=== PATIENT | female | born 1960 | race Caucasian/White ===

== ENCOUNTER → 2023-01-16 11:27 | Outpatient (BNVA) | payer OTHER, SELFPAY | PROVIDERS: PCP Internal Medicine; Visit Provider Physician Assistant Surgical ==

== ENCOUNTER 2023-01-22 08:20 | Outpatient (AMB) | payer OTHER, SELFPAY ==
--- OUTSIDE RECORDS SUMMARY | 2023-01-22 08:22 | XMS_ITS | Continuity of Care Document ---
Author Name Unknown Organization [facility] Address [address] [place] [address]- Care Team Providers Care Fur Plucker Name Role Phone Agnieszka CNC LASER OPERATOR, Marily Meadows Primary Care Physician Encounter [facility] Date(s): 01/29/21 - 02/28/21 [facility] [address], [place] [address] Allergies, Adverse Reactions, Alerts Substance Reaction Severity Status sulfa drugs Nausea Active Caffeine Nervousness Tachycardia Active Sulfite Allergy Nausea Active Immunizations Given and Recorded Vaccine Date Status Refusal Reason SARS-CoV-2 (COVID-19) mRNA BNT-162b2 vac 06/05/20 Recorded SARS-CoV-2 (COVID-19) mRNA BNT-162b2 vac 05/15/20 Recorded zoster vaccine, inactivated 11/20/19 Recorded zoster vaccine, inactivated 05/09/19 Recorded tetanus-diphtheria toxoids (Td) 03/02/18 Recorded tetanus-diphtheria toxoids (Td) 02/09/99 Recorded influenza virus vaccine, inactivated 02/18/17 [facility] influenza virus vaccine, inactivated 02/23/14 Mayo rded influenza virus vaccine, inactivated 02/23/13 [facility] rded influenza virus vaccine, inactivated 02/24/12 [facility] rded influenza virus vaccine, inactivated 01/28/11 [facility] rded influenza virus vaccine, inactivated 03/20/10 [facility] rded influenza virus vaccine, inactivated 03/02/08 [facility] rded influenza virus vaccine, inactivated 03/16/07 [facility] r[facility] tetanus/diphtheria/pertussis, acel(Tdap) 03/02/08 Recorded Medications acetaminophen 325 mg oral tablet 975 mg, By Mouth, Every 6 hours, PRN, # 30 tablet, Refills 0, Tot. Refills 0, Acute 03/01/21 12:48:00 EDT, Pain , Moderate, 02/28/21 12:48:00 EDT, Route to Pharmacy Electronically, [id number], Partial fill upon patient request if the... Start Date: 02/28/21 Stop Date: 03/01/21 Status: Ordered acetaminophen 325 mg oral tablet 650 mg, By Mouth, Every 6 hours, PRN, Refills 0, Maintenance, Pain , Moderate, 06/22/19 12:27:00 EST Start Date: 06/22/19 Status: Ordered Biotin 2 gummies, By Mouth, Daily, 0 Refills, Maintenance, 02/23/21 9:09:00 EDT, Partial fill upon patientrequest if the prescription is for a schedule II opioid drug. Start Date: 02/23/21 Status: Ordered calcium and vitamin D combination 500 mg-200 iu oral tablet 1 tablet, By Mouth, Daily, # 120 tablet, 0 Refills, Maintenance, 02/23/21 9:11:00 EDT, Tablet, Partial fill upon patient request if the prescription is for a schedule II opioid drug. Start Date: 02/23/21 Status: Ordered Claritin 10 mg oral tablet 10 mg, 1, tablet, By Mouth, Daily at bedtime, # 30 tablet, Refills 0, Maintenance, 06/21/19 6:00:00EST Start Date: 06/21/19 Status: Ordered Colace sodium 100 mg oral capsule 100 mg, 1, capsule, By Mouth, 2 times a day, PRN, # 60 capsule, Refills 0, Tot. Refills 0, Maintenance, for constipation, 08/29/20 9:36:00 EDT, Route to Pharmacy Electronically, [id number], Partial fill upon patient request if the pre... Start Date: 08/29/20 Status: Ordered Cranial Prosthesis See Instructions, # 1 each, Maintenance, please supply one cranial prosthesis, 09/12/20 12:05:00 EDT, Compound Start Date: 09/12/20 Status: Ordered Fish Oil oral capsule 1 tab, By Mouth, Daily, 0 Refills, Maintenance, 07/19/20 16:14:00 EST, Partial fill upon patient request if the prescription is for a schedule II opioid drug. Start Date: 07/19/20 Status: Ordered Flonase 50 mcg/inh nasal spray 2 sprays, Nares, Both, Daily in AM, 0 Refills, Maintenance, 07/19/20 16:13:00 EST, [place], Partial fill upon patient request if the prescription is for a schedule II opioid drug. Start Date: 07/19/20 Status: Ordered gabapentin 100 mg oral capsule See Instructions, TAKE 1 CAPSULE BY MOUTH DAILY AT BEDTIME CAN INCREASE TO 2 CAPSULES BY MOUTH DAILY IF TOLERATED, # 60 capsule, Refills 0, Instructions Replace Required Details, Route to Pharmacy Electronically, [facility] #[id number], 164.7, cm... Start Date: 02/05/21 Status: Ordered Glucosamine Chondroitin 1 tab, By Mouth, Daily, 0 Refills, Maintenance, 07/19/20 16:14:00 EST, Partial fill upon patient request if the prescription is for a schedule II opioid drug. Start Date: 07/19/20 Status: Ordered lidocaine-prilocaine 2.5%-2.5% topical cream See Instructions, apply to [facility] 30-60min prior to each chemotherapy session, # 30 Gm, 2 Refills, Maintenance, 09/26/20 8:09:00 EDT, [facility], Partial fill upon patient request if the prescription is for a schedule II opioi... Start Date: 09/26/20 Status: Ordered magnesium glycinate 1 tab, By Mouth, Daily at bedtime, 0 Refills, Maintenance, 02/23/21 9:12:00 EDT, Partial fill upon patient request if the prescription is for a schedule II opioid drug. Start Date: 02/23/21 Status: Ordered MiraLax oral powder for reconstitution = 17 Gm, By Mouth, Daily, dissolve in water before taking, # 527 Gm, 2 Refills, Maintenance, 11/06/20 9:20:00 EDT, REC Powder, [facility], Partial fill upon patient request if the prescription is for a schedule II opioid drug., 17 Gm... Start Date: 11/06/20 Status: Ordered Miscellaneous Rx 0 Refills, Maintenance, womens multivitamin 2 tabs daily, 02/23/21 9:13:00 EDT Start Date: 02/23/21 Status: Ordered Multivitamin Daily, 0 Refills, Maintenance, 07/19/20 16:14:00 EST, Partial fill upon patient request if the prescription is for a schedule II opioid drug. Start Date: 07/19/20 Status: Ordered prochlorperazine 10 mg oral tablet 1 tablet = 10 mg, By Mouth, Every 6 hours, PRN Nausea, # 30 tablet, 2 Refills, Maintenance, 09/26/20 8:09:00 EDT, Tablet, [facility], Partial fill upon patient request if the prescription is for a schedule II opioid drug., 163.9, cm,... Start Date: 09/26/20 Status: Ordered psyllium - oral capsule 1 cap, By Mouth, 2 times a day, 0 Refills, Maintenance, 01/17/21 15:49:00 EDT, Partial fill upon patient request if the prescription is for a schedule II opioid drug. Start Date: 01/17/21 Status: Ordered Senna 8.6 mg oral tablet 8.6 mg, 1, tablet, By Mouth, 2 times a day, PRN, # 100 tablet, Refills 2, Tot. Refills 2, Maintenance, for constipation, 11/27/20 13:41:00 EDT, Route to Pharmacy Electronically, [facility] Tablet, Partial fill upon patient request if... Start Date: 11/27/20 Status: Ordered Vitamin B Complex oral tablet, extended release 1 tab, By Mouth, Daily, 0 Refills, Maintenance, 02/23/21 9:10:00 EDT, Partial fill upon patient request if the prescription is for a schedule II opioid drug. Start Date: 02/23/21 Status: Ordered Vitamin C 500 mg oral tablet 1 tablet = 500 mg, By Mouth, Daily, 0 Refills, Maintenance, 02/23/21 9:13:00 EDT, Partial fill uponpatient request if the prescription is for a schedule II opioid drug. Start Date: 02/23/21 Status: Ordered Vitamin D3 oral tablet 1 tablet = 400 International_Units, By Mouth, Daily, # 30 tablet, 0 Refills, Maintenance, 08/23/20 8:05:00 EDT, Tablet, Partial fill upon patient request if the prescription is for a schedule II opioid drug. 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
--- OUTSIDE RECORDS SUMMARY | 2023-01-22 08:22 | XMS_ITS | Continuity of Care Document ---
Author Name Unknown Organization [facility] Address [address] [place] [address]- Care Team Providers Care Paving Inspector Name Role Phone Marily Aaron NP Primary Care Physician Encounter [facility] Date(s): 04/16/21 - 05/16/21 [facility] [address] [place] [address]- Attending Physician: Admtr, Fran8 Admitting Physician: Admtr, Ar8 Referring Physician: Admtr, Ar8 Allergies, Adverse Reactions, Alerts Substance Reaction Severity Status sulfa drugs Nausea Active Sulfite Allergy Nausea Active Caffeine Nervousness Tachycardia Active Immunizations Given and Recorded Vaccine Date Status Refusal Reason SARS-CoV-2 (COVID-19) mRNA BNT-162b2 vac 03/23/21 Recorded SARS-CoV-2 (COVID-19) mRNA BNT-162b2 vac 06/05/20 Recorded SARS-CoV-2 (COVID-19) mRNA BNT-162b2 vac 05/15/20 Recorded influenza virus vaccine, inactivated 03/08/21 [facility] r[facility] influenza virus vaccine, inactivated 02/21/20 [facility] r[facility] influenza virus vaccine, inactivated 02/18/17 [facility] r[facility] influenza virus vaccine, inactivated 02/23/14 [facility] rded influenza virus vaccine, inactivated 02/23/13 [facility] r[facility] influenza virus vaccine, inactivated 02/24/12 [facility] rded influenza virus vaccine, inactivated 01/28/11 [facility] influenza virus vaccine, inactivated 03/20/10 [facility] rded influenza virus vaccine, inactivated 03/02/08 [facility] rded influenza virus vaccine, inactivated 03/16/07 [facility] zoster vaccine, inactivated 11/20/19 Recorded zoster vaccine, inactivated 05/09/19 Recorded tetanus-diphtheria toxoids (Td) 03/02/18 Recorded tetanus-diphtheria toxoids (Td) 02/09/99 Recorded tetanus/diphtheria/pertussis, acel(Tdap) 03/02/08 Recorded Medications acetaminophen 325 mg oral tablet 650 mg, [...] 08/29/20 9:36:00 EDT, [id number], Partial fill upon patient request if the [...] AM, 0 Refills, Maintenance, 07/19/20 16:13:00 EST, [place], Partial fill upon patient request if the prescription is for a schedule II opioid drug. Start Date: 07/19/20 Status: Ordered Glucosamine Chondroitin 1 tab, By Mouth, Daily, 0 Refills, Maintenance, 07/19/20 16:14:00 EST, Partial fill upon patient request if the prescription is for a schedule II opioid drug. Start Date: 07/19/20 Status: Ordered magnesium glycinate 1 tab, By [...] Refills, Maintenance, 11/06/20 9:20:00 EDT, REC Powder, [facility], Partial fill upon patient request [...] opioid drug. 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
--- OUTSIDE RECORDS SUMMARY | 2023-01-22 08:22 | XMS_ITS | Continuity of Care Document ---
Author Name Unknown Organization [facility] Address [address] [place] [address]- Care Team Providers Care Web Marketing Intern Name Role Phone Mora Zimmer MD Primary Care Physician [place] [facility] [place](s): 04/24/22 - 05/24/22 [facility] [address] [place] [address]- Attending Physician: Admdenys, Cosmo Admitting Physician: Admtr, Cosmo Referring Physician: Admtr, Ar8 Allergies, Adverse Reactions, Alerts Substance Reaction Severity Status sulfa drugs Nausea Active Caffeine Nervousness Tachycardia Active Sulfite Allergy Nausea Active Immunizations Given and Recorded Vaccine Date Status Refusal Reason SARS-CoV-2 mRNA ([id number]) vax 08/20/21 Recorded SARS-CoV-2 (COVID-19) mRNA BNT-162b2 vac 03/23/21 Recorded [...] inactivated 03/16/07 [facility] r[facility] zoster vaccine, inactivated 7/11/20 Recorded zoster vaccine, inactivated 05/09/19 Recorded tetanus-diphtheria toxoids (Td) 03/02/18 Recorded tetanus-diphtheria toxoids (Td) 02/09/99 Recorded tetanus/diphtheria/pertussis, acel(Tdap) 03/02/08 Recorded Medications Biotin 2 gummies, By Mouth, Daily, 0 [...] 06/21/19 6:00:00EST Start Date: 06/21/19 Status: Ordered Fish Oil oral capsule 1 [...] opioid drug. Start Date: 07/19/20 Status: Ordered Vitamin B Complex oral tablet, [...] Date: 08/23/20 Status: Ordered Problem List Condition Confirmation Course Effective Dates Status H ealth Status Informant Anemia Confirmed Active Binge eating disorder, mild, in partial remission Confirmed Active Uterine carcinosarcoma Confirmed Active Constipation Confirmed Active Hemorrhoids Confirmed Active Herpes genitalis in women Confirmed Active HLD (hyperlipidemia) Confirmed Active IBS (irritable bowel syndrome) Confirmed Active Obese class II Confirmed Active OA (osteoarthritis) Confirmed Active Restless legs Confirmed Active 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 Active Social History Social History Type Response Smoking Status Former smoker, quit more than 30 days ago;Never entered on: 10/19/21 Sex Patient Care team information Care Team Personnel Name: Tatiana Leal RN Position: [facility] RN Member Role: Primary Care Nurse Name: Mora Zimmer MD Position: [facility] Primary Care Physician Member Role: PCP Address: Address: [address] [place] [address] [place] [address]- Name: Razia Gibbs RN Position: S RN Member Role: Primary Care Nurse Name: Mauricio Pineda RN Position: S RN Member Role: Primary Care Nurse Care Team Related Persons Name: KAYLA MANJARREZ Name: KAYCE LACEY Address: [address] [address]
--- OUTSIDE RECORDS SUMMARY | 2023-01-22 08:22 | XMS_ITS | Continuity of Care Document ---
Author Name Unknown Organization [facility] Address [address] [place] [address]- Care Team Providers Care Paramedic Instructor Name Role Phone Lenora Courtney Primary Care Physician [place] [facility] [place] - 04/03/[address] [address]- Discharge Disposition: A-D/C Home Attending Physician: Aguilar Short MD Admitting Physician: Aguilar Short MD Referring Physician: Aguilar Short MD Allergies, Adverse Reactions, Alerts Substance Reaction Severity Status sulfa drugs Nausea Active Caffeine Nervousness Tachycardia Active Sulfite Allergy Nausea Active Immunizations Given and Recorded Vaccine Date Status Refusal Reason SARS-CoV-2 mRNA ([id number]) vax 08/20/21 Recorded SARS-CoV-2 (COVID-19) mRNA BNT-162b2 [...] intraepithelial neoplasia (NELSON) grade 1 Confirmed Active Vital Signs Most recent to oldest [Reference Range]: 1 Height 163.5 cm (04/03/22 7:09 AM) Weight 105 kg (04/03/22 7:09 AM) Oxygen Saturation [94-100 %] 99 % (04/03/22 7:05 AM) Pulse Rate [55-90 bpm] 69 bpm (04/03/22 7:05 AM) Blood Pressure [90-138/55-84 mm Hg] 139/ 48mm Hg *H* (04/03/22 7:05 AM) Respiratory Rate [16-30 br/min] 20 br/mi n (04/03/22 7:05 AM) Temperature [96.8-100.4 DegF] 97.2 DegF (04/03/22 7:05 AM) Mode of Delivery (Oxygen) Room air (04/03/22 7:05 AM) Blood pressure sites Arm, right (04/03/22 7:05 AM) Temperature Route Oral (04/03/22 7:05 AM) Dry Weight 105 kg (04/03/22 7:09 AM) Social History Social History Type Response Smoking Status Former smoker, quit more than 30 days ago;Never entered on: 10/19/21 Sex Hospital Progress note * Giselle Pablo RN: SIGN, MODIFY, PERFORM, SIGN, VERIFY Event Display: Progress Note Hospital Authored Date: [id number] Patient: ELIDA PADILLA Age: 61 years Sex: Female : 1960 Associated Diagnoses: None Author: Giselle Pablo RN Findings Narrative/Incidental pt here for port removal, ambulatory, alert and oriented, denied pain at admission time. VSS, Iv placed to Rt hand, labs drawn, sent, IVF as ordered. Call baxter within reach. Pt already out to procedure.. * Giselle Pablo RN: PERFORM Event Display: Progress Note Hospital Authored Date: pt returned from procedure at 0905, awake, alert and oriented, denies pain, VSS. No Meds given for procedure, pt will be d/c home. D/c instructions reviewed, understanding verbalize, Note * Event Display: HV IR Venous Access Device Removal Authored Date: Interventional Radiology Demographics Patient Name ELIDA PADILLA Gender Female [employer] Room Number [id number] Height 64.37 inches Date of 1960 Weight 231.49 pounds Age 61 year(s) BSA 2.09 m2 Accession Number [id number] BMI 39.28 kg/m2 Referring Physician Han Romo Date of Study 04/03/2022 Performing Provider Dao JO Supervising Physician Efe Mosqueda MD Procedure Procedure Type Venous Access Device Removal, Port, Interventional Radiology Indications Additional Indications uterine cancer Procedure Narrative The risks, benefits, and alternatives of the procedure were explained and informed consent was obtained. EMLA cream had been placed over the Port area prior to arrival to IR. The patient was brought to the angiosuite and placed supine on the angiography table. The skin over the Port reservoir was draped and prepped using sterile technique. Pre-procedure time-out was performed and verified appropriate patient identity, site, side, procedure, and availability of necessary materials. Local anesthesia was given subcutaneously with lidocaine 1% over and around the reservoir. The prior incision was opened with a scalpel and blunt dissection was done around the Port until the fibrotic sac around the port could be incised. The single lumen Port was easily removed with its entire catheter by using gentle traction. Upon removal, the catheter was examined and appeared intact and completely removed. The incision was closed with absorbable sutures (separate 2-0 deep vycril and 4-0 monocryl) and the skin was covered with topical adhesive and a sterile occlusive dressing. The patient tolerated the procedure very well without immediate complication. IR Summary Impression Successful removal of right-sided chest venous access Port. Recommendations Follow up with referring team. Clinical History Clinical History 61 year old female presents for port removal following completion of treatment. Procedure Data Procedure Date Date: 04/03/2022tart: 08:01End: 08:58 The procedure was explained in detail to the patient. Risks, complications and alternative treatments were reviewed. Written consent was obtained. Procedure Medications - Lidocaine 1% w/ Sodium Bicarb S.C. 8 ml. - Marcaine w Epinephrine [id number] S.C. 10 ml. Sedation:No intra-service moderate sedation was used for this case. Contrast Material - No Contrast Used0 ml Fluoroscopy Time: PCI: 0:00 minutes. Total: 0:00 minutes. Fluoroscopy Dose: PCI: 0 mGy. Total: 0 mGy. Dose Area Product:PCI: 0 mGy/cm2. Total: 0 mGy/cm2. Dose Area Product:PCI: 0 ??Gy/m2. Total: 0 ??Gy/m2. Hemodynamics Signatures * Event Display: HV IR Venous Access Device Removal Authored Date: * Giselle Pablo RN: PERFORM Event Display: Discharge/Transfer Note Hospital Authored Date: Nursing Discharge Note Entered On: 04/03/2022 9:29 EST Performed On: 04/03/2022 9:29 EST by Giselle Pablo RN Nursing Discharge Note 2 Discharge Time : 04/03/2022 9:29 EST Discharge Level of Care at Discharge : Home/Residential/Foster Care Patient Left Unit Via : Ambulatory Patient Accompanied Off Unit with : Other: self DC Instructions Provided & Signed by Pt : Yes Patient Understands D/C Instructions : Yes Patient Instructions Discharge Signed : Yes Did Pt have Specialty Bed or Wound Vac : No Bystrzynski RN, Giselle - 04/03/2022 9:29 EST Patient Care team information Care Team Personnel Name: Tatiana Leal RN Position: [facility] SN RN Member Role: Primary Care Nurse Name: Razia Gibbs RN Position: S RN Member Role: Primary Care Nurse Name: Lenora Courtney Position: [facility] PCO Associate Professional Member Role: PCP Address: Address: [address] [place] [address] [place] [address]- Name: Mauricio Pineda RN Position: S RN Member Role: Primary Care Nurse Care Team Related Persons Name: KAYLA MANJARREZ Name: KAYCE LACEY Address: [address] [address]
--- OUTSIDE RECORDS SUMMARY | 2023-01-22 08:22 | XMS_ITS | Continuity of Care Document ---
Author Name Unknown Organization [facility] Address [address] [place] [address]- Care Team Providers Care Straightening Press Operator Name Role Phone Mora Zimmer MD Primary Care Physician [place] [facility] [place](s[place] 10/29/22 - 11/27/[address] [address]- Encounter Diagnosis Other abnormalities of gait and mobility(Final) - Discharge Disposition: A-D/C Home Attending Physician: Mora Zimmer MD Admitting Physician: Mora Zimmer MD Referring Physician: Mora Zimmer MD Allergies, Adverse Reactions, Alerts Substance Reaction Severity Status sulfa drugs Nausea Active Caffeine Nervousness Tachycardia Active Sulfite Allergy Nausea Active Immunizations Given and Recorded Vaccine Date Status Refusal Reason SARS-CoV-2 mRNA ([id number]) vax 08/20/21 Recorded SARS-CoV-2 (COVID-19) mRNA BNT-162b2 [...] opioid drug. Start Date: 07/19/20 Status: Ordered Smoothie Readi-Cat 2 oral suspension See Instructions, If scan in the am, drink 1st bottle night before & 2nd bottle 90 min before scan. If scan after 12p, drink 1st bottle by 8a & 2nd bottle 90 min before. If scan after 4p, drink 1st bottle 6hrs before & 90 minutes before scan, # 2 each... Start Date: 11/25/22 Status: Ordered Vitamin B Complex oral tablet, [...] Effective Dates Status H ealth Status Informant Binge eating disorder, mild, in partial remission Confirmed Active Uterine carcinosarcoma Confirmed Active Constipation Confirmed Active Chronic fatigue Confirmed Active S/P knee replacement Confirmed Active Hemorrhoids Confirmed Active Herpes genitalis in women Confirmed Active HLD (hyperlipidemia) Confirmed Active Balance disorder Confirmed Active IBS (irritable bowel syndrome) Confirmed Active Chemotherapy-induced neuropathy Confirmed Active OA (osteoarthritis) Confirmed Active Osteoarthritis of both hands Confirmed Active Restless legs Confirmed Active Venous insufficiency Confirmed Active 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 Active Social History Social History Type Response Smoking Status Former smoker, quit more than 30 days ago;Never entered on: 10/19/21 Sex Patient Care team information Care Team Personnel Name: Tatiana Leal RN Position: [facility] SN RN Member Role: Primary Care Nurse Name: Mora Zimmer MD Position: S Physician - Primary Care Member Role: PCP Address: Address: [address] [place] [address] [place] [address]- Name: Razia Gibbs RN Position: S RN Member Role: Primary Care Nurse Name: Mauricio Pineda RN Position: S RN Member Role: Primary Care Nurse Care Team Related Persons Name: KAYLA MANJARREZ Name: KAYCE LACEY Address: [address] [address]
--- OUTSIDE RECORDS SUMMARY | 2023-01-22 08:22 | XMS_ITS | Continuity of Care Document ---
Author Name Unknown Organization [facility] BUSINESS RISK CONSULTANT Oncolog y Address [address] [place] [address]- Care Team Providers Care Materials Buyer Name Role Phone Marily Aaron NP Primary Care Physician [place] [facility] [place] 02[place]10/21 [facility] RISK CONSULTANT Oncology [address] [place] [address]- Allergies, Adverse Reactions, Alerts Substance Reaction Severity [...] 650 mg, By Mouth, Every 6 hours, Refills 0, Maintenance, 06/22/19 12:27:00 EST Start Date: 06/22/19 Status: Ordered Advil By Mouth, Every 6 hours, Refills 0, Maintenance, 07/19/20 16:13:00 EST, Partial fill upon patient request if the prescription is for a schedule II opioid drug. Start Date: 07/19/20 Status: Ordered Claritin 10 mg oral tablet [...] 08/29/20 9:36:00 EDT, Route to Pharmacy Electronically, [facility] #[id number], Partial fill upon patient request if the pre... Start Date: 08/29/20 Status: Ordered Cranial Prosthesis See Instructions, # 1 each, Maintenance, please supply one cranial prosthesis, 09/12/20 12:05:00 EDT, Compound Start Date: 09/12/20 Status: Ordered Cyanocobalamin 0 Refills, Maintenance, 09/22/20 10:36:00 EDT, Partial fill upon patient request if the prescription is for a schedule II opioid drug. Start Date: 09/22/20 Status: Ordered Fish Oil oral capsule 0 Refills, Maintenance, 07/19/20 16:14:00 EST, Partial fill upon patient request if the prescription is for a schedule II opioid drug. Start Date: 07/19/20 Status: Ordered Flonase 50 mcg/inh nasal spray 2 sprays, Nares, Both, Daily in AM, 0 Refills, Maintenance, 07/19/20 16:13:00 EST, [place], Partial fill upon patient request if the prescription is for a schedule II opioid drug. Start Date: 07/19/20 Status: Ordered gabapentin 100 mg oral capsule See Instructions, TAKE 1 CAPSULE BY MOUTH DAILY AT BEDTIME CAN INCREASE TO 2 CAPSULES BY MOUTH DAILY IF TOLERATED, # 60 capsule, Refills 0, Instructions Replace Required Details, Route to Pharmacy Electronically, [facility] #[id number], 164.7, cm... Start Date: 02/05/21 Status: Ordered Glucosamine Chondroitin By Mouth, Daily, 0 Refills, Maintenance, 07/19/20 16:14:00 EST, Partial fill upon patient request if the prescription is for a schedule II opioid drug. Start Date: 07/19/20 Status: Ordered ibuprofen 600 mg oral tablet 600 mg, 1, tablet, By Mouth, Every 6 hours, PRN, # 40 tablet, Refills 0, Tot. Refills 0, Maintenance, for pain, 08/29/20 9:35:00 EDT, Route to Pharmacy Electronically, [facility] #[id number], Partial fill upon patient request if the prescription... Start Date: 08/29/20 Status: Ordered lidocaine-prilocaine 2.5%-2.5% topical cream See Instructions, apply to [facility] site 30-60min prior to each chemotherapy session, # 30 Gm, 2 Refills, Maintenance, 09/26/20 8:09:00 EDT, [facility], Partial fill upon patient request if the prescription is for a schedule II opioi... Start Date: 09/26/20 Status: Ordered Miracle Mouth wash: Mix Benadryl elixir 4oz, Nystatin susp 4oz, Lidocaine viscous 2% 100ml, Maalox Miracle Mouth wash: Mix Benadryl elixir 4oz, Nystatin susp 4oz, Lidocaine viscous 2% 100ml, Maalox 8oz, See Instructions, # 1 each, Refills 0, Tot. Refills 0, Maintenance, 1-2tsp every 2-4 hrs as needed for pain. Swish and swallow. Shake well before u... Start Date: 12/11/20 Status: Ordered MiraLax oral powder for reconstitution = 17 Gm, By Mouth, Daily, dissolve in water before taking, # 527 Gm, 2 Refills, Maintenance, 11/06/20 9:20:00 EDT, REC Powder, [facility], Partial fill upon patient request if the prescription is for a schedule II opioid drug., 17 Gm... Start Date: 11/06/20 Status: Ordered Multivitamin Daily, 0 Refills, Maintenance, 07/19/20 16:14:00 EST, Partial fill upon patient request if the prescription is for a schedule II opioid drug. Start Date: 07/19/20 Status: Ordered oxyCODONE 5 mg oral tablet 5 mg, 1, tablet, By Mouth, Every 6 hours, PRN, # 18 tablet, Refills 0, Tot. Refills 0, Maintenance,for pain, 08/29/20 9:36:00 EDT, [id number], Partial fill upon patient request if the prescription is... Start Date: 08/29/20 Status: Ordered prochlorperazine 10 mg oral tablet 1 tablet = 10 mg, By Mouth, Every 6 hours, PRN Nausea, # 30 tablet, 2 Refills, Maintenance, 09/26/20 8:09:00 EDT, Tablet, [facility], Partial fill upon patient request if the prescription is for a schedule II opioid drug., 163.9, cm,... Start Date: 09/26/20 Status: Ordered psyllium - oral capsule 0 Refills, Maintenance, 01/17/21 15:49:00 EDT, Partial fill upon patient request if the prescription is for a schedule II opioid drug. Start Date: 01/17/21 Status: Ordered Senna 8.6 mg oral tablet 8.6 mg, 1, tablet, By Mouth, 2 times a day, PRN, # 100 tablet, Refills 2, Tot. Refills 2, Maintenance, for constipation, 11/27/20 13:41:00 EDT, Route to Pharmacy Electronically, [facility], Partial fill upon patient request if... Start Date: 11/27/20 Status: Ordered Smoothie Readi-Cat 2 oral suspension See Instructions, If scan is in the morning, drink 1st bottle before bedtime the night before &2nd bottle 90 min before.if scan is after 12p, drink 1st bottle before 8a in the morning & 2nd bottle 90 min before.if scan after 4p,drink 1st bottle 6hrs... Start Date: 02/08/21 Status: Ordered Vitamin D3 oral tablet 1 [...]
--- OUTSIDE RECORDS SUMMARY | 2023-01-22 08:22 | XMS_ITS | Continuity of Care Document ---
Author Name Unknown Organization [facility] Address [address] [place] [address]- Care Team Providers Care Nurse Prn Name Role Phone Levon VIDAL, Latrice Paige Primary Care Physician [place] [facility] [place] 10/06/19 - 11/05/[address] [address]- [facility] Attending Physician: Cosmo Johnson Admitting Physician: Cosmo Johnson Referring Physician: AdmtrCosmo Allergies, Adverse Reactions, Alerts Substance Reaction Severity Status sulfa drugs Active Caffeine Active Sulfite Allergy Active Medications acetaminophen 325 mg oral tablet 650 mg, By Mouth, Every 6 hours, Refills 0, Maintenance, 06/22/19 12:27:00 EST Start Date: 06/22/19 Status: Ordered aspirin 162.5 mg oral capsule, extended release = 325 mg, By Mouth, 2 times a day, 0 Refills, Maintenance, 09/03/19 7:19:00 EDT, ER Capsule Start Date: 09/03/19 Status: Ordered celecoxib 200 mg oral capsule 1 capsule = 200 mg, By Mouth, Daily, 0 Refills, Maintenance, 09/03/19 7:20:00 EDT, Capsule Start Date: 09/03/19 Status: Ordered Claritin 10 mg oral tablet 10 mg, 1, tablet, By Mouth, Daily, # 30 tablet, Refills 0, Maintenance, 06/21/19 6:00:00 EST Start Date: 06/21/19 Status: Ordered Colace Capsule 100 mg, 1, capsule, By Mouth, 2 times a day, Refills 0, Maintenance, 09/03/19 7:20:00 EDT Start Date: 09/03/19 Status: Ordered Maalox Plus Liquid 30 mL, By Mouth, Every 4 hours, PRN Other, Heartburn, 0 Refills, Maintenance, 09/03/19 7:19:00 EDT,Suspension Start Date: 09/03/19 Status: Ordered Milk of Magnesia Liquid 30 mL, By Mouth, Daily, PRN Constipation, 0 Refills, Maintenance, 09/03/19 7:20:00 EDT, Suspension Start Date: 09/03/19 Status: Ordered MiraLax Powder 1 pack/packet = 17 Gm, By Mouth, Daily, 0 Refills, Maintenance, 09/03/19 7:20:00 EDT, Powder Start Date: 09/03/19 Status: Ordered pantoprazole 40 mg oral delayed release tablet = 40 mg, By Mouth, Daily in AM, 0 Refills, Maintenance, 09/03/19 7:20:00 EDT, EC Tablet Start Date: 09/03/19 Status: Ordered senna 187 mg oral tablet 1 tablet = 8.6 mg, By Mouth, Daily at bedtime, 0 Refills, Maintenance, 09/03/19 7:20:00 EDT, Tablet Start Date: 09/03/19 Status: Ordered Soma 350 mg oral tablet 350 mg, 1, tablet, By Mouth, 3 times a day, PRN, Refills 0, Maintenance, Spasm, 09/03/19 7:20:00 EDT Start Date: 09/03/19 Status: Ordered
--- OUTSIDE RECORDS SUMMARY | 2023-01-22 08:22 | XMS_ITS | Continuity of Care Document ---
Author Name Unknown Organization [facility] BLUING OVEN TENDER Oncolog y Address [address] [place] [address]- Care Team Providers Care Bindery Machine Setter Name Role Phone Agnieszka LAW ENFORCEMENT DIRECTOR, Marily Meadows Primary Care Physician Encounter [facility] Date(s): 07/04/21 - 08/03/21 [facility] OV[facility] TEND[facility] Oncology [address] [place] [address]- Allergies, Adverse Reactions, Alerts Substance Reaction Severity [...] 08/29/20 9:36:00 EDT, Route to Pharmacy Electronically, [facility] #[id number], Partial fill upon patient request if the [...] AM, 0 Refills, Maintenance, 07/19/20 16:13:00 EST, [place], Partial fill upon patient request if the [...] Refills, Maintenance, 11/06/20 9:20:00 EDT, REC Powder, [facility], Partial fill upon patient request [...] 11/27/20 13:41:00 EDT, Route to Pharmacy Electronically, [facility] Tablet, Partial fill upon patient [...] Hemorrhoids(Confirmed) Active Herpes genitalis in women(Confirmed) Active History of uterine cancer(Confirmed) Active HLD (hyperlipidemia)(Confirmed) Active IBS (irritable bowel syndrome)(Confirmed) Active Obese class II(Confirmed) Active OA (osteoarthritis)(Confirmed) Active Restless legs(Confirmed) Active 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
--- OUTSIDE RECORDS SUMMARY | 2023-01-22 08:22 | XMS_ITS | Continuity of Care Document ---
Author Name Unknown Organization [facility] METEOROLOGICAL OBSERVER Oncolog y Address [address] [place] [address]- Care Team Providers Care General Practitioner Name Role Phone Marily Aaron NP Primary Care Physician [place] [facility] [place] 01/02[place]21 - 02/01/21 [facility] METEOROLOGICAL OBSERVER Oncology [address] [place] [address]- Allergies, Adverse Reactions, Alerts Substance Reaction Severity [...] 08/29/20 9:36:00 EDT, Route to Pharmacy Electronically, [facility] #[id number], Partial fill upon patient request if the [...] AM, 0 Refills, Maintenance, 07/19/20 16:13:00 EST, [place], Partial fill upon patient request if the prescription is for a schedule II opioid drug. Start Date: 07/19/20 Status: Ordered gabapentin 100 mg oral capsule See Instructions, start with 1 capsule daily at bedtime, can increase to 2 capsules if tolerated, #60 capsule, Refills 0, Tot. Refills 0, Maintenance, 01/11/21 16:10:00 EDT, Instructions Replace Required Details, [facility] to [facility] Electron[facility], [facility] Start Date: 01/11/21 Status: Ordered Glucosamine Chondroitin By Mouth, Daily, [...] 08/29/20 9:35:00 EDT, Route to Pharmacy Electronically, [facility] #[id number], Partial fill upon patient request if the prescription... Start Date: 08/29/20 Status: Ordered lidocaine-prilocaine 2.5%-2.5% topical cream See Instructions, apply to [facility] 30-60min prior to each chemotherapy session, # 30 Gm, 2 Refills, Maintenance, 09/26/20 8:09:00 EDT, [facility], Partial fill upon patient request [...] Refills, Maintenance, 11/06/20 9:20:00 EDT, REC Powder, [facility], Partial fill upon patient request [...] 08/29/20 9:36:00 EDT, Route to Pharmacy Electronically, [facility] #[id number], Partial fill upon patient request if the prescription is... Start Date: 08/29/20 Status: Ordered prochlorperazine 10 mg oral tablet 1 tablet = 10 mg, By Mouth, Every 6 hours, PRN Nausea, # 30 tablet, 2 Refills, Maintenance, 09/26/20 8:09:00 EDT, Tablet, [facility], Partial fill upon patient request [...] 11/27/20 13:41:00 EDT, Route to Pharmacy Electronically, [facility] Tablet, Partial fill upon patient [...] after 4p,drink 1st bottle 6hrs... Start Date: 01/23/21 Status: Ordered Vitamin D3 oral tablet 1 [...]
--- OUTSIDE RECORDS SUMMARY | 2023-01-22 08:22 | XMS_ITS | Continuity of Care Document ---
Author Name Unknown Organization [facility] COMMERCIAL DEVELOPMENT MANAGER Oncolog y Address [address] [place] [address]- Care Team Providers Care Hims Clerk Name Role Phone Agnieszka RÍOS, Marily Meadows Primary Care Physician [place] [facility] [place] 02/20/21 - 04/12/21 [facility] COMMERCIAL DEVELOPMENT MANAGER Oncology [address] [place] [address]- Attending Physician: Aguilar Short MD Admitting Physician: Aguilar Short MD Referring Physician: Marily Aaron NP Allergies, Adverse Reactions, Alerts Substance Reaction Severity [...] 08/29/20 9:36:00 EDT, Route to Pharmacy Electronically, [facility] #[id number], Partial fill upon patient request if the [...] AM, 0 Refills, Maintenance, 07/19/20 16:13:00 EST, [place], Partial fill upon patient request if the [...] Refills, Maintenance, 11/06/20 9:20:00 EDT, REC Powder, [facility], Partial fill upon patient [...] 11/27/20 13:41:00 EDT, Route to Pharmacy Electronically, [facility] Tablet, Partial fill upon patient [...]
--- OUTSIDE RECORDS SUMMARY | 2023-01-22 08:23 | XMS_ITS | Continuity of Care Document ---
Author Name Unknown Organization [facility] Address [address] [place] [address]- Care Team Providers Care Tractor Operator Helper Name Role Phone Marily Aaron NP Primary Care Physician Encounter [facility] Date(s): 04/09/21 - 05/09/[address] [address]- Attending Physician: Admtr, Ar8 Admitting Physician: Admtr, Ar8 Referring Physician: Admtr, [...] 08/29/20 9:36:00 EDT, [id number], Partial fill upon patient request if the [...] AM, 0 Refills, Maintenance, 07/19/20 16:13:00 EST, [place], Partial fill upon patient request if [...] Refills, Maintenance, 11/06/20 9:20:00 EDT, REC Powder, [facility], Partial fill upon patient [...] 11/27/20 13:41:00 EDT, Route to Pharmacy Electronically, [facility] Tablet, Partial fill upon [...]
--- OUTSIDE RECORDS SUMMARY | 2023-01-22 08:23 | XMS_ITS | Continuity of Care Document ---
Author Name Unknown Organization [facility] FOOD CRITIC Oncolog y Address [address] [place] [address]- Care Team Providers Care Pharmacist Critical Care Name Role Phone Lenora Courtney Primary Care Physician [place] [facility] [place]s): 03/14/22 - 04/13/22 [facility] FOOD CRITIC Oncology [address] [place] [address]- Allergies, Adverse Reactions, Alerts Substance Reaction Severity Status sulfa drugs Nausea Active Caffeine Nervousness Tachycardia Active Sulfite Allergy Nausea Active Immunizations Given and Recorded Vaccine Date Status Refusal Reason SARS-CoV-2 mRNA ([id number]) vax 08/20/21 Recorded SARS-CoV-2 (COVID-19) mRNA BNT-162b2 [...] Team Personnel Name: Tatiana Leal RN Position: [facility] SN RN Member Role: Primary Care Nurse Name: Razia Gibbs RN Position: [facility] RN Member Role: Primary Care Nurse Name: Lenora Courtney Position: [facility] PCO Associate Professional Member Role: PCP Address: Address: [address] [place] [address] [place] [address]- Name: Mauricio Pineda RN Position: [facility] RN Member Role: Primary Care Nurse Care Team Related Persons Name: KAYLA MANJARREZ Name: KAYCE LACEY Address: [address] [address]
--- OUTSIDE RECORDS SUMMARY | 2023-01-22 08:23 | XMS_ITS | Continuity of Care Document ---
Author Name Unknown Organization [facility] Address [address] [place] [address]- Care Team Providers Care Machine Repair Person Name Role Phone Marily Aaron NP Primary Care Physician [place] [facility] [place] 02[place]10[place]21 [facility] [address] [place] [address]- Allergies, Adverse Reactions, Alerts Substance Reaction Severity [...] 08/29/20 9:36:00 EDT, Route to Pharmacy Electronically, [facility] #[id number], Partial fill upon patient request if the [...] AM, 0 Refills, Maintenance, 07/19/20 16:13:00 EST, [place], Partial fill upon patient request if the prescription is for a schedule II opioid drug. Start Date: 07/19/20 Status: Ordered gabapentin 100 mg oral capsule See Instructions, TAKE 1 CAPSULE BY MOUTH DAILY AT BEDTIME CAN INCREASE TO 2 CAPSULES BY MOUTH DAILY IF TOLERATED, # 60 capsule, Refills 0, Instructions Replace Required Details, Route to Pharmacy Electronically, [facility] #[id number], 164.7, cm... Start Date: 02/05/21 Status: Ordered [...] 08/29/20 9:35:00 EDT, Route to Pharmacy Electronically, [facility] #[id number], Partial fill upon patient request if the prescription... Start Date: 08/29/20 Status: Ordered lidocaine-prilocaine 2.5%-2.5% topical cream See Instructions, apply to [facility] site 30-60min prior to each chemotherapy session, # 30 Gm, 2 Refills, Maintenance, 09/26/20 8:09:00 EDT, [facility], Partial fill upon patient request [...] Refills, Maintenance, 11/06/20 9:20:00 EDT, REC Powder, [facility], Partial fill upon patient request [...] 08/29/20 9:36:00 EDT, [id number], Partial fill upon patient request if the prescription is... Start Date: 08/29/20 Status: Ordered prochlorperazine 10 mg oral tablet 1 tablet = 10 mg, By Mouth, Every 6 hours, PRN Nausea, # 30 tablet, 2 Refills, Maintenance, 09/26/20 8:09:00 EDT, Tablet, [facility], Partial fill upon patient request [...] 11/27/20 13:41:00 EDT, Route to Pharmacy Electronically, [facility] Tablet, Partial fill upon patient [...]
--- OUTSIDE RECORDS SUMMARY | 2023-01-22 08:23 | XMS_ITS | Continuity of Care Document ---
Author Name Unknown Organization [facility] NEUROPATHOLOGIST Oncolog y Address [address] [place] [address]- Care Team Providers Care Blood Bank Credit Clerk Name Role Phone Darion Bazan MD Primary Care Physician [place] [facility] [place] 01/11/21 [facility] NEUROPATHOLOGIST Oncology [address] [place] [address]- Allergies, Adverse Reactions, Alerts Substance Reaction Severity Status sulfa drugs Nausea Active Caffeine Nervousness Tachycardia Active Sulfite Allergy Nausea Active Immunizations Given and Recorded Vaccine Date Status Refusal Reason SARS-CoV-2 (COVID-19) mRNA BNT-162b2 vac 06/05/20 Recorded SARS-CoV-2 (COVID-19) mRNA BNT-162b2 vac 05/15/20 Recorded Medications acetaminophen 325 mg oral tablet [...] 2 times a day, PRN, # 100 capsule, Refills 2, Tot. Refills 2, Maintenance, for constipation, 11/27/20 13:40:00 EDT, Route to Pharmacy Electronically, [facility], Partial fill upon patient request if the p... Start Date: 11/27/20 Status: Ordered Colace sodium 100 mg oral capsule 100 mg, 1, capsule, By Mouth, 2 times a day, PRN, # 60 capsule, Refills 0, Tot. Refills 0, Maintenance, for constipation, 08/29/20 9:36:00 EDT, Route to Pharmacy Electronically, [facility] #[id number], Partial fill upon patient request if the [...] AM, 0 Refills, Maintenance, 07/19/20 16:13:00 EST, [place], Partial fill upon patient request if the [...] Electronically, [facility] Start Date: 01/11/21 Status: Ordered gabapentin 300 mg oral capsule 300 mg, 1, capsule, By Mouth, Daily at bedtime, # 30 capsule, Refills 2, Tot. Refills 2, Maintenance, 10/12/20 9:56:00 EDT, Route to Pharmacy Electronically, [facility], Partial fillupon patient request if the prescription is for a s... Start Date: 10/12/20 Status: Ordered Glucosamine Chondroitin By Mouth, Daily, [...] 08/29/20 9:35:00 EDT, Route to Pharmacy Electronically, [facility] #[id number], Partial fill upon patient request if the prescription... Start Date: 08/29/20 Status: Ordered lidocaine-prilocaine 2.5%-2.5% topical cream See Instructions, apply to [facility] site 30-60min prior to each chemotherapy session, # 30 Gm, 2 Refills, Maintenance, 09/26/20 8:09:00 EDT, [facility], Partial fill upon patient request [...] Refills, Maintenance, 11/06/20 9:20:00 EDT, REC Powder, [facility], Partial fill upon patient request [...] 08/29/20 9:36:00 EDT, Route to [facility]ically[id number], Partial fill upon patient request if the prescription is... Start Date: 08/29/20 Status: Ordered prochlorperazine 10 mg oral tablet 1 tablet = 10 mg, By Mouth, Every 6 hours, PRN Nausea, # 30 tablet, 2 Refills, Maintenance, 09/26/20 8:09:00 EDT, Tablet, [facility], Partial fill upon patient request if the prescription is for a schedule II opioid drug., 163.9, cm,... Start Date: 09/26/20 Status: Ordered Senna 8.6 mg oral tablet 8.6 mg, 1, tablet, By Mouth, 2 times a day, PRN, # 100 tablet, Refills 2, Tot. Refills 2, Maintenance, for constipation, 11/27/20 13:41:00 EDT, Route to Pharmacy Electronically, [facility] Tablet, Partial fill upon patient request if... Start Date: 11/27/20 Status: Ordered Tylenol 325 mg oral capsule 2 capsule = 650 mg, By Mouth, Every 4 hours, PRN as needed for pain, # 90 capsule, 1 Refills, Maintenance, 08/29/20 9:36:00 EDT, Capsule, [id number], Partial fill upon patient request if the prescription is for a schedule II opioid dr... Start Date: 08/29/20 Status: Ordered Vitamin D3 oral tablet 1 [...]
--- OUTSIDE RECORDS SUMMARY | 2023-01-22 08:23 | XMS_ITS | Continuity of Care Document ---
Author Name Unknown Organization [facility] Address [address] [facility] [place] [address]- Care Team Providers Care Signs And Displays Sales Representative Name Role Phone Agnieszka RÍOS, Marily Meadows Primary Care Physician Encounter 06/20/21 - 06/27/21 [facility] [address], [facility] [address] [place] [address]- Attending Physician: Marily Aaron NP Admitting Physician: Marily Aaron NP Referring Physician: Marily Aaron NP Allergies, Adverse [...] 08/29/20 9:36:00 EDT, Route to Pharmacy Electronically, [facility] #[id number], Partial fill upon patient request if the [...] AM, 0 Refills, Maintenance, 07/19/20 16:13:00 EST, [place], Partial fill upon patient request if the [...] Refills, Maintenance, 11/06/20 9:20:00 EDT, REC Powder, [facility], Partial fill upon patient [...] 11/27/20 13:41:00 EDT, Route to Pharmacy Electronically, [facility] Tablet, Partial fill upon [...]
--- OUTSIDE RECORDS SUMMARY | 2023-01-22 08:23 | XMS_ITS | Continuity of Care Document ---
Author Name Unknown Organization [facility] CRM MANAGER Oncolog y Address [address] [place] [phone]- Care Team Providers Care Word Processing Machine Operator Name Role Phone Darion Bazan MD Primary Care Physician En[place] [facility] [place](s): 08/11/20 - 09/10/20 [facility] CRM MANAGER Oncology [address] [place] [phone]- Allergies, Adverse Reactions, Alerts Substance Reaction Severity [...] opioid drug. Start Date: 07/19/20 Status: Ordered Aleve = 220 mg, By Mouth, Every 12 hours, 0 Refills, Maintenance, 07/19/20 16:13:00 EST, Partial fill upon [...] 08/29/20 9:36:00 EDT, Route to Pharmacy Electronically, [facility][id number], Partial fill upon patient request if the pre... Start Date: 08/29/20 Status: Ordered Fish Oil oral capsule 0 Refills, Maintenance, 07/19/20 16:14:00 EST, Partial fill upon patient request if the prescription is for a schedule II opioid drug. Start Date: 07/19/20 Status: Ordered Flonase 50 mcg/inh nasal spray 2 sprays, Nares, Both, Daily in AM, 0 Refills, Maintenance, 07/19/20 16:13:00 EST, [place], Partial fill upon patient request if the prescription is for a schedule II opioid drug. Start Date: 07/19/20 Status: Ordered Glucosamine Chondroitin By Mouth, Daily, [...] 08/29/20 9:35:00 EDT, Route to Pharmacy Electronically, [facility] #[id number], Partial fill upon patient request if the prescription... Start Date: 08/29/20 Status: Ordered MiraLax oral powder for reconstitution = 17 Gm, By Mouth, Daily, dissolve in water before taking, # 255 Gm, 0 Refills, Maintenance, 08/29/20 9:37:00 EDT, REC Powder, [facility] #[id number], Partial fill upon patient request if the prescription is for a schedule II opioid drug., 17 Gm... Start Date: 08/29/20 Status: Ordered Multivitamin Daily, 0 Refills, Maintenance, 07/19/20 16:14:00 EST, Partial fill upon patient request if the prescription is for a schedule II opioid drug. Start Date: 07/19/20 Status: Ordered oxyCODONE 5 mg oral tablet 5 mg, 1, tablet, By Mouth, Every 6 hours, PRN, # 18 tablet, Refills 0, Tot. Refills 0, Maintenance,for pain, 08/29/20 9:36:00 EDT, Route to Pharmacy Electronically, [facility] #[id number], Partial fill upon patient request if the prescription is... Start Date: 08/29/20 Status: Ordered Senna 8.6 mg oral tablet 8.6 mg, 1, tablet, By Mouth, 2 times a day, PRN, # 20 tablet, Refills 0, Tot. Refills 0, Maintenance, for constipation, 08/29/20 9:36:00 EDT, Route to Pharmacy Electronically, [facility] #[id number] Tablet, Partial fill upon patient request if th... Start Date: 08/29/20 Status: Ordered simethicone 80 mg oral tablet, chewable 80 mg, 1, tablet, Chew, 4 times a day, # 48 tablet, Refills 0, Tot. Refills 0, Maintenance, 08/29/20 9:36:00 EDT, Route to Pharmacy Electronically, [facility] #[id number], Partial fill upon patient request if the prescription is for a schedule II... Start Date: 08/29/20 Status: Ordered Tylenol 325 mg oral capsule 2 capsule = 650 mg, By Mouth, Every 4 hours, PRN as needed for pain, # 90 capsule, 1 Refills, Maintenance, 08/29/20 9:36:00 EDT, Capsule, [facility] #[id number], Partial fill upon patient request if the [...] Effective Dates Status Health Status Inform ant Anemia(Confirmed) Active Binge eating disorder, mild, in partial remission(Confirmed) Active Hemorrhoids(Confirmed) Active HLD (hyperlipidemia)(Confirmed) Active IBS (irritable bowel syndrome)(Confirmed) Active OA (osteoarthritis)(Confirmed) Active Social History Social History Type Response Smoking Status Former smoker, quit more than 30 days ago entered on: 08/16/20 Sex
--- OUTSIDE RECORDS SUMMARY | 2023-01-22 08:23 | XMS_ITS | Continuity of Care Document ---
Author Name Unknown Organization [facility] RUBBER GOODS ASSEMBLER Oncolog y Address [address] [place] [address]- Care Team Providers Care Telesales Advisor Name Role Phone Hortensia VIDAL, Darion Primary Care Physician Encounter [facility] [place] Date(s): 09/08/20 - 10/08/20 [facility] RUBBER GOODS ASSEMBLER Oncology [address] [place], [place] [address] Allergies, Adverse Reactions, Alerts Substance Reaction Severity [...] 08/29/20 9:36:00 EDT, Route to Pharmacy Electronically, [facility] #[id number], Partial fill upon patient request if the [...] AM, 0 Refills, Maintenance, 07/19/20 16:13:00 EST, [place], Partial fill upon patient request if the [...] 08/29/20 9:35:00 EDT, Route to Pharmacy Electronically, [facility] #[id number], Partial fill upon patient request if the prescription... Start Date: 08/29/20 Status: Ordered lidocaine-prilocaine 2.5%-2.5% topical cream See Instructions, apply to [facility] site 30-60min prior to each chemotherapy session, # 30 Gm, 2 Refills, Maintenance, 09/26/20 8:09:00 EDT, [facility], Partial fill upon patient request if the prescription is for a schedule II opioi... Start Date: 09/26/20 Status: Ordered Multivitamin Daily, 0 Refills, Maintenance, 07/19/20 16:14:00 EST, Partial fill upon patient request if the prescription is for a schedule II opioid drug. Start Date: 07/19/20 Status: Ordered oxyCODONE 5 mg oral tablet 5 mg, 1, tablet, By Mouth, Every 6 hours, PRN, # 18 tablet, Refills 0, Tot. Refills 0, Maintenance,for pain, 08/29/20 9:36:00 EDT, Route to Pharmacy Electronically, [facility] #[id number], Partial fill upon patient request if the prescription is... Start Date: 08/29/20 Status: Ordered prochlorperazine 10 mg oral tablet 1 tablet = 10 mg, By Mouth, Every 6 hours, PRN Nausea, # 30 tablet, 2 Refills, Maintenance, 09/26/20 8:09:00 EDT, Tablet, [facility], Partial fill upon patient request if the prescription is for a schedule II opioid drug., 163.9, cm,... Start Date: 09/26/20 Status: Ordered Senna 8.6 mg oral tablet 8.6 mg, 1, tablet, By Mouth, 2 times a day, PRN, # 100 tablet, Refills 2, Tot. Refills 2, Maintenance, for constipation, 09/26/20 8:08:00 EDT, Route to Pharmacy Electronically, [facility] Tablet, Partial fill upon patient request if t... Start Date: 09/26/20 Status: Ordered Tylenol 325 mg oral capsule 2 capsule = 650 mg, By Mouth, Every 4 hours, PRN as needed for pain, # 90 capsule, 1 Refills, Maintenance, 08/29/20 9:36:00 EDT, Capsule, [facility] #[id number], Partial fill upon patient request if the [...]
--- OUTSIDE RECORDS SUMMARY | 2023-01-22 08:23 | XMS_ITS | Continuity of Care Document ---
Author Name Unknown Organization [facility] RADIATION CONTROL SPECIALIST Oncolog y Address [address] [place] [address]- Care Team Providers Care Fast Food Worker Name Role Phone Hortensia VIDAL, Darion Primary Care Physician En[place] [facility] [place](s): 09/04/20 - 10/04/20 [facility] RADIATION CONTROL SPECIALIST Oncology [address] [place] [address]- Allergies, Adverse Reactions, Alerts Substance Reaction Severity [...] 08/29/20 9:36:00 EDT, Route to Pharmacy Electronically, [facility] #[id number], Partial fill upon patient request if the [...] AM, 0 Refills, Maintenance, 07/19/20 16:13:00 EST, [place], Partial fill upon patient request if the [...] 08/29/20 9:35:00 EDT, Route to Pharmacy Electronically, [facility] #[id number], Partial fill upon patient request if the prescription... Start Date: 08/29/20 Status: Ordered lidocaine-prilocaine 2.5%-2.5% topical cream See Instructions, apply to [facility] site 30-60min prior to each chemotherapy session, # 30 Gm, 2 Refills, Maintenance, 09/26/20 8:09:00 EDT, [facility], Partial fill upon patient [...] 08/29/20 9:36:00 EDT, Route to Pharmacy Electronically, [facility] #[id number], Partial fill upon patient request if the prescription is... Start Date: 08/29/20 Status: Ordered prochlorperazine 10 mg oral tablet 1 tablet = 10 mg, By Mouth, Every 6 hours, PRN Nausea, # 30 tablet, 2 Refills, Maintenance, 09/26/20 8:09:00 EDT, Tablet, [facility], Partial fill upon patient request if the prescription is for a schedule II opioid drug., 163.9, cm,... Start Date: 09/26/20 Status: Ordered Senna 8.6 mg oral tablet 8.6 mg, 1, tablet, By Mouth, 2 times a day, PRN, # 100 tablet, Refills 2, Tot. Refills 2, Maintenance, for constipation, 09/26/20 8:08:00 EDT, Route to Pharmacy Electronically, [facility] Tablet, Partial fill upon patient request if t... Start Date: 09/26/20 Status: Ordered Tylenol 325 mg oral capsule 2 capsule = 650 mg, By Mouth, Every 4 hours, PRN as needed for pain, # 90 capsule, 1 Refills, Maintenance, 08/29/20 9:36:00 EDT, Capsule, [facility] #[id number], Partial fill upon patient request if the [...]
--- OUTSIDE RECORDS SUMMARY | 2023-01-22 08:23 | XMS_ITS | Continuity of Care Document ---
Author Name Unknown Organization [facility] SCIENTIFIC AIDE Oncolog y Address [address] [place] [address]- Care Team Providers Care Belt Buckle Maker Name Role Phone Agnieszka RÍOS, Marily Meadows Primary Care Physician [place] [facility] [place]): 03/02/21 - 04/01/21 [facility] SCIENTIFIC AIDE Oncology [address] [place] [address]- Allergies, Adverse Reactions, Alerts Substance Reaction Severity [...] 08/29/20 9:36:00 EDT, Route to Pharmacy Electronically, [facility] #[id number], Partial fill upon patient request if the [...] AM, 0 Refills, Maintenance, 07/19/20 16:13:00 EST, [place], Partial fill upon patient request if the [...] Refills, Maintenance, 11/06/20 9:20:00 EDT, REC Powder, [facility], Partial fill upon patient [...] 11/27/20 13:41:00 EDT, Route to Pharmacy Electronically, [facility] Tablet, Partial fill upon [...]
--- OUTSIDE RECORDS SUMMARY | 2023-01-22 08:23 | XMS_ITS | Continuity of Care Document ---
Author Name Unknown Organization [facility] PRESSROOM WORKER Oncolog y Address [address] [place] [address]- Care Team Providers Care Firefighter Name Role Phone Marily Aaron NP Primary Care Physician [place] [facility] [place] 08/30[place]21 - 09/29/21 [facility] PRESSROOM WORKER Oncology [address] [place] [address]- Allergies, Adverse Reactions, Alerts Substance Reaction Severity [...] tetanus-diphtheria toxoids (Td) 02/09/99 Recorded tetanus/diphtheria/pertussis, acel(Tdap) 10/22/08 Recorded Medications acetaminophen 325 mg oral tablet [...] AM, 0 Refills, Maintenance, 07/19/20 16:13:00 EST, [place], Partial fill upon patient request if the [...] opioid drug. Start Date: 02/23/21 Status: Ordered Miscellaneous Rx 0 Refills, Maintenance, [...]
--- OUTSIDE RECORDS SUMMARY | 2023-01-22 08:23 | XMS_ITS | Continuity of Care Document ---
Author Name Unknown Organization [facility] JUICE MIXER Oncolog y Address [address] [place] [address]- Care Team Providers Care Nuclear Equipment Operator Name Role Phone Marily Aaron NP Primary Care Physician Encounter [facility] [place] Date(s): 06/29/21 - 07/29/21 [facility] JUICE MIXER Oncology [address] [place] [phone]- Allergies, Adverse Reactions, Alerts Substance Reaction Severity Status sulfa drugs Nausea Active Caffeine Nervousness Tachycardia Active Sulfite Allergy Nausea Active Immunizations Given and Recorded Vaccine Date Status Refusal Reason SARS-CoV-2 (COVID-19) mRNA BNT-162b2 vac 03/23/21 Recorded SARS-CoV-2 (COVID-19) mRNA BNT-162b2 vac 06/05/20 Recorded SARS-CoV-2 (COVID-19) mRNA BNT-162b2 vac 05/15/20 Recorded influenza virus vaccine, inactivated 03/08/21 [facility] r[facility] influenza virus vaccine, inactivated 02/21/20 [facility] rded influenza virus vaccine, inactivated 02/18/17 [facility] [...] 08/29/20 9:36:00 EDT, Route to Pharmacy Electronically, [facility] #[id number], Partial fill upon patient request if the [...] AM, 0 Refills, Maintenance, 07/19/20 16:13:00 EST, [place], Partial fill upon patient request if the [...] Refills, Maintenance, 11/06/20 9:20:00 EDT, REC Powder, [facility], Partial fill upon patient [...] 13:41:00 EDT, Route to Pharmacy Electronically, [facility] Tablet, Partial fill upon patient [...]
--- OUTSIDE RECORDS SUMMARY | 2023-01-22 08:23 | XMS_ITS | Continuity of Care Document ---
Author Name Unknown Organization [facility] Address [address] [place] [address]- Care Team Providers Care Brine Room Laborer Name Role Phone Hortensia VIDAL, Darion Primary Care Physician [place] [facility] [place] Date(s): 08/11/20 - 09/10/[address] [address]- Attending Physician: Cosmo Johnson Admitting Physician: Cosmo [...] 08/29/20 9:36:00 EDT, Route to Pharmacy Electronically, [facility] #[id number], Partial fill upon patient request if the pre... Start Date: 08/29/20 Status: Ordered Fish Oil oral capsule 0 Refills, Maintenance, 07/19/20 16:14:00 EST, Partial fill upon patient request if the prescription is for a schedule II opioid drug. Start Date: 07/19/20 Status: Ordered Flonase 50 mcg/inh nasal spray 2 sprays, Nares, Both, Daily in AM, 0 Refills, Maintenance, 07/19/20 16:13:00 EST, [place], Partial fill upon patient request if the [...] 08/29/20 9:35:00 EDT, Route to Pharmacy Electronically, [facility] #[id number], Partial fill upon patient request if the prescription... Start Date: 08/29/20 Status: Ordered MiraLax oral powder for reconstitution = 17 Gm, By Mouth, Daily, dissolve in water before taking, # 255 Gm, 0 Refills, Maintenance, 08/29/20 9:37:00 EDT, REC Powder, [facility] #[id number], Partial fill upon patient request if the [...] 08/29/20 9:36:00 EDT, Route to Pharmacy Electronically, [facility] #[id number], Partial fill upon patient request if the prescription is... Start Date: 08/29/20 Status: Ordered Senna 8.6 mg oral tablet 8.6 mg, 1, tablet, By Mouth, 2 times a day, PRN, # 20 tablet, Refills 0, Tot. Refills 0, Maintenance, for constipation, 08/29/20 9:36:00 EDT, Route to Pharmacy Electronically, [facility] #[id number] Tablet, Partial fill upon patient request if th... Start Date: 08/29/20 Status: Ordered simethicone 80 mg oral tablet, chewable 80 mg, 1, tablet, Chew, 4 times a day, # 48 tablet, Refills 0, Tot. Refills 0, Maintenance, 08/29/20 9:36:00 EDT, Route to Pharmacy Electronically, [facility] #[id number], Partial fill upon patient request if the prescription is for a schedule II... Start Date: 08/29/20 Status: Ordered Tylenol 325 mg oral capsule 2 capsule = 650 mg, By Mouth, Every 4 hours, PRN as needed for pain, # 90 capsule, 1 Refills, Maintenance, 08/29/20 9:36:00 EDT, Capsule, [facility] #[id number], Partial fill upon patient request if the [...]
--- OUTSIDE RECORDS SUMMARY | 2023-01-22 08:23 | XMS_ITS | Continuity of Care Document ---
Author Name Unknown Organization [facility] LEAD JAVASCRIPT ENGINEER Oncolog y Address [address] [place] [id number]- Care Team Providers Care Oil Field Pipeline Supervisor Name Role Phone Darion Bazan MD Primary Care Physician [place] [facility] [place] 08/11/20 - 09/30/20 [facility] LEAD JAVASCRIPT ENGINEER Oncology [address] [place] [address] Attending Physician: Aguilar Short MD Admitting Physician: Aguilar Short MD Referring Physician: Ramandeep Jha DO Allergies, Adverse Reactions, Alerts Substance Reaction Severity [...] 08/29/20 9:36:00 EDT, Route to Pharmacy Electronically, [facility] #[id number], Partial fill upon patient request if the [...] AM, 0 Refills, Maintenance, 07/19/20 16:13:00 EST, [place], Partial fill upon patient request if the [...] 08/29/20 9:35:00 EDT, Route to Pharmacy Electronically, [facility] #[id number], Partial fill upon patient request if the prescription... Start Date: 08/29/20 Status: Ordered lidocaine-prilocaine 2.5%-2.5% topical cream See Instructions, apply to [facility] site 30-60min prior to each chemotherapy session, # 30 Gm, 2 Refills, Maintenance, 09/26/20 8:09:00 EDT, [facility], Partial fill upon patient [...] 08/29/20 9:36:00 EDT, Route to Pharmacy Electronically, [facility] #[id number], Partial fill upon patient request if the prescription is... Start Date: 08/29/20 Status: Ordered prochlorperazine 10 mg oral tablet 1 tablet = 10 mg, By Mouth, Every 6 hours, PRN Nausea, # 30 tablet, 2 Refills, Maintenance, 09/26/20 8:09:00 EDT, Tablet, [facility], Partial fill upon patient request if the prescription is for a schedule II opioid drug., 163.9, cm,... Start Date: 09/26/20 Status: Ordered Senna 8.6 mg oral tablet 8.6 mg, 1, tablet, By Mouth, 2 times a day, PRN, # 100 tablet, Refills 2, Tot. Refills 2, Maintenance, for constipation, 09/26/20 8:08:00 EDT, Route to Pharmacy Electronically, [facility] Tablet, Partial fill upon patient request if t... Start Date: 09/26/20 Status: Ordered Tylenol 325 mg oral capsule 2 capsule = 650 mg, By Mouth, Every 4 hours, PRN as needed for pain, # 90 capsule, 1 Refills, Maintenance, 08/29/20 9:36:00 EDT, Capsule, [facility] #[id number], Partial fill upon patient request if the prescription is for a schedule II opioid drOdell Start Date: 08/29/20 Status: Ordered Vitamin D3 [...]
--- OUTSIDE RECORDS SUMMARY | 2023-01-22 08:23 | XMS_ITS | Continuity of Care Document ---
Author Name Unknown Organization [facility] MARKER SHIPMENTS Oncolog y Address [address] [place] [address]- Care Team Providers Care Silverlight Developer Name Role Phone Marily Aaron NP Primary Care Physician En[facility] [place] Date(s): 09/14/21 - 10/14/21 [facility] MARKER SHIPMENTS Oncology [address] [place] [address]- Allergies, Adverse Reactions, Alerts Substance Reaction Severity [...] AM, 0 Refills, Maintenance, 07/19/20 16:13:00 EST, [place], Partial fill upon patient request if the [...]
--- OUTSIDE RECORDS SUMMARY | 2023-01-22 08:23 | XMS_ITS | Continuity of Care Document ---
Author Name Unknown Organization [facility] INSTRUMENT REPAIR TECHNICIAN Oncolog y Address [address] [place] [address]- Care Team Providers Care Sheltered Workshop Worker Name Role Phone Agnieszka TOSSER, Marily Meadows Primary Care Physician En[place] [facility] [place] Date(s): 02/05/21 - 03/07/21 [facility] INSTRUMENT REPAIR TECHNICIAN Oncology [address] [place] [address]- Allergies, Adverse Reactions, Alerts Substance Reaction Severity [...] 08/29/20 9:36:00 EDT, Route to Pharmacy Electronically, [facility] #[id number], Partial fill upon patient request if the [...] AM, 0 Refills, Maintenance, 07/19/20 16:13:00 EST, [place], Partial fill upon patient request if the prescription is for a schedule II opioid drug. Start Date: 07/19/20 Status: Ordered gabapentin 100 mg oral capsule See Instructions, TAKE 1 CAPSULE BY MOUTH DAILY AT BEDTIME CAN INCREASE TO 2 CAPSULES BY MOUTH DAILY IF TOLERATED, # 60 capsule, Refills 0, Instructions Replace Required Details, Route to Pharmacy Electronically, [facility] #[id number], 164.7, cm... Start Date: 02/05/21 Status: Ordered Glucosamine Chondroitin 1 tab, By Mouth, Daily, 0 Refills, Maintenance, 07/19/20 16:14:00 EST, Partial fill upon patient request if the prescription is for a schedule II opioid drug. Start Date: 07/19/20 Status: Ordered lidocaine-prilocaine 2.5%-2.5% topical cream See Instructions, apply to [facility] site 30-60min prior to each chemotherapy session, # 30 Gm, 2 Refills, Maintenance, 09/26/20 8:09:00 EDT, [facility], Partial fill upon patient [...] Refills, Maintenance, 11/06/20 9:20:00 EDT, REC Powder, [facility], Partial fill upon patient [...] 2 Refills, Maintenance, 09/26/20 8:09:00 EDT, Tablet, [facility], Partial fill upon patient [...] 11/27/20 13:41:00 EDT, Route to Pharmacy Electronically, [facility] Tablet, Partial fill upon [...]
--- OUTSIDE RECORDS SUMMARY | 2023-01-22 08:23 | XMS_ITS | Continuity of Care Document ---
Author Name Unknown Organization [facility] RESTAURANT LEAD Oncolog y Address [address] [place] [address]- Care Team Providers Care Fiscal Specialist Name Role Phone Darion Bazan MD Primary Care Physician [place] [facility] [place] - 10/15/20 [facility] RESTAURANT LEAD Oncology [address] [place] [phone]- Allergies, Adverse Reactions, Alerts Substance Reaction Severity [...] 2, Tot. Refills 2, Maintenance, for constipation, 10/12/20 9:58:00 EDT, Route to Pharmacy Electronically, [facility], Partial fill upon patient request if the pr... Start Date: 10/12/20 Status: Ordered Colace sodium 100 mg oral capsule 100 mg, 1, capsule, By Mouth, 2 times a day, PRN, # 60 capsule, Refills 0, Tot. Refills 0, Maintenance, for constipation, 08/29/20 9:36:00 EDT, Route to Pharmacy Electronically, [facility] #[id number], Partial fill upon patient request if the [...] AM, 0 Refills, Maintenance, 07/19/20 16:13:00 EST, [place], Partial fill upon patient request if the prescription is for a schedule II opioid drug. Start Date: 07/19/20 Status: Ordered gabapentin 300 mg oral capsule 300 mg, 1, capsule, By Mouth, Daily at bedtime, # 30 capsule, Refills 2, Tot. Refills 2, Maintenance, 10/12/20 9:56:00 EDT, Route to Pharmacy Electronically, [facility], Partial fillupon patient request if [...] 08/29/20 9:35:00 EDT, Route to Pharmacy Electronically, [facility] #[id number], Partial fill upon patient request if the prescription... Start Date: 08/29/20 Status: Ordered lidocaine-prilocaine 2.5%-2.5% topical cream See Instructions, apply to [facility] site 30-60min prior to each chemotherapy session, # 30 Gm, 2 Refills, Maintenance, 09/26/20 8:09:00 EDT, [facility], Partial fill upon patient request if [...] 08/29/20 9:36:00 EDT, Route to Pharmacy Electronically, [facility] #[id number], Partial fill upon patient request if the prescription is... Start Date: 08/29/20 Status: Ordered prochlorperazine 10 mg oral tablet 1 tablet = 10 mg, By Mouth, Every 6 hours, PRN Nausea, # 30 tablet, 2 Refills, Maintenance, 09/26/20 8:09:00 EDT, Tablet, [facility], Partial fill upon patient request if the prescription is for a schedule II opioid drug., 163.9, cm,... Start Date: 09/26/20 Status: Ordered Senna 8.6 mg oral tablet 8.6 mg, 1, tablet, By Mouth, 2 times a day, PRN, # 100 tablet, Refills 2, Tot. Refills 2, Maintenance, for constipation, 09/26/20 8:08:00 EDT, Route to Pharmacy Electronically, [facility] Tablet, Partial fill upon patient request if t... Start Date: 09/26/20 Status: Ordered Tylenol 325 mg oral capsule 2 capsule = 650 mg, By Mouth, Every 4 hours, PRN as needed for pain, # 90 capsule, 1 Refills, Maintenance, 08/29/20 9:36:00 EDT, Capsule, [facility] #[id number], Partial fill upon patient request if the prescription is for a schedule II opioid . Start Date: 08/29/20 Status: Ordered Vitamin D3 [...]
--- OUTSIDE RECORDS SUMMARY | 2023-01-22 08:23 | XMS_ITS | Continuity of Care Document ---
Author Name Unknown Organization [facility] RAIL CAR OPERATOR Oncolog y Address [address] [place] [address]- Care Team Providers Care Sewing Machine Operator Zipper Name Role Phone Agnieszka BOILER OPERATOR HELPER, Marily Meadows Primary Care Physician Encounter [facility] Date(s): 01/30/21 - 03/01/21 [facility] RAIL CAR OPERATOR Oncology [address] [place] [address]- Allergies, Adverse Reactions, Alerts Substance Reaction Severity [...] 08/29/20 9:36:00 EDT, Route to Pharmacy Electronically, [facility] #[id number], Partial fill upon patient request if the [...] AM, 0 Refills, Maintenance, 07/19/20 16:13:00 EST, [place], Partial fill upon patient request if the prescription is for a schedule II opioid drug. Start Date: 07/19/20 Status: Ordered gabapentin 100 mg oral capsule See Instructions, TAKE 1 CAPSULE BY MOUTH DAILY AT BEDTIME CAN INCREASE TO 2 CAPSULES BY MOUTH DAILY IF TOLERATED, # 60 capsule, Refills 0, Instructions Replace Required Details, Route to Pharmacy Electronically, [facility] #[id number], 164.7, cm... Start Date: 02/05/21 Status: Ordered Glucosamine Chondroitin 1 tab, By Mouth, Daily, 0 Refills, Maintenance, 07/19/20 16:14:00 EST, Partial fill upon patient request if the prescription is for a schedule II opioid drug. Start Date: 07/19/20 Status: Ordered lidocaine-prilocaine 2.5%-2.5% topical cream See Instructions, apply to [facility] 30-60min prior to each chemotherapy session, # 30 Gm, 2 Refills, Maintenance, 09/26/20 8:09:00 EDT, [facility], Partial fill upon [...] Refills, Maintenance, 11/06/20 9:20:00 EDT, REC Powder, [facility], Partial fill upon [...] 2 Refills, Maintenance, 09/26/20 8:09:00 EDT, Tablet, [facility], Partial fill upon [...] 11/27/20 13:41:00 EDT, Route to Pharmacy Electronically, [facility] Tablet, Partial fill [...]
--- OUTSIDE RECORDS SUMMARY | 2023-01-22 08:23 | XMS_ITS | Continuity of Care Document ---
Author Name Unknown Organization [facility] FAST FOOD CREW LEAD Oncolog y Address [address] [place] [address]- Care Team Providers Care Cashier Clerk Name Role Phone Agnieszka RÍOS, Marily Meadows Primary Care Physician Encounter [facility] [place] Date(s): 02/14/21 - 03/16/21 [facility] FAST FOOD CREW LEAD Oncology [address] [place] [phone]- Allergies, Adverse Reactions, Alerts Substance Reaction Severity [...] 08/29/20 9:36:00 EDT, Route to Pharmacy Electronically, [facility] #[id number], Partial fill upon patient request if the [...] AM, 0 Refills, Maintenance, 07/19/20 16:13:00 EST, [place], Partial fill upon patient request if the prescription is for a schedule II opioid drug. Start Date: 07/19/20 Status: Ordered gabapentin 100 mg oral capsule See Instructions, TAKE 1 CAPSULE BY MOUTH DAILY AT BEDTIME CAN INCREASE TO 2 CAPSULES BY MOUTH DAILY IF TOLERATED, # 60 capsule, Refills 2, Instructions Replace Required Details, Route to Pharmacy Electronically, [facility] #[id number], 163, cm,... Start Date: 03/16/21 Status: Ordered Glucosamine Chondroitin 1 tab, By Mouth, Daily, 0 Refills, Maintenance, 07/19/20 16:14:00 EST, Partial fill upon patient request if the prescription is for a schedule II opioid drug. Start Date: 07/19/20 Status: Ordered lidocaine-prilocaine 2.5%-2.5% topical cream See Instructions, apply to [facility] site 30-60min prior to each chemotherapy session, # 30 Gm, 2 Refills, Maintenance, 09/26/20 8:09:00 EDT, [facility], Partial fill upon patient request [...] Maintenance, 11/06/20 9:20:00 EDT, REC Powder, [facility], Partial fill upon patient request [...] 2 Refills, Maintenance, 09/26/20 8:09:00 EDT, Tablet, [facility], Partial fill upon patient request [...] 13:41:00 EDT, Route to Pharmacy Electronically, [facility] Tablet, Partial fill upon patient request if... Start Date: 11/27/20 Status: Ordered valACYclovir 500 mg oral tablet 500 mg, 1, tablet, By Mouth, 2 times a day, for 3 days, # 6 tablet, Refills 1, Tot. Refills 1, Acute 03/17/21 11:29:00 EDT, 03/11/21 11:29:00 EDT, Route to Pharmacy Electronically, [facility] #[id number], Partial fill upon patient request if the... 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
--- OUTSIDE RECORDS SUMMARY | 2023-01-22 08:23 | XMS_ITS | Continuity of Care Document ---
Author Name Unknown Organization [facility] MEDICAL DOCTOR Oncolog y Address [address] [place] [address]- Care Team Providers Care Kettle Operator Head Name Role Phone Marily Aaron NP Primary Care Physician Encounter [facility] [place] Date(s): 12/25/20 - 01/24/21 [facility] MEDICAL DOCTOR Oncology [address] [place] [phone]- Allergies, Adverse Reactions, Alerts Substance Reaction Severity [...] 08/29/20 9:36:00 EDT, Route to Pharmacy Electronically, [facility] #[id number], Partial fill upon patient request if the [...] AM, 0 Refills, Maintenance, 07/19/20 16:13:00 EST, [place], Partial fill upon patient request if the [...] 08/29/20 9:35:00 EDT, Route to Pharmacy Electronically, [facility] #[id number], Partial fill upon patient request if the prescription... Start Date: 08/29/20 Status: Ordered lidocaine-prilocaine 2.5%-2.5% topical cream See Instructions, apply to [facility] site 30-60min prior to each chemotherapy session, # 30 Gm, 2 Refills, Maintenance, 09/26/20 8:09:00 EDT, [facility], Partial fill upon patient [...] Refills, Maintenance, 11/06/20 9:20:00 EDT, REC Powder, [facility], Partial fill upon patient [...] 08/29/20 9:36:00 EDT, Route to Pharmacy Electronically, [facility] #[id number], Partial fill upon patient request if the prescription is... Start Date: 08/29/20 Status: Ordered prochlorperazine 10 mg oral tablet 1 tablet = 10 mg, By Mouth, Every 6 hours, PRN Nausea, # 30 tablet, 2 Refills, Maintenance, 09/26/20 8:09:00 EDT, Tablet, [facility], Partial fill upon patient [...] 13:41:00 EDT, Route to Pharmacy Electronically, [facility]t, Partial fill upon patient request [...]
--- OUTSIDE RECORDS SUMMARY | 2023-01-22 08:23 | XMS_ITS | Continuity of Care Document ---
Author Name Unknown Organization [facility] Address [address] [place] [address] [address] [place] [address]- Care Team Providers Care Rotary Operator Name Role Phone Darion Bazan MD Primary Care Physician Encounter [facility] [place] Date(s): 09/07/20 - 10/07/[address] [place] [address]- Attending Physician: Cosmo Johnson Admitting Physician: Cosmo [...] 08/29/20 9:36:00 EDT, Route to Pharmacy Electronically, [facility] #[id number], Partial fill upon patient request if the [...] AM, 0 Refills, Maintenance, 07/19/20 16:13:00 EST, [place], Partial fill upon patient request if the [...] 08/29/20 9:35:00 EDT, Route to Pharmacy Electronically, [facility] #[id number], Partial fill upon patient request if the prescription... Start Date: 08/29/20 Status: Ordered lidocaine-prilocaine 2.5%-2.5% topical cream See Instructions, apply to [facility] site 30-60min prior to each chemotherapy session, # 30 Gm, 2 Refills, Maintenance, 09/26/20 8:09:00 EDT, [facility], Partial fill upon patient [...] 08/29/20 9:36:00 EDT, Route to Pharmacy Electronically, [facility] #[id number], Partial fill upon patient request if the prescription is... Start Date: 08/29/20 Status: Ordered prochlorperazine 10 mg oral tablet 1 tablet = 10 mg, By Mouth, Every 6 hours, PRN Nausea, # 30 tablet, 2 Refills, Maintenance, 09/26/20 8:09:00 EDT, Tablet, [facility], Partial fill upon patient request if the prescription is for a schedule II opioid drug., 163.9, cm,... Start Date: 09/26/20 Status: Ordered Senna 8.6 mg oral tablet 8.6 mg, 1, tablet, By Mouth, 2 times a day, PRN, # 100 tablet, Refills 2, Tot. Refills 2, Maintenance, for constipation, 09/26/20 8:08:00 EDT, Route to Pharmacy Electronically, [facility] Tablet, Partial fill upon patient request if t... Start Date: 09/26/20 Status: Ordered Tylenol 325 mg oral capsule 2 capsule = 650 mg, By Mouth, Every 4 hours, PRN as needed for pain, # 90 capsule, 1 Refills, Maintenance, 08/29/20 9:36:00 EDT, Capsule, [facility] #[id number], Partial fill upon patient request if the [...]
--- OUTSIDE RECORDS SUMMARY | 2023-01-22 08:23 | XMS_ITS | Continuity of Care Document ---
Author Name Unknown Organization [facility] QUALITY PROCESS ENGINEER Oncolog y Address [address] [place] [address]- Care Team Providers Care Highwall Drill Operator Name Role Phone Agnieszka SPICE FUMIGATOR, Marily Meadows Primary Care Physician Encounter [facility] Date(s): 12/30/20 - 01/29/21 [facility] QUALITY PROCESS ENGINEER Oncology [address] [place] [address]- Allergies, Adverse Reactions, Alerts Substance Reaction Severity [...] 08/29/20 9:36:00 EDT, Route to Pharmacy Electronically, [facility] #[id number], Partial fill upon patient request if the [...] AM, 0 Refills, Maintenance, 07/19/20 16:13:00 EST, [place], Partial fill upon patient request if the [...] 08/29/20 9:35:00 EDT, Route to Pharmacy Electronically, [facility] #[id number], Partial fill upon patient request if the prescription... Start Date: 08/29/20 Status: Ordered lidocaine-prilocaine 2.5%-2.5% topical cream See Instructions, apply to [facility] site 30-60min prior to each chemotherapy session, # 30 Gm, 2 Refills, Maintenance, 09/26/20 8:09:00 EDT, [facility], Partial fill upon [...] Refills, Maintenance, 11/06/20 9:20:00 EDT, REC Powder, [facility], Partial fill upon [...] 08/29/20 9:36:00 EDT, Route to Pharmacy Electronically, [facility] #[id number], Partial fill upon patient request if the prescription is... Start Date: 08/29/20 Status: Ordered prochlorperazine 10 mg oral tablet 1 tablet = 10 mg, By Mouth, Every 6 hours, PRN Nausea, # 30 tablet, 2 Refills, Maintenance, 09/26/20 8:09:00 EDT, Tablet, [facility], Partial fill upon [...] 11/27/20 13:41:00 EDT, Route to Pharmacy Electronically, [facility] Tablet, Partial fill [...]
--- OUTSIDE RECORDS SUMMARY | 2023-01-22 08:24 | XMS_ITS | Continuity of Care Document ---
Author Name Unknown Organization [facility] MAGICIAN/ILLUSIONIST Oncolog y Address [address] [place] [address]- Care Team Providers Care Auto Body Technician Name Role Phone Marily Aaron NP Primary Care Physician [place] [facility] [place] - 02/07/21 [facility] MAGICIAN/ILLUSIONIST Oncology [address] [place] [phone]- Allergies, Adverse Reactions, Alerts Substance Reaction Severity [...] 08/29/20 9:36:00 EDT, Route to Pharmacy Electronically, [facility] #[id number], Partial fill upon patient request if the [...] AM, 0 Refills, Maintenance, 07/19/20 16:13:00 EST, [place], Partial fill upon patient request if the prescription is for a schedule II opioid drug. Start Date: 07/19/20 Status: Ordered gabapentin 100 mg oral capsule See Instructions, TAKE 1 CAPSULE BY MOUTH DAILY AT BEDTIME CAN INCREASE TO 2 CAPSULES BY MOUTH DAILY IF TOLERATED, # 60 capsule, Refills 0, Instructions Replace Required Details, Route to Pharmacy Electronically, [facility] #[id number], 164.7, cm... Start Date: 02/05/21 Status: Ordered [...] 08/29/20 9:35:00 EDT, Route to Pharmacy Electronically, [facility] #[id number], Partial fill upon patient request if the prescription... Start Date: 08/29/20 Status: Ordered lidocaine-prilocaine 2.5%-2.5% topical cream See Instructions, apply to [facility] 30-60min prior to each chemotherapy [...] 08/29/20 9:36:00 EDT, [id number], Partial fill upon patient request if the [...] 11/27/20 13:41:00 EDT, Route to Pharmacy Electronically, [facility]t, Partial fill upon patient request [...]
--- OUTSIDE RECORDS SUMMARY | 2023-01-22 08:24 | XMS_ITS | Continuity of Care Document ---
Author Name Unknown Organization [facility] ASSISTANT CONSTRUCTION SUPERINTENDENT Oncolog y Address [address] [place] [address]- Care Team Providers Care Crew Dispatcher Name Role Phone Darion Bazan MD Primary Care Physician [place] [facility] [place] - 10/29/20 [facility] ASSISTANT CONSTRUCTION SUPERINTENDENT Oncology [address] [place] [phone]- Allergies, Adverse Reactions, Alerts Substance Reaction Severity [...] 10/12/20 9:58:00 EDT, Route to Pharmacy Electronically, [facility], Partial fill upon patient request if the pr... Start Date: 10/12/20 Status: Ordered Colace sodium 100 mg oral capsule 100 mg, 1, capsule, By Mouth, 2 times a day, PRN, # 60 capsule, Refills 0, Tot. Refills 0, Maintenance, for constipation, 08/29/20 9:36:00 EDT, Route to Pharmacy Electronically, [facility] #[id number], Partial fill upon patient request if the [...] AM, 0 Refills, Maintenance, 07/19/20 16:13:00 EST, [place], Partial fill upon patient request if the prescription is for a schedule II opioid drug. Start Date: 07/19/20 Status: Ordered gabapentin 300 mg oral capsule 300 mg, 1, capsule, By Mouth, Daily at bedtime, # 30 capsule, Refills 2, Tot. Refills 2, Maintenance, 10/12/20 9:56:00 EDT, Route to Pharmacy Electronically, [facility], Partial fillupon patient request [...] 08/29/20 9:35:00 EDT, Route to Pharmacy Electronically, [facility] #[id number], Partial fill upon patient request if the prescription... Start Date: 08/29/20 Status: Ordered lidocaine-prilocaine 2.5%-2.5% topical cream See Instructions, apply to [facility] site 30-60min prior to each chemotherapy session, # 30 Gm, 2 Refills, Maintenance, 09/26/20 8:09:00 EDT, [facility], Partial fill upon patient [...] 08/29/20 9:36:00 EDT, Route to Pharmacy Electronically, [facility] #[id number], Partial fill upon patient request if the prescription is... Start Date: 08/29/20 Status: Ordered prochlorperazine 10 mg oral tablet 1 tablet = 10 mg, By Mouth, Every 6 hours, PRN Nausea, # 30 tablet, 2 Refills, Maintenance, 09/26/20 8:09:00 EDT, Tablet, [facility], Partial fill upon patient request if the prescription is for a schedule II opioid drug., 163.9, cm,... Start Date: 09/26/20 Status: Ordered Senna 8.6 mg oral tablet 8.6 mg, 1, tablet, By Mouth, 2 times a day, PRN, # 100 tablet, Refills 2, Tot. Refills 2, Maintenance, for constipation, 09/26/20 8:08:00 EDT, Route to Pharmacy Electronically, [facility]t, Partial fill upon patient request if t... 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
--- OUTSIDE RECORDS SUMMARY | 2023-01-22 08:24 | XMS_ITS | Continuity of Care Document ---
Author Name Unknown Organization [facility] ELECTRONIC GLUING MACHINE OPERATOR Oncolog y Address [address] [place] [address]- Care Team Providers Care Carding Utility Tender Name Role Phone Marily Aaron NP Primary Care Physician Encounter [place] Date(s): 09/04/21 - 10/04/21 [facility] ELECTRONIC GLUING MACHINE OPERATOR Oncology [address] [place] [phone]- Allergies, Adverse Reactions, Alerts Substance Reaction Severity [...] AM, 0 Refills, Maintenance, 07/19/20 16:13:00 EST, [place], Partial fill upon patient request if the [...]
--- OUTSIDE RECORDS SUMMARY | 2023-01-22 08:24 | XMS_ITS | Continuity of Care Document ---
Author Name Unknown Organization [facility] CONCRETE FORM SETTER Oncolog y Address [address] [place] [address]- Care Team Providers Care Zipper Setter Lockstitch Name Role Phone Marily Aaron NP Primary Care Physician Encounter [facility] Date(s): 08/30/21 - 09/29/21 [facility] CONCRETE FORM SETTER Oncology [address] [place] [phone]- Allergies, Adverse Reactions, Alerts Substance Reaction Severity [...] AM, 0 Refills, Maintenance, 07/19/20 16:13:00 EST, [place], Partial fill upon patient request if the [...]
--- OUTSIDE RECORDS SUMMARY | 2023-01-22 08:24 | XMS_ITS | Continuity of Care Document ---
Author Name Unknown Organization [facility] Address [address] [place] [address]- Care Team Providers Care Supervisor Securities Vault Name Role Phone Marily Aaron NP Primary Care Physician Encounter [facility] Date(s): 08/14/21 - 09/13/21 [facility] [address] [place] [address]- Allergies, Adverse Reactions, Alerts Substance Reaction Severity [...] AM, 0 Refills, Maintenance, 07/19/20 16:13:00 EST, [place], Partial fill upon patient request if the [...]
--- OUTSIDE RECORDS SUMMARY | 2023-01-22 08:24 | XMS_ITS | Continuity of Care Document ---
Author Name Unknown Organization [facility] SLASHER TENDER Oncolog y Address [address] [place] [address]- Care Team Providers Care General Manager Road Production Name Role Phone Agnieszka RÍOS, Marily Meadows Primary Care Physician En[place] [facility] [place] Date(s): 02/16/21 - 03/18/21 [facility] SLASHER TENDER Oncology [address] [place] [phone]- Allergies, Adverse Reactions, Alerts Substance Reaction Severity [...] 08/29/20 9:36:00 EDT, Route to Pharmacy Electronically, [facility] #[id number], Partial fill upon patient request if the [...] AM, 0 Refills, Maintenance, 07/19/20 16:13:00 EST, [place], Partial fill upon patient request if the prescription is for a schedule II opioid drug. Start Date: 07/19/20 Status: Ordered gabapentin 100 mg oral capsule See Instructions, TAKE 1 CAPSULE BY MOUTH DAILY AT BEDTIME CAN INCREASE TO 2 CAPSULES BY MOUTH DAILY IF TOLERATED, # 60 capsule, Refills 2, Instructions Replace Required Details, Route to Pharmacy Electronically, [facility] #[id number], 163, cm,... Start Date: 03/16/21 Status: Ordered Glucosamine Chondroitin 1 tab, By Mouth, Daily, 0 Refills, Maintenance, 07/19/20 16:14:00 EST, Partial fill upon patient request if the prescription is for a schedule II opioid drug. Start Date: 07/19/20 Status: Ordered lidocaine-prilocaine 2.5%-2.5% topical cream See Instructions, apply to [facility] site 30-60min prior to each chemotherapy session, # 30 Gm, 2 Refills, Maintenance, 09/26/20 8:09:00 EDT, [facility], Partial fill upon [...] Refills, Maintenance, 11/06/20 9:20:00 EDT, REC Powder, [facility], Partial fill upon [...] 2 Refills, Maintenance, 09/26/20 8:09:00 EDT, Tablet, [facility], Partial fill upon [...] 11/27/20 13:41:00 EDT, Route to Pharmacy Electronically, [facility] Tablet, Partial fill [...]
--- OUTSIDE RECORDS SUMMARY | 2023-01-22 08:24 | XMS_ITS | Continuity of Care Document ---
Author Name Unknown Organization [facility] ROLL TABLE OPERATOR Oncolog y Address [address] [place] [address]- Care Team Providers Care Printed Circuit Photographer Name Role Phone Agnieszka RÍOS, Marily Meadows Primary Care Physician Encounter [facility] [place] Date(s): 02/14/21 - 03/16/21 [facility] ROLL TABLE OPERATOR Oncology [address] [place] [phone]- Allergies, Adverse Reactions, Alerts Substance Reaction Severity [...] 08/29/20 9:36:00 EDT, Route to Pharmacy Electronically, [facility] #[id number], Partial fill upon patient request if the [...] AM, 0 Refills, Maintenance, 07/19/20 16:13:00 EST, [place], Partial fill upon patient request if the prescription is for a schedule II opioid drug. Start Date: 07/19/20 Status: Ordered gabapentin 100 mg oral capsule See Instructions, TAKE 1 CAPSULE BY MOUTH DAILY AT BEDTIME CAN INCREASE TO 2 CAPSULES BY MOUTH DAILY IF TOLERATED, # 60 capsule, Refills 2, Instructions Replace Required Details, Route to Pharmacy Electronically, [facility] #[id number], 163, cm,... Start Date: 03/16/21 Status: Ordered [...] Gm, 2 Refills, Maintenance, 09/26/20 8:09:00 EDT, [facility], Partial fill upon [...] Refills, Maintenance, 11/06/20 9:20:00 EDT, REC Powder, [facility], Partial fill upon [...] 2 Refills, Maintenance, 09/26/20 8:09:00 EDT, Tablet, [facility], Partial fill upon [...] 11/27/20 13:41:00 EDT, Route to Pharmacy Electronically, [facility] Tablet, Partial fill upon patient request if... Start Date: 11/27/20 Status: Ordered valACYclovir 500 mg oral tablet 500 mg, 1, tablet, By Mouth, 2 times a day, for 3 days, # 6 tablet, Refills 1, Tot. Refills 1, Acute 03/17/21 11:29:00 EDT, 03/11/21 11:29:00 EDT, Route to Pharmacy Electronically, [facility] #[id number], Partial fill upon patient request if the... [...]
--- OUTSIDE RECORDS SUMMARY | 2023-01-22 08:24 | XMS_ITS | Continuity of Care Document ---
Author Name Unknown Organization [facility] GLOBAL MANAGER Oncolog y Address [address] [place] [address]- Care Team Providers Care Cancer Genetics Assistant Name Role Phone Darion Bazan MD Primary Care Physician [place] [facility] [place] 12/11/20 - 01/10/21 [facility] GLOBAL MANAGER Oncology [address] [place] [phone]- Allergies, Adverse Reactions, Alerts Substance Reaction Severity [...] 11/27/20 13:40:00 EDT, Route to Pharmacy Electronically, [facility], Partial fill upon patient request if the p... Start Date: 11/27/20 Status: Ordered Colace sodium 100 mg oral capsule 100 mg, 1, capsule, By Mouth, 2 times a day, PRN, # 60 capsule, Refills 0, Tot. Refills 0, Maintenance, for constipation, 08/29/20 9:36:00 EDT, Route to Pharmacy Electronically, [id number], Partial fill upon patient request if the [...] AM, 0 Refills, Maintenance, 07/19/20 16:13:00 EST, [place], Partial fill upon patient request if the prescription is for a schedule II opioid drug. Start Date: 07/19/20 Status: Ordered gabapentin 300 mg oral capsule 300 mg, 1, capsule, By Mouth, Daily at bedtime, # 30 capsule, Refills 2, Tot. Refills 2, Maintenance, 10/12/20 9:56:00 EDT, Route to Pharmacy Electronically, [facility], Partial fillupon patient request [...] 08/29/20 9:35:00 EDT, Route to Pharmacy Electronically, [id number], Partial fill upon patient request if the prescription... Start Date: 08/29/20 Status: Ordered lidocaine-prilocaine 2.5%-2.5% topical cream See Instructions, apply to [facility] 30-60min prior to each chemotherapy session, # 30 Gm, 2 Refills, Maintenance, 09/26/20 8:09:00 EDT, [facility], Partial fill upon [...] Refills, Maintenance, 11/06/20 9:20:00 EDT, REC Powder, [facility], Partial fill upon [...] 08/29/20 9:36:00 EDT, Route to Pharmacy Electronically, [id number], Partial fill upon patient request if the prescription is... Start Date: 08/29/20 Status: Ordered prochlorperazine 10 mg oral tablet 1 tablet = 10 mg, By Mouth, Every 6 hours, PRN Nausea, # 30 tablet, 2 Refills, Maintenance, 09/26/20 8:09:00 EDT, Tablet, [facility], Partial fill upon patient request if the prescription is for a schedule II opioid drug., 163.9, cm,... Start Date: 09/26/20 Status: Ordered Senna 8.6 mg oral tablet 8.6 mg, 1, tablet, By Mouth, 2 times a day, PRN, # 100 tablet, Refills 2, Tot. Refills 2, Maintenance, for constipation, 11/27/20 13:41:00 EDT, Route to Pharmacy Electronically, [facility] Tablet, Partial fill upon patient request if... Start Date: 11/27/20 Status: Ordered Tylenol 325 mg oral capsule 2 capsule = 650 mg, By Mouth, Every 4 hours, PRN as needed for pain, # 90 capsule, 1 Refills, Maintenance, 08/29/20 9:36:00 EDT, Capsule, [facility] #[id number], Partial fill upon patient request if the prescription is for a schedule II opioid drRadhames. Start Date: 08/29/20 Status: Ordered Vitamin D3 [...]
--- OUTSIDE RECORDS SUMMARY | 2023-01-22 08:24 | XMS_ITS | Continuity of Care Document ---
Author Name Unknown Organization [facility] GERIATRIC SOCIAL WORKER Oncolog y Address [address] [place] [address]- Care Team Providers Care Engineering Group Leader Name Role Phone Hortensia VIDAL, Darion Primary Care Physician Encounter [facility] [place] Date(s): 10/24/20 - 11/23/20 [facility] GERIATRIC SOCIAL WORKER Oncology [address] [place] [address]- Allergies, Adverse Reactions, Alerts Substance Reaction Severity [...] 10/12/20 9:58:00 EDT, Route to Pharmacy Electronically, [facility], Partial fill upon patient request if the pr... Start Date: 10/12/20 Status: Ordered Colace sodium 100 mg oral capsule 100 mg, 1, capsule, By Mouth, 2 times a day, PRN, # 60 capsule, Refills 0, Tot. Refills 0, Maintenance, for constipation, 08/29/20 9:36:00 EDT, Route to Pharmacy Electronically, [facility][id number], Partial fill upon patient request if the [...] AM, 0 Refills, Maintenance, 07/19/20 16:13:00 EST, [place], Partial fill upon patient request if the prescription is for a schedule II opioid drug. Start Date: 07/19/20 Status: Ordered gabapentin 300 mg oral capsule 300 mg, 1, capsule, By Mouth, Daily at bedtime, # 30 capsule, Refills 2, Tot. Refills 2, Maintenance, 10/12/20 9:56:00 EDT, Route to Pharmacy Electronically, [facility], Partial fillupon patient request [...] 08/29/20 9:35:00 EDT, Route to Pharmacy Electronically, [facility][id number], Partial fill upon patient request if the prescription... Start Date: 08/29/20 Status: Ordered lidocaine-prilocaine 2.5%-2.5% topical cream See Instructions, apply to [facility] 30-60min prior to each chemotherapy session, # 30 Gm, 2 Refills, Maintenance, 09/26/20 8:09:00 EDT, [facility], Partial fill upon patient request if the prescription is for a schedule II opioi... Start Date: 09/26/20 Status: Ordered MiraLax oral powder for reconstitution = 17 Gm, By Mouth, Daily, dissolve in water before taking, # 527 Gm, 2 Refills, Maintenance, 11/06/20 9:20:00 EDT, REC Powder, [facility], Partial fill upon patient [...] 08/29/20 9:36:00 EDT, Route to Pharmacy Electronically, [facility] #[id number], Partial fill upon patient request if the prescription is... Start Date: 08/29/20 Status: Ordered prochlorperazine 10 mg oral tablet 1 tablet = 10 mg, By Mouth, Every 6 hours, PRN Nausea, # 30 tablet, 2 Refills, Maintenance, 09/26/20 8:09:00 EDT, Tablet, [facility], Partial fill upon patient request if the prescription is for a schedule II opioid drug., 163.9, cm,... Start Date: 09/26/20 Status: Ordered Senna 8.6 mg oral tablet 8.6 mg, 1, tablet, By Mouth, 2 times a day, PRN, # 100 tablet, Refills 2, Tot. Refills 2, Maintenance, for constipation, 11/06/20 9:10:00 EDT, Route to Pharmacy Electronically, [facility] Tablet, Partial fill upon patient request if t... Start Date: 11/06/20 Status: Ordered Tylenol 325 mg oral capsule 2 capsule = 650 mg, By Mouth, Every 4 hours, PRN as needed for pain, # 90 capsule, 1 Refills, Maintenance, 08/29/20 9:36:00 EDT, Capsule, [facility] #[id number], Partial fill upon patient request if the prescription is for a schedule II opioid Start Date: 08/29/20 Status: Ordered Vitamin D3 [...] Active OA (osteoarthritis)(Confirmed) Active Restless legs(Confirmed) Active Social History Social History Type Response Smoking Status Former smoker, quit more than 30 days ago entered on: 08/16/20 Sex
--- OUTSIDE RECORDS SUMMARY | 2023-01-22 08:24 | XMS_ITS | Continuity of Care Document ---
Author Name Unknown Organization [facility] SERVER DEVELOPER Oncolog y Address [address] [place] [address]- Care Team Providers Care Product Development Engineer Name Role Phone Marily Aaron NP Primary Care Physician Encounter [facility] [place] Date(s): 08/29/21 - 09/28/21 [facility] SERVER DEVELOPER Oncology [address] [place] [address]- Allergies, Adverse Reactions, Alerts Substance Reaction Severity [...] Mayo rded influenza virus vaccine, inactivated 03/16/07 Amy[facility] rded zoster vaccine, inactivated 11/20/19 Recorded zoster [...] AM, 0 Refills, Maintenance, 07/19/20 16:13:00 EST, [place], Partial fill upon patient request if the [...]
--- OUTSIDE RECORDS SUMMARY | 2023-01-22 08:25 | XMS_ITS | Continuity of Care Document ---
Author Name Unknown Organization [facility] BEAD WORKER SEWING Oncolog y Address [address] [place] [address]- Care Team Providers Care Building Architect Name Role Phone Marily Aaron NP Primary Care Physician [place] [facility] [place] 08[place]21 - 09/28/21 [facility] BEAD WORKER SEWING Oncology [address] [place] [address]- Allergies, Adverse Reactions, Alerts Substance Reaction Severity [...] AM, 0 Refills, Maintenance, 07/19/20 16:13:00 EST, [place], Partial fill upon patient request if the [...]
--- OUTSIDE RECORDS SUMMARY | 2023-01-22 08:25 | XMS_ITS | Continuity of Care Document ---
Author Name Unknown Organization [facility] BROKERAGE BRANCH MANAGER Oncolog y Address [address] [place] [address]- Care Team Providers Care Primer Expeditor And Drier Name Role Phone Marily Aaron NP Primary Care Physician Encounter [facility] [place] Date(s): 09/03/21 - 10/03/21 [facility] BROKERAGE BRANCH MANAGER Oncology [address] [place] [address]- Allergies, Adverse Reactions, Alerts Substance Reaction Severity [...] AM, 0 Refills, Maintenance, 07/19/20 16:13:00 EST, [place], Partial fill upon patient request if the [...]
--- OUTSIDE RECORDS SUMMARY | 2023-01-22 08:25 | XMS_ITS | Continuity of Care Document ---
Author Name Unknown Organization [facility] ter Address [address] [place] [address]- Care Team Providers Care Director Process Improvement Name Role Phone Levon VIDAL, Latrice Paige Primary Care Physician En[place] [facility] [place] Date(s): 07/11/19 - 09/26/[address] [address]- [facility] Attending Physician: Aiden Pollard MD Admitting Physician: Aiden Pollard MD Referring Physician: Aiden Pollard MD Allergies, Adverse Reactions, Alerts Substance Reaction [...]
--- OUTSIDE RECORDS SUMMARY | 2023-01-22 08:25 | XMS_ITS | Continuity of Care Document ---
Author Name Unknown Organization [facility] Oncolog y Address [address] [place] [address]- Care Team Providers Care Plastic Card Grader Cardroom Name Role Phone Agnieszka RÍOS, Marily Meadows Primary Care Physician Encounter [facility] [place] Date(s): 04/10/21 - 05/10/21 [facility] Oncology [address] [place] [address]- Attending Physician: Cosmo Johnson Admitting Physician: AdmtrCosmo Referring Physician: Admtr, Ar8 Allergies, Adverse Reactions, [...] 08/29/20 9:36:00 EDT, Route to Pharmacy Electronically, [facility] #[id number], Partial fill upon patient request if the [...] AM, 0 Refills, Maintenance, 07/19/20 16:13:00 EST, [place], Partial fill upon patient request if the [...] Refills, Maintenance, 11/06/20 9:20:00 EDT, REC Powder, [facility], Partial fill upon patient request [...] 11/27/20 13:41:00 EDT, Route to Pharmacy Electronically, [facility] Tablet, Partial fill upon patient [...]
--- OUTSIDE RECORDS SUMMARY | 2023-01-22 08:25 | XMS_ITS | Continuity of Care Document ---
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 OA (osteoarthritis)(Discharge Diagnosis) - 04/09/21 Herpes genitalis in women(Discharge Diagnosis) - 04/09/21 Constipation(Discharge Diagnosis) - 04/09/21 Anemia(Discharge Diagnosis) - 04/09/21 IBS (irritable bowel syndrome)(Discharge Diagnosis) - 04/09/21 Attending Physician: Marily Aaron NP Allergies, Adverse Reactions, [...] 08/29/20 9:36:00 EDT, Route to Pharmacy Electronically, [facility] #[id number], Partial fill upon patient request if the [...] AM, 0 Refills, Maintenance, 07/19/20 16:13:00 EST, [place], Partial fill upon patient request if the [...] Refills, Maintenance, 11/06/20 9:20:00 EDT, REC Powder, [facility], Partial fill upon patient [...] 11/27/20 13:41:00 EDT, Route to Pharmacy Electronically, [facility] Tablet, Partial fill upon [...] intraepithelial neopl minna (NELSON) grade 1(Confirmed) Active Diagnosis Diagnosis Type Effective Dates Health Status Clinical Service Informant Physical exam Discharge Diagnosis 04/09/21 Uterine carcinosarcoma Discharge Diagnosis 04/09/21 Vulvar intraepithelial neoplasia (NELSON) grade 1 Discharge Diagnosis 04/09/21 OA (osteoarthritis) Discharge Diagnosis 04/09/21 Herpes genitalis in women Discharge Diagnosis 04/09/21 Constipation Discharge Diagnosis 04/09/21 Anemia Discharge Diagnosis 04/09/21 IBS (irritable bowel syndrome) Discharge Diagnosis 04/09/21 Vital Signs Most recent to oldest [Reference Range]: 1 2 Height 163 cm (04/09/21 8:44 AM) 163 cm (04/09/21 8:04 AM) Weight 103.3 kg (04/09/21 8:04 AM) Oxygen Saturation [94-100 %] 100 % (04/09/21 8:04 AM) Pulse Rate [55-90 bpm] 64 bpm (04/09/21 8:04 AM) Body Mass Index [18.5-24.99] 38.88 *>HHI* (04/09/21 8:04 AM) Blood Pressure [90-138/55-84 mm Hg] 120/ 76mm Hg (04/09/21 8:44 AM) 115/67mm Hg (04/09/21 8:04 AM) Mode of Delivery (Oxygen) Room air (04/09/21 8:04 AM) Blood pressure sites Arm, left (04/09/21 8:44 AM) Arm, left (04/09/21 8:04 AM) Weight Obtained Via Standing scale (04/09/21 8:04 AM) Social History Social History Type Response Smoking Status Former smoker, quit more than 30 days ago entered on: 08/16/20 Sex
--- OUTSIDE RECORDS SUMMARY | 2023-01-22 08:25 | XMS_ITS | Continuity of Care Document ---
Author Name Unknown Organization [facility] HAIRSPRING I INSPECTOR Oncolog y Address [address] [place] [address]- Care Team Providers Care Rcp Name Role Phone Lenora Courtney Primary Care Physician [place] [facility] [place] 11/26/21 - 12/26/21 [facility] HAIRSPRING I INSPECTOR Oncology [address] [place] [phone]- Allergies, Adverse Reactions, Alerts Substance Reaction Severity Status sulfa drugs Nausea Active Caffeine Nervousness Tachycardia Active Sulfite Allergy Nausea Active Immunizations Given and Recorded Vaccine Date Status Refusal Reason SARS-CoV-2 mRNA (kwajijf-lszz-urcza) vax 08/20/21 Recorded SARS-CoV-2 (COVID-19) mRNA BNT-162b2 vac 03/23/21 Recorded SARS-CoV-2 (COVID-19) mRNA BNT-162b2 vac 06/05/20 Recorded SARS-CoV-2 (COVID-19) mRNA BNT-162b2 vac 05/15/20 Recorded influenza virus vaccine, inactivated 03/08/21 Mayo rded influenza virus vaccine, inactivated 02/21/20 [place] rded influenza virus vaccine, inactivated 02/18/17 Mayo [...] AM, 0 Refills, Maintenance, 07/19/20 16:13:00 EST, [place], Partial fill upon patient request if the [...] Active OA (osteoarthritis)(Confirmed) Active Restless legs(Confirmed) Active Severe obesity(Confirmed) Active Vulvar intraepithelial neopl minna (NELSON) grade 1(Confirmed) Active Social History Social History Type Response Smoking Status Former smoker, quit more than 30 days ago;Never entered on: 10/19/21 Sex
--- OUTSIDE RECORDS SUMMARY | 2023-01-22 08:25 | XMS_ITS | Continuity of Care Document ---
Author Name Unknown Organization [facility] WIRE PREPARATION WORKER Oncolog y Address [address] [place] [address]- Care Team Providers Care Casino Floor Supervisor Name Role Phone Lenora Courtney Primary Care Physician [place] [facility] [place] 12/26/21 [facility] WIRE PREPARATION WORKER Oncology [address] [place] [address]- Allergies, Adverse Reactions, Alerts Substance Reaction Severity Status sulfa drugs Nausea Active Caffeine Nervousness Tachycardia Active Sulfite Allergy Nausea Active Immunizations Given and Recorded Vaccine Date Status Refusal Reason SARS-CoV-2 mRNA (ebpuszw-weng-mnlwn) vax 08/20/21 Recorded SARS-CoV-2 (COVID-19) mRNA BNT-162b2 [...] AM, 0 Refills, Maintenance, 07/19/20 16:13:00 EST, [place], Partial fill upon patient request if the [...]
--- OUTSIDE RECORDS SUMMARY | 2023-01-22 08:25 | XMS_ITS | Continuity of Care Document ---
Author Name Unknown Organization [facility] Address [address] [place] [address]- Care Team Providers Care Mortgage Processing Manager Name Role Phone Agnieszka RÍOS, Marily Meadows Primary Care Physician Encounter [facility] Date(s): 04/06/21 - 05/09/[address] [address]- Attending Physician: Jose Hamlin MD Admitting Physician: Boubacar VIDAL, Jose Cortez Referring Physician: Jose Hamlin MD Allergies, Adverse Reactions, Alerts Substance Reaction [...] vaccine, inactivated 05/09/19 Recorded tetanus-diphtheria toxoids (Td) 10/22/18 Recorded tetanus-diphtheria toxoids (Td) 02/09/99 Recorded tetanus/diphtheria/pertussis, [...] Electronically, [facility] #[id number], Partial fill upon patient request if the [...] AM, 0 Refills, Maintenance, 07/19/20 16:13:00 EST, [place], Partial fill upon patient request if the [...] Refills, Maintenance, 11/06/20 9:20:00 EDT, REC Powder, [facility], Partial fill upon patient [...] 13:41:00 EDT, Route to Pharmacy Electronically, [facility] Tablet, Partial fill upon [...]
--- OUTSIDE RECORDS SUMMARY | 2023-01-22 08:25 | XMS_ITS | Continuity of Care Document ---
Author Name Unknown Organization [facility] Address [address] [place] [address]- Care Team Providers Care Spotlight Operator Name Role Phone Lenora Courtney Primary Care Physician Encounter [facility] Date(s): 11/02/21 - 12/02/21 [facility] [address] [place] [phone]- Allergies, Adverse Reactions, Alerts Substance Reaction Severity Status sulfa drugs Nausea Active Caffeine Nervousness Tachycardia Active Sulfite Allergy Nausea Active Immunizations Given and Recorded Vaccine Date Status Refusal Reason SARS-CoV-2 mRNA (plqabsi-vooq-qxwqi) vax 08/20/21 Recorded SARS-CoV-2 (COVID-19) mRNA BNT-162b2 [...] AM, 0 Refills, Maintenance, 07/19/20 16:13:00 EST, [place], Partial fill upon patient request if the [...]
--- OUTSIDE RECORDS SUMMARY | 2023-01-22 08:25 | XMS_ITS | Continuity of Care Document ---
Author Name Unknown Organization [facility] DENTAL DIRECTOR Oncolog y Address [address] [place] [address]- Care Team Providers Care Prescription Benefit Specialist Name Role Phone Goran VIDAL, Mora Mcclendon Primary Care Physician [place] [facility] [place] 09/02/22 - 10/02/22 [facility] DENTAL DIRECTOR Oncology [address] [place] [address]- Attending Physician: Admdenys, Cosmo Admitting Physician: AdmtrCosmo Referring Physician: Admtr, Ar8 Allergies, Adverse Reactions, Alerts Substance Reaction Severity Status sulfa drugs Nausea Active Caffeine Nervousness Tachycardia Active Sulfite Allergy Nausea Active Immunizations Given and Recorded Vaccine Date Status Refusal Reason SARS-CoV-2 mRNA (lpzxocx-kduq-qigte) vax 08/20/21 Recorded SARS-CoV-2 (COVID-19) mRNA BNT-162b2 [...] Team Personnel Name: Tatiana Leal RN Position: [facility] RN Member Role: Primary Care Nurse Name: Mora Zimmer MD Position: [facility] Physician - Primary Care Member Role: PCP Address: Address: [facility] [place] [address]- Name: Razia Gibbs RN Position: [facility] RN Member Role: Primary Care Nurse Name: Mauricio Pineda RN Position: S RN Member Role: Primary Care Nurse Care Team Related Persons Name: KAYLA MANJARREZ Name: KAYCE LACEY Address: [address] [address]
--- OUTSIDE RECORDS SUMMARY | 2023-01-22 08:25 | XMS_ITS | Continuity of Care Document ---
Author Name Unknown Organization [facility] SWAGE TENDER Oncolog y Address [address] [place] [address]- Care Team Providers Care Baling Machine Operator Name Role Phone Marily Aaron NP Primary Care Physician Encounter [facility] [place] Date(s): 06/29/21 - 07/29/21 [facility] SWAGE TENDER Oncology [address] [place] [phone]- Allergies, Adverse Reactions, Alerts Substance Reaction Severity [...] 08/29/20 9:36:00 EDT, Route to Pharmacy Electronically, [facility] #[id number], Partial fill upon patient request if the [...] AM, 0 Refills, Maintenance, 07/19/20 16:13:00 EST, [place], Partial fill upon patient request if the [...] Refills, Maintenance, 11/06/20 9:20:00 EDT, REC Powder, [facility], Partial fill upon patient [...] 11/27/20 13:41:00 EDT, Route to Pharmacy Electronically, [facility] Tablet, Partial fill upon [...]
--- OUTSIDE RECORDS SUMMARY | 2023-01-22 08:25 | XMS_ITS | Continuity of Care Document ---
Author Name Unknown Organization [facility] Address [address] [place] [address]- Care Team Providers Care Production Administrative Assistant Name Role Phone Agnieszka RÍOS, Marily Meadows Primary Care Physician Encounter [facility] [place] Date(s): 08/15/21 - 08/22/21 [facility] [address] [place] [address]- Encounter Diagnosis Dizziness(Discharge Diagnosis) - 08/15/21 Attending Physician: Marily Aaron NP Allergies, Adverse [...] 06/21/19 6:00:00EST Start Date: 06/21/19 Status: Ordered Cranial Prosthesis See Instructions, # [...] AM, 0 Refills, Maintenance, 07/19/20 16:13:00 EST, [place], Partial fill upon patient request if the [...] Diagnosis Diagnosis Type Effective Dates Health Status Clini leander Service Informant Dizziness Discharge Diagnosis 08/15/21 Vital Signs Most recent to oldest [Reference Range]: 1 Height 164.3 cm (08/15/21 12:47 PM) Social History Social History Type Response Smoking Status Former smoker, quit more than 30 days ago entered on: 08/16/20 Sex
--- OUTSIDE RECORDS SUMMARY | 2023-01-22 08:25 | XMS_ITS | Continuity of Care Document ---
Author Name Unknown Organization [facility] Adult Address [address] [place] [address]- Care Team Providers Care Billet Shearer Name Role Phone Mora Zimmer MD Primary Care Physician [place] [facility] [place](s): 01/24/22 - 05/24/22 [facility] Adult [address] [place] [address]- Attending Physician: Agnieszka RÍOS, Marily Meadows Allergies, Adverse Reactions, Alerts Substance Reaction Severity Status sulfa drugs Nausea Active Caffeine Nervousness Tachycardia Active Sulfite Allergy Nausea Active Immunizations Given and Recorded Vaccine Date Status Refusal Reason SARS-CoV-2 mRNA ([id number]-rusk-mvmmy) vax 08/20/21 Recorded SARS-CoV-2 (COVID-19) mRNA BNT-162b2 [...] Team Personnel Name: Tatiana Leal RN Position: [facility] RN Member Role: Primary Care Nurse Name: Mora Zimmer MD Position: [facility] Primary Care Physician Member Role: PCP Address: Address: [address] [place] [address] [place] [address]- Name: Razia Gibbs RN Position: [facility] RN Member Role: Primary Care Nurse Name: Mauricio Pineda RN Position: [facility] RN Member Role: Primary Care Nurse Care Team Related Persons Name: KAYLA MANJARREZ Name: KAYCE LACEY Address: [address] [address]
--- OUTSIDE RECORDS SUMMARY | 2023-01-22 08:25 | XMS_ITS | Continuity of Care Document ---
Author Name Unknown Organization [facility] MALT HOUSE LOADER Oncolog y Address [address] [place] [address]- Care Team Providers Care Lead Burner Helper Name Role Phone Darion Bazan MD Primary Care Physician Encounter [facility] Date(s): 09/21/20 - 10/21/20 [facility] MALT HOUSE LOADER Oncology [address] [place] [phone]- Allergies, Adverse Reactions, Alerts Substance Reaction Severity [...] 10/12/20 9:58:00 EDT, Route to Pharmacy Electronically, [facility], Partial fill upon patient request if the pr... Start Date: 10/12/20 Status: Ordered Colace sodium 100 mg oral capsule 100 mg, 1, capsule, By Mouth, 2 times a day, PRN, # 60 capsule, Refills 0, Tot. Refills 0, Maintenance, for constipation, 08/29/20 9:36:00 EDT, Route to Pharmacy Electronically, [facility] #[id number], Partial fill upon patient request if the [...] AM, 0 Refills, Maintenance, 07/19/20 16:13:00 EST, [place], Partial fill upon patient request if the prescription is for a schedule II opioid drug. Start Date: 07/19/20 Status: Ordered gabapentin 300 mg oral capsule 300 mg, 1, capsule, By Mouth, Daily at bedtime, # 30 capsule, Refills 2, Tot. Refills 2, Maintenance, 10/12/20 9:56:00 EDT, Route to Pharmacy Electronically, [facility], Partial fillupon patient request [...] 08/29/20 9:35:00 EDT, Route to Pharmacy Electronically, [facility] #[id number], Partial fill upon patient request if the prescription... Start Date: 08/29/20 Status: Ordered lidocaine-prilocaine 2.5%-2.5% topical cream See Instructions, apply to [facility] site 30-60min prior to each chemotherapy session, # 30 Gm, 2 Refills, Maintenance, 09/26/20 8:09:00 EDT, [facility], Partial fill upon patient [...] 08/29/20 9:36:00 EDT, Route to Pharmacy Electronically, [facility] #[id number], Partial fill upon patient request if the prescription is... Start Date: 08/29/20 Status: Ordered prochlorperazine 10 mg oral tablet 1 tablet = 10 mg, By Mouth, Every 6 hours, PRN Nausea, # 30 tablet, 2 Refills, Maintenance, 09/26/20 8:09:00 EDT, Tablet, [facility], Partial fill upon patient request if the prescription is for a schedule II opioid drug., 163.9, cm,... Start Date: 09/26/20 Status: Ordered Senna 8.6 mg oral tablet 8.6 mg, 1, tablet, By Mouth, 2 times a day, PRN, # 100 tablet, Refills 2, Tot. Refills 2, Maintenance, for constipation, 09/26/20 8:08:00 EDT, Route to Pharmacy Electronically, [facility] Tablet, Partial fill upon patient request if t... Start Date: 09/26/20 Status: Ordered Tylenol 325 mg oral capsule 2 capsule = 650 mg, By Mouth, Every 4 hours, PRN as needed for pain, # 90 capsule, 1 Refills, Maintenance, 08/29/20 9:36:00 EDT, Capsule, [facility] #[id number], Partial fill upon patient request if the [...]
--- OUTSIDE RECORDS SUMMARY | 2023-01-22 08:25 | XMS_ITS | Continuity of Care Document ---
Author Name Unknown Organization [facility] CODING CLERK Oncolog y Address [address] [place] [address]- Care Team Providers Care Veneer Sample Maker Name Role Phone Marily Aaron NP Primary Care Physician Encounter [facility] [place] Date(s): 06/27/21 - 07/27/21 [facility] CODING CLERK Oncology [address] [place] [address]- Allergies, Adverse Reactions, Alerts Substance Reaction Severity [...] 08/29/20 9:36:00 EDT, Route to Pharmacy Electronically, [facility] #[id number], Partial fill upon patient request if the [...] AM, 0 Refills, Maintenance, 07/19/20 16:13:00 EST, [place], Partial fill upon patient request if the [...] Refills, Maintenance, 11/06/20 9:20:00 EDT, REC Powder, [facility], Partial fill upon patient [...] 11/27/20 13:41:00 EDT, Route to Pharmacy Electronically, [facility] Tablet, Partial fill upon [...]
--- OUTSIDE RECORDS SUMMARY | 2023-01-22 08:25 | XMS_ITS | Continuity of Care Document ---
Author Name Unknown Organization [facility] ter Address [address] [place] [address]- Care Team Providers Care Industrial Aerial Installer Name Role Phone Darion Bazan MD Primary Care Physician [place] [facility] [place] - 09/25/[address] [address]- Discharge Disposition: A-D/C Home Attending Physician: Aguilar [...] 08/29/20 9:36:00 EDT, Route to Pharmacy Electronically, [facility] #[id number], Partial fill upon patient request if the [...] AM, 0 Refills, Maintenance, 07/19/20 16:13:00 EST, [place], Partial fill upon patient request if the [...] 08/29/20 9:35:00 EDT, Route to Pharmacy Electronically, [facility] #[id number], Partial fill upon patient request if the prescription... Start Date: 08/29/20 Status: Ordered Multivitamin Daily, [...] 08/29/20 9:36:00 EDT, Route to Pharmacy Electronically, [facility] #[id number], Partial fill upon patient request if the prescription is... Start Date: 08/29/20 Status: Ordered Senna 8.6 mg oral tablet 8.6 mg, 1, tablet, By Mouth, 2 times a day, PRN, # 100 tablet, Refills 2, Tot. Refills 2, Maintenance, for constipation, 09/22/20 10:04:00 EDT, Route to Pharmacy Electronically, [facility] #[id number] Tablet, Partial fill upon patient request if... Start Date: 09/22/20 Status: Ordered Tylenol 325 mg oral capsule 2 capsule = 650 mg, By Mouth, Every 4 hours, PRN as needed for pain, # 90 capsule, 1 Refills, Maintenance, 08/29/20 9:36:00 EDT, Capsule, [facility] #[id number], Partial fill upon patient request if the [...] (irritable bowel syndrome)(Confirmed) Active OA (osteoarthritis)(Confirmed) Active Vital Signs Most recent to oldest [Reference Range]: 1 2 Height 163.9 cm (09/25/20 7:33 AM) 163.9 cm (09/25/20 7:26 AM) Weight 100 kg (09/25/20 7:26 AM) Oxygen Saturation [94-100 %] 99 % (09/25/20 7:33 AM) Pulse Rate [55-90 bpm] 64 bpm (09/25/20 7:33 AM) Blood Pressure [90-138/55-84 mm Hg] 126/ 65mm Hg (09/25/20 7:33 AM) Respiratory Rate [16-30 br/min] 18 br/mi n (09/25/20 7:33 AM) Temperature [96.8-100.4 DegF] 97.7 DegF (09/25/20 7:33 AM) Temperature Route Oral (09/25/20 7:33 AM) Dry Weight 100 kg (09/25/20 7:26 AM) Social History Social History Type Response Smoking Status Former smoker, quit more than 30 days ago entered on: 08/16/20 Sex
--- OUTSIDE RECORDS SUMMARY | 2023-01-22 08:25 | XMS_ITS | Continuity of Care Document ---
Author Name Unknown Organization [facility] ter Address [address] [place] [address]- Care Team Providers Care Utilization Manager Name Role Phone Darion Bazan MD Primary Care Physician [place] [facility] [place] 08/29/20 - 08/29/[address] [address]- Discharge Disposition: A-D/C Home Attending Physician: Aguilar Short MD Admitting Physician: Aguilar Short MD Referring Physician: Aguilar Short MD Allergies, Adverse Reactions, Alerts Substance Reaction Severity Status sulfa drugs Nausea Active Caffeine Nervousness Tachycardia Active Sulfite Allergy Nausea Active Medications acetaminophen 325 mg oral tablet [...] 08/29/20 9:36:00 EDT, Route to Pharmacy Electronically, [facility] #[id number], Partial fill upon patient request if the pre... Start Date: 08/29/20 Status: Ordered Fish Oil oral capsule 0 Refills, Maintenance, 07/19/20 16:14:00 EST, Partial fill upon patient request if the prescription is for a schedule II opioid drug. Start Date: 07/19/20 Status: Ordered Flonase 50 mcg/inh nasal spray 2 sprays, Nares, Both, Daily in AM, 0 Refills, Maintenance, 07/19/20 16:13:00 EST, [place], Partial fill upon patient request if the [...] 08/29/20 9:35:00 EDT, Route to Pharmacy Electronically, [facility] #[id number], Partial fill upon patient request if the prescription... Start Date: 08/29/20 Status: Ordered MiraLax oral powder for reconstitution = 17 Gm, By Mouth, Daily, dissolve in water before taking, # 255 Gm, 0 Refills, Maintenance, 08/29/20 9:37:00 EDT, REC Powder, [facility] #[id number], Partial fill upon patient request if the [...] 08/29/20 9:36:00 EDT, Route to Pharmacy Electronically, [facility] #[id number], Partial fill upon patient request if the prescription is... Start Date: 08/29/20 Status: Ordered Senna 8.6 mg oral tablet 8.6 mg, 1, tablet, By Mouth, 2 times a day, PRN, # 20 tablet, Refills 0, Tot. Refills 0, Maintenance, for constipation, 08/29/20 9:36:00 EDT, Route to Pharmacy Electronically, [facility] #[id number] Tablet, Partial fill upon patient request if th... Start Date: 08/29/20 Status: Ordered simethicone 80 mg oral tablet, chewable 80 mg, 1, tablet, Chew, 4 times a day, # 48 tablet, Refills 0, Tot. Refills 0, Maintenance, 08/29/20 9:36:00 EDT, Route to Pharmacy Electronically, [facility] #[id number], Partial fill upon patient request if the prescription is for a schedule II... Start Date: 08/29/20 Status: Ordered Tylenol 325 mg oral capsule 2 capsule = 650 mg, By Mouth, Every 4 hours, PRN as needed for pain, # 90 capsule, 1 Refills, Maintenance, 08/29/20 9:36:00 EDT, Capsule, [facility] #[id number], Partial fill upon patient request if the [...] recent to oldest [Reference Range]: 1 2 3 Height 162.56 cm (08/29/20 7:03 PM) 162.56 cm (08/29/20 3:00 PM) 162.56 cm (08/29/20 6:41 AM) Weight 101.9 kg (08/29/20 6:41 AM) 105 kg (08/23/20 8:42 AM) Oxygen Saturation [94-100 %] 98 % (08/29/20 7:03 PM) 94 % (08/29/20 3:00 PM) 94 % (08/29/20 2:15 PM) Pulse Rate [55-90 bpm] 64 bpm (08/29/20 7:03 PM) 65 bpm (08/29/20 3:00 PM) 63 bpm (08/29/20 6:41 AM) Body Mass Index [18.5-24.99] 38.56 *>HHI* (08/29/20 6:41 AM) 39.73 *>HHI* (08/23/20 8:42 AM) Blood Pressure [90-138/55-84 mm Hg] 109/55mm Hg (08/29/20 7:03 PM) 115/57mm Hg (08/29/20 3:00 PM) 105/54mm Hg (08/29/20 12:15 PM) Respiratory Rate [16-30 br/min] 22 br/min (08/29/20 7:03 PM) 18 br/min (08/29/20 3:00 PM) 12 br/min *L* (08/29/20 12:15 PM) Temperature [96.8-100.4 DegF] 98.4 DegF (08/29/20 7:03 PM) 97.4 DegF (08/29/20 3:00 PM) 97.3 DegF (08/29/20 12:15 PM) Liters per Minute 2 L/min (08/29/20 1:00 PM) 2 L/min (08/29/20 12:45 PM) 2 L/min (08/29/20 12:30 PM) Mode of Delivery (Oxygen) Room air (08/29/20 7:03 PM) Room air (08/29/20 3:00 PM) Room air (08/29/20 2:15 PM) Blood pressure sites Arm, right (08/29/20 7:03 PM) Arm, right (08/29/20 3:00 PM) Arm, left (08/29/20 10:00 AM) Temperature Route Oral (08/29/20 7:03 PM) Oral (08/29/20 3:00 PM) Temporal (08/29/20 12:15 PM) Dry Weight 101.9 kg (08/29/20 6:41 AM) 105 kg (08/23/20 8:42 AM) Weight Obtained Via Standing scale (08/29/20 6:41 AM) Patient/family stated (08/23/20 8:42 AM) Dry Weight Obtained Via Patient/family s tated (08/23/20 8:42 AM) Social History Social History Type Response Smoking Status Former smoker, quit more than 30 days ago entered on: 08/16/20 Sex
--- OUTSIDE RECORDS SUMMARY | 2023-01-22 08:25 | XMS_ITS | Continuity of Care Document ---
Author Name Unknown Organization [facility] HEARING AID DISPENSER Oncolog y Address [address] [place] [address]- Care Team Providers Care Is/It Project Manager Name Role Phone Agnieszka FIRE AND SAFETY HELPER, Marily Meadows Primary Care Physician [place] [facility] [place]s): 01/29/21 - 02/28/21 [facility] HEARING AID DISPENSER Oncology [address] [place], [place] [address] Allergies, Adverse Reactions, Alerts Substance Reaction Severity [...] 02/28/21 12:48:00 EDT, Route to Pharmacy Electronically, [email or web address] #[id number], Partial fill upon patient request if the... [...] 08/29/20 9:36:00 EDT, Route to Pharmacy Electronically, [email or web address] #[id number], Partial fill upon patient request if the [...] AM, 0 Refills, Maintenance, 07/19/20 16:13:00 EST, [place], Partial fill upon patient request if the prescription is for a schedule II opioid drug. Start Date: 07/19/20 Status: Ordered gabapentin 100 mg oral capsule See Instructions, TAKE 1 CAPSULE BY MOUTH DAILY AT BEDTIME CAN INCREASE TO 2 CAPSULES BY MOUTH DAILY IF TOLERATED, # 60 capsule, Refills 0, Instructions Replace Required Details, Route to Pharmacy Electronically, [email or web address] #[id number], 164.7, cm... Start Date: 02/05/21 Status: Ordered Glucosamine Chondroitin 1 tab, By Mouth, Daily, 0 Refills, Maintenance, 07/19/20 16:14:00 EST, Partial fill upon patient request if the prescription is for a schedule II opioid drug. Start Date: 07/19/20 Status: Ordered lidocaine-prilocaine 2.5%-2.5% topical cream See Instructions, apply to [facility] site 30-60min prior to each chemotherapy session, # 30 Gm, 2 Refills, Maintenance, 09/26/20 8:09:00 EDT, [facility], Partial fill upon patient [...] Refills, Maintenance, 11/06/20 9:20:00 EDT, REC Powder, [facility], Partial fill upon patient [...] 2 Refills, Maintenance, 09/26/20 8:09:00 EDT, Tablet, [facility], Partial fill upon patient [...] 13:41:00 EDT, Route to Pharmacy Electronically, [facility] Tablet, Partial fill upon patient [...]
--- OUTSIDE RECORDS SUMMARY | 2023-01-22 08:25 | XMS_ITS | Continuity of Care Document ---
Author Name Unknown Organization [facility] VICE PRESIDENT UNDERWRITING Oncolog y Address [address] [place] [address]- Care Team Providers Care Rubber Mill Operator Name Role Phone Marily Aaron NP Primary Care Physician En[place] [facility] [place] Date(s): 08/29/21 - 09/28/21 [facility] VICE PRESIDENT UNDERWRITING Oncology [address] [place] [address]- Allergies, Adverse Reactions, Alerts Substance Reaction Severity [...] AM, 0 Refills, Maintenance, 07/19/20 16:13:00 EST, [place], Partial fill upon patient request if the [...]
--- OUTSIDE RECORDS SUMMARY | 2023-01-22 08:25 | XMS_ITS | Continuity of Care Document ---
Author Name Unknown Organization [facility] COLLAR FUSER Oncolog y Address [address] [place] [address]- Care Team Providers Care Laundry Housekeeping Aide Name Role Phone Marily Aaron NP Primary Care Physician [place] [facility] [place] Date(s): 05/07/21 - 06/06/21 [facility] COLLAR FUSER Oncology [address] [place] [address]- Allergies, Adverse Reactions, Alerts Substance Reaction Severity [...] 08/29/20 9:36:00 EDT, Route to Pharmacy Electronically, [facility] #[id number], Partial fill upon patient request if the [...] AM, 0 Refills, Maintenance, 07/19/20 16:13:00 EST, [place], Partial fill upon patient request if the [...] Refills, Maintenance, 11/06/20 9:20:00 EDT, REC Powder, [facility], Partial fill upon [...] 11/27/20 13:41:00 EDT, Route to Pharmacy Electronically, [facility] Tablet, Partial fill [...]
--- OUTSIDE RECORDS SUMMARY | 2023-01-22 08:26 | XMS_ITS | Continuity of Care Document ---
Author Name Unknown Organization [facility] DIRECTOR INFORMATICS Oncolog y Address [address] [place] [address]- Care Team Providers Care Motor Grader Operator Name Role Phone Mora Zimmer MD Primary Care Physician [place] [facility] [place] 12/22/22 [facility] DIRECTOR INFORMATICS Oncology [address] [place] [address]- Attending Physician: Aguilar Short MD Admitting Physician: Aguilar Short MD Referring Physician: Mora Zimmer MD Allergies, Adverse Reactions, Alerts Substance Reaction Severity Status sulfa drugs Nausea Active Sulfite Allergy Nausea Active Caffeine Nervousness Tachycardia Active Immunizations Given and Recorded Vaccine Date Status Refusal Reason SARS-CoV-2 mRNA ([id number]) vax 08/20/21 Recorded SARS-CoV-2 (COVID-19) mRNA BNT-162b2 [...] Team Personnel Name: Tatiana Leal RN Position: [facility] RN Member Role: Primary Care Nurse Name: Mora Zimmer MD Position: [facility] Physician - Primary Care Member Role: PCP Address: Address: [address] [place] [address] [place] [address]- Name: Razia Gibbs RN Position: [facility] RN Member Role: Primary Care Nurse Name: Mauricio Pineda RN Position: [facility] RN Member Role: Primary Care Nurse Care Team Related Persons Name: KAYLA MANJARREZ Name: KAYCE LACEY Address: [address] [address]
--- OUTSIDE RECORDS SUMMARY | 2023-01-22 08:26 | XMS_ITS | Continuity of Care Document ---
Author Name Unknown Organization [facility] C ancer Care Address [address] [place] [address]- Care Team Providers Care Overlock Waistline Joiner Name Role Phone Agnieszka RÍOS, Marily Meadows Primary Care Physician En[place] [facility] [place](s): 08/13/21 - 09/12/21 [facility] Care [address] [place] [address]- Attending Physician: Admtr, Fran8 Admitting Physician: Admtr, [...] AM, 0 Refills, Maintenance, 07/19/20 16:13:00 EST, [place], Partial fill upon patient request if the [...]
--- OUTSIDE RECORDS SUMMARY | 2023-01-22 08:26 | XMS_ITS | Continuity of Care Document ---
Author Name Unknown Organization [facility] FIELD CANE SCALE CLERK Oncolog y Address [address] [place] [address]- Care Team Providers Care Remote Coders Name Role Phone Darion Bazan MD Primary Care Physician En[place] [facility] [place](s): 11/21/20 - 12/24/20 [facility] FIELD CANE SCALE CLERK Oncology [address] [place] [address]- Attending Physician: Aguilar Short MD Admitting Physician: Aguilar Short MD Allergies, Adverse Reactions, [...] 11/27/20 13:40:00 EDT, Route to Pharmacy Electronically, [facility], Partial fill upon patient request if the p... Start Date: 11/27/20 Status: Ordered Colace sodium 100 mg oral capsule 100 mg, 1, capsule, By Mouth, 2 times a day, PRN, # 60 capsule, Refills 0, Tot. Refills 0, Maintenance, for constipation, 08/29/20 9:36:00 EDT, Route to Pharmacy Electronically, [facility] #[id number], Partial fill upon patient request if the [...] AM, 0 Refills, Maintenance, 07/19/20 16:13:00 EST, [place], Partial fill upon patient request if the prescription is for a schedule II opioid drug. Start Date: 07/19/20 Status: Ordered gabapentin 300 mg oral capsule 300 mg, 1, capsule, By Mouth, Daily at bedtime, # 30 capsule, Refills 2, Tot. Refills 2, Maintenance, 10/12/20 9:56:00 EDT, Route to Pharmacy Electronically, [facility], Partial fillupon patient [...] 08/29/20 9:35:00 EDT, Route to Pharmacy Electronically, [facility] #[id number], Partial fill upon patient request if the prescription... Start Date: 08/29/20 Status: Ordered lidocaine-prilocaine 2.5%-2.5% topical cream See Instructions, apply to [facility] site 30-60min prior to each chemotherapy session, # 30 Gm, 2 Refills, Maintenance, 09/26/20 8:09:00 EDT, [facility], Partial fill upon [...] Refills, Maintenance, 11/06/20 9:20:00 EDT, REC Powder, [facility], Partial fill upon [...] 08/29/20 9:36:00 EDT, Route to Pharmacy Electronically, [id number], Partial fill upon patient request if the prescription is... Start Date: 08/29/20 Status: Ordered prochlorperazine 10 mg oral tablet 1 tablet = 10 mg, By Mouth, Every 6 hours, PRN Nausea, # 30 tablet, 2 Refills, Maintenance, 09/26/20 8:09:00 EDT, Tablet, [facility], Partial fill upon patient request if the prescription is for a schedule II opioid drug., 163.9, cm,... Start Date: 09/26/20 Status: Ordered Senna 8.6 mg oral tablet 8.6 mg, 1, tablet, By Mouth, 2 times a day, PRN, # 100 tablet, Refills 2, Tot. Refills 2, Maintenance, for constipation, 11/27/20 13:41:00 EDT, Route to Pharmacy Electronically, [facility] Tablet, Partial fill upon patient request if... Start Date: 11/27/20 Status: Ordered Tylenol 325 mg oral capsule 2 capsule = 650 mg, By Mouth, Every 4 hours, PRN as needed for pain, # 90 capsule, 1 Refills, Maintenance, 08/29/20 9:36:00 EDT, Capsule, [facility] #[id number], Partial fill upon patient request if the [...]
--- OUTSIDE RECORDS SUMMARY | 2023-01-22 08:26 | XMS_ITS | Continuity of Care Document ---
Author Name Unknown Organization [facility]BG[facility] Address [address] [place] [address]- Care Team Providers Care Community Center Coordinator Name Role Phone Marily Aaron NP Primary Care Physician Encounter [facility] Date(s): 08/14/21 - 09/13/21 [facility] [address] [place] [address]- Allergies, Adverse Reactions, Alerts Substance Reaction Severity [...] AM, 0 Refills, Maintenance, 07/19/20 16:13:00 EST, [place], Partial fill upon patient request if the [...]
--- OUTSIDE RECORDS SUMMARY | 2023-01-22 08:26 | XMS_ITS | Continuity of Care Document ---
Author Name Unknown Organization [facility] HISTORIOGRAPHY TEACHER Oncolog y Address [address] [place] [address]- Care Team Providers Care Yard Associate Name Role Phone Darion Bazan MD Primary Care Physician ( [phone] [facility] [place] Date(s): 09/22/20 - 10/22/20 [facility] HISTORIOGRAPHY TEACHER Oncology [address] [place] [address]- Allergies, Adverse Reactions, Alerts Substance Reaction Severity [...] 10/12/20 9:58:00 EDT, Route to Pharmacy Electronically, [facility], Partial fill upon patient request if the pr... Start Date: 10/12/20 Status: Ordered Colace sodium 100 mg oral capsule 100 mg, 1, capsule, By Mouth, 2 times a day, PRN, # 60 capsule, Refills 0, Tot. Refills 0, Maintenance, for constipation, 08/29/20 9:36:00 EDT, Route to Pharmacy Electronically, [facility] #[id number], Partial fill upon patient request if the [...] AM, 0 Refills, Maintenance, 07/19/20 16:13:00 EST, [place], Partial fill upon patient request if the prescription is for a schedule II opioid drug. Start Date: 07/19/20 Status: Ordered gabapentin 300 mg oral capsule 300 mg, 1, capsule, By Mouth, Daily at bedtime, # 30 capsule, Refills 2, Tot. Refills 2, Maintenance, 10/12/20 9:56:00 EDT, Route to Pharmacy Electronically, [facility], Partial fillupon patient request [...] 08/29/20 9:35:00 EDT, Route to Pharmacy Electronically, [facility] #[id number], Partial fill upon patient request if the prescription... Start Date: 08/29/20 Status: Ordered lidocaine-prilocaine 2.5%-2.5% topical cream See Instructions, apply to [facility] site 30-60min prior to each chemotherapy session, # 30 Gm, 2 Refills, Maintenance, 09/26/20 8:09:00 EDT, [facility], Partial fill upon patient [...] 08/29/20 9:36:00 EDT, Route to Pharmacy Electronically, [facility] #[id number], Partial fill upon patient request if the prescription is... Start Date: 08/29/20 Status: Ordered prochlorperazine 10 mg oral tablet 1 tablet = 10 mg, By Mouth, Every 6 hours, PRN Nausea, # 30 tablet, 2 Refills, Maintenance, 09/26/20 8:09:00 EDT, Tablet, [facility], Partial fill upon patient request if the prescription is for a schedule II opioid drug., 163.9, cm,... Start Date: 09/26/20 Status: Ordered Senna 8.6 mg oral tablet 8.6 mg, 1, tablet, By Mouth, 2 times a day, PRN, # 100 tablet, Refills 2, Tot. Refills 2, Maintenance, for constipation, 09/26/20 8:08:00 EDT, Route to Pharmacy Electronically, [facility] Tablet, Partial fill upon patient request if t... Start Date: 09/26/20 Status: Ordered Tylenol 325 mg oral capsule 2 capsule = 650 mg, By Mouth, Every 4 hours, PRN as needed for pain, # 90 capsule, 1 Refills, Maintenance, 08/29/20 9:36:00 EDT, Capsule, [facility] #[id number], Partial fill upon patient request if the [...]
--- OUTSIDE RECORDS SUMMARY | 2023-01-22 08:26 | XMS_ITS | Continuity of Care Document ---
Author Name Unknown Organization [facility] Address Unknown Care Team Providers Care Sap Crm Developer Name Role Phone Lenora Courtney Primary Care Physician Encounter [facility] Date(s): 11/07/21 - 12/07/21 [facility] Attending Physician: Cosmo Johnson Admitting Physician: Cosmo Johnson Referring Physician: Cosmo Johnson Allergies, Adverse Reactions, Alerts Substance Reaction Severity Status sulfa drugs Nausea Active Caffeine Nervousness Tachycardia Active Sulfite Allergy Nausea Active Immunizations Given and Recorded Vaccine Date Status Refusal Reason SARS-CoV-2 mRNA ([id number]) vax 08/20/21 Recorded SARS-CoV-2 (COVID-19) mRNA BNT-162b2 [...] AM, 0 Refills, Maintenance, 07/19/20 16:13:00 EST, [place], Partial fill upon patient request if the [...]
--- OUTSIDE RECORDS SUMMARY | 2023-01-22 08:26 | XMS_ITS | Continuity of Care Document ---
Author Name Unknown Organization [facility] Address [address] [place] [address]- Care Team Providers Care Web Services Professional Name Role Phone Darion Bazan MD Primary Care Physician Encounter [facility] [place] Date(s): 12/12/20 - 01/11/21 [facility] [address] [place] [phone]- Allergies, Adverse Reactions, Alerts Substance Reaction Severity [...] 11/27/20 13:40:00 EDT, Route to Pharmacy Electronically, [facility], Partial fill upon patient request if the p... Start Date: 11/27/20 Status: Ordered Colace sodium 100 mg oral capsule 100 mg, 1, capsule, By Mouth, 2 times a day, PRN, # 60 capsule, Refills 0, Tot. Refills 0, Maintenance, for constipation, 08/29/20 9:36:00 EDT, Route to Pharmacy Electronically, [facility] #[id number], Partial fill upon patient request if the [...] AM, 0 Refills, Maintenance, 07/19/20 16:13:00 EST, [place], Partial fill upon patient request if [...] 10/12/20 9:56:00 EDT, Route to Pharmacy Electronically, [facility], Partial fillupon patient request [...] 08/29/20 9:35:00 EDT, Route to Pharmacy Electronically, [facility] #[id number], Partial fill upon patient request if the prescription... Start Date: 08/29/20 Status: Ordered lidocaine-prilocaine 2.5%-2.5% topical cream See Instructions, apply to [facility] site 30-60min prior to each chemotherapy session, # 30 Gm, 2 Refills, Maintenance, 09/26/20 8:09:00 EDT, [facility], Partial fill upon patient [...] Refills, Maintenance, 11/06/20 9:20:00 EDT, REC Powder, [facility], Partial fill upon patient [...] 08/29/20 9:36:00 EDT, [facility] to [facility], [id number], Partial fill upon patient request if the prescription is... Start Date: 08/29/20 Status: Ordered prochlorperazine 10 mg oral tablet 1 tablet = 10 mg, By Mouth, Every 6 hours, PRN Nausea, # 30 tablet, 2 Refills, Maintenance, 09/26/20 8:09:00 EDT, Tablet, [facility], Partial fill upon patient request if the prescription is for a schedule II opioid drug., 163.9, cm,... Start Date: 09/26/20 Status: Ordered Senna 8.6 mg oral tablet 8.6 mg, 1, tablet, By Mouth, 2 times a day, PRN, # 100 tablet, Refills 2, Tot. Refills 2, Maintenance, for constipation, 11/27/20 13:41:00 EDT, Route to Pharmacy Electronically, [facility] Tablet, Partial fill upon patient request if... Start Date: 11/27/20 Status: Ordered Tylenol 325 mg oral capsule 2 capsule = 650 mg, By Mouth, Every 4 hours, PRN as needed for pain, # 90 capsule, 1 Refills, Maintenance, 08/29/20 9:36:00 EDT, Capsule, [id number], Partial fill upon patient request if the [...]
--- OUTSIDE RECORDS SUMMARY | 2023-01-22 08:26 | XMS_ITS | Continuity of Care Document ---
Author Name Unknown Organization [facility] Address [address] [place] [address]- Care Team Providers Care Lead Cashier Name Role Phone Agnieszka FLIGHT TEST SHOP MECHANIC, Marily Meadows Primary Care Physician En[place] [facility] [place] Date(s): 02/02/21 - 03/04/21 [facility] [address] [place], [place] [address] Allergies, Adverse Reactions, Alerts Substance [...] 08/29/20 9:36:00 EDT, Route to Pharmacy Electronically, [facility] #[id number], Partial fill upon patient request if the [...] AM, 0 Refills, Maintenance, 07/19/20 16:13:00 EST, [place], Partial fill upon patient request if the prescription is for a schedule II opioid drug. Start Date: 07/19/20 Status: Ordered gabapentin 100 mg oral capsule See Instructions, TAKE 1 CAPSULE BY MOUTH DAILY AT BEDTIME CAN INCREASE TO 2 CAPSULES BY MOUTH DAILY IF TOLERATED, # 60 capsule, Refills 0, Instructions Replace Required Details, Route to Pharmacy Electronically, [facility] #[id number], 164.7, cm... Start Date: 02/05/21 Status: Ordered Glucosamine Chondroitin 1 tab, By Mouth, Daily, 0 Refills, Maintenance, 07/19/20 16:14:00 EST, Partial fill upon patient request if the prescription is for a schedule II opioid drug. Start Date: 07/19/20 Status: Ordered lidocaine-prilocaine 2.5%-2.5% topical cream See Instructions, apply to [facility] site 30-60min prior to each chemotherapy session, # 30 Gm, 2 Refills, Maintenance, 09/26/20 8:09:00 EDT, [facility], Partial fill upon patient request [...] Refills, Maintenance, 11/06/20 9:20:00 EDT, REC Powder, [facility], Partial fill upon patient request [...] 2 Refills, Maintenance, 09/26/20 8:09:00 EDT, Tablet, [facility], Partial fill upon patient request [...] 11/27/20 13:41:00 EDT, Route to Pharmacy Electronically, [facility] Tablet, Partial fill upon patient [...]
--- OUTSIDE RECORDS SUMMARY | 2023-01-22 08:26 | XMS_ITS | Continuity of Care Document ---
Author Name Unknown Organization [facility] Address [address] [place] [address]- Care Team Providers Care Senior Chemical Engineer Name Role Phone Agnieszka RV TECHNICIAN, Marily Meadows Primary Care Physician [place] [facility] [place] 08/02/21 [facility] [address] [place] [address]- Allergies, Adverse Reactions, Alerts Substance Reaction Severity [...] 08/29/20 9:36:00 EDT, Route to Pharmacy Electronically, [facility] #[id number], Partial fill upon patient request if the [...] AM, 0 Refills, Maintenance, 07/19/20 16:13:00 EST, [place], Partial fill upon patient request if the [...] Maintenance, 11/06/20 9:20:00 EDT, REC Powder, [facility], Partial fill upon patient [...] 13:41:00 EDT, Route to Pharmacy Electronically, [facility] Tablet, Partial fill upon [...]
--- OUTSIDE RECORDS SUMMARY | 2023-01-22 08:26 | XMS_ITS | Continuity of Care Document ---
Author Name Unknown Organization [facility] Address [address] [place] [address]- Care Team Providers Care Vehicle Safety Inspector Name Role Phone Darion Bazan MD Primary Care Physician Encounter [facility] [place] Date(s): 09/15/20 - 10/15/20 [facility] [address] [place] [address]- Allergies, Adverse Reactions, Alerts Substance Reaction Severity [...] 10/12/20 9:58:00 EDT, Route to Pharmacy Electronically, [facility], Partial fill upon patient request if the pr... Start Date: 10/12/20 Status: Ordered Colace sodium 100 mg oral capsule 100 mg, 1, capsule, By Mouth, 2 times a day, PRN, # 60 capsule, Refills 0, Tot. Refills 0, Maintenance, for constipation, 08/29/20 9:36:00 EDT, Route to Pharmacy Electronically, [facility] #[id number], Partial fill upon patient request if the [...] AM, 0 Refills, Maintenance, 07/19/20 16:13:00 EST, [place], Partial fill upon patient request if the prescription is for a schedule II opioid drug. Start Date: 07/19/20 Status: Ordered gabapentin 300 mg oral capsule 300 mg, 1, capsule, By Mouth, Daily at bedtime, # 30 capsule, Refills 2, Tot. Refills 2, Maintenance, 10/12/20 9:56:00 EDT, Route to Pharmacy Electronically, [facility], Partial fillupon patient request [...] 08/29/20 9:35:00 EDT, Route to Pharmacy Electronically, [facility] #[id number], Partial fill upon patient request if the prescription... Start Date: 08/29/20 Status: Ordered lidocaine-prilocaine 2.5%-2.5% topical cream See Instructions, apply to [facility] site 30-60min prior to each chemotherapy session, # 30 Gm, 2 Refills, Maintenance, 09/26/20 8:09:00 EDT, [facility], Partial fill upon patient request if [...] 08/29/20 9:36:00 EDT, Route to Pharmacy Electronically, [facility] #[id number], Partial fill upon patient request if the prescription is... Start Date: 08/29/20 Status: Ordered prochlorperazine 10 mg oral tablet 1 tablet = 10 mg, By Mouth, Every 6 hours, PRN Nausea, # 30 tablet, 2 Refills, Maintenance, 09/26/20 8:09:00 EDT, Tablet, [facility], Partial fill upon patient request if the prescription is for a schedule II opioid drug., 163.9, cm,... Start Date: 09/26/20 Status: Ordered Senna 8.6 mg oral tablet 8.6 mg, 1, tablet, By Mouth, 2 times a day, PRN, # 100 tablet, Refills 2, Tot. Refills 2, Maintenance, for constipation, 09/26/20 8:08:00 EDT, Route to Pharmacy Electronically, [facility] Tablet, Partial fill upon patient request if t... Start Date: 09/26/20 Status: Ordered Tylenol 325 mg oral capsule 2 capsule = 650 mg, By Mouth, Every 4 hours, PRN as needed for pain, # 90 capsule, 1 Refills, Maintenance, 08/29/20 9:36:00 EDT, Capsule, [facility] #[id number], Partial fill upon patient request if the [...]
--- OUTSIDE RECORDS SUMMARY | 2023-01-22 08:26 | XMS_ITS | Continuity of Care Document ---
Author Name Unknown Organization [facility] Address [address] [place] [address]- Care Team Providers Care Color Maker Dyer Name Role Phone Hortensia VIDAL, Darion Primary Care Physician Encounter [facility] [place] Date(s): 09/07/20 - 10/07/20 [facility] [address] [place], [place] [address] [place] Allergies, Adverse Reactions, Alerts Substance Reaction Severity [...] 08/29/20 9:36:00 EDT, Route to Pharmacy Electronically, [facility] #[id number], Partial fill upon patient request if the [...] AM, 0 Refills, Maintenance, 07/19/20 16:13:00 EST, [place], Partial fill upon patient request if the [...] 08/29/20 9:35:00 EDT, Route to Pharmacy Electronically, [facility] #[id number], Partial fill upon patient request if the prescription... Start Date: 08/29/20 Status: Ordered lidocaine-prilocaine 2.5%-2.5% topical cream See Instructions, apply to [facility] site 30-60min prior to each chemotherapy session, # 30 Gm, 2 Refills, Maintenance, 09/26/20 8:09:00 EDT, [facility], Partial fill upon patient [...] 08/29/20 9:36:00 EDT, Route to Pharmacy Electronically, [facility] #[id number], Partial fill upon patient request if the prescription is... Start Date: 08/29/20 Status: Ordered prochlorperazine 10 mg oral tablet 1 tablet = 10 mg, By Mouth, Every 6 hours, PRN Nausea, # 30 tablet, 2 Refills, Maintenance, 09/26/20 8:09:00 EDT, Tablet, [facility], Partial fill upon patient request if the prescription is for a schedule II opioid drug., 163.9, cm,... Start Date: 09/26/20 Status: Ordered Senna 8.6 mg oral tablet 8.6 mg, 1, tablet, By Mouth, 2 times a day, PRN, # 100 tablet, Refills 2, Tot. Refills 2, Maintenance, for constipation, 09/26/20 8:08:00 EDT, Route to Pharmacy Electronically, [facility] Tablet, Partial fill upon patient request if t... Start Date: 09/26/20 Status: Ordered Tylenol 325 mg oral capsule 2 capsule = 650 mg, By Mouth, Every 4 hours, PRN as needed for pain, # 90 capsule, 1 Refills, Maintenance, 08/29/20 9:36:00 EDT, Capsule, [facility] #[id number], Partial fill upon patient request if the [...]
--- OUTSIDE RECORDS SUMMARY | 2023-01-22 08:26 | XMS_ITS | Continuity of Care Document ---
Author Name Unknown Organization [facility]ATINGS ANALYST Oncolog y Address [address] [place] [address]- Care Team Providers Care Lawyers Name Role Phone Darion Bazan MD Primary Care Physician [place] [facility] [place] 10[place]21/20 [facility] Oncology [address] [place] [address]- Allergies, Adverse Reactions, Alerts Substance Reaction Severity [...] 10/12/20 9:58:00 EDT, Route to Pharmacy Electronically, [facility], Partial fill upon patient request if the pr... Start Date: 10/12/20 Status: Ordered Colace sodium 100 mg oral capsule 100 mg, 1, capsule, By Mouth, 2 times a day, PRN, # 60 capsule, Refills 0, Tot. Refills 0, Maintenance, for constipation, 08/29/20 9:36:00 EDT, Route to Pharmacy Electronically, [facility] #[id number], Partial fill upon patient request if the [...] AM, 0 Refills, Maintenance, 07/19/20 16:13:00 EST, [place], Partial fill upon patient request if the prescription is for a schedule II opioid drug. Start Date: 07/19/20 Status: Ordered gabapentin 300 mg oral capsule 300 mg, 1, capsule, By Mouth, Daily at bedtime, # 30 capsule, Refills 2, Tot. Refills 2, Maintenance, 10/12/20 9:56:00 EDT, Route to Pharmacy Electronically, [facility], Partial fillupon patient [...] 08/29/20 9:35:00 EDT, Route to Pharmacy Electronically, [facility] #[id number], Partial fill upon patient request if the [...] 08/29/20 9:36:00 EDT, Route to Pharmacy Electronically, [facility] #[id number], Partial fill upon patient request if the prescription is... Start Date: 08/29/20 Status: Ordered prochlorperazine 10 mg oral tablet 1 tablet = 10 mg, By Mouth, Every 6 hours, PRN Nausea, # 30 tablet, 2 Refills, Maintenance, 09/26/20 8:09:00 EDT, Tablet, [facility], Partial fill upon patient request if the prescription is for a schedule II opioid drug., 163.9, cm,... Start Date: 09/26/20 Status: Ordered Senna 8.6 mg oral tablet 8.6 mg, 1, tablet, By Mouth, 2 times a day, PRN, # 100 tablet, Refills 2, Tot. Refills 2, Maintenance, for constipation, 09/26/20 8:08:00 EDT, Route to Pharmacy Electronically, [facility] Tablet, Partial fill upon patient request if t... Start Date: 09/26/20 Status: Ordered Tylenol 325 mg oral capsule 2 capsule = 650 mg, By Mouth, Every 4 hours, PRN as needed for pain, # 90 capsule, 1 Refills, Maintenance, 08/29/20 9:36:00 EDT, Capsule, [facility] #[id number], Partial fill upon patient request if the [...]
--- OUTSIDE RECORDS SUMMARY | 2023-01-22 08:26 | XMS_ITS | Continuity of Care Document ---
Author Name Unknown Organization [facility] ter Address [address] [place] [address]- Care Team Providers Care Thread Weaver Name Role Phone Levon VIDAL, Latrice Paige Primary Care Physician Encounter [facility] [place] Date(s): 06/21/19 - 06/23/[address] [address]- [facility] Discharge Disposition: A-Transfer VNA/Home Health Attending Physician: Aiden Pollard MD Admitting Physician: [...] 2 times a day, 0 Refills, Maintenance, 06/22/19 12:27:00 EST, ER Capsule Start Date: 06/22/19 Status: Ordered celecoxib 200 mg oral capsule 1 capsule = 200 mg, By Mouth, Daily, 0 Refills, Maintenance, 06/22/19 12:27:00 EST, Capsule Start Date: 06/22/19 Status: Ordered Claritin 10 mg oral tablet 10 mg, 1, tablet, By Mouth, Daily, # 30 tablet, Refills 0, Maintenance, 06/21/19 6:00:00 EST Start Date: 06/21/19 Status: Ordered Colace Capsule 100 mg, 1, capsule, By Mouth, 2 times a day, Refills 0, Maintenance, 06/22/19 12:28:00 EST Start Date: 06/22/19 Status: Ordered Maalox Plus Liquid 30 mL, By Mouth, Every 4 hours, PRN Other, Heartburn, 0 Refills, Maintenance, 06/22/19 12:27:00 EST, Suspension Start Date: 06/22/19 Status: Ordered Milk of Magnesia Liquid 30 mL, By Mouth, Daily, PRN Constipation, 0 Refills, Maintenance, 06/22/19 12:28:00 EST, Suspension Start Date: 06/22/19 Status: Ordered MiraLax Powder 1 pack/packet = 17 Gm, By Mouth, Daily, 0 Refills, Maintenance, 06/22/19 12:28:00 EST, Powder Start Date: 06/22/19 Status: Ordered oxyCODONE 5 mg oral tablet 5 mg, 1, tablet, By Mouth, Every 4 hours, PRN, Refills 0, Tot. Refills 0, Maintenance, Pain , Mild,06/22/19 12:28:00 EST, Partial fill upon patient request Start Date: 06/22/19 Status: Ordered oxyCODONE 5 mg oral tablet 10 mg, 2, tablet, By Mouth, Every 4 hours, PRN, Refills 0, Tot. Refills 0, Maintenance, Pain , Moderate, 06/22/19 12:28:00 EST, Partial fill upon patient request Start Date: 06/22/19 Status: Ordered oxyCODONE 5 mg oral tablet See Instructions, PRN, Take 1-2 tablets By Mouth Every 4 hours as needed, # 84 tablet, Refills 0, Tot. Refills 0, Acute 06/29/19 12:33:00 EST, Pain , Mild, 06/22/19 12:32:00 EST, Instructions ReplaceRequired Details, Route to Pharmacy Electronically,... Start Date: 06/22/19 Stop Date: 06/29/19 Status: Ordered pantoprazole 40 mg oral delayed release tablet = 40 mg, By Mouth, Daily, 0 Refills, Maintenance, 06/22/19 12:28:00 EST, [facility] Tablet Start Date: 06/22/19 Status: Ordered senna 187 mg oral tablet 1 tablet = 8.6 mg, By Mouth, Daily at bedtime, 0 Refills, Maintenance, 06/22/19 12:28:00 EST, Tablet Start Date: 06/22/19 Status: Ordered traMADol 50 mg oral tablet 1 tablet = 50 mg, By Mouth, Every 4 hours, PRN Pain , Moderate, for 7 days, # 42 tablet, 0 Refills,Acute 06/30/19 11:32:00 EST, 06/23/19 11:32:00 EST, Tablet, [facility], 167, cm, 06/23/19 7:16:00 EST, Height, 92, kg, 06/21/19 7:14:00 E... Start Date: 06/23/19 Stop Date: 06/30/19 Status: Ordered Vitamin D3 = 1,000 International_Units, By Mouth, Daily, 0 Refills, Maintenance, 06/21/19 6:00:00 EST Start Date: 06/21/19 Status: Ordered Zofran ODT 4 mg oral tablet, disintegrating = 4 mg, By Mouth, Every 6 hours, PRN Nausea & Vomiting, # 28 tablet, 0 Refills, Maintenance, 06/22/19 12:34:00 EST, Tablet, [facility], 167, cm, 06/22/19 11:21:00 EST, Height, 92, kg, 06/21/19 7:14:00 EST, Dry Weight Start Date: 06/22/19 Stop Date: 06/29/19 Status: Ordered Results Radiology Reports * Exam Date Time Procedure Performing Provider Status 06/21/19 11:05 PM Knee 1 or 2 Views Right Maame Mary Carmen ; Auth (Verified) Notes: (Knee 1 or 2 Views Right) Reason For Exam: Postop RESULT: Knee 1 or 2 Views Right Right knee single view dated June 21, 2019. No prior studies are available. HISTORY: Knee replacement. FINDINGS: This single view shows a total knee arthroplasty in anatomic alignment. IMPRESSION: Total knee arthroplasty in anatomic alignment. Examination 07498. Thank you for allowing me to participate in the care of this patient. WSN: [id number] Dictated By: Santosh Olvera MD Dictated Date/Time: 06/22/19 9:11 am Reviewed By: Santosh Olvera MD Signed By: Santosh Olvera MD Signed Date/Time: 06/22/19 9:11 am Transcribed By: SHAQUILLE Transcribed Date/Time: 06/22/19 9:11 am Vital Signs Most recent to oldest [Reference Range]: 1 2 3 Height 167 cm (06/23/19 7:16 AM) 167 cm (06/23/19 4:32 AM) 167 cm (06/22/19 11:52 PM) Weight 92.0 kg (06/21/19 7:55 AM) 92.0 kg (06/21/19 6:36 AM) Oxygen Saturation [94-100 %] 100 % (06/23/19 7:16 AM) 99 % (06/23/19 4:32 AM) 95 % (06/22/19 11:52 PM) Pulse Rate [55-90 bpm] 62 bpm (06/23/19 7:16 AM) 65 bpm (06/23/19 4:32 AM) 70 bpm (06/22/19 11:52 PM) Body Mass Index [18.5-24.99] 32.99 *>HHI* (06/21/19 7:55 AM) 32.99 *>HHI* (06/21/19 6:36 AM) Blood Pressure [90-138/55-84 mm Hg] 107/54mm Hg (06/23/19 7:16 AM) 94/48mm Hg (06/23/19 4:32 AM) 115/46mm Hg (06/22/19 11:52 PM) Respiratory Rate [16-30 br/min] 18 br/min (06/23/19 1:52 PM) 18 br/min (06/23/19 1:52 PM) 18 br/min (06/23/19 1:52 PM) Temperature [96.8-100.4 DegF] 97.7 DegF (06/23/19 7:16 AM) 98 DegF (06/23/19 4:32 AM) 98.1 DegF (06/22/19 11:52 PM) Mode of Delivery (Oxygen) Room air (06/23/19 7:16 AM) Room air (06/23/19 4:32 AM) Room air (06/22/19 11:52 PM) Blood pressure sites Arm, left (06/23/19 7:16 AM) Arm, right (06/23/19 4:32 AM) Arm, right (06/22/19 11:52 PM) Temperature Route Oral (06/23/19 7:16 AM) Oral (06/23/19 4:32 AM) Oral (06/22/19 11:52 PM) Dry Weight 92.0 kg (06/21/19 6:36 AM) Weight Obtained Via Standing scale (06/21/19 6:36 AM) Sensory deficits None (06/21/19 6:36 AM) Mobility assistance Independent (06/21/19 6:36 AM)
--- OUTSIDE RECORDS SUMMARY | 2023-01-22 08:26 | XMS_ITS | Continuity of Care Document ---
Author Name Unknown Organization [facility] Address [address] [place] [address]- Care Team Providers Care Furniture Finisher Helper Name Role Phone Mora Zimmer MD Primary Care Physician [place] [facility] [place] 11/28/22 - 12/28/[address] [id number] Attending Physician: AdmCosmo mcfarlane Admitting Physician: Admtr, Ar8 Referring Physician: Admtr, Ar8 Allergies, Adverse Reactions, Alerts Substance Reaction Severity Status sulfa drugs Nausea Active Caffeine Nervousness Tachycardia Active Sulfite Allergy Nausea Active Immunizations Given and Recorded Vaccine Date Status Refusal Reason SARS-CoV-2 mRNA (awjszth-bozt-nbuvt) vax 08/20/21 Recorded SARS-CoV-2 (COVID-19) mRNA BNT-162b2 [...] Team Personnel Name: Tatiana Leal RN Position: [facility] RN Member Role: Primary Care Nurse Name: Mora Zimmer MD Position: [facility] Physician - Primary Care Member Role: PCP Address: Address: [address] [place] [address] [place] [address]- Name: Razia Gibbs RN Position: [facility] RN Member Role: Primary Care Nurse Name: Mauricio Pineda RN Position: [facility] RN Member Role: Primary Care Nurse Care Team Related Persons Name: KAYLA MANJARREZ Name: KAYCE LACEY Address: home [address] [place] [id number]
--- OUTSIDE RECORDS SUMMARY | 2023-01-22 08:26 | XMS_ITS | Continuity of Care Document ---
Author Name Unknown Organization [facility] LIVESTOCK DEALER Oncolog y Address [address] [place] [address]- Care Team Providers Care Level Vial Marker Name Role Phone Marily Aaron NP Primary Care Physician [place] [facility] [place] 03[place]/21 [facility] LIVESTOCK DEALER Oncology [address] [place] [address]- Allergies, Adverse Reactions, Alerts Substance Reaction Severity [...] 08/29/20 9:36:00 EDT, Route to Pharmacy Electronically, [facility] #[id number], Partial fill upon patient request if the [...] AM, 0 Refills, Maintenance, 07/19/20 16:13:00 EST, [place], Partial fill upon patient request if the prescription is for a schedule II opioid drug. Start Date: 07/19/20 Status: Ordered gabapentin 100 mg oral capsule See Instructions, TAKE 1 CAPSULE BY MOUTH DAILY AT BEDTIME CAN INCREASE TO 2 CAPSULES BY MOUTH DAILY IF TOLERATED, # 60 capsule, Refills 2, Instructions Replace Required Details, Route to Pharmacy Electronically, [facility] #[id number], 163, cm,... Start Date: 03/16/21 Status: Ordered Glucosamine Chondroitin 1 tab, By Mouth, Daily, 0 Refills, Maintenance, 07/19/20 16:14:00 EST, Partial fill upon patient request if the prescription is for a schedule II opioid drug. Start Date: 07/19/20 Status: Ordered lidocaine-prilocaine 2.5%-2.5% topical cream See Instructions, apply to [facility] 30-60min prior to each chemotherapy session, # 30 Gm, 2 Refills, Maintenance, 09/26/20 8:09:00 EDT, [facility], Partial fill upon patient [...] Refills, Maintenance, 11/06/20 9:20:00 EDT, REC Powder, [facility], Partial fill upon patient [...] 2 Refills, Maintenance, 09/26/20 8:09:00 EDT, Tablet, [facility], Partial fill upon patient [...] 11/27/20 13:41:00 EDT, Route to Pharmacy Electronically, [facility] Tablet, Partial fill upon [...]
--- OUTSIDE RECORDS SUMMARY | 2023-01-22 08:26 | XMS_ITS | Continuity of Care Document ---
Author Name Unknown Organization [facility] C ancer Care Address [address] [place] [address]- Care Team Providers Care Reinforcing Steel Worker Wire Mesh Name Role Phone Lenora Courtney Primary Care Physician [place] [facility] [place] 01/27/22 [facility] [address] [place] [address] Discharge Disposition: A-D/C Home Attending Physician: Anish Hamlin MD Admitting Physician: Anish Hamlin MD Referring Physician: Darion Bazan MD Allergies, Adverse Reactions, Alerts Substance Reaction Severity Status sulfa drugs Nausea Active Sulfite Allergy Nausea Active Caffeine Nervousness Tachycardia Active Immunizations Given and Recorded Vaccine Date Status Refusal Reason SARS-CoV-2 mRNA ([id number]) vax 08/20/21 Recorded SARS-CoV-2 (COVID-19) mRNA BNT-162b2 [...] 06/21/19 6:00:00EST Start Date: 06/21/19 Status: Ordered Compression Stockings See Instructions, # 1 each, Maintenance, surgical, thigh high length 20-30 mm Hg, 11/23/21 11:07:00EDT, Supply Start Date: 11/23/21 Status: Ordered Fish Oil oral capsule 1 tab, By Mouth, Daily, 0 Refills, Maintenance, 07/19/20 16:14:00 EST, Partial fill upon patient request if the prescription is for a schedule II opioid drug. 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 Vital Signs Most recent to oldest [Reference Range]: 1 Height 164.3 cm (09/13/21 2:27 PM) Weight 107.1 kg (09/13/21 2:27 PM) Pulse Rate [55-90 bpm] 72 bpm (09/13/21 2:27 PM) Body Mass Index [18.5-24.99] 39.67 *>HHI* (09/13/21 2:27 PM) Blood Pressure [90-138/55-84 mm Hg] 126/ 55mm Hg (09/13/21 2:27 PM) Temperature [96.8-100.4 DegF] 97.4 DegF (09/13/21 2:27 PM) Blood pressure sites Arm, left (09/13/21 2:27 PM) Temperature Route Temporal (09/13/21 2:27 PM) Dry Weight 107.1 kg (09/13/21 2:27 PM) Weight Obtained Via Standing scale (09/13/21 2:27 PM) Dry Weight Obtained Via Standing scale (09/13/21 2:27 PM) Social History Social History Type Response Smoking Status Former smoker, quit more than 30 days ago;Never entered on: 10/19/21 Sex Care Team Personnel Name: Lenora Courtney Address: [address] [place] [address] [place] [address]-
--- OUTSIDE RECORDS SUMMARY | 2023-01-22 08:26 | XMS_ITS | Continuity of Care Document ---
Author Name Unknown Organization [facility] REQUIREMENTS ANALYST Oncolog y Address [address] [place] [address]- Care Team Providers Care Management Analyst Name Role Phone Marily Aaron NP Primary Care Physician En[place] [facility] [place]s): 06/28/21 - 07/28/21 [facility] REQUIREMENTS ANALYST Oncology [address] [place] [address]- Allergies, Adverse Reactions, Alerts Substance Reaction Severity [...] 9:36:00 EDT, Route to Pharmacy Electronically, [facility] #[id number], Partial fill upon patient request if the [...] AM, 0 Refills, Maintenance, 07/19/20 16:13:00 EST, [place], Partial fill upon patient request if the [...] Refills, Maintenance, 11/06/20 9:20:00 EDT, REC Powder, [facility], Partial fill upon patient [...] EDT, Route to Pharmacy Electronically, [facility] Tablet, Partial fill upon [...]
--- OUTSIDE RECORDS SUMMARY | 2023-01-22 08:26 | XMS_ITS | Continuity of Care Document ---
Author Name Unknown Organization [facility] Address [address] [place] [address]- Care Team Providers Care Oil Burner Name Role Phone Agnieszka RÍOS, Marily Meadows Primary Care Physician [facility] [facility] [place] Date(s): 08/15/21 - 09/14/21 [facility] [address] [place] [address]- Attending Physician: Admdenys, Fran8 Admitting Physician: Admtr, Ar8 Referring Physician: [...] AM, 0 Refills, Maintenance, 07/19/20 16:13:00 EST, [place], Partial fill upon patient request if the [...]
--- OUTSIDE RECORDS SUMMARY | 2023-01-22 08:26 | XMS_ITS | Continuity of Care Document ---
Author Name Unknown Organization [facility] RANGE MANAGER Oncolog y Address [address] [place] [address]- Care Team Providers Care Jewelry Repairer Name Role Phone Darion Bazan MD Primary Care Physician ( [phone] Encounter [facility] [place] Date(s): 08/30/20 - 09/29/20 [facility] RANGE MANAGER Oncology [address] [place] [address]- Allergies, Adverse Reactions, Alerts Substance Reaction Severity [...] 08/29/20 9:36:00 EDT, Route to Pharmacy Electronically, [facility] #[id number], Partial fill upon patient request if the [...] AM, 0 Refills, Maintenance, 07/19/20 16:13:00 EST, [place], Partial fill upon patient request if the [...] 08/29/20 9:35:00 EDT, Route to Pharmacy Electronically, [facility] #[id number], Partial fill upon patient request if the prescription... Start Date: 08/29/20 Status: Ordered lidocaine-prilocaine 2.5%-2.5% topical cream See Instructions, apply to [facility] site 30-60min prior to each chemotherapy session, [...] 08/29/20 9:36:00 EDT, Route to Pharmacy Electronically, [facility] #[id number], Partial fill upon patient request if the prescription is... Start Date: 08/29/20 Status: Ordered prochlorperazine 10 mg oral tablet 1 tablet = 10 mg, By Mouth, Every 6 hours, PRN Nausea, # 30 tablet, 2 Refills, Maintenance, 09/26/20 8:09:00 EDT, Tablet, [facility], Partial fill upon patient request if the prescription is for a schedule II opioid drug., 163.9, cm,... Start Date: 09/26/20 Status: Ordered Senna 8.6 mg oral tablet 8.6 mg, 1, tablet, By Mouth, 2 times a day, PRN, # 100 tablet, Refills 2, Tot. Refills 2, Maintenance, for constipation, 09/26/20 8:08:00 EDT, Route to Pharmacy Electronically, [facility] Tablet, Partial fill upon patient request if t... Start Date: 09/26/20 Status: Ordered Tylenol 325 mg oral capsule 2 capsule = 650 mg, By Mouth, Every 4 hours, PRN as needed for pain, # 90 capsule, 1 Refills, Maintenance, 08/29/20 9:36:00 EDT, Capsule, [facility] #[id number], Partial fill upon patient request if the [...]
--- OUTSIDE RECORDS SUMMARY | 2023-01-22 08:26 | XMS_ITS | Continuity of Care Document ---
Author Name Unknown Organization [facility] POULTRY FARMWORKER Oncolog y Address [address] [place] [address]- Care Team Providers Care Hematology Nurse Educator Name Role Phone Agnieszka RÍOS, Marily Meadows Primary Care Physician Encounter [facility] [place] Date(s): 02/14/21 - 03/16/21 [facility] POULTRY FARMWORKER Oncology [address] [place] [address]- Allergies, Adverse Reactions, Alerts Substance Reaction Severity [...] 08/29/20 9:36:00 EDT, Route to Pharmacy Electronically, [email or web address] #[id number], Partial fill upon patient request if the [...] AM, 0 Refills, Maintenance, 07/19/20 16:13:00 EST, [place], Partial fill upon patient request if the prescription is for a schedule II opioid drug. Start Date: 07/19/20 Status: Ordered gabapentin 100 mg oral capsule See Instructions, TAKE 1 CAPSULE BY MOUTH DAILY AT BEDTIME CAN INCREASE TO 2 CAPSULES BY MOUTH DAILY IF TOLERATED, # 60 capsule, Refills 2, Instructions Replace Required Details, Route to Pharmacy Electronically, [facility] #[id number], 163, cm,... Start Date: 03/16/21 Status: Ordered Glucosamine Chondroitin 1 tab, By Mouth, Daily, 0 Refills, Maintenance, 07/19/20 16:14:00 EST, Partial fill upon patient request if the prescription is for a schedule II opioid drug. Start Date: 07/19/20 Status: Ordered lidocaine-prilocaine 2.5%-2.5% topical cream See Instructions, apply to [facility] site 30-60min prior to each chemotherapy session, # 30 Gm, 2 Refills, Maintenance, 09/26/20 8:09:00 EDT, [facility], Partial fill upon [...] Refills, Maintenance, 11/06/20 9:20:00 EDT, REC Powder, [facility], Partial fill upon [...] 2 Refills, Maintenance, 09/26/20 8:09:00 EDT, Tablet, [facility], Partial fill upon [...] 11/27/20 13:41:00 EDT, Route to Pharmacy Electronically, [facility] Tablet, Partial fill upon patient request if... Start Date: 11/27/20 Status: Ordered valACYclovir 500 mg oral tablet 500 mg, 1, tablet, By Mouth, 2 times a day, for 3 days, # 6 tablet, Refills 1, Tot. Refills 1, Acute 03/17/21 11:29:00 EDT, 03/11/21 11:29:00 EDT, Route to Pharmacy Electronically, [facility] #[id number], Partial fill upon patient request if the... [...]
--- OUTSIDE RECORDS SUMMARY | 2023-01-22 08:26 | XMS_ITS | Continuity of Care Document ---
Author Name Unknown Organization [facility] Address [address] [place] [address] [address] [place] [address]- Care Team Providers Care Transportation Engineer Name Role Phone Hortensia VIDAL, Darion Primary Care Physician En[place] [facility] [place] Date(s): 07/18/20 - 07/25/20 [facility] [address] [place] [address]- Attending Physician: Not on Staff, Attending MD Allergies, Adverse Reactions, Alerts Substance Reaction [...] opioid drug. Start Date: 07/19/20 Status: Ordered Citracal 250 mg + D By Mouth, 2 times a day, 0 Refills, Maintenance, 07/19/20 16:15:00 EST, Partial fill upon patient request if the prescription is for a schedule II opioid drug. Start Date: 07/19/20 Status: Ordered Claritin 10 mg oral tablet 10 mg, 1, tablet, By Mouth, Daily, # 30 tablet, Refills 0, Maintenance, 06/21/19 6:00:00 EST Start Date: 06/21/19 Status: Ordered Fish Oil oral capsule 0 Refills, Maintenance, 07/19/20 16:14:00 EST, Partial fill upon patient request if the prescription is for a schedule II opioid drug. Start Date: 07/19/20 Status: Ordered Flonase 50 mcg/inh nasal spray 2 sprays, Nares, Both, Daily in AM, 0 Refills, Maintenance, 07/19/20 16:13:00 EST, [place], Partial fill upon patient request if the prescription is for a schedule II opioid drug. Start Date: 07/19/20 Status: Ordered Glucosamine Chondroitin By Mouth, Daily, 0 Refills, Maintenance, 07/19/20 16:14:00 EST, Partial fill upon patient request if the prescription is for a schedule II opioid drug. Start Date: 07/19/20 Status: Ordered Multivitamin Daily, 0 Refills, Maintenance, 07/19/20 16:14:00 EST, Partial fill upon patient request if the prescription is for a schedule II opioid drug. Start Date: 07/19/20 Status: Ordered
--- OUTSIDE RECORDS SUMMARY | 2023-01-22 08:27 | XMS_ITS | Continuity of Care Document ---
Author Name Unknown Organization [facility] REHABILITATION DIRECTOR Oncolog y Address [address] [place] [address]- Care Team Providers Care Requisition Approver Name Role Phone Marily Aaron NP Primary Care Physician [place] [facility] [place] 07[place]/21 [facility] REHABILITATION DIRECTOR Oncology [address] [place] [address]- Allergies, Adverse Reactions, Alerts Substance Reaction Severity [...] 08/29/20 9:36:00 EDT, Route to Pharmacy Electronically, [facility] #[id number], Partial fill upon patient request if the [...] AM, 0 Refills, Maintenance, 07/19/20 16:13:00 EST, [place], Partial fill upon patient request if the [...] Refills, Maintenance, 11/06/20 9:20:00 EDT, REC Powder, [facility], Partial fill upon patient [...] 11/27/20 13:41:00 EDT, Route to Pharmacy Electronically, [facility] Tablet, Partial fill upon [...]
--- OUTSIDE RECORDS SUMMARY | 2023-01-22 08:27 | XMS_ITS | Continuity of Care Document ---
Author Name Unknown Organization [facility] DIRECTOR OF MATERNITY SERVICES Oncolog y Address [address] [place] [address]- Care Team Providers Care Tow Picker Name Role Phone Marily Aaron NP Primary Care Physician [place] [facility] [place] Date(s): 04/04/21 - 05/04/21 [facility] DIRECTOR OF MATERNITY SERVICES Oncology [address] [place] [address]- Allergies, Adverse Reactions, Alerts Substance Reaction Severity [...] 08/29/20 9:36:00 EDT, [facility]ically[id number], Partial fill upon patient request if the [...] AM, 0 Refills, Maintenance, 07/19/20 16:13:00 EST, [place], Partial fill upon patient request if the [...] Refills, Maintenance, 11/06/20 9:20:00 EDT, REC Powder, [facility], Partial fill upon patient [...] 11/27/20 13:41:00 EDT, Route to Pharmacy Electronically, [facility] Tablet, Partial fill upon [...]
--- OUTSIDE RECORDS SUMMARY | 2023-01-22 08:27 | XMS_ITS | Continuity of Care Document ---
Author Name Unknown Organization [facility] Address [address] [place] [address] [address] [place] [address]- Care Team Providers Care Process Coach Name Role Phone Darion Bazan MD Primary Care Physician [place] [facility] [place] 07/28/20 - 08/04/20 [facility] [address] [place] [address]- Attending Physician: Dot Quigley RD Referring Physician: Darion Bazan MD Allergies, Adverse [...] AM, 0 Refills, Maintenance, 07/19/20 16:13:00 EST, [place], Partial fill upon patient request if the [...] opioid drug. Start Date: 07/19/20 Status: Ordered Problem List Condition Effective Dates Status Health Status Inform ant HLD (hyperlipidemia)(Confirmed) Active IBS (irritable bowel syndrome)(Confirmed) Active OA (osteoarthritis)(Confirmed) Active Social History Social History Type Response Smoking Status Never (less than 100 in lifetime) entered on: 07/27/20 Sex
--- OUTSIDE RECORDS SUMMARY | 2023-01-22 08:27 | XMS_ITS | Continuity of Care Document ---
Author Name Unknown Organization [facility] PRIMARY OPERATOR Oncolog y Address [address] [place] [address]- Care Team Providers Care Life Educator Name Role Phone Marily Aaron NP Primary Care Physician [place] [facility] [place] Date(s): 03/20/21 - 04/19/21 [facility] PRIMARY OPERATOR Oncology [address] [place] [address]- Allergies, Adverse Reactions, Alerts Substance Reaction Severity [...] EDT, [id number], Partial fill upon patient request if the [...] AM, 0 Refills, Maintenance, 07/19/20 16:13:00 EST, [place], Partial fill upon patient request if the [...] Refills, Maintenance, 11/06/20 9:20:00 EDT, REC Powder, [facility], Partial fill upon [...] 11/27/20 13:41:00 EDT, Route to Pharmacy Electronically, [facility] Tablet, Partial fill [...]
--- OUTSIDE RECORDS SUMMARY | 2023-01-22 08:27 | XMS_ITS | Continuity of Care Document ---
Author Name Unknown Organization [facility] RESEARCH ADMINISTRATOR Oncolog y Address [address] [place] [address]- Care Team Providers Care Production Helper Name Role Phone Darion Bazan MD Primary Care Physician Encounter [facility] [place] Date(s): 12/07/20 - 01/06/21 [facility] RESEARCH ADMINISTRATOR Oncology [address] [place] [address]- Allergies, Adverse Reactions, Alerts Substance Reaction Severity [...] 11/27/20 13:40:00 EDT, Route to Pharmacy Electronically, [facility], Partial fill upon patient request if the p... Start Date: 11/27/20 Status: Ordered Colace sodium 100 mg oral capsule 100 mg, 1, capsule, By Mouth, 2 times a day, PRN, # 60 capsule, Refills 0, Tot. Refills 0, Maintenance, for constipation, 08/29/20 9:36:00 EDT, Route to Pharmacy Electronically, [facility] #[id number], Partial fill upon patient request if the [...] AM, 0 Refills, Maintenance, 07/19/20 16:13:00 EST, [place], Partial fill upon patient request if the prescription is for a schedule II opioid drug. Start Date: 07/19/20 Status: Ordered gabapentin 300 mg oral capsule 300 mg, 1, capsule, By Mouth, Daily at bedtime, # 30 capsule, Refills 2, Tot. Refills 2, Maintenance, 10/12/20 9:56:00 EDT, Route to Pharmacy Electronically, [facility], Partial fillupon patient request [...] 08/29/20 9:35:00 EDT, Route to Pharmacy Electronically, [facility] #[id number], Partial fill upon patient request if the prescription... Start Date: 08/29/20 Status: Ordered lidocaine-prilocaine 2.5%-2.5% topical cream See Instructions, apply to [facility] 30-60min prior to each chemotherapy session, # 30 Gm, 2 Refills, Maintenance, 09/26/20 8:09:00 EDT, [facility], Partial fill upon patient [...] Refills, Maintenance, 11/06/20 9:20:00 EDT, REC Powder, [facility], Partial fill upon patient [...] 08/29/20 9:36:00 EDT, Route to Pharmacy Electronically, [facility] #[id number], Partial fill upon patient request if the prescription is... Start Date: 08/29/20 Status: Ordered prochlorperazine 10 mg oral tablet 1 tablet = 10 mg, By Mouth, Every 6 hours, PRN Nausea, # 30 tablet, 2 Refills, Maintenance, 09/26/20 8:09:00 EDT, Tablet, [facility], Partial fill upon patient request if the prescription is for a schedule II opioid drug., 163.9, cm,... Start Date: 09/26/20 Status: Ordered Senna 8.6 mg oral tablet 8.6 mg, 1, tablet, By Mouth, 2 times a day, PRN, # 100 tablet, Refills 2, Tot. Refills 2, Maintenance, for constipation, 11/27/20 13:41:00 EDT, Route to Pharmacy Electronically, [facility] Tablet, Partial fill upon patient request if... Start Date: 11/27/20 Status: Ordered Tylenol 325 mg oral capsule 2 capsule = 650 mg, By Mouth, Every 4 hours, PRN as needed for pain, # 90 capsule, 1 Refills, Maintenance, 08/29/20 9:36:00 EDT, Capsule, [facility] #[id number], Partial fill upon patient request if the [...]
--- OUTSIDE RECORDS SUMMARY | 2023-01-22 08:27 | XMS_ITS | Continuity of Care Document ---
Author Name Unknown Organization [facility] VENEER GRADER Oncolog y Address [address] [place] [address]- Care Team Providers Care Loom Operator Apprentice Name Role Phone Agnieszka INFORMATION SCIENTIST, Marily Meadows Primary Care Physician Encounter [facility] Date(s): 01/29/21 - 02/28/21 [facility] VENEER GRADER Oncology [address] [place], [place] [address] Allergies, Adverse Reactions, Alerts Substance Reaction [...] 02/28/21 12:48:00 EDT, Route to Pharmacy Electronically, [facility] #[id number], Partial fill upon patient request if the... [...] 08/29/20 9:36:00 EDT, Route to Pharmacy Electronically, [facility] #[id number], Partial fill upon patient request if the [...] AM, 0 Refills, Maintenance, 07/19/20 16:13:00 EST, [place], Partial fill upon patient request if the prescription is for a schedule II opioid drug. Start Date: 07/19/20 Status: Ordered gabapentin 100 mg oral capsule See Instructions, TAKE 1 CAPSULE BY MOUTH DAILY AT BEDTIME CAN INCREASE TO 2 CAPSULES BY MOUTH DAILY IF TOLERATED, # 60 capsule, Refills 0, Instructions Replace Required Details, Route to Pharmacy Electronically, [facility] #[id number], 164.7, cm... Start Date: 02/05/21 Status: Ordered Glucosamine Chondroitin 1 tab, By Mouth, Daily, 0 Refills, Maintenance, 07/19/20 16:14:00 EST, Partial fill upon patient request if the prescription is for a schedule II opioid drug. Start Date: 07/19/20 Status: Ordered lidocaine-prilocaine 2.5%-2.5% topical cream See Instructions, apply to [facility] site 30-60min prior to each chemotherapy session, # 30 Gm, 2 Refills, Maintenance, 09/26/20 8:09:00 EDT, [facility], Partial fill upon [...] Refills, Maintenance, 11/06/20 9:20:00 EDT, REC Powder, [facility], Partial fill upon [...] 2 Refills, Maintenance, 09/26/20 8:09:00 EDT, Tablet, [facility], Partial fill upon [...] 11/27/20 13:41:00 EDT, Route to Pharmacy Electronically, [facility] Tablet, Partial fill upon [...]
--- OUTSIDE RECORDS SUMMARY | 2023-01-22 08:27 | XMS_ITS | Continuity of Care Document ---
Author Name Unknown Organization [facility] C ancer Care Address [address] [place] [address]- Care Team Providers Care Cooperative Extension Agent Name Role Phone Lenora Courtney Primary Care Physician Encounter [facility] [place] Date(s): 02/06/22 - 03/08/22 [facility] [address] [place], [place] [address] Attending Physician: Admdenys, Cosmo Admitting Physician: Admtr, Cosmo Referring Physician: Admtr, Ar8 Allergies, Adverse Reactions, Alerts Substance Reaction Severity Status sulfa drugs Nausea Active Sulfite Allergy Nausea Active Caffeine Nervousness Tachycardia Active Immunizations Given and Recorded Vaccine Date Status Refusal Reason SARS-CoV-2 mRNA ([id number]) vax 08/20/21 Recorded SARS-CoV-2 (COVID-19) mRNA BNT-162b2 [...] [facility] rded influenza virus vaccine, inactivated 03/20/10 [facility] rded influenza virus vaccine, inactivated 03/02/08 [facility] [...] on: 10/19/21 Sex Patient Care team information Personnel Name: Lenora Courtney Address: Address: [facility] [address]
--- OUTSIDE RECORDS SUMMARY | 2023-01-22 08:27 | XMS_ITS | Continuity of Care Document ---
Author Name Unknown Organization [facility] Address [address] [place] [address]- Care Team Providers Care Manual Training Teacher Name Role Phone Levon VIDAL, Latrice Paige Primary Care Physician Encounter [facility] [place] ACCT R [id number] Date(s): 09/20/19 - 10/19/[address] [address]- [facility] Discharge Disposition: A-D/C Home Attending Physician: Latrice Dos Santos MD Admitting Physician: Latrice Dos Santos MD Referring Physician: Aiden Pollard MD Allergies, [...]
--- OUTSIDE RECORDS SUMMARY | 2023-01-22 08:27 | XMS_ITS | Continuity of Care Document ---
Author Name Unknown Organization [facility] Address [address] [place] [address]- Care Team Providers Care Cold Roller Name Role Phone Hortensia VIDAL, Darion Primary Care Physician ( [phone] [place] [facility] [place] Date(s): 09/28/20 - 10/28/20 [facility] Care [address] [place] [id number] Allergies, Adverse Reactions, Alerts Substance [...] 10/12/20 9:58:00 EDT, Route to Pharmacy Electronically, [facility], Partial fill upon patient request if the pr... Start Date: 10/12/20 Status: Ordered Colace sodium 100 mg oral capsule 100 mg, 1, capsule, By Mouth, 2 times a day, PRN, # 60 capsule, Refills 0, Tot. Refills 0, Maintenance, for constipation, 08/29/20 9:36:00 EDT, Route to Pharmacy Electronically, [facility] #[id number], Partial fill upon patient request if the [...] AM, 0 Refills, Maintenance, 07/19/20 16:13:00 EST, [place], Partial fill upon patient request if the prescription is for a schedule II opioid drug. Start Date: 07/19/20 Status: Ordered gabapentin 300 mg oral capsule 300 mg, 1, capsule, By Mouth, Daily at bedtime, # 30 capsule, Refills 2, Tot. Refills 2, Maintenance, 10/12/20 9:56:00 EDT, Route to Pharmacy Electronically, [facility], Partial fillupon patient [...] 08/29/20 9:35:00 EDT, Route to Pharmacy Electronically, [facility] #[id number], Partial fill upon patient request if the prescription... Start Date: 08/29/20 Status: Ordered lidocaine-prilocaine 2.5%-2.5% topical cream See Instructions, apply to [facility] 30-60min prior to each chemotherapy session, # 30 Gm, 2 Refills, Maintenance, 09/26/20 8:09:00 EDT, [facility], Partial fill upon patient [...] 08/29/20 9:36:00 EDT, Route to Pharmacy Electronically, [facility] #[id number], Partial fill upon patient request if the prescription is... Start Date: 08/29/20 Status: Ordered prochlorperazine 10 mg oral tablet 1 tablet = 10 mg, By Mouth, Every 6 hours, PRN Nausea, # 30 tablet, 2 Refills, Maintenance, 09/26/20 8:09:00 EDT, Tablet, [facility], Partial fill upon patient request if the prescription is for a schedule II opioid drug., 163.9, cm,... Start Date: 09/26/20 Status: Ordered Senna 8.6 mg oral tablet 8.6 mg, 1, tablet, By Mouth, 2 times a day, PRN, # 100 tablet, Refills 2, Tot. Refills 2, Maintenance, for constipation, 09/26/20 8:08:00 EDT, Route to Pharmacy Electronically, [facility] Tablet, Partial fill upon patient request if t... Start Date: 09/26/20 Status: Ordered Tylenol 325 mg oral capsule 2 capsule = 650 mg, By Mouth, Every 4 hours, PRN as needed for pain, # 90 capsule, 1 Refills, Maintenance, 08/29/20 9:36:00 EDT, Capsule, [facility] #[id number], Partial fill upon patient request if the [...]
--- OUTSIDE RECORDS SUMMARY | 2023-01-22 08:27 | XMS_ITS | Continuity of Care Document ---
Author Name Unknown Organization [facility] Address [address] [place] [address]- Care Team Providers Care Heat Pump Installer Name Role Phone Levon VIDAL, Latrice Paige Primary Care Physician [phone] Encounter [facility] [place] ACCT R [id number] Date(s): 06/30/19 - 08/05/[address] [address]- [facility] Discharge Disposition: A-D/C Home Attending Physician: Latrice [...] patient request Start Date: 06/22/19 Status: Ordered pantoprazole 40 mg oral delayed release tablet = 40 mg, By Mouth, Daily, 0 Refills, Maintenance, 06/22/19 12:28:00 EST, [facility] Tablet Start Date: 06/22/19 Status: Ordered senna 187 mg oral tablet 1 tablet = 8.6 mg, By Mouth, Daily at bedtime, 0 Refills, Maintenance, 06/22/19 12:28:00 EST, Tablet Start Date: 06/22/19 Status: Ordered Vitamin D3 = 1,000 International_Units, By Mouth, Daily, 0 Refills, Maintenance, 06/21/19 6:00:00 EST Start Date: 06/21/19 Status: Ordered Zofran ODT 4 mg oral tablet, disintegrating = 4 mg, By Mouth, Every 6 hours, PRN Nausea & Vomiting, # 28 tablet, 0 Refills, Maintenance, 06/22/19 12:34:00 EST, Tablet, [facility], 167, cm, 06/22/19 11:21:00 EST, Height, 92, kg, 06/21/19 7:14:00 EST, Dry Weight Start Date: 06/22/19 Stop Date: 06/29/19 Status: Ordered
--- OUTSIDE RECORDS SUMMARY | 2023-01-22 08:27 | XMS_ITS | Continuity of Care Document ---
Author Name Unknown Organization [facility] ter Address [address] [place] [address]- Care Team Providers Care Hardness Tester Name Role Phone Levon VIDAL, Latrice Paige Primary Care Physician [place] [facility] [place] Date(s[place] 09/02/19 - 10/02/[address] [address]- [facility] Attending Physician: Cosmo Johnson [...]
--- OUTSIDE RECORDS SUMMARY | 2023-01-22 08:27 | XMS_ITS | Continuity of Care Document ---
Author Name Unknown Organization [facility] Address [address] [facility] [address] [place] [address]- Care Team Providers Care Mine Engineering Manager Name Role Phone Darion Bazan MD Primary Care Physician Encounter 08/15/20 - 08/22/20 [facility] [address], [address] [place] [address]- Attending Physician: Aguilar Short MD Admitting Physician: [...] AM, 0 Refills, Maintenance, 07/19/20 16:13:00 EST, [place], Partial fill upon patient request if the [...]
--- OUTSIDE RECORDS SUMMARY | 2023-01-22 08:27 | XMS_ITS | Continuity of Care Document ---
Author Name Unknown Organization [facility] ACCOUNTS RECEIVABLE PROCESSOR Oncolog y Address [address] [place] [address]- Care Team Providers Care Earth Science Teacher Name Role Phone Marily Aaron NP Primary Care Physician Encounter [facility] [place] Date(s): 08/29/21 - 09/28/21 [facility] ACCOUNTS RECEIVABLE PROCESSOR Oncology [address] [place] [address]- Allergies, Adverse Reactions, Alerts Substance Reaction Severity [...] AM, 0 Refills, Maintenance, 07/19/20 16:13:00 EST, [place], Partial fill upon patient request if the [...]
--- OUTSIDE RECORDS SUMMARY | 2023-01-22 08:28 | XMS_ITS | Continuity of Care Document ---
Author Name Unknown Organization [facility] ter Address [address] [place] [address]- Care Team Providers Care Managing Manager Name Role Phone Levon VIDAL, Latrice Paige Primary Care Physician [place] [facility] [place] Date(s): 06/14/19 - 06/24/[address] [address]- [facility] Attending Physician: AdmCosmo mcfarlane Admitting Physician: AdmtrCosmo Referring Physician: Admtr, Ar8 [...] 06/30/19 11:32:00 EST, 06/23/19 11:32:00 EST, Tablet, [facility], 167, cm, 06/23/19 7:16:00 EST, [...] 0 Refills, Maintenance, 06/22/19 12:34:00 EST, Tablet, [facility], 167, cm, 06/22/19 11:21:00 EST, Height, 92, kg, 06/21/19 7:14:00 EST, Dry Weight Start Date: 06/22/19 Stop Date: 06/29/19 Status: Ordered
--- OUTSIDE RECORDS SUMMARY | 2023-01-22 08:28 | XMS_ITS | Continuity of Care Document ---
Author Name Unknown Organization [facility] ter Address [address] [place] [address]- Care Team Providers Care Asbestos Brake Lining Finisher Helper Name Role Phone Levon VIDAL, Latrice Paige Primary Care Physician [phone] Encounter [facility] [place] Date(s): 09/02/19 - 09/04/[address] [address]- [facility] Discharge Disposition: A-Transfer VNA/Home Health Attending Physician: [...] 7:20:00 EDT Start Date: 09/03/19 Status: Ordered Soma 350 mg oral tablet 350 mg, 1, tablet, By Mouth, 3 times a day, PRN, for 7 days, # 21 tablet, Refills 0, Tot. Refills 0, Acute 09/10/19 7:43:00 EDT, Spasm, 09/03/19 7:43:00 EDT, Route to Pharmacy Electronically, [facility], 165, cm, 09/03/19 4:12:00 EDT, He... Start Date: 09/03/19 Stop Date: 09/10/19 Status: Ordered traMADol 50 mg oral tablet 1 tablet = 50 mg, By Mouth, Every 6 hours, PRN Pain , Mild, for 7 days, # 28 tablet, 0 Refills, Acute 09/11/19 10:36:00 EDT, 09/04/19 10:36:00 EDT, Tablet, [facility], 165, cm, :32:00 EDT, Height, 94.7, kg, 09/02/19 5:44:00 EDT... Start Date: 09/04/19 Stop Date: 09/11/19 Status: Ordered Results Radiology Reports * Exam Date Time Procedure Performing Provider Status 09/02/19 8:25 PM Knee 1 or 2 Views Left Dalia Abbasi y; Auth (Verified) Notes: (Knee 1 or 2 Views Left) Reason For Exam: Postop RESULT: Knee 1 or 2 Views Left AP view of the left knee dated September 02, 2019 at 2015 hours. No prior studies are available. HISTORY: Knee replacement. FINDINGS: This examination shows a total knee arthroplasty in place. Alignment is anatomic. IMPRESSION: Total knee arthroplasty in anatomic alignment. Examination [address]. Thank you for allowing me to participate in the care of this patient. WSN: [id number] Ordering Physician: Eliecer Goff Dictated By: Santosh Olvera MD Dictated Date/Time: 09/02/19 8:31 pm Reviewed By: Santosh Olvera MD Signed By: Santosh Olvera MD Signed Date/Time: 09/02/19 8:31 pm Transcribed By: SHAQUILLE Transcribed Date/Time: 09/02/19 8:31 pm Vital Signs Most recent to oldest [Reference Range]: 1 2 3 Height 165 cm (09/04/19 7:32 AM) 165 cm (09/04/19 4:07 AM) 165 cm (09/03/19 8:06 PM) Weight 94.7 kg (09/02/19 6:30 AM) 94.7 kg (09/02/19 5:36 AM) Oxygen Saturation [94-100 %] 100 % (09/04/19 7:32 AM) 94 % (09/04/19 4:07 AM) 94 % (09/03/19 8:06 PM) Pulse Rate [55-90 bpm] 71 bpm (09/04/19 7:32 AM) 67 bpm (09/04/19 4:07 AM) 71 bpm (09/03/19 8:06 PM) Body Mass Index [18.5-24.99] 34.78 *>HHI* (09/02/19 6:30 AM) 34.78 *>HHI* (09/02/19 5:36 AM) Blood Pressure [90-138/55-84 mm Hg] 110/55mm Hg (09/04/19 7:32 AM) 116/50mm Hg (09/04/19 4:07 AM) 119/48mm Hg (09/03/19 8:00 PM) Respiratory Rate [16-30 br/min] 18 br/min (09/04/19 7:40 AM) 18 br/min (09/04/19 7:40 AM) 18 br/min (09/04/19 7:32 AM) Temperature [96.8-100.4 DegF] 98.5 DegF (09/04/19 7:32 AM) 98.1 DegF (09/04/19 4:07 AM) 98.2 DegF (09/03/19 8:06 PM) Mode of Delivery (Oxygen) Room air (09/04/19 7:32 AM) Room air (09/04/19 4:07 AM) Room air (09/03/19 8:06 PM) Blood pressure sites Arm, left (09/04/19 4:07 AM) Arm, right (09/03/19 3:36 PM) Arm, right (09/03/19 10:34 AM) Temperature Route Oral (09/04/19 7:32 AM) Oral (09/04/19 4:07 AM) Oral (09/03/19 8:06 PM) Dry Weight 94.7 kg (09/02/19 5:36 AM)
--- OUTSIDE RECORDS SUMMARY | 2023-01-22 08:28 | XMS_ITS | Continuity of Care Document ---
Author Name Unknown Organization [facility] ter Address [address] [place] [address]- Care Team Providers Care Supermarket Manager Name Role Phone Mora Zimmer MD Primary Care Physician [phone] [place] [facility] [place] 11/26/22 - 12/29/[address] [address]- Attending Physician: Liz Garcia Admitting Physician: Liz Garcia Referring Physician: Liz Garcia Allergies, Adverse Reactions, Alerts Substance Reaction Severity Status sulfa drugs Nausea Active Sulfite Allergy Nausea Active Caffeine Nervousness Tachycardia Active Immunizations Given and Recorded Vaccine Date Status Refusal Reason SARS-CoV-2 mRNA ([id number]) vax 08/20/21 Recorded SARS-CoV-2 (COVID-19) mRNA BNT-162b2 [...] Team Personnel Name: Tatiana Leal RN Position: [facility] SN RN Member Role: Primary Care Nurse Name: Mora Zimmer MD Position: [facility] Physician - Primary Care Member Role: PCP Address: Address: [address] [place] [address] [place] [address]- Name: Razia Gibbs RN Position: S RN Member Role: Primary Care Nurse Name: Mauricio Pineda RN Position: [facility] RN Member Role: Primary Care Nurse Care Team Related Persons Name: KAYLA MANJARREZ Name: KAYCE LACEY Address: home [address] [place] [address]
--- OUTSIDE RECORDS SUMMARY | 2023-01-22 08:28 | XMS_ITS | Continuity of Care Document ---
Author Name Unknown Organization [facility] ter Address [address] [place] [address]- Care Team Providers Care Brick Washer Name Role Phone Agnieszka TUB TENDER, Marily Meadows Primary Care Physician [place] [facility] [place] Date(s): 02/28/21 - 02/28/[address] [address] Discharge Disposition: A-D/C Home Attending Physician: Aguilar [...] 02/28/21 12:48:00 EDT, Route to Pharmacy Electronically, [facility][id number], Partial fill upon patient request if the... [...] 08/29/20 9:36:00 EDT, Route to Pharmacy Electronically, [facility][id number], Partial fill upon patient request if the [...] AM, 0 Refills, Maintenance, 07/19/20 16:13:00 EST, [place], Partial fill upon patient request if the prescription is for a schedule II opioid drug. Start Date: 07/19/20 Status: Ordered gabapentin 100 mg oral capsule See Instructions, TAKE 1 CAPSULE BY MOUTH DAILY AT BEDTIME CAN INCREASE TO 2 CAPSULES BY MOUTH DAILY IF TOLERATED, # 60 capsule, Refills 0, Instructions Replace Required Details, Route to Pharmacy Electronically, [facility] #[id number], 164.7, cm... Start Date: 02/05/21 Status: Ordered [...] Gm, 2 Refills, Maintenance, 09/26/20 8:09:00 EDT, [facility], Partial fill upon patient [...] Refills, Maintenance, 11/06/20 9:20:00 EDT, REC Powder, [facility], Partial fill upon patient [...] 2 Refills, Maintenance, 09/26/20 8:09:00 EDT, Tablet, [facility], Partial fill upon patient [...] 11/27/20 13:41:00 EDT, Route to Pharmacy Electronically, [facility] Tablet, Partial fill upon [...] (osteoarthritis)(Confirmed) Active Thrombocytopenia(Confirmed) Active Restless legs(Confirmed) Active Vital Signs Most recent to oldest [Reference Range]: 1 2 3 Height 163 cm (02/28/21 10:50 AM) 163 cm (02/23/21 9:55 AM) Weight 101.1 kg (02/28/21 10:50 AM) 99.5 kg (02/23/21 9:55 AM) Oxygen Saturation [94-100 %] 100 % (02/28/21 1:15 PM) 100 % (02/28/21 1:00 PM) 100 % (02/28/21 12:45 PM) Pulse Rate [55-90 bpm] 68 bpm (02/28/21 10:50 AM) Body Mass Index [18.5-24.99] 38.05 *>HHI* (02/28/21 10:50 AM) 37.45 *>HHI* (02/23/21 9:55 AM) Blood Pressure [90-138/55-84 mm Hg] 120/60mm Hg (02/28/21 1:15 PM) 128/60mm Hg (02/28/21 1:00 PM) 128/53mm Hg (02/28/21 12:45 PM) Respiratory Rate [16-30 br/min] 21 br/min (02/28/21 1:15 PM) 22 br/min (02/28/21 1:00 PM) 13 br/min *L* (02/28/21 12:45 PM) Temperature [96.8-100.4 DegF] 98.4 DegF (02/28/21 12:45 PM) 98.9 DegF (02/28/21 10:50 AM) Mode of Delivery (Oxygen) Room air (02/28/21 1:15 PM) Room air (02/28/21 12:45 PM) Room air (02/28/21 10:50 AM) Blood pressure sites Arm, left (02/28/21 12:45 PM) Arm, right (02/28/21 10:50 AM) Temperature Route Temporal (02/28/21 12:45 PM) Temporal (02/28/21 10:50 AM) Dry Weight 101.1 kg (02/28/21 10:50 AM) 99.5 kg (02/23/21 9:55 AM) Weight Obtained Via Standing scale (02/28/21 10:50 AM) Patient/family stated (02/23/21 9:55 AM) Dry Weight Obtained Via Standing scale (02/28/21 10:50 AM) Patient/family stated (02/23/21 9:55 AM) Social History Social History Type Response Smoking Status Former smoker, quit more than 30 days ago entered on: 08/16/20 Sex
--- OUTSIDE RECORDS SUMMARY | 2023-01-22 08:28 | XMS_ITS | Continuity of Care Document ---
Author Name Unknown Organization [facility] ACCOUNT MANAGER SALES REPRESENTATIVE Oncolog y Address [address] [place] [address]- Care Team Providers Care Hot Plate Plywood Press Offbearer Name Role Phone Dairon Bazan MD Primary Care Physician [place] [facility] [place] 09/14/20 - 10/14/20 [facility] ACCOUNT MANAGER SALES REPRESENTATIVE Oncology [address] [place] [address]- Allergies, Adverse Reactions, Alerts Substance Reaction Severity [...] 10/12/20 9:58:00 EDT, Route to Pharmacy Electronically, [facility], Partial fill upon patient request if the pr... Start Date: 10/12/20 Status: Ordered Colace sodium 100 mg oral capsule 100 mg, 1, capsule, By Mouth, 2 times a day, PRN, # 60 capsule, Refills 0, Tot. Refills 0, Maintenance, for constipation, 08/29/20 9:36:00 EDT, Route to Pharmacy Electronically, [facility] #[id number], Partial fill upon patient request if the [...] AM, 0 Refills, Maintenance, 07/19/20 16:13:00 EST, [place], Partial fill upon patient request if the prescription is for a schedule II opioid drug. Start Date: 07/19/20 Status: Ordered gabapentin 300 mg oral capsule 300 mg, 1, capsule, By Mouth, Daily at bedtime, # 30 capsule, Refills 2, Tot. Refills 2, Maintenance, 10/12/20 9:56:00 EDT, Route to Pharmacy Electronically, [facility], Partial fillupon patient request if [...] 08/29/20 9:35:00 EDT, Route to Pharmacy Electronically, [facility] #[id number], Partial fill upon patient request if the prescription... Start Date: 08/29/20 Status: Ordered lidocaine-prilocaine 2.5%-2.5% topical cream See Instructions, apply to [facility] 30-60min prior to each chemotherapy session, # 30 Gm, 2 Refills, Maintenance, 09/26/20 8:09:00 EDT, [facility], Partial fill upon patient request [...] 08/29/20 9:36:00 EDT, Route to Pharmacy Electronically, [facility][id number], Partial fill upon patient request if the prescription is... Start Date: 08/29/20 Status: Ordered prochlorperazine 10 mg oral tablet 1 tablet = 10 mg, By Mouth, Every 6 hours, PRN Nausea, # 30 tablet, 2 Refills, Maintenance, 09/26/20 8:09:00 EDT, Tablet, [facility], Partial fill upon patient request if the prescription is for a schedule II opioid drug., 163.9, cm,... Start Date: 09/26/20 Status: Ordered Senna 8.6 mg oral tablet 8.6 mg, 1, tablet, By Mouth, 2 times a day, PRN, # 100 tablet, Refills 2, Tot. Refills 2, Maintenance, for constipation, 09/26/20 8:08:00 EDT, Route to Pharmacy Electronically, [facility], Partial fill upon patient request if t... Start Date: 09/26/20 Status: Ordered Tylenol 325 mg oral capsule 2 capsule = 650 mg, By Mouth, Every 4 hours, PRN as needed for pain, # 90 capsule, 1 Refills, Maintenance, 08/29/20 9:36:00 EDT, Capsule, [facility][id number], Partial fill upon patient request if the [...]
--- OUTSIDE RECORDS SUMMARY | 2023-01-22 08:28 | XMS_ITS | Continuity of Care Document ---
Author Name Unknown Organization [facility] SIZING SPRAYER Oncolog y Address [address] [place] [address]- Care Team Providers Care Standards Engineer Name Role Phone Hortensia VIDAL, Darion Primary Care Physician ( [phone] [place] [facility] [place] 10[place]19[place] - 11/18/20 [facility]ZING SPRAYER Oncology [address] [place] [address]- Allergies, Adverse Reactions, Alerts Substance Reaction Severity [...] 10/12/20 9:58:00 EDT, Route to Pharmacy Electronically, [facility], Partial fill upon patient request if the pr... Start Date: 10/12/20 Status: Ordered Colace sodium 100 mg oral capsule 100 mg, 1, capsule, By Mouth, 2 times a day, PRN, # 60 capsule, Refills 0, Tot. Refills 0, Maintenance, for constipation, 08/29/20 9:36:00 EDT, Route to Pharmacy Electronically, [facility][id number], Partial fill upon patient request if the [...] AM, 0 Refills, Maintenance, 07/19/20 16:13:00 EST, [place], Partial fill upon patient request if the prescription is for a schedule II opioid drug. Start Date: 07/19/20 Status: Ordered gabapentin 300 mg oral capsule 300 mg, 1, capsule, By Mouth, Daily at bedtime, # 30 capsule, Refills 2, Tot. Refills 2, Maintenance, 10/12/20 9:56:00 EDT, Route to Pharmacy Electronically, [facility], Partial fillupon patient request [...] 08/29/20 9:35:00 EDT, Route to Pharmacy Electronically, [facility] #[id number], Partial fill upon patient request if the prescription... Start Date: 08/29/20 Status: Ordered lidocaine-prilocaine 2.5%-2.5% topical cream See Instructions, apply to [facility] 30-60min prior to each chemotherapy [...] 08/29/20 9:36:00 EDT, Route to Pharmacy Electronically, [facility][id number], Partial fill upon patient request if the prescription is... Start Date: 08/29/20 Status: Ordered prochlorperazine 10 mg oral tablet 1 tablet = 10 mg, By Mouth, Every 6 hours, PRN Nausea, # 30 tablet, 2 Refills, Maintenance, 09/26/20 8:09:00 EDT, Tablet, [facility], Partial fill upon patient request if the prescription is for a schedule II opioid drug., 163.9, cm,... Start Date: 09/26/20 Status: Ordered Senna 8.6 mg oral tablet 8.6 mg, 1, tablet, By Mouth, 2 times a day, PRN, # 100 tablet, Refills 2, Tot. Refills 2, Maintenance, for constipation, 11/06/20 9:10:00 EDT, Route to Pharmacy Electronically, [facility] Tablet, Partial fill upon patient request if t... Start Date: 11/06/20 Status: Ordered Tylenol 325 mg oral capsule 2 capsule = 650 mg, By Mouth, Every 4 hours, PRN as needed for pain, # 90 capsule, 1 Refills, Maintenance, 08/29/20 9:36:00 EDT, Capsule, [facility] #[id number], Partial fill upon patient request if the [...]
--- OUTSIDE RECORDS SUMMARY | 2023-01-22 08:28 | XMS_ITS | Continuity of Care Document ---
Author Name Unknown Organization [facility] Address [address] [place] [address]- Care Team Providers Care Proof Machine Operator Supervisor Name Role Phone Agnieszka RÍOS, Marily Meadows Primary Care Physician [place] [facility] [place]21 [facility] [address] [place] [address]- Allergies, Adverse Reactions, Alerts Substance Reaction Severity [...] AM, 0 Refills, Maintenance, 07/19/20 16:13:00 EST, [place], Partial fill upon patient request if the [...]
--- OUTSIDE RECORDS SUMMARY | 2023-01-22 08:28 | XMS_ITS | Continuity of Care Document ---
Author Name Unknown Organization [facility] ter Address [address] [place] [address]- Care Team Providers Care Administrative Office Manager Name Role Phone Levon VIDAL, Latrice Paige Primary Care Physician [place] [facility] [place] Date(s): 08/27/19 - 10/02/[address] [address]- [facility] Attending Physician: Aiden Pollard MD Admitting Physician: [...]
--- OUTSIDE RECORDS SUMMARY | 2023-01-22 08:28 | XMS_ITS | Continuity of Care Document ---
Author Name Unknown Organization [facility] BRAZING MACHINE OPERATOR Oncolog y Address [address] [place] [address]- Care Team Providers Care Multiplex Operator Name Role Phone Marily Aaron NP Primary Care Physician Encounter [facility] [place] Date(s): 01/17/21 - 02/16/21 [facility] BRAZING MACHINE OPERATOR Oncology [address] [place] [address]- Allergies, Adverse Reactions, Alerts Substance Reaction Severity [...] 08/29/20 9:36:00 EDT, Route to Pharmacy Electronically, [facility][id number], Partial fill upon patient request if the [...] AM, 0 Refills, Maintenance, 07/19/20 16:13:00 EST, [place], Partial fill upon patient request if the prescription is for a schedule II opioid drug. Start Date: 07/19/20 Status: Ordered gabapentin 100 mg oral capsule See Instructions, TAKE 1 CAPSULE BY MOUTH DAILY AT BEDTIME CAN INCREASE TO 2 CAPSULES BY MOUTH DAILY IF TOLERATED, # 60 capsule, Refills 0, Instructions Replace Required Details, Route to Pharmacy Electronically, [facility] #[id number], 164.7, cm... Start Date: 02/05/21 Status: Ordered [...] 08/29/20 9:35:00 EDT, Route to Pharmacy Electronically, [facility] #[id number], Partial fill upon patient request if the prescription... Start Date: 08/29/20 Status: Ordered lidocaine-prilocaine 2.5%-2.5% topical cream See Instructions, apply to [facility] site 30-60min prior to each chemotherapy session, # 30 Gm, 2 Refills, Maintenance, 09/26/20 8:09:00 EDT, [facility], Partial fill upon patient [...] Refills, Maintenance, 11/06/20 9:20:00 EDT, REC Powder, [facility], Partial fill upon patient [...] 08/29/20 9:36:00 EDT, Route to Pharmacy Electronically, [facility][id number], Partial fill upon patient request if the prescription is... Start Date: 08/29/20 Status: Ordered prochlorperazine 10 mg oral tablet 1 tablet = 10 mg, By Mouth, Every 6 hours, PRN Nausea, # 30 tablet, 2 Refills, Maintenance, 09/26/20 8:09:00 EDT, Tablet, [facility], Partial fill upon patient [...] 11/27/20 13:41:00 EDT, Route to Pharmacy Electronically, [facility] Tablet, Partial fill upon patient [...] bottle 6hrs... Start Date: 02/08/21 Status: Ordered valACYclovir 500 mg oral tablet 500 mg, 1, tablet, By Mouth, 2 times a day, for 3 days, # 6 tablet, Refills 0, Tot. Refills 0, Acute 02/18/21 9:19:00 EDT, 02/15/21 9:19:00 EDT, Route to Pharmacy Electronically, [facility][id number], Partial fill upon patient request if the pr... Start Date: 02/15/21 Stop Date: 02/18/21 Status: Ordered Vitamin D3 oral tablet 1 [...]
--- OUTSIDE RECORDS SUMMARY | 2023-01-22 08:28 | XMS_ITS | Continuity of Care Document ---
Author Name Unknown Organization [facility] ELECTRICAL ACCESSORIES II ASSEMBLER Oncolog y Address [address] [place] [address]- Care Team Providers Care Rn Hemodialysis Name Role Phone Lenora Courtney Primary Care Physician [place] [facility] [place] - 05/01/22 [facility] ELECTRICAL ACCESSORIES II ASSEMBLER Oncology [address] [place] [address]- Allergies, Adverse Reactions, Alerts Substance Reaction Severity Status sulfa drugs Nausea Active Sulfite Allergy Nausea Active Caffeine Nervousness Tachycardia Active Immunizations Given and Recorded Vaccine Date Status Refusal Reason SARS-CoV-2 mRNA (mfdupaj-pjkr-ozhow) vax 08/20/21 Recorded SARS-CoV-2 (COVID-19) mRNA BNT-162b2 [...] Team Personnel Name: Tatiana Leal RN Position: S RN Member Role: Primary Care Nurse Name: Razia Gibbs RN Position: S RN Member Role: Primary Care Nurse Name: Lenora Courtney Position: [facility] PCO Associate Professional Member Role: PCP Address: Address: [address] [place] [address] [place] [address]- Name: Mauricio Pineda RN Position: [facility] RN Member Role: Primary Care Nurse Care Team Related Persons Name: KAYLA MANJARREZ Name: KAYCE LACEY Address: [address] [address]
--- OUTSIDE RECORDS SUMMARY | 2023-01-22 08:28 | XMS_ITS | Continuity of Care Document ---
Author Name Unknown Organization [facility] Address [address] [place] [address]- Care Team Providers Care Databases Computer Consultant Name Role Phone Agnieszka RÍOS, Marily Meadows Primary Care Physician [place] [facility] [facility] [place] 08/29/[place] - 09/28/[address] [facility] [address] [place] [address]- Allergies, Adverse Reactions, Alerts Substance Reaction Severity [...] AM, 0 Refills, Maintenance, 07/19/20 16:13:00 EST, [place], Partial fill upon patient request if the [...]
--- OUTSIDE RECORDS SUMMARY | 2023-01-22 08:28 | XMS_ITS | Continuity of Care Document ---
Author Name Unknown Organization [facility] HAT CHECKER Oncolog y Address [address] [place] [address]- Care Team Providers Care Wood Drilling Machine Operator Name Role Phone Darion Bazan MD Primary Care Physician [place] [facility] [place] - 10/14/20 [facility] HAT CHECKER Oncology [address] [place] [address]- Allergies, Adverse Reactions, Alerts Substance Reaction Severity [...] 10/12/20 9:58:00 EDT, Route to Pharmacy Electronically, [facility], Partial fill upon patient request if the pr... Start Date: 10/12/20 Status: Ordered Colace sodium 100 mg oral capsule 100 mg, 1, capsule, By Mouth, 2 times a day, PRN, # 60 capsule, Refills 0, Tot. Refills 0, Maintenance, for constipation, 08/29/20 9:36:00 EDT, Route to Pharmacy Electronically, [facility] #[id number], Partial fill upon patient request if the [...] AM, 0 Refills, Maintenance, 07/19/20 16:13:00 EST, [place], Partial fill upon patient request if the prescription is for a schedule II opioid drug. Start Date: 07/19/20 Status: Ordered gabapentin 300 mg oral capsule 300 mg, 1, capsule, By Mouth, Daily at bedtime, # 30 capsule, Refills 2, Tot. Refills 2, Maintenance, 10/12/20 9:56:00 EDT, Route to Pharmacy Electronically, [facility], Partial fillupon patient request [...] 08/29/20 9:35:00 EDT, Route to Pharmacy Electronically, [facility] #[id number], Partial fill upon patient request if the prescription... Start Date: 08/29/20 Status: Ordered lidocaine-prilocaine 2.5%-2.5% topical cream See Instructions, apply to [facility] site 30-60min prior to each chemotherapy session, # 30 Gm, 2 Refills, Maintenance, 09/26/20 8:09:00 EDT, [facility], Partial fill upon patient [...] 08/29/20 9:36:00 EDT, Route to Pharmacy Electronically, [facility] #[id number], Partial fill upon patient request if the prescription is... Start Date: 08/29/20 Status: Ordered prochlorperazine 10 mg oral tablet 1 tablet = 10 mg, By Mouth, Every 6 hours, PRN Nausea, # 30 tablet, 2 Refills, Maintenance, 09/26/20 8:09:00 EDT, Tablet, [facility], Partial fill upon patient request if the prescription is for a schedule II opioid drug., 163.9, cm,... Start Date: 09/26/20 Status: Ordered Senna 8.6 mg oral tablet 8.6 mg, 1, tablet, By Mouth, 2 times a day, PRN, # 100 tablet, Refills 2, Tot. Refills 2, Maintenance, for constipation, 09/26/20 8:08:00 EDT, Route to Pharmacy Electronically, [facility] Tablet, Partial fill upon patient request if t... Start Date: 09/26/20 Status: Ordered Tylenol 325 mg oral capsule 2 capsule = 650 mg, By Mouth, Every 4 hours, PRN as needed for pain, # 90 capsule, 1 Refills, Maintenance, 08/29/20 9:36:00 EDT, Capsule, [facility] #[id number], Partial fill upon patient request if the [...]
--- OUTSIDE RECORDS SUMMARY | 2023-01-22 08:28 | XMS_ITS | Continuity of Care Document ---
Author Name Unknown Organization [facility] Address [address] [place] [address]- Care Team Providers Care Warehouse Driver Name Role Phone Agnieszka RÍOS, Marily Meadows Primary Care Physician Encounter [facility] Date(s): 04/10/21 - 05/16/21 [facility] [address] [place] [address]- Attending Physician: Boubacar VIDAL, Jose Cortez Referring Physician: Marily Aaron NP Allergies, Adverse [...] to Pharmacy Electronically, [facility] #[id number], Partial fill upon patient request if the [...] AM, 0 Refills, Maintenance, 07/19/20 16:13:00 EST, [place], Partial fill upon patient request if the [...] Refills, Maintenance, 11/06/20 9:20:00 EDT, REC Powder, [facility], Partial fill upon patient [...] 11/27/20 13:41:00 EDT, Route to Pharmacy Electronically, [facility] Tablet, Partial fill upon [...]
--- OUTSIDE RECORDS SUMMARY | 2023-01-22 08:28 | XMS_ITS | Continuity of Care Document ---
Author Name Unknown Organization [facility] Address [address] [place] [address]- Care Team Providers Care Part Maker Name Role Phone Levon VIDAL, Latrice Paige Primary Care Physician [phone] Encounter [facility] [place] Date(s): 07/14/19 - 07/24/[address] [address]- [facility] Attending Physician: Cosmo Johnson Admitting Physician: [...] 0 Refills, Maintenance, 06/22/19 12:34:00 EST, Tablet, [facility], 167, cm, 06/22/19 11:21:00 EST, Height, 92, kg, 06/21/19 7:14:00 EST, Dry Weight Start Date: 06/22/19 Stop Date: 06/29/19 Status: Ordered
--- OUTSIDE RECORDS SUMMARY | 2023-01-22 08:28 | XMS_ITS | Continuity of Care Document ---
Author Name Unknown Organization [facility] Address [address] [place] [address]- Care Team Providers Care Metal Trim Erector Name Role Phone Agnieszka RÍOS, Marily Meadows Primary Care Physician [place] [facility] [place](s): 01/17/21 - 01/24/21 [facility] [address] [place] [address]- Attending Physician: Marily Aaron NP Allergies, Adverse [...] Mayo rded influenza virus vaccine, inactivated 02/24/12 [place] rded influenza virus vaccine, inactivated 01/28/11 [facility] [...] 08/29/20 9:36:00 EDT, Route to Pharmacy Electronically, [facility] #[id number], Partial fill upon patient request if the [...] AM, 0 Refills, Maintenance, 07/19/20 16:13:00 EST, [place], Partial fill upon patient request if the [...] 08/29/20 9:35:00 EDT, Route to Pharmacy Electronically, [facility] #[id number], Partial fill upon patient request if the prescription... Start Date: 08/29/20 Status: Ordered lidocaine-prilocaine 2.5%-2.5% topical cream See Instructions, apply to [facility] site 30-60min prior to each chemotherapy session, # 30 Gm, 2 Refills, Maintenance, 09/26/20 8:09:00 EDT, [facility], Partial fill upon patient [...] 11/06/20 9:20:00 EDT, REC Powder, [facility], Partial fill upon patient [...] [facility][id number], Partial fill upon patient request if the prescription is... Start Date: 08/29/20 Status: Ordered prochlorperazine 10 mg oral tablet 1 tablet = 10 mg, By Mouth, Every 6 hours, PRN Nausea, # 30 tablet, 2 Refills, Maintenance, 09/26/20 8:09:00 EDT, Tablet, [facility], Partial fill upon patient [...] EDT, Route to Pharmacy Electronically, [facility] Tablet, Partial fill upon [...] (osteoarthritis)(Confirmed) Active Thrombocytopenia(Confirmed) Active Restless legs(Confirmed) Active Procedures Procedure Date Related Diagnosis Body Site Status Hysterectomy Completed Meniscus Completed Vital Signs Most recent to oldest [Reference Range]: 1 Height 164.7 cm (01/17/21 1:51 PM) Weight 98.88 kg (01/17/21 1:51 PM) Body Mass Index [18.5-24.99] 36.45 *>HHI* (01/17/21 1:51 PM) Weight Obtained Via Patient/family state d (01/17/21 1:51 PM) Social History Social History Type Response Smoking Status Former smoker, quit more than 30 days ago entered on: 08/16/20 Sex
--- OUTSIDE RECORDS SUMMARY | 2023-01-22 08:28 | XMS_ITS | Continuity of Care Document ---
Author Name Unknown Organization [facility] CLAIM REP Oncolog y Address [address] [place] [address]- Care Team Providers Care Manufacturing Design Engineer Name Role Phone Darion Bazan MD Primary Care Physician En[place] [facility] [place] Date(s): 08/23/20 - 09/22/20 [facility] CLAIM REP Oncology [address] [place] [address]- Allergies, Adverse Reactions, Alerts Substance Reaction Severity [...] 08/29/20 9:36:00 EDT, Route to Pharmacy Electronically, [facility] #[id number], Partial fill upon patient request if the [...] AM, 0 Refills, Maintenance, 07/19/20 16:13:00 EST, [place], Partial fill upon patient request if the [...] 08/29/20 9:35:00 EDT, Route to Pharmacy Electronically, [facility] #[id number], Partial fill upon patient request if the prescription... Start Date: 08/29/20 Status: Ordered MiraLax oral powder for reconstitution = 17 Gm, By Mouth, Daily, dissolve in water before taking, # 255 Gm, 0 Refills, Maintenance, 08/29/20 9:37:00 EDT, REC Powder, [facility] #[id number], Partial fill upon patient request if the [...] 08/29/20 9:36:00 EDT, Route to Pharmacy Electronically, [facility] #[id number], Partial fill upon patient request if the prescription is... Start Date: 08/29/20 Status: Ordered Senna 8.6 mg oral tablet 8.6 mg, 1, tablet, By Mouth, 2 times a day, PRN, # 100 tablet, Refills 2, Tot. Refills 2, Maintenance, for constipation, 09/22/20 10:04:00 EDT, Route to Pharmacy Electronically, [facility] #[id number] Tablet, Partial fill upon patient request if... Start Date: 09/22/20 Status: Ordered simethicone 80 mg oral tablet, chewable 80 mg, 1, tablet, Chew, 4 times a day, # 48 tablet, Refills 0, Tot. Refills 0, Maintenance, 08/29/20 9:36:00 EDT, Route to Pharmacy Electronically, [facility] #[id number], Partial fill upon patient request if the prescription is for a schedule II... Start Date: 08/29/20 Status: Ordered Tylenol 325 mg oral capsule 2 capsule = 650 mg, By Mouth, Every 4 hours, PRN as needed for pain, # 90 capsule, 1 Refills, Maintenance, 08/29/20 9:36:00 EDT, Capsule, [facility] #[id number], Partial fill upon patient request if the [...]
--- OUTSIDE RECORDS SUMMARY | 2023-01-22 08:28 | XMS_ITS | Continuity of Care Document ---
Author Name Unknown Organization [facility] BOOKKEEPING MANAGER Oncolog y Address [address] [place] [address]- Care Team Providers Care Other Sales Support Worker Name Role Phone Agnieszka RÍOS, Marily Meadows Primary Care Physician [place] [facility] [place] 03/10/21 [facility] BOOKKEEPING MANAGER Oncology [address] [place] [address]- Allergies, Adverse Reactions, Alerts Substance Reaction Severity [...] 08/29/20 9:36:00 EDT, Route to Pharmacy Electronically, [facility] #[id number], Partial fill upon patient request if the [...] AM, 0 Refills, Maintenance, 07/19/20 16:13:00 EST, [place], Partial fill upon patient request if the prescription is for a schedule II opioid drug. Start Date: 07/19/20 Status: Ordered gabapentin 100 mg oral capsule See Instructions, TAKE 1 CAPSULE BY MOUTH DAILY AT BEDTIME CAN INCREASE TO 2 CAPSULES BY MOUTH DAILY IF TOLERATED, # 60 capsule, Refills 0, Instructions Replace Required Details, Route to Pharmacy Electronically, [facility] #[id number], 164.7, cm... Start Date: 02/05/21 Status: Ordered Glucosamine Chondroitin 1 tab, By Mouth, Daily, 0 Refills, Maintenance, 07/19/20 16:14:00 EST, Partial fill upon patient request if the prescription is for a schedule II opioid drug. Start Date: 07/19/20 Status: Ordered lidocaine-prilocaine 2.5%-2.5% topical cream See Instructions, apply to [facility] site 30-60min prior to each chemotherapy session, # 30 Gm, 2 Refills, Maintenance, 09/26/20 8:09:00 EDT, [facility], Partial fill upon patient [...] Maintenance, 11/06/20 9:20:00 EDT, REC Powder, [facility], Partial fill upon patient [...] Refills, Maintenance, 09/26/20 8:09:00 EDT, Tablet, [facility], Partial fill upon patient [...] 13:41:00 EDT, Route to Pharmacy Electronically, [facility] Tablet, Partial fill upon [...]
--- OUTSIDE RECORDS SUMMARY | 2023-01-22 08:28 | XMS_ITS | Continuity of Care Document ---
Author Name Unknown Organization [facility] MUSEUM PREPARATOR Oncolog y Address [address] [place] [address]- Care Team Providers Care Buyer Tobacco Head Name Role Phone Agnieszka RÍOS, Marily Meadows Primary Care Physician [place] [facility] [place] 03/10/21 [facility] MUSEUM PREPARATOR Oncology [address] [place] [address]- Allergies, Adverse Reactions, Alerts Substance Reaction Severity [...] 08/29/20 9:36:00 EDT, Route to Pharmacy Electronically, [facility] #[id number], Partial fill upon patient request if the [...] AM, 0 Refills, Maintenance, 07/19/20 16:13:00 EST, [place], Partial fill upon patient request if the prescription is for a schedule II opioid drug. Start Date: 07/19/20 Status: Ordered gabapentin 100 mg oral capsule See Instructions, TAKE 1 CAPSULE BY MOUTH DAILY AT BEDTIME CAN INCREASE TO 2 CAPSULES BY MOUTH DAILY IF TOLERATED, # 60 capsule, Refills 0, Instructions Replace Required Details, Route to Pharmacy Electronically, [facility] #[id number], 164.7, cm... Start Date: 02/05/21 Status: Ordered Glucosamine Chondroitin 1 tab, By Mouth, Daily, 0 Refills, Maintenance, 07/19/20 16:14:00 EST, Partial fill upon patient request if the prescription is for a schedule II opioid drug. Start Date: 07/19/20 Status: Ordered lidocaine-prilocaine 2.5%-2.5% topical cream See Instructions, apply to [facility] site 30-60min prior to each chemotherapy session, # 30 Gm, 2 Refills, Maintenance, 09/26/20 8:09:00 EDT, [facility], Partial fill upon patient [...] Maintenance, 11/06/20 9:20:00 EDT, REC Powder, [facility], Partial fill upon patient [...] 2 Refills, Maintenance, 09/26/20 8:09:00 EDT, Tablet, [facility], Partial fill upon patient [...] 11/27/20 13:41:00 EDT, Route to Pharmacy Electronically, [facility] Tablet, Partial fill upon [...]
--- OUTSIDE RECORDS SUMMARY | 2023-01-22 08:28 | XMS_ITS | Continuity of Care Document ---
Author Name Unknown Organization [facility] Address [address] [place] [address]- Care Team Providers Care Almond Grinder Name Role Phone Lenora Courtney Primary Care Physician Encounter [facility] [place] Date(s): 02/06/22 - 05/07/22 [facility] [address] [place] [address] [address] Discharge Disposition: A-D/C Home Attending Physician: Anish Hamlin MD Admitting Physician: Anish Hamlin MD Referring Physician: Darion Bazan MD Allergies, Adverse Reactions, Alerts Substance Reaction Severity Status sulfa drugs Nausea Active Caffeine Nervousness Tachycardia Active Sulfite Allergy Nausea Active Immunizations Given and Recorded Vaccine Date Status Refusal Reason SARS-CoV-2 mRNA ([id number]) vax 08/20/21 Recorded SARS-CoV-2 (COVID-19) mRNA BNT-162b2 [...] oldest [Reference Range]: 1 Height 163.5 cm (03/07/22 2:57 PM) Weight 106.4 kg (03/07/22 2:57 PM) Oxygen Saturation [94-100 %] 100 % (03/07/22 2:57 PM) Pulse Rate [55-90 bpm] 69 bpm (03/07/22 2:57 PM) Body Mass Index [18.5-24.99 kg/m2] 39.8 kg/m2 *>HHI* (03/07/22 2:57 PM) Blood Pressure [90-138/55-84 mm Hg] 127/ 53mm Hg (03/07/22 2:57 PM) Temperature [96.8-100.4 DegF] 98.1 DegF (03/07/22 2:57 PM) Blood pressure sites Arm, left (03/07/22 2:57 PM) Temperature Route Oral (03/07/22 2:57 PM) Dry Weight 106.4 kg (03/07/22 2:57 PM) Weight Obtained Via Standing scale (03/07/22 2:57 PM) Dry Weight Obtained Via Standing scale (03/07/22 2:57 PM) Social History Social History Type Response Smoking Status Former smoker, quit more than 30 days ago;Never entered on: 10/19/21 Sex Patient Care team information Care Team Personnel Name: Tatiana Leal RN Position: [facility] RN Member Role: Primary Care Nurse Name: Razia Gibbs RN Position: S RN Member Role: Primary Care Nurse Name: Lenora Courtney Position: [facility] PCO Associate Professional Member Role: PCP Address: Address: [place], [place] [address] Name: Mauricio Pineda RN Position: S RN Member Role: Primary Care Nurse Care Team Related Persons Name: KAYLA MANJARREZ Name: KAYCE LACEY Address: home [address] [place] [address]
--- OUTSIDE RECORDS SUMMARY | 2023-01-22 08:28 | XMS_ITS | Continuity of Care Document ---
Author Name Unknown Organization [facility] Address [address] [place] [address]- Care Team Providers Care Business Solution Analyst Name Role Phone Levon VIDAL, Latrice Paige Primary Care Physician Encounter [facility] [place] [facility] [place] [id number] Date(s): 07/10/19 - 09/10/[address] [address]- [facility] Attending Physician: Aiden Pollard MD Referring Physician: Aiden [...] 7:20:00 EDT Start Date: 09/03/19 Status: Ordered traMADol 50 mg oral tablet 1 tablet = 50 mg, By Mouth, Every 6 hours, PRN Pain , Mild, for 7 days, # 28 tablet, 0 Refills, Acute 09/11/19 10:36:00 EDT, 09/04/19 10:36:00 EDT, Tablet, [facility], 165, cm, :32:00 EDT, Height, 94.7, kg, 09/02/19 5:44:00 EDT... Start Date: 09/04/19 Stop Date: 09/11/19 Status: Ordered
--- OUTSIDE RECORDS SUMMARY | 2023-01-22 08:28 | XMS_ITS | Continuity of Care Document ---
Author Name Unknown Organization [facility] LOGISTIC MANAGER Oncolog y Address [address] [place] [address]- Care Team Providers Care Rivet Machine Operator Name Role Phone Lenora Courtney Primary Care Physician Encounter [facility] [place] Date(s): 03/14/22 - 04/13/22 [facility] LOGISTIC MANAGER Oncology [address] [place] [address]- Allergies, Adverse Reactions, Alerts Substance Reaction Severity Status sulfa drugs Nausea Active Caffeine Nervousness Tachycardia Active Sulfite Allergy Nausea Active Immunizations Given and Recorded Vaccine Date Status Refusal Reason SARS-CoV-2 mRNA ([id number]-zybmo) vax 08/20/21 Recorded SARS-CoV-2 (COVID-19) mRNA BNT-162b2 [...] Team Personnel Name: Tatiana Leal RN Position: [facility] SN RN Member Role: Primary Care Nurse Name: Razia Gibbs RN Position: [facility] RN Member Role: Primary Care Nurse Name: Lenora Courtney Position: [facility] PCO Associate Professional Member Role: PCP Address: Address: [address] [place] [address] [place] [address]- Name: Mauricio Pineda RN Position: [facility] RN Member Role: Primary Care Nurse Care Team Related Persons Name: KAYLA MANJARREZ Name: KAYCE LACEY Address: [address] [address]
--- OUTSIDE RECORDS SUMMARY | 2023-01-22 08:28 | XMS_ITS | Continuity of Care Document ---
Author Name Unknown Organization [facility] Address [address] [place] [address]- Care Team Providers Care Microfiche Camera Operator Name Role Phone Lenora Courtney Primary Care Physician Encounter [facility] Date(s): 11/16/21 - 03/16/22 [facility] [address] [place] [address]- Attending Physician: Daya Pierer MD Admitting Physician: Daya Pierre MD Referring Physician: Lenora Courtney Allergies, Adverse Reactions, Alerts Substance Reaction Severity Status sulfa drugs Nausea Active Caffeine Nervousness Tachycardia Active Sulfite Allergy Nausea Active Immunizations Given and Recorded Vaccine Date Status Refusal Reason SARS-CoV-2 mRNA (kvzisxv-zcan-qufsd) vax 08/20/21 Recorded SARS-CoV-2 (COVID-19) mRNA BNT-162b2 [...] information Personnel Name: Lenora Courtney Address: Address: [facility] [place], [place] [address]
--- OUTSIDE RECORDS SUMMARY | 2023-01-22 08:28 | XMS_ITS | Continuity of Care Document ---
Author Name Unknown Organization [facility] Address [address] [place] [address]- Care Team Providers Care Squirrel Man Name Role Phone Lenora Courtney Primary Care Physician Encounter [facility] Date(s): 11/22/21 - 12/22/21 [facility] [address] [place] [address]- Allergies, Adverse Reactions, Alerts Substance Reaction Severity Status sulfa drugs Nausea Active Caffeine Nervousness Tachycardia Active Sulfite Allergy Nausea Active Immunizations Given and Recorded Vaccine Date Status Refusal Reason SARS-CoV-2 mRNA (zfpqjrz-jrfq-hubqz) vax 08/20/21 Recorded SARS-CoV-2 (COVID-19) mRNA BNT-162b2 [...] AM, 0 Refills, Maintenance, 07/19/20 16:13:00 EST, [place], Partial fill upon patient request if the [...]
--- OUTSIDE RECORDS SUMMARY | 2023-01-22 08:28 | XMS_ITS | Continuity of Care Document ---
Author Name Unknown Organization [facility] Address [address] [place] [address]- Care Team Providers Care Optical Effects Camera Operator Name Role Phone Goran VIDAL, Mora Mcclendon Primary Care Physician [phone] Encounter [facility] Date(s): 05/24/22 - 06/23/22 [facility] [address] [place] [address]- Attending Physician: Cosmo Johnson Admitting Physician: AdmtrCosmo Referring Physician: AdmtrCosmo Allergies, Adverse Reactions, Alerts Substance Reaction Severity Status sulfa drugs Nausea Active Sulfite Allergy Nausea Active Caffeine Nervousness Tachycardia Active Immunizations Given and Recorded Vaccine Date Status Refusal Reason SARS-CoV-2 mRNA (jemiisy-jsyv-ansvx) vax 08/20/21 Recorded SARS-CoV-2 (COVID-19) mRNA BNT-162b2 [...] Team Personnel Name: Tatiana Leal RN Position: [facility] SN RN Member Role: Primary Care Nurse Name: Mora Zimmer MD Position: [facility] Primary Care Physician Member Role: PCP Address: Address: [address] [place] [address] [place] [address]- Name: Razia Gibbs RN Position: S RN Member Role: Primary Care Nurse Name: Mauricio Pineda RN Position: S RN Member Role: Primary Care Nurse Care Team Related Persons Name: KAYLA MANJARREZ Name: KAYCE LACEY Address: [address] [address]
--- OUTSIDE RECORDS SUMMARY | 2023-01-22 08:29 | XMS_ITS | Continuity of Care Document ---
Author Name Unknown Organization [facility] CULINARY ART TEACHER Oncolog y Address [address] [place] [address]- Care Team Providers Care Speech Language Specialist Name Role Phone Darion Bazan MD Primary Care Physician Encounter [facility] Date(s): 08/16/20 - 10/14/20 [facility] CULINARY ART TEACHER Oncology [address] [place] [id number] Attending Physician: Aguilar Short MD Admitting Physician: Aguilar Short MD Referring Physician: Darion Bazan MD Allergies, [...] 10/12/20 9:58:00 EDT, Route to Pharmacy Electronically, [facility], Partial fill upon patient request if the pr... Start Date: 10/12/20 Status: Ordered Colace sodium 100 mg oral capsule 100 mg, 1, capsule, By Mouth, 2 times a day, PRN, # 60 capsule, Refills 0, Tot. Refills 0, Maintenance, for constipation, 08/29/20 9:36:00 EDT, Route to Pharmacy Electronically, [email or web address] #[id number], Partial fill upon patient request if the [...] AM, 0 Refills, Maintenance, 07/19/20 16:13:00 EST, [place], Partial fill upon patient request if the prescription is for a schedule II opioid drug. Start Date: 07/19/20 Status: Ordered gabapentin 300 mg oral capsule 300 mg, 1, capsule, By Mouth, Daily at bedtime, # 30 capsule, Refills 2, Tot. Refills 2, Maintenance, 10/12/20 9:56:00 EDT, Route to Pharmacy Electronically, [facility], Partial fillupon patient request [...] 08/29/20 9:35:00 EDT, Route to Pharmacy Electronically, [email or web address] #[id number], Partial fill upon patient request if the prescription... Start Date: 08/29/20 Status: Ordered lidocaine-prilocaine 2.5%-2.5% topical cream See Instructions, apply to [facility] 30-60min prior to each chemotherapy [...] 08/29/20 9:36:00 EDT, Route to Pharmacy Electronically, [facility] #[id number], Partial fill upon patient request if the [...] 1 Refills, Maintenance, 08/29/20 9:36:00 EDT, Capsule, [facility] #[id number], Partial fill upon patient request if the [...]
--- OUTSIDE RECORDS SUMMARY | 2023-01-22 08:29 | XMS_ITS | Continuity of Care Document ---
Author Name Unknown Organization [facility] TAI CHI INSTRUCTOR Oncolog y Address [address] [place] [address]- Care Team Providers Care Operations Coordinator Name Role Phone Marily Aaron NP Primary Care Physician Encounter [facility] Date(s): 06/08/21 - 07/08/21 [facility] CHI INSTRUCTOR Oncology [address] [place] [address]- Allergies, Adverse Reactions, Alerts Substance Reaction Severity [...] 08/29/20 9:36:00 EDT, Route to Pharmacy Electronically, [facility] #[id number], Partial fill upon patient request if the [...] AM, 0 Refills, Maintenance, 07/19/20 16:13:00 EST, [place], Partial fill upon patient request if the [...] Refills, Maintenance, 11/06/20 9:20:00 EDT, REC Powder, [facility], Partial fill upon [...] 11/27/20 13:41:00 EDT, Route to Pharmacy Electronically, [facility] Tablet, Partial fill [...]
--- OUTSIDE RECORDS SUMMARY | 2023-01-22 08:29 | XMS_ITS | Continuity of Care Document ---
Author Name Unknown Organization [facility] COMPLIANCE AUDITOR Oncolog y Address [address] [place] [address]- Care Team Providers Care Hair Mixer Name Role Phone Agnieszka RÍOS, Marily Meadows Primary Care Physician En[place] [facility] Date(s): 02/14/21 - 03/16/21 [facility] COMPLIANCE AUDITOR Oncology [address] [place] [address]- Allergies, Adverse Reactions, Alerts Substance Reaction Severity [...] 08/29/20 9:36:00 EDT, Route to Pharmacy Electronically, [facility] #[id number], Partial fill upon patient request if the [...] AM, 0 Refills, Maintenance, 07/19/20 16:13:00 EST, [place], Partial fill upon patient request if the prescription is for a schedule II opioid drug. Start Date: 07/19/20 Status: Ordered gabapentin 100 mg oral capsule See Instructions, TAKE 1 CAPSULE BY MOUTH DAILY AT BEDTIME CAN INCREASE TO 2 CAPSULES BY MOUTH DAILY IF TOLERATED, # 60 capsule, Refills 2, Instructions Replace Required Details, Route to Pharmacy Electronically, [facility] #[id number], 163, cm,... Start Date: 03/16/21 Status: Ordered Glucosamine Chondroitin 1 tab, By Mouth, Daily, 0 Refills, Maintenance, 07/19/20 16:14:00 EST, Partial fill upon patient request if the prescription is for a schedule II opioid drug. Start Date: 07/19/20 Status: Ordered lidocaine-prilocaine 2.5%-2.5% topical cream See Instructions, apply to [facility] 30-60min prior to each chemotherapy session, # 30 Gm, 2 Refills, Maintenance, 09/26/20 8:09:00 EDT, [facility], Partial fill upon patient [...] Refills, Maintenance, 11/06/20 9:20:00 EDT, REC Powder, [facility], Partial fill upon patient [...] 2 Refills, Maintenance, 09/26/20 8:09:00 EDT, Tablet, [facility], Partial fill upon patient [...] 11/27/20 13:41:00 EDT, Route to Pharmacy Electronically, [facility] Tablet, Partial fill upon patient request if... Start Date: 11/27/20 Status: Ordered valACYclovir 500 mg oral tablet 500 mg, 1, tablet, By Mouth, 2 times a day, for 3 days, # 6 tablet, Refills 1, Tot. Refills 1, Acute 03/17/21 11:29:00 EDT, 03/11/21 11:29:00 EDT, Route to Pharmacy Electronically, [facility] #[id number], Partial fill upon patient request if the... [...]
--- OUTSIDE RECORDS SUMMARY | 2023-01-22 08:29 | XMS_ITS | Continuity of Care Document ---
Author Name Unknown Organization [facility] PHOTOGRAPHIC PRINTER Oncolog y Address [address] [place] [address]- Care Team Providers Care Wholesale Loan Processor Name Role Phone Lenora Courtney Primary Care Physician Encounter [facility] Date(s): 11/19/21 - 12/19/21 [facility] PHOTOGRAPHIC PRINTER Oncology [address] [place] [address]- Allergies, Adverse Reactions, Alerts Substance Reaction Severity Status sulfa drugs Nausea Active Caffeine Nervousness Tachycardia Active Sulfite Allergy Nausea Active Immunizations Given and Recorded Vaccine Date Status Refusal Reason SARS-CoV-2 mRNA (vmmhzqy-jevp-dyzvm) vax 08/20/21 Recorded SARS-CoV-2 (COVID-19) mRNA BNT-162b2 [...] AM, 0 Refills, Maintenance, 07/19/20 16:13:00 EST, [place], Partial fill upon patient request if the [...]
--- OUTSIDE RECORDS SUMMARY | 2023-01-22 08:29 | XMS_ITS | Continuity of Care Document ---
Author Name Unknown Organization [facility] Address [address] [place] [address] [address] [place] [address]- Care Team Providers Care Test Technician Name Role Phone Darion Bazan MD Primary Care Physician Encounter [facility] Date(s): 07/27/20 - 08/03/20 [facility] [address] [place] [address]- Encounter Diagnosis Morbid obesity with BMI of 40.0-44.9, adult(Discharge Diagnosis) - 07/27/20 Attending Physician: Aiden Constantino Referring Physician: Darion Bazan MD Allergies, Adverse [...] AM, 0 Refills, Maintenance, 07/19/20 16:13:00 EST, [place], Partial fill upon patient request if the [...] (irritable bowel syndrome)(Confirmed) Active OA (osteoarthritis)(Confirmed) Active Diagnosis Diagnosis Type Effective Dates Health Status Cl inical Service Informant Morbid obesity with BMI of 40.0-44.9, adult Discharge Diagnosis 07/27/20 Procedures Procedure Date Related Diagnosis Body Site Status Left knee replacement 08/2019 Com pleted Right knee replacement 06/2019 Co mpleted section x 2 Comp leted Laparoscopic cholecystectomy Completed Repair of inguinal hernia Completed Vital Signs Most recent to oldest [Reference Range]: 1 Height 162.56 cm (07/18/20 2:41 PM) Weight 107 kg (07/18/20 2:41 PM) Body Mass Index [18.5-24.99] 40.49 *>HHI* (07/18/20 2:41 PM) Weight Obtained Via Standing scale (07/18/20 2:41 PM) Social History Social History Type Response Smoking Status Never (less than 100 in lifetime) entered on: 07/27/20 Sex
--- OUTSIDE RECORDS SUMMARY | 2023-01-22 08:29 | XMS_ITS | Continuity of Care Document ---
Author Name Unknown Organization [facility] VIDEO LIBRARY ASSISTANT Oncolog y Address [address] [place] [address]- Care Team Providers Care Digital Printer Name Role Phone Agnieszka RÍOS, Marily Meadows Primary Care Physician Encounter [facility] Date(s): 02/21/21 - 03/23/21 [facility] VIDEO LIBRARY ASSISTANT Oncology [address] [place] [address]- Allergies, Adverse Reactions, Alerts Substance Reaction Severity [...] 08/29/20 9:36:00 EDT, Route to Pharmacy Electronically, [facility] #[id number], Partial fill upon patient request if the [...] AM, 0 Refills, Maintenance, 07/19/20 16:13:00 EST, [place], Partial fill upon patient request if the prescription is for a schedule II opioid drug. Start Date: 07/19/20 Status: Ordered gabapentin 100 mg oral capsule See Instructions, TAKE 1 CAPSULE BY MOUTH DAILY AT BEDTIME CAN INCREASE TO 2 CAPSULES BY MOUTH DAILY IF TOLERATED, # 60 capsule, Refills 2, Instructions Replace Required Details, Route to Pharmacy Electronically, [facility] #[id number], 163, cm,... Start Date: 03/16/21 Status: Ordered Glucosamine Chondroitin 1 tab, By Mouth, Daily, 0 Refills, Maintenance, 07/19/20 16:14:00 EST, Partial fill upon patient request if the prescription is for a schedule II opioid drug. Start Date: 07/19/20 Status: Ordered lidocaine-prilocaine 2.5%-2.5% topical cream See Instructions, apply to [facility] 30-60min prior to each chemotherapy session, # 30 Gm, 2 Refills, Maintenance, 09/26/20 8:09:00 EDT, [facility], Partial fill upon [...] Refills, Maintenance, 11/06/20 9:20:00 EDT, REC Powder, [facility], Partial fill upon [...] 2 Refills, Maintenance, 09/26/20 8:09:00 EDT, Tablet, [facility], Partial fill upon [...] 11/27/20 13:41:00 EDT, Route to Pharmacy Electronically, [facility] Tablet, Partial fill [...]
--- OUTSIDE RECORDS SUMMARY | 2023-01-22 08:29 | XMS_ITS | Continuity of Care Document ---
Author Name Unknown Organization [facility] DRY CLEANER HELPER Oncolog y Address [address] [place] [address]- Care Team Providers Care Vice President Quality Improvement Name Role Phone Lenora Courtney Primary Care Physician Encounter [facility] Date(s): 03/14/22 - 04/13/22 [facility] DRY CLEANER HELPER Oncology [address] [place] [address]- Allergies, Adverse Reactions, Alerts Substance Reaction Severity Status sulfa drugs Nausea Active Caffeine Nervousness Tachycardia Active Sulfite Allergy Nausea Active Immunizations Given and Recorded Vaccine Date Status Refusal Reason SARS-CoV-2 mRNA (tgeixtt-tjwg-qudfs) vax 08/20/21 Recorded SARS-CoV-2 (COVID-19) mRNA BNT-162b2 [...] Team Personnel Name: Tatiana Leal RN Position: [facility] SN RN Member Role: Primary Care Nurse Name: Razia Gibbs RN Position: [facility] RN Member Role: Primary Care Nurse Name: Lenora Courtney Position: [facility] PCO Associate Professional Member Role: PCP Address: Address: [address] [place] [address] [place] [address]- Name: Mauricio Pineda RN Position: [facility] RN Member Role: Primary Care Nurse Care Team Related Persons Name: KAYLA MANJARREZ Name: KAYCE LACEY Address: [address] [address]
--- OUTSIDE RECORDS SUMMARY | 2023-01-22 08:29 | XMS_ITS | Continuity of Care Document ---
Author Name Unknown Organization [facility] Address [address] [place] [address]- Care Team Providers Care Airport Planner Name Role Phone Agnieszka RÍOS, Marily Meadows Primary Care Physician Encounter [facility] Date(s): 09/06/20 - 08/07/21 [facility] [address] [place] [address]- Discharge Disposition: A-D/C Home Attending Physician: Aguilar Short MD Admitting Physician: Anish Hamlin MD Referring [...] 08/29/20 9:36:00 EDT, Route to Pharmacy Electronically, [facility] #[id number], Partial fill upon patient request if the [...] AM, 0 Refills, Maintenance, 07/19/20 16:13:00 EST, [place], Partial fill upon patient request if the [...] Refills, Maintenance, 11/06/20 9:20:00 EDT, REC Powder, [facility], Partial fill upon patient [...] 11/27/20 13:41:00 EDT, Route to Pharmacy Electronically, [facility] Tablet, Partial fill upon [...] oldest [Reference Range]: 1 2 3 Height 164.1 cm (02/19/21 8:54 AM) 164.7 cm (01/30/21 9:55 AM) 164.7 cm (01/30/21 9:52 AM) Weight 101.0 kg (02/19/21 8:54 AM) 104.8 kg (09/11/20 9:02 AM) Oxygen Saturation [94-100 %] 100 % (01/30/21 9:52 AM) 100 % (01/23/21 9:12 AM) 100 % (01/02/21 10:20 AM) Pulse Rate [55-90 bpm] 74 bpm (02/19/21 8:54 AM) 65 bpm (01/30/21 9:52 AM) 71 bpm (01/23/21 9:12 AM) Body Mass Index [18.5-24.99] 37.51 *>HHI* (02/19/21 8:54 AM) 38.73 *>HHI* (09/11/20 9:02 AM) Blood Pressure [90-138/55-84 mm Hg] 105/51mm Hg (02/19/21 8:54 AM) 118/56mm Hg (01/30/21 9:52 AM) 108/46mm Hg (01/23/21 9:12 AM) Respiratory Rate [16-30 br/min] 16 br/min (09/11/20 9:02 AM) Temperature [96.8-100.4 DegF] 98.0 DegF (02/19/21 8:54 AM) 97.4 DegF (01/30/21 9:52 AM) 97 DegF (01/23/21 9:12 AM) Mode of Delivery (Oxygen) Room air (01/30/21 9:52 AM) Room air (01/23/21 9:12 AM) Room air (01/02/21 10:20 AM) Blood pressure sites Arm, right (01/30/21 9:52 AM) Arm, right (01/23/21 9:12 AM) Arm, right (01/02/21 10:20 AM) Temperature Route Temporal (02/19/21 8:54 AM) Temporal (01/30/21 9:55 AM) Temporal (01/30/21 9:52 AM) Dry Weight 101.0 kg (02/19/21 8:54 AM) 104.8 kg (09/11/20 9:02 AM) Weight Obtained Via Standing scale (02/19/21 8:54 AM) Standing scale (09/11/20 9:02 AM) Dry Weight Obtained Via Standing scale (02/19/21 8:54 AM) Standing scale (09/11/20 9:02 AM) Social History Social History Type Response Smoking Status Former smoker, quit more than 30 days ago entered on: 08/16/20 Sex
--- OUTSIDE RECORDS SUMMARY | 2023-01-22 08:29 | XMS_ITS | Continuity of Care Document ---
Author Name Unknown Organization [facility] HEEL TURNER Oncolog y Address [address] [place] [address]- Care Team Providers Care Forensic Ballistics Expert Name Role Phone Marily Aaron NP Primary Care Physician Encounter [facility] Date(s): 09/04/21 - 10/04/21 [facility] HEEL TURNER Oncology [address] [place] [address]- Allergies, Adverse Reactions, Alerts Substance Reaction Severity [...] AM, 0 Refills, Maintenance, 07/19/20 16:13:00 EST, [place], Partial fill upon patient request if [...]
--- OUTSIDE RECORDS SUMMARY | 2023-01-22 08:29 | XMS_ITS | Continuity of Care Document ---
Author Name Unknown Organization [facility] Address [address] [place] [address]- Care Team Providers Care Air Conditioning Manager Name Role Phone Levon VIDAL, Latrice Paige Primary Care Physician [phone] Encounter 06/24/19 - 06/29/19 [facility] [address] [place] [address]- [facility] Allergies, Adverse Reactions, Alerts Substance Reaction Severity [...] 06/30/19 11:32:00 EST, 06/23/19 11:32:00 EST, Tablet, [facility], 167, cm, 06/23/19 7:16:00 [...] 0 Refills, Maintenance, 06/22/19 12:34:00 EST, Tablet, [facility], 167, cm, 06/22/19 11:21:00 EST, Height, 92, kg, 06/21/19 7:14:00 EST, Dry Weight Start Date: 06/22/19 Stop Date: 06/29/19 Status: Ordered
--- OUTSIDE RECORDS SUMMARY | 2023-01-22 08:29 | XMS_ITS | Continuity of Care Document ---
Author Name Unknown Organization [facility] SEAM FINISHER Oncolog y Address [address] [place] [address]- Care Team Providers Care Fuselage Framer Name Role Phone Agnieszka RÍOS, Marily Meadows Primary Care Physician [place] [facility] [place] 02/21/21 - 03/23/21 [facility] SEAM FINISHER Oncology [address] [place] [address]- Allergies, Adverse Reactions, Alerts Substance Reaction Severity [...] 08/29/20 9:36:00 EDT, Route to Pharmacy Electronically, [facility] #[id number], Partial fill upon patient request if the [...] AM, 0 Refills, Maintenance, 07/19/20 16:13:00 EST, [place], Partial fill upon patient request if the prescription is for a schedule II opioid drug. Start Date: 07/19/20 Status: Ordered gabapentin 100 mg oral capsule See Instructions, TAKE 1 CAPSULE BY MOUTH DAILY AT BEDTIME CAN INCREASE TO 2 CAPSULES BY MOUTH DAILY IF TOLERATED, # 60 capsule, Refills 2, Instructions Replace Required Details, Route to Pharmacy Electronically, [facility] #[id number], 163, cm,... Start Date: 03/16/21 Status: Ordered [...] Gm, 2 Refills, Maintenance, 09/26/20 8:09:00 EDT, [facility], Partial fill upon [...] Refills, Maintenance, 11/06/20 9:20:00 EDT, REC Powder, [facility], Partial fill upon [...] 2 Refills, Maintenance, 09/26/20 8:09:00 EDT, Tablet, [facility], Partial fill upon [...] 11/27/20 13:41:00 EDT, Route to Pharmacy Electronically, [facility] Tablet, Partial fill [...]
--- OUTSIDE RECORDS SUMMARY | 2023-01-22 08:29 | XMS_ITS | Continuity of Care Document ---
Author Name Unknown Organization [facility] GREENSKEEPER SUPERVISOR Oncolog y Address [address] [place] [address]- Care Team Providers Care Optician Apprentice Dispensing Name Role Phone Marily Aaron NP Primary Care Physician Encounter [facility] Date(s): 05/07/21 - 06/06/21 [facility] GREENSKEEPER SUPERVISOR Oncology [address] [place] [address]- Allergies, Adverse Reactions, Alerts Substance Reaction Severity [...] Mayo rded influenza virus vaccine, inactivated 02/18/17 [place] rded influenza virus vaccine, inactivated 02/23/14 [facility] [...] 08/29/20 9:36:00 EDT, [id number], Partial fill upon patient request if the [...] AM, 0 Refills, Maintenance, 07/19/20 16:13:00 EST, [place], Partial fill upon patient request if the [...]
--- OUTSIDE RECORDS SUMMARY | 2023-01-22 08:29 | XMS_ITS | Continuity of Care Document ---
Author Name Unknown Organization [facility] Address [address] [place] [address]- Care Team Providers Care Cephalometric Tracer Name Role Phone Lenora Courtney Primary Care Physician En[facility] Date(s): 02/14/22 - 03/16/22 [facility] [address] [address] Attending Physician: Admtr, Ar8 Admitting Physician: Admtr, Ar8 Referring Physician: Admtr, Ar8 Allergies, Adverse Reactions, Alerts Substance Reaction Severity Status sulfa drugs Nausea Active Caffeine Nervousness Tachycardia Active Sulfite Allergy Nausea Active Immunizations Given and Recorded Vaccine Date Status Refusal Reason SARS-CoV-2 mRNA (qmjgdbx-obsv-ajdji) vax 08/20/21 Recorded SARS-CoV-2 (COVID-19) mRNA BNT-162b2 [...] information Personnel Name: Lenora Courtney Address: Address: [facility] [place], [place] [address]
--- OUTSIDE RECORDS SUMMARY | 2023-01-22 08:29 | XMS_ITS | Continuity of Care Document ---
Author Name Unknown Organization [facility] Address [address] [place] [address]- Care Team Providers Care Marine Electrician Name Role Phone Hortensia VIDAL, Darion Primary Care Physician [place] [facility] 10[place]20 [facility] [address] [place] [address]- Attending Physician: Cosmo Johnson Admitting Physician: Cosmo [...] 08/29/20 9:36:00 EDT, Route to Pharmacy Electronically, [facility] #[id number], Partial fill upon patient request if the [...] AM, 0 Refills, Maintenance, 07/19/20 16:13:00 EST, [place], Partial fill upon patient request if the [...] 08/29/20 9:35:00 EDT, Route to Pharmacy Electronically, [facility] #[id number], Partial fill upon patient request if the prescription... Start Date: 08/29/20 Status: Ordered lidocaine-prilocaine 2.5%-2.5% topical cream See Instructions, apply to [facility] site 30-60min prior to each chemotherapy session, # 30 Gm, 2 Refills, Maintenance, 09/26/20 8:09:00 EDT, [facility], Partial fill [...] 08/29/20 9:36:00 EDT, Route to Pharmacy Electronically, [facility] #[id number], Partial fill upon patient request if the prescription is... Start Date: 08/29/20 Status: Ordered prochlorperazine 10 mg oral tablet 1 tablet = 10 mg, By Mouth, Every 6 hours, PRN Nausea, # 30 tablet, 2 Refills, Maintenance, 09/26/20 8:09:00 EDT, Tablet, [facility], Partial fill upon patient request if the prescription is for a schedule II opioid drug., 163.9, cm,... Start Date: 09/26/20 Status: Ordered Senna 8.6 mg oral tablet 8.6 mg, 1, tablet, By Mouth, 2 times a day, PRN, # 100 tablet, Refills 2, Tot. Refills 2, Maintenance, for constipation, 09/26/20 8:08:00 EDT, Route to Pharmacy Electronically, [facility] Tablet, Partial fill upon patient request if t... Start Date: 09/26/20 Status: Ordered Tylenol 325 mg oral capsule 2 capsule = 650 mg, By Mouth, Every 4 hours, PRN as needed for pain, # 90 capsule, 1 Refills, Maintenance, 08/29/20 9:36:00 EDT, Capsule, [facility] #[id number], Partial fill upon patient request if the [...]
--- OUTSIDE RECORDS SUMMARY | 2023-01-22 08:29 | XMS_ITS | Continuity of Care Document ---
Author Name Unknown Organization [facility] Address [address] [place] [address]- Care Team Providers Care Ceramic Products Sales Engineer Name Role Phone Marily Aaron NP Primary Care Physician Encounter [facility] Date(s): 08/14/21 - 09/13/21 [facility] [address] [place] [address]- Allergies, Adverse Reactions, Alerts Substance Reaction Severity [...] AM, 0 Refills, Maintenance, 07/19/20 16:13:00 EST, [place], Partial fill upon patient request if the [...]
--- OUTSIDE RECORDS SUMMARY | 2023-01-22 08:29 | XMS_ITS | Continuity of Care Document ---
Author Name Unknown Organization [facility] Address [address] [place] [address]- Care Team Providers Care Administrative Assistant Name Role Phone Levon VIDAL, Latrice Paige Primary Care Physician [phone] Encounter 09/05/19 - 09/16/19 [facility] [address] [place] [address] [facility] Discharge Disposition: GOALS MET Allergies, Adverse Reactions, Alerts Substance Reaction Severity [...]
--- OUTSIDE RECORDS SUMMARY | 2023-01-22 08:29 | XMS_ITS | Continuity of Care Document ---
Author Name Unknown Organization [facility] DIRECTOR FUNDRAISING Oncolog y Address [address] [place] [address]- Care Team Providers Care Ceo And Founder Name Role Phone Marily Aaron NP Primary Care Physician [place] [facility] [place]/22[place]21 - 04/21/21 [facility] DIRECTOR FUNDRAISING Oncology [address] [place] [address]- Allergies, Adverse Reactions, Alerts Substance Reaction Severity [...] 08/29/20 9:36:00 EDT, Route to Pharmacy Electronically, [facility] #[id number], Partial fill upon patient request if the [...] AM, 0 Refills, Maintenance, 07/19/20 16:13:00 EST, [place], Partial fill upon patient request if the [...] Refills, Maintenance, 11/06/20 9:20:00 EDT, REC Powder, [facility], Partial fill upon [...] 11/27/20 13:41:00 EDT, Route to Pharmacy Electronically, [facility] Tablet, Partial fill [...]
--- OUTSIDE RECORDS SUMMARY | 2023-01-22 08:29 | XMS_ITS | Continuity of Care Document ---
Author Name Unknown Organization [facility] Address [address] [place] [address]- Care Team Providers Care Carpentry Foreman Name Role Phone Hortensia VIDAL, Darion Primary Care Physician En[place] [facility] [place] Date(s): 12/05/20 - 01/04/21 [facility] [address] [place] [address]- Allergies, Adverse Reactions, Alerts Substance Reaction Severity [...] 11/27/20 13:40:00 EDT, Route to Pharmacy Electronically, [facility], Partial fill upon patient request if the p... Start Date: 11/27/20 Status: Ordered Colace sodium 100 mg oral capsule 100 mg, 1, capsule, By Mouth, 2 times a day, PRN, # 60 capsule, Refills 0, Tot. Refills 0, Maintenance, for constipation, 08/29/20 9:36:00 EDT, Route to Pharmacy Electronically, [facility] #[id number], Partial fill upon patient request if the [...] 0 Refills, Maintenance, 07/19/20 16:13:00 EST, [place], Partial fill upon patient request if the prescription is for a schedule II opioid drug. Start Date: 07/19/20 Status: Ordered gabapentin 300 mg oral capsule 300 mg, 1, capsule, By Mouth, Daily at bedtime, # 30 capsule, Refills 2, Tot. Refills 2, Maintenance, 10/12/20 9:56:00 EDT, Route to Pharmacy Electronically, [facility], Partial fillupon patient request [...] 08/29/20 9:35:00 EDT, Route to Pharmacy Electronically, [facility] #[id number], Partial fill upon patient request if the prescription... Start Date: 08/29/20 Status: Ordered lidocaine-prilocaine 2.5%-2.5% topical cream See Instructions, apply to [facility] site 30-60min prior to each chemotherapy [...] 08/29/20 9:36:00 EDT, Route to Pharmacy Electronically, [facility] #[id number], Partial fill upon patient request if the [...] 1 Refills, Maintenance, 08/29/20 9:36:00 EDT, Capsule, [facility] #[id number], Partial fill upon patient request if the [...]
--- OUTSIDE RECORDS SUMMARY | 2023-01-22 08:29 | XMS_ITS | Continuity of Care Document ---
Author Name Unknown Organization [facility] HEARING AIDE TECHNICIAN Oncolog y Address [address] [place] [address]- Care Team Providers Care Pulp Bleacher Name Role Phone Hortensia VIDAL, Darion Primary Care Physician [place] [facility] [place]20 [facility] HEARING AIDE TECHNICIAN Oncology [address] [place], [place] [address] Allergies, Adverse Reactions, Alerts Substance Reaction Severity [...] 10/12/20 9:58:00 EDT, Route to Pharmacy Electronically, [facility], Partial fill upon patient request if the pr... Start Date: 10/12/20 Status: Ordered Colace sodium 100 mg oral capsule 100 mg, 1, capsule, By Mouth, 2 times a day, PRN, # 60 capsule, Refills 0, Tot. Refills 0, Maintenance, for constipation, 08/29/20 9:36:00 EDT, Route to Pharmacy Electronically, [facility] #[id number], Partial fill upon patient request if the [...] AM, 0 Refills, Maintenance, 07/19/20 16:13:00 EST, [place], Partial fill upon patient request if the prescription is for a schedule II opioid drug. Start Date: 07/19/20 Status: Ordered gabapentin 300 mg oral capsule 300 mg, 1, capsule, By Mouth, Daily at bedtime, # 30 capsule, Refills 2, Tot. Refills 2, Maintenance, 10/12/20 9:56:00 EDT, Route to Pharmacy Electronically, [facility], Partial fillupon patient request if [...] 08/29/20 9:35:00 EDT, Route to Pharmacy Electronically, [facility] #[id number], Partial fill upon patient request if the prescription... Start Date: 08/29/20 Status: Ordered lidocaine-prilocaine 2.5%-2.5% topical cream See Instructions, apply to [facility] 30-60min prior to each chemotherapy session, # 30 Gm, 2 Refills, Maintenance, 09/26/20 8:09:00 EDT, [facility], Partial fill upon patient request if the prescription is for a schedule II opioi... Start Date: 09/26/20 Status: Ordered MiraLax oral powder for reconstitution = 17 Gm, By Mouth, Daily, dissolve in water before taking, # 527 Gm, 2 Refills, Maintenance, 11/06/20 9:20:00 EDT, REC Powder, [facility], Partial fill upon patient request [...] 08/29/20 9:36:00 EDT, Route to Pharmacy Electronically, [facility] #[id number], Partial fill upon patient request if the prescription is... Start Date: 08/29/20 Status: Ordered prochlorperazine 10 mg oral tablet 1 tablet = 10 mg, By Mouth, Every 6 hours, PRN Nausea, # 30 tablet, 2 Refills, Maintenance, 09/26/20 8:09:00 EDT, Tablet, [facility], Partial fill upon patient request if the prescription is for a schedule II opioid drug., 163.9, cm,... Start Date: 09/26/20 Status: Ordered Senna 8.6 mg oral tablet 8.6 mg, 1, tablet, By Mouth, 2 times a day, PRN, # 100 tablet, Refills 2, Tot. Refills 2, Maintenance, for constipation, 11/06/20 9:10:00 EDT, Route to Pharmacy Electronically, [facility] Tablet, Partial fill upon patient request if t... Start Date: 11/06/20 Status: Ordered Tylenol 325 mg oral capsule 2 capsule = 650 mg, By Mouth, Every 4 hours, PRN as needed for pain, # 90 capsule, 1 Refills, Maintenance, 08/29/20 9:36:00 EDT, Capsule, [facility] #[id number], Partial fill upon patient request if the [...]
--- OUTSIDE RECORDS SUMMARY | 2023-01-22 08:29 | XMS_ITS | Continuity of Care Document ---
Author Name Unknown Organization [facility] Address [address] [place] [address]- Care Team Providers Care Librarian Special Collections Name Role Phone Agnieszka RÍOS, Marily Meadows Primary Care Physician En[facility] [place] Date(s): 03/22/21 - 04/21/21 [facility] [address] [place] [address]- Allergies, Adverse Reactions, Alerts Substance Reaction Severity [...] Electronically, [facility] #[id number], Partial fill upon patient request if the [...] AM, 0 Refills, Maintenance, 07/19/20 16:13:00 EST, [place], Partial fill upon patient request if the [...] Refills, Maintenance, 11/06/20 9:20:00 EDT, REC Powder, [facility], Partial fill upon patient [...] 11/27/20 13:41:00 EDT, Route to Pharmacy Electronically, [facility] Tablet, Partial fill upon [...]
--- OUTSIDE RECORDS SUMMARY | 2023-01-22 08:29 | XMS_ITS | Continuity of Care Document ---
Author Name Unknown Organization [facility] Address [address] [place] [address] [address] [place] [address]- Care Team Providers Care Telecine Operator Name Role Phone Mora Zimmer MD Primary Care Physician Encounter [facility] Date(s): 12/17/22 - 01/16/23 [facility] [address] [place] [address]- Allergies, Adverse Reactions, Alerts Substance Reaction Severity Status sulfa drugs Nausea Active Caffeine Nervousness Tachycardia Active Sulfite Allergy Nausea Active Immunizations Given and Recorded Vaccine Date Status Refusal Reason SARS-CoV-2 mRNA ([id number]) vax 08/20/21 Recorded SARS-CoV-2 (COVID-19) mRNA BNT-162b2 [...] Personnel Name: Tatiana Leal RN Position: [facility] RN Member Role: Primary Care Nurse Name: Mora Zimmer MD Position: [facility] Physician - Primary Care Member Role: PCP Address: Address: [address] [place] [address] [place] [address]- Name: Bernie MAGALLANES, Razia Position: S RN Member Role: Primary Care Nurse Name: Mauricio Pineda RN Position: S RN Member Role: Primary Care Nurse Care Team Related Persons Name: KAYLA MANJARREZ Name: KAYCE LACEY Address: [address] [address]
--- OUTSIDE RECORDS SUMMARY | 2023-01-22 08:29 | XMS_ITS | Continuity of Care Document ---
Author Name Unknown Organization [facility] SAWMILL MANAGER Oncolog y Address [address] [place] [address]- Care Team Providers Care Study Manager Name Role Phone Darion Bazan MD Primary Care Physician [place] [facility] [place]11[place]20 - 01/10/21 [facility] SAWMILL MANAGER Oncology [address] [place] [address]- Allergies, Adverse Reactions, Alerts Substance Reaction Severity [...] 11/27/20 13:40:00 EDT, Route to Pharmacy Electronically, [facility], Partial fill upon patient request if the p... Start Date: 11/27/20 Status: Ordered Colace sodium 100 mg oral capsule 100 mg, 1, capsule, By Mouth, 2 times a day, PRN, # 60 capsule, Refills 0, Tot. Refills 0, Maintenance, for constipation, 08/29/20 9:36:00 EDT, Route to Pharmacy Electronically, [facility] #[id number], Partial fill upon patient request if the [...] AM, 0 Refills, Maintenance, 07/19/20 16:13:00 EST, [place], Partial fill upon patient request if the prescription is for a schedule II opioid drug. Start Date: 07/19/20 Status: Ordered gabapentin 300 mg oral capsule 300 mg, 1, capsule, By Mouth, Daily at bedtime, # 30 capsule, Refills 2, Tot. Refills 2, Maintenance, 10/12/20 9:56:00 EDT, Route to Pharmacy Electronically, [facility], Partial fillupon patient request [...] 08/29/20 9:35:00 EDT, Route to Pharmacy Electronically, [facility] #[id number], Partial fill upon patient request if the prescription... Start Date: 08/29/20 Status: Ordered lidocaine-prilocaine 2.5%-2.5% topical cream See Instructions, apply to [facility] 30-60min prior to each chemotherapy session, # 30 Gm, 2 Refills, Maintenance, 09/26/20 8:09:00 EDT, [facility], Partial fill upon patient [...] Refills, Maintenance, 11/06/20 9:20:00 EDT, REC Powder, [facility], Partial fill upon patient [...] 08/29/20 9:36:00 EDT, Route to Pharmacy Electronically, [facility] #[id number], Partial fill upon patient request if the prescription is... Start Date: 08/29/20 Status: Ordered prochlorperazine 10 mg oral tablet 1 tablet = 10 mg, By Mouth, Every 6 hours, PRN Nausea, # 30 tablet, 2 Refills, Maintenance, 09/26/20 8:09:00 EDT, Tablet, [facility], Partial fill upon patient request if the prescription is for a schedule II opioid drug., 163.9, cm,... Start Date: 09/26/20 Status: Ordered Senna 8.6 mg oral tablet 8.6 mg, 1, tablet, By Mouth, 2 times a day, PRN, # 100 tablet, Refills 2, Tot. Refills 2, Maintenance, for constipation, 11/27/20 13:41:00 EDT, Route to Pharmacy Electronically, [facility] Tablet, Partial fill upon patient request if... Start Date: 11/27/20 Status: Ordered Tylenol 325 mg oral capsule 2 capsule = 650 mg, By Mouth, Every 4 hours, PRN as needed for pain, # 90 capsule, 1 Refills, Maintenance, 08/29/20 9:36:00 EDT, Capsule, [facility] #[id number], Partial fill upon patient request if the [...]
--- OUTSIDE RECORDS SUMMARY | 2023-01-22 08:29 | XMS_ITS | Continuity of Care Document ---
Author Name Unknown Organization [facility] LICENSED PRACTICAL NURSE INSTRUCTOR Oncolog y Address [address] [place] [address]- Care Team Providers Care Photolithographer Name Role Phone Darion Bazan MD Primary Care Physician [place] [facility] [place] 09/18/20 - 10/18/20 [facility] LICENSED PRACTICAL NURSE INSTRUCTOR Oncology [address] [place] [phone]- Allergies, Adverse Reactions, Alerts Substance Reaction Severity [...] 08/29/20 9:36:00 EDT, Route to Pharmacy Electronically, [facility] #[id number], Partial fill upon patient request if the [...] 0 Refills, Maintenance, 07/19/20 16:13:00 EST, [place], Partial fill upon patient request if the [...] 08/29/20 9:35:00 EDT, Route to Pharmacy Electronically, [facility] #[id number], Partial fill upon patient request if the [...] 08/29/20 9:36:00 EDT, Route to Pharmacy Electronically, [facility] #[id number], Partial fill upon patient request if the prescription is... Start Date: 08/29/20 Status: Ordered prochlorperazine 10 mg oral tablet 1 tablet = 10 mg, By Mouth, Every 6 hours, PRN Nausea, # 30 tablet, 2 Refills, Maintenance, 09/26/20 8:09:00 EDT, Tablet, [facility], Partial fill upon patient request if the prescription is for a schedule II opioid drug., 163.9, cm,... Start Date: 09/26/20 Status: Ordered Senna 8.6 mg oral tablet 8.6 mg, 1, tablet, By Mouth, 2 times a day, PRN, # 100 tablet, Refills 2, Tot. Refills 2, Maintenance, for constipation, 09/26/20 8:08:00 EDT, Route to Pharmacy Electronically, [facility] Tablet, Partial fill upon patient request if t... Start Date: 09/26/20 Status: Ordered Tylenol 325 mg oral capsule 2 capsule = 650 mg, By Mouth, Every 4 hours, PRN as needed for pain, # 90 capsule, 1 Refills, Maintenance, 08/29/20 9:36:00 EDT, Capsule, [facility] #[id number], Partial fill upon patient request if the [...]
--- OUTSIDE RECORDS SUMMARY | 2023-01-22 08:29 | XMS_ITS | Continuity of Care Document ---
Author Name Unknown Organization [facility] HIGH SCHOOL DRAFTING TEACHER Oncolog y Address [address] [place] [address]- Care Team Providers Care Mountain Services Manager Name Role Phone Hortensia VIDAL, Darion Primary Care Physician ( [phone] [place] [facility] [place]14/20 - 09/13/20 [facility] HIGH SCHOOL DRAFTING TEACHER Oncology [address] [place] [phone]- Allergies, Adverse Reactions, Alerts Substance Reaction Severity [...] 08/29/20 9:36:00 EDT, Route to Pharmacy Electronically, [facility] #[id number], Partial fill upon patient request if the pre... Start Date: 08/29/20 Status: Ordered Cranial Prosthesis See Instructions, # 1 each, Maintenance, please supply one cranial prosthesis, 09/12/20 12:05:00 EDT, Compound Start Date: 09/12/20 Status: Ordered Fish Oil oral capsule 0 Refills, Maintenance, 07/19/20 16:14:00 EST, Partial fill upon patient request if the prescription is for a schedule II opioid drug. Start Date: 07/19/20 Status: Ordered Flonase 50 mcg/inh nasal spray 2 sprays, Nares, Both, Daily in AM, 0 Refills, Maintenance, 07/19/20 16:13:00 EST, [place], Partial fill upon patient request if the [...] 08/29/20 9:35:00 EDT, Route to Pharmacy Electronically, [facility] #[id number], Partial fill upon patient request if the prescription... Start Date: 08/29/20 Status: Ordered MiraLax oral powder for reconstitution = 17 Gm, By Mouth, Daily, dissolve in water before taking, # 255 Gm, 0 Refills, Maintenance, 08/29/20 9:37:00 EDT, REC Powder, [facility] #[id number], Partial fill upon patient request if the [...] 08/29/20 9:36:00 EDT, Route to Pharmacy Electronically, [facility] #[id number], Partial fill upon patient request if the prescription is... Start Date: 08/29/20 Status: Ordered Senna 8.6 mg oral tablet 8.6 mg, 1, tablet, By Mouth, 2 times a day, PRN, # 20 tablet, Refills 0, Tot. Refills 0, Maintenance, for constipation, 08/29/20 9:36:00 EDT, Route to Pharmacy Electronically, [facility] #[id number] Tablet, Partial fill upon patient request if th... Start Date: 08/29/20 Status: Ordered simethicone 80 mg oral tablet, chewable 80 mg, 1, tablet, Chew, 4 times a day, # 48 tablet, Refills 0, Tot. Refills 0, Maintenance, 08/29/20 9:36:00 EDT, Route to Pharmacy Electronically, [facility] #[id number], Partial fill upon patient request if the prescription is for a schedule II... Start Date: 08/29/20 Status: Ordered Tylenol 325 mg oral capsule 2 capsule = 650 mg, By Mouth, Every 4 hours, PRN as needed for pain, # 90 capsule, 1 Refills, Maintenance, 08/29/20 9:36:00 EDT, Capsule, [email or web address] #[id number], Partial fill upon patient request if the [...]
--- OUTSIDE RECORDS SUMMARY | 2023-01-22 08:29 | XMS_ITS | Continuity of Care Document ---
Author Name Unknown Organization [facility] CARE ASSISTANT Oncolog y Address [address] [place] [address]- Care Team Providers Care Drawer Liner Name Role Phone Darion Bazan MD Primary Care Physician En[place] [facility] [place](s): 12/07/20 - 01/06/21 [facility] CARE ASSISTANT Oncology [address] [place] [phone]- Allergies, Adverse Reactions, Alerts Substance Reaction Severity [...] 11/27/20 13:40:00 EDT, Route to Pharmacy Electronically, [facility], Partial fill upon patient request if the p... Start Date: 11/27/20 Status: Ordered Colace sodium 100 mg oral capsule 100 mg, 1, capsule, By Mouth, 2 times a day, PRN, # 60 capsule, Refills 0, Tot. Refills 0, Maintenance, for constipation, 08/29/20 9:36:00 EDT, Route to Pharmacy Electronically, [facility] #[id number], Partial fill upon patient request if the [...] AM, 0 Refills, Maintenance, 07/19/20 16:13:00 EST, [place], Partial fill upon patient request if the prescription is for a schedule II opioid drug. Start Date: 07/19/20 Status: Ordered gabapentin 300 mg oral capsule 300 mg, 1, capsule, By Mouth, Daily at bedtime, # 30 capsule, Refills 2, Tot. Refills 2, Maintenance, 10/12/20 9:56:00 EDT, Route to Pharmacy Electronically, [facility], Partial fillupon patient request [...] 08/29/20 9:35:00 EDT, Route to Pharmacy Electronically, [facility] #[id number], Partial fill upon patient request if the prescription... Start Date: 08/29/20 Status: Ordered lidocaine-prilocaine 2.5%-2.5% topical cream See Instructions, apply to [facility] 30-60min prior to each chemotherapy session, # 30 Gm, 2 Refills, Maintenance, 09/26/20 8:09:00 EDT, [facility], Partial fill upon patient [...] Refills, Maintenance, 11/06/20 9:20:00 EDT, REC Powder, [facility], Partial fill upon patient [...] 08/29/20 9:36:00 EDT, Route to Pharmacy Electronically, [facility] #[id number], Partial fill upon patient request if the prescription is... Start Date: 08/29/20 Status: Ordered prochlorperazine 10 mg oral tablet 1 tablet = 10 mg, By Mouth, Every 6 hours, PRN Nausea, # 30 tablet, 2 Refills, Maintenance, 09/26/20 8:09:00 EDT, Tablet, [facility], Partial fill upon patient request if the prescription is for a schedule II opioid drug., 163.9, cm,... Start Date: 09/26/20 Status: Ordered Senna 8.6 mg oral tablet 8.6 mg, 1, tablet, By Mouth, 2 times a day, PRN, # 100 tablet, Refills 2, Tot. Refills 2, Maintenance, for constipation, 11/27/20 13:41:00 EDT, Route to Pharmacy Electronically, [facility] Tablet, Partial fill upon patient request if... Start Date: 11/27/20 Status: Ordered Tylenol 325 mg oral capsule 2 capsule = 650 mg, By Mouth, Every 4 hours, PRN as needed for pain, # 90 capsule, 1 Refills, Maintenance, 08/29/20 9:36:00 EDT, Capsule, [facility] #[id number], Partial fill upon patient request if the [...]
--- OUTSIDE RECORDS SUMMARY | 2023-01-22 08:30 | XMS_ITS | Continuity of Care Document ---
Author Name Unknown Organization [facility] TANNING SALON ATTENDANT Oncolog y Address [address] [place] [address]- Care Team Providers Care Hat Band Attacher Name Role Phone Marily Aaron NP Primary Care Physician Encounter [facility] [place] Date(s): 03/22/21 - 04/21/21 [facility] TANNING SALON ATTENDANT Oncology [address] [place] [address]- Allergies, Adverse Reactions, Alerts Substance Reaction Severity [...] 08/29/20 9:36:00 EDT, Route to Pharmacy Electronically, [facility] #[id number], Partial fill upon patient request if the [...] AM, 0 Refills, Maintenance, 07/19/20 16:13:00 EST, [place], Partial fill upon patient request if the [...] Refills, Maintenance, 11/06/20 9:20:00 EDT, REC Powder, [facility], Partial fill upon patient [...] 11/27/20 13:41:00 EDT, Route to Pharmacy Electronically, [facility] Tablet, Partial fill upon [...]
--- OUTSIDE RECORDS SUMMARY | 2023-01-22 08:30 | XMS_ITS | Continuity of Care Document ---
Author Name Unknown Organization [facility] DROP MACHINE OPERATOR Oncolog y Address [address] [place] [address]- Care Team Providers Care Consignee Name Role Phone Darion Bazan MD Primary Care Physician Encounter [facility] [place] Date(s): 09/29/20 - 10/29/20 [facility] DROP MACHINE OPERATOR Oncology [address] [place] [address]- Allergies, Adverse Reactions, Alerts Substance Reaction Severity [...] 10/12/20 9:58:00 EDT, Route to Pharmacy Electronically, [facility], Partial fill upon patient request if the pr... Start Date: 10/12/20 Status: Ordered Colace sodium 100 mg oral capsule 100 mg, 1, capsule, By Mouth, 2 times a day, PRN, # 60 capsule, Refills 0, Tot. Refills 0, Maintenance, for constipation, 08/29/20 9:36:00 EDT, Route to Pharmacy Electronically, [facility] #[id number], Partial fill upon patient request if the [...] AM, 0 Refills, Maintenance, 07/19/20 16:13:00 EST, [place], Partial fill upon patient request if the prescription is for a schedule II opioid drug. Start Date: 07/19/20 Status: Ordered gabapentin 300 mg oral capsule 300 mg, 1, capsule, By Mouth, Daily at bedtime, # 30 capsule, Refills 2, Tot. Refills 2, Maintenance, 10/12/20 9:56:00 EDT, Route to Pharmacy Electronically, [facility], Partial fillupon patient request [...] 08/29/20 9:35:00 EDT, Route to Pharmacy Electronically, [facility] #[id number], Partial fill upon patient request if the prescription... Start Date: 08/29/20 Status: Ordered lidocaine-prilocaine 2.5%-2.5% topical cream See Instructions, apply to [facility] 30-60min prior to each chemotherapy session, # 30 Gm, 2 Refills, Maintenance, 09/26/20 8:09:00 EDT, [facility], Partial fill [...] 08/29/20 9:36:00 EDT, Route to Pharmacy Electronically, [facility] #[id number], Partial fill upon patient request if the prescription is... Start Date: 08/29/20 Status: Ordered prochlorperazine 10 mg oral tablet 1 tablet = 10 mg, By Mouth, Every 6 hours, PRN Nausea, # 30 tablet, 2 Refills, Maintenance, 09/26/20 8:09:00 EDT, Tablet, [facility], Partial fill upon patient request if the prescription is for a schedule II opioid drug., 163.9, cm,... Start Date: 09/26/20 Status: Ordered Senna 8.6 mg oral tablet 8.6 mg, 1, tablet, By Mouth, 2 times a day, PRN, # 100 tablet, Refills 2, Tot. Refills 2, Maintenance, for constipation, 09/26/20 8:08:00 EDT, Route to Pharmacy Electronically, [facility] Tablet, Partial fill upon patient request if t... Start Date: 09/26/20 Status: Ordered Tylenol 325 mg oral capsule 2 capsule = 650 mg, By Mouth, Every 4 hours, PRN as needed for pain, # 90 capsule, 1 Refills, Maintenance, 08/29/20 9:36:00 EDT, Capsule, [email or web address] #[id number], Partial fill upon patient request if the [...]
--- OUTSIDE RECORDS SUMMARY | 2023-01-22 08:30 | XMS_ITS | Continuity of Care Document ---
Author Name Unknown Organization [facility] REVERSER Oncolog y Address [address] [place] [address]- Care Team Providers Care Machine Pie Maker Name Role Phone Marily Aaron NP Primary Care Physician Encounter [facility] [place] Date(s): 06/28/21 - 07/28/21 [facility] REVERSER Oncology [address] [place] [address]- Allergies, Adverse Reactions, Alerts Substance Reaction Severity [...] Mayo rded influenza virus vaccine, inactivated 01/28/11 [place] rded influenza virus vaccine, inactivated 03/20/10 Mayo [...] Route to Pharmacy Electronically, [facility] #[id number], Partial fill upon patient request if the [...] AM, 0 Refills, Maintenance, 07/19/20 16:13:00 EST, [place], Partial fill upon patient request if the [...] to Pharmacy Electronically, [facility] Tablet, Partial fill upon [...]
--- OUTSIDE RECORDS SUMMARY | 2023-01-22 08:30 | XMS_ITS | Continuity of Care Document ---
Author Name Unknown Organization [facility] Address [address] [place] [address]- Care Team Providers Care Bronze Plater Name Role Phone Mora Zimmer MD Primary Care Physician [place] [facility] 05/09/22 - 06/08/22 [facility] [address] [place] [address]- Allergies, Adverse Reactions, Alerts Substance Reaction Severity Status sulfa drugs Nausea Active Sulfite Allergy Nausea Active Caffeine Nervousness Tachycardia Active Immunizations Given and Recorded Vaccine Date Status Refusal Reason SARS-CoV-2 mRNA (yvwiamm-xpxh-utnwy) vax 08/20/21 Recorded SARS-CoV-2 (COVID-19) mRNA BNT-162b2 [...] Team Personnel Name: Tatiana Leal RN Position: [facility] SN RN Member Role: Primary Care Nurse Name: Mora Zimmer MD Position: [facility] Primary Care Physician Member Role: PCP Address: Address: [address] [place] [address] [place] [address]- Name: Razia Gibbs RN Position: [facility] RN Member Role: Primary Care Nurse Name: Mauricio Pineda RN Position: [facility] RN Member Role: Primary Care Nurse Care Team Related Persons Name: KAYLA MANJARREZ Name: KAYCE LACEY Address: [address] [address]
--- OUTSIDE RECORDS SUMMARY | 2023-01-22 08:30 | XMS_ITS | Continuity of Care Document ---
Author Name Unknown Organization [facility] ADMISSIONS DIRECTOR Oncolog y Address [address] [place] [address]- Care Team Providers Care Ship Unloader Name Role Phone Darion Bazan MD Primary Care Physician Encounter [facility] [place] Date(s): 11/28/20 - 12/28/20 [facility] ADMISSIONS DIRECTOR Oncology [address] [place] [address]- Allergies, Adverse Reactions, Alerts Substance Reaction Severity [...] 08/29/20 9:36:00 EDT, Route to Pharmacy Electronically, [facility] #[id number], Partial fill upon patient request if the [...] AM, 0 Refills, Maintenance, 07/19/20 16:13:00 EST, [place], Partial fill upon patient request if the [...] 08/29/20 9:35:00 EDT, Route to Pharmacy Electronically, [facility] #[id number], Partial fill upon patient request if the [...] 08/29/20 9:36:00 EDT, Route to Pharmacy Electronically, [facility] #[id number], Partial fill upon patient request if the [...] 1 Refills, Maintenance, 08/29/20 9:36:00 EDT, Capsule, [facility] #[id number], Partial fill upon patient request if the [...]
--- OUTSIDE RECORDS SUMMARY | 2023-01-22 08:30 | XMS_ITS | Continuity of Care Document ---
Author Name Unknown Organization [facility] CLOTH WEIGHER Oncolog y Address [address] [place] [address]- Care Team Providers Care Credit Assistant Name Role Phone Lenora Courtney Primary Care Physician Encounter [facility] [place] Date(s): 03/08/22 - 04/07/22 [facility] CLOTH WEIGHER Oncology [address] [place] [address]- Allergies, Adverse Reactions, Alerts Substance Reaction Severity Status sulfa drugs Nausea Active Caffeine Nervousness Tachycardia Active Sulfite Allergy Nausea Active Immunizations Given and Recorded Vaccine Date Status Refusal Reason SARS-CoV-2 mRNA (wjiyzsc-tbtm-egfsm) vax 08/20/21 Recorded SARS-CoV-2 (COVID-19) mRNA BNT-162b2 [...] Primary Care Nurse Name: Lenora Courtney Position: [facility] PCO Associate Professional Member Role: PCP Address: Address: [address] [place] [address] [place] [address]- Name: Mauricio Pineda RN Position: [facility] RN Member Role: Primary Care Nurse Care Team Related Persons Name: KAYLA MANJARREZ Name: KAYCE LACEY Address: [address] [address]
--- OUTSIDE RECORDS SUMMARY | 2023-01-22 08:30 | XMS_ITS | Patient Health Record ---
Author Name Unknown Organization [facility] Address [address] [facility] [address] [place] [address] Care Team Providers Care Cashier Assistant Name Role Phone Melany Bazank Primary Care Provider Unava ilable ALLERGIES Allergen (clinical drug ingredient) Drug/Non Drug Allergy documented on EMR Reaction Allergy Type Onset Date Status Nitrates organic (uncoded) Unknown Allergy Active caffeine Caffeine Unknown Drug Allergy Active Substance with sulfonamide structure and antibacterial mechanism of action (substance) Sulfa Antibiotics Unknown Drug Allergy Active REASON FOR REFERRAL No Information MEDICATIONS Medication SIG (Take, Route, Frequency, Duration) Notes Start Date End Date Status Fluconazole 150 MG 1 tablet Orally Active Loratadine 10 MG 1 tablet Orally Once a day Active Glucosamine Chondroitin Complx Active Fish Oil Active Multivitamin Active Nasal Emmons Active Calcium Magnesium Ac tive Cholecalciferol Acti ve SOCIAL HISTORY Sex Assigned At : Social History Observation Description Sex Assigned At Unknown PROBLEMS Problem Type ICD Code Onset Dates Problem Status W/U Status Risk SNOMED Code Notes Problem Hallux valgus (acquired), right foot (M20.11) Active confirmed 358438503 Problem Hallux valgus (acquired), left foot (M20.12) Active confirmed [id number] PLAN OF TREATMENT No Information Insurance Providers Payer Name Payer Address Payer Phone Subscriber Number Group Number Insured Name Patient Relationship to Insured Coverage Start Date Coverage End Date [facility] [address] [facility] [place] [id number] Carola Luu Self - patient is the insured MEDICAL (GENERAL) HISTORY Medical History History ICD Code Unspecified tear of unspecif ied meniscus, current injury, unspecified knee, initial encounter S83.209A Unspecified abnormal cytological finding s in specimens from cervix uteri R87.619 Encounter for screening for malignant ne oplasm of colon Z12.11 Anemia, unspecified D64.9 Primary osteoarthritis, unspecified hand M19.049 Incisional hernia without obstruction or gangrene K43.2 Obesity, unspecified E66.9 Other hemorrhoids K64.8 Pain in unspecified shoulder M25.519 Surgical History Surgery Date(Month/Year) bilateral knee replacement surgery 2019
--- OUTSIDE RECORDS SUMMARY | 2023-01-22 08:30 | XMS_ITS | Continuity of Care Document ---
Author Name Unknown Organization [facility] VOLUNTEER SERVICES MANAGER Oncolog y Address [address] [place] [address]- Care Team Providers Care Dumpster Operator Name Role Phone Agnieszka RÍOS, Marily Meadows Primary Care Physician [place] [facility] [place] Date(s): 12/19/20 - 02/15/21 [facility] VOLUNTEER SERVICES MANAGER Oncology [address] [place] [address]- Attending Physician: Erlinda RÍOS, Ramandeep Anderson Admitting Physician: Erlinda RÍOS, Ramandeep Anderson Referring Physician: Darion Bazan MD Allergies, Adverse [...] 08/29/20 9:36:00 EDT, Route to Pharmacy Electronically, [facility] #[id number], Partial fill upon patient request if the [...] AM, 0 Refills, Maintenance, 07/19/20 16:13:00 EST, [place], Partial fill upon patient request if the prescription is for a schedule II opioid drug. Start Date: 07/19/20 Status: Ordered gabapentin 100 mg oral capsule See Instructions, TAKE 1 CAPSULE BY MOUTH DAILY AT BEDTIME CAN INCREASE TO 2 CAPSULES BY MOUTH DAILY IF TOLERATED, # 60 capsule, Refills 0, Instructions Replace Required Details, Route to Pharmacy Electronically, [facility] #[id number], 164.7, cm... Start Date: 02/05/21 Status: Ordered [...] 08/29/20 9:35:00 EDT, Route to Pharmacy Electronically, [id number], Partial fill upon patient request if the prescription... Start Date: 08/29/20 Status: Ordered lidocaine-prilocaine 2.5%-2.5% topical cream See Instructions, apply to [facility] 30-60min prior to each chemotherapy session, # 30 Gm, 2 Refills, Maintenance, 09/26/20 8:09:00 EDT, [facility], Partial fill [...] EDT, REC Powder, [facility], Partial fill upon patient request if [...] 08/29/20 9:36:00 EDT, Route to Pharmacy Electronically, [facility] #[id number], Partial fill upon patient request if the prescription is... Start Date: 08/29/20 Status: Ordered prochlorperazine 10 mg oral tablet 1 tablet = 10 mg, By Mouth, Every 6 hours, PRN Nausea, # 30 tablet, 2 Refills, Maintenance, 09/26/20 8:09:00 EDT, Tablet, [facility], Partial fill [...] 11/27/20 13:41:00 EDT, Route to Pharmacy Electronically, [facility] Tablet, Partial fill upon [...] 02/15/21 9:19:00 EDT, Route to Pharmacy Electronically, [facility]#[id number], Partial fill upon patient request if the [...]
--- OUTSIDE RECORDS SUMMARY | 2023-01-22 08:30 | XMS_ITS | Continuity of Care Document ---
Author Name Unknown Organization [facility] Address [address] [place] [address] [address] [place] [address]- Care Team Providers Care Fence Post Driver Name Role Phone Hortensia VIDAL, Darion Primary Care Physician ( [phone] Encounter [facility] [place] Date(s): 09/07/20 - 09/14/[address] [place] [address]- Attending Physician: Dann RD, Dot Allergies, Adverse Reactions, Alerts Substance Reaction Severity [...] 08/29/20 9:36:00 EDT, Route to Pharmacy Electronically, [facility] #[id number], Partial fill upon patient request if the [...] AM, 0 Refills, Maintenance, 07/19/20 16:13:00 EST, [place], Partial fill upon patient request if the [...] 08/29/20 9:35:00 EDT, Route to Pharmacy Electronically, [facility] #[id number], Partial fill upon patient request if the prescription... Start Date: 08/29/20 Status: Ordered MiraLax oral powder for reconstitution = 17 Gm, By Mouth, Daily, dissolve in water before taking, # 255 Gm, 0 Refills, Maintenance, 08/29/20 9:37:00 EDT, REC Powder, [facility] #[id number], Partial fill upon patient request if the [...] 08/29/20 9:36:00 EDT, Route to Pharmacy Electronically, [facility] #[id number], Partial fill upon patient request if the prescription is... Start Date: 08/29/20 Status: Ordered Senna 8.6 mg oral tablet 8.6 mg, 1, tablet, By Mouth, 2 times a day, PRN, # 20 tablet, Refills 0, Tot. Refills 0, Maintenance, for constipation, 08/29/20 9:36:00 EDT, Route to Pharmacy Electronically, [facility] #[id number] Tablet, Partial fill upon patient request if th... Start Date: 08/29/20 Status: Ordered simethicone 80 mg oral tablet, chewable 80 mg, 1, tablet, Chew, 4 times a day, # 48 tablet, Refills 0, Tot. Refills 0, Maintenance, 08/29/20 9:36:00 EDT, Route to Pharmacy Electronically, [facility] #[id number], Partial fill upon patient request if the prescription is for a schedule II... Start Date: 08/29/20 Status: Ordered Tylenol 325 mg oral capsule 2 capsule = 650 mg, By Mouth, Every 4 hours, PRN as needed for pain, # 90 capsule, 1 Refills, Maintenance, 08/29/20 9:36:00 EDT, Capsule, [facility] #[id number], Partial fill upon patient request if the [...]
--- NOTE | 2023-01-22 11:45 | A.OFFVIS_ITS ---
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 Allergies caffeine Adverse Reaction (Intermediate, Verified 01/22/23 11:47) tachycardia Sulfa (Sulfonamide Antibiotics) Adverse Reaction (Intermediate, Verified 01/10 08/01 11:47) Nausea and Vomiting Medication List - Last Reconciled 01/22/23 by Srinivasa Blair MD calcium citrate-vitamin D3 500 mg-12.5 mcg /5 gram grams PO cholecalciferol (vitamin D3) 50 mcg PO DAILY fluticasone propionate 50 mcg/actuation (Flonase Allergy Relief) 1 spray in tranasal Q12H glucosamine sulfate (Glucosamine) 500 mg PO DAILY loratadine (Claritin) 10 mg PO DAILY multivitamin 1 tab PO DAILY naproxen sodium (Aleve) 220 mg PO BID PRN omega 0-dmq-omv-fish oil 60-90-500 mg (Fish Oil) 1 cap PO DAILY turmeric mg PO 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 Skips on weekends Dinner: 7.30-8pm (meat with vegetables) Snacks: 10am (crackers, or chocolate), 3pm (crackers, popcorn, chocolate), 9pm (dessert) Exercise: 2-3/week. Has a Gym membership and rowing machine. Has a home stat ionary bike Fluids: Caffeine: none, tea: 1 cup every 3 days (plain), soda: none, juice: none, ETOH: none PFSH Medical History (Updated 01/22/23 @ 11:53 by Srinivasa Blair MD) Uterine cancer DJD (degenerative joint disease) Morbid obesity Surgical History (Updated 01/22/23 @ 11:55 by Srinivasa Blair MD) History of History of laparoscopic cholecystectomy History of right inguinal hernia repair History of total abdominal hysterectomy and bilateral salpingo-oophorectomy Assessment & Plan Assessment & Plan (1) Morbid obesity: Code(s): E66.01 - Morbid (severe) obesity due to excess calories Plan: 1.? Plan for lap sleeve gastrectomy. If diaphragmatic or ventral hernias are present at time of surgery, these will be repaired laparoscopically as well. Risks and complications were discussed in detail including possible conversion to an open procedure, anastomotic leak, bleeding requiring transfusion, small bowel obstruction, , DVT and pulmonary embolism, cardiac, or pulmonary complications, as terminal make up operator complications such as anastomotic ulcer, insufficient weight loss and vitamin deficiencies. I emphasized the importance of close follow-up, adherence to instructions and good communication. 2. Nutritional counseling. Start with 2 Celebrate REBUILD protein (buy at [facility] [employer] or online) shakes (ONE scoop EACH in 8oz low fat unsweetened almond milk each) at 7am-9am and 10am-12pm, 2 Celebrate protein bars (buy at [facility] [employer] or online) at 1pm-3pm and 4pm-6pm, dinner at 7pm (8 forks of protein and 8 forks of salad/vegetables) AND HALF protein bar after dinner at 9pm-10pm. Meal to include lean meat (beef, fish, pork, turkey, chicken), or faroese yogurt, or egg whites, or beans with a salad with olive oil and fruits (berries, pears, apples, kiwi). Avoid salt, breads, potatoes, rice, pasta, desserts. 3. Each shake would be drunk slowly, like coffee in a period of 2 hours. 4. Cut each bar in 4 pieces and eat each piece in 30min ?to make each bar last 2 hours. 5. I emphasized the importance of measuring accurately the food portion and measure it when serving the food in plate 6. The meal portions include 8 full-size forks of meat and 8 full-size forks of salad. You always eat the meat portion but you can replace up to 4 forks for salad/vegetables with rice, potatoes or pasta, or a fruit ?if you like. The less you do it the better weight loss will be. 7. One full-size fork is what it can be scooped on the fork without falling aside and not what can be bit with the fork. Use regular forks like those you find in a typical restaurant. 8.? Please send me weight measurements as soon as possible and then once a week. Always include your diet and exercise plan. 10. Alternatively start stationary bike at a resistance level of 4.0 Increase level by 1.0 every 3 min to a max level of 10.0. Stay at this level for 3 min and then return to level 4.0 and repeat same steps until 300 calories are burned. Goal is to burn 2000 calories per week on exercise. Goal is to burn 2000 calories per week on exercise, which means either 300 calories daily, or 400 calories 5 days per week, or 500 calories 4 days per week, or 650 calories 3 days per week. 11. Goal is to lose at least 1.5-2lbs per week 12. Goal to lose 10% of your weight before surgery, which is about 24lbs. Ultimate weight goal: 215lbs before surgery 13. Please follow the diet plan exactly without any change. If you don't like something about the plan or you feel hungry you need to communicate with me so I can help you revise the plan. You should not change the plan yourself. Orders: Orders Lipid Panel Today E66.01 - Morbid (severe) obesity due to excess calories Zinc Today E66.01 - Morbid (severe) obesity due to excess calories C Reactive Protein Today E66.01 - Morbid (severe) obesity due to excess calories TSH reflex Free T4 Today E66.01 - Morbid (severe) obesity due to excess calories H Pylori Breath Test Today E66.01 - Morbid (severe) obesity due to excess calories Insulin Today E66.01 - Morbid (severe) obesity due to excess calories IRON PROFILE Today E66.01 - Morbid (severe) obesity due to excess calories Complete Blood Count Auto Diff Today E66.01 - Morbid (severe) obesity due to excess calories Vitamin B12 and Folate Today E66.01 - Morbid (severe) obesity due to excess calories Comprehensive Met. Panel Today E66.01 - Morbid (severe) obesity due to excess calories Vitamin B1 Today E66.01 - Morbid (severe) obesity due to excess calories Vitamin A Today E66.01 - Morbid (severe) obesity due to excess calories Ferritin Today E66.01 - Morbid (severe) obesity due to excess calories PTHI Today E66.01 - Morbid (severe) obesity due to excess calories Vitamin D 25-OH Total Today E66.01 - Morbid (severe) obesity due to excess calories Hemoglobin A1c Today E66.01 - Morbid (severe) obesity due to excess calories US abdomen comp w elastography Today E66.01 - Morbid (severe) obesity due to e xcess calories XR chest 2V Today E66.01 - Morbid (severe) obesity due to excess calories ECG 12 lead EKG Today E66.01 - Morbid (severe) obesity due to excess calories FL upper GI w air Today E66.01 - Morbid (severe) obesity due to excess calories Referrals Behavioral Health Referral E66.01 - Morbid (severe) obesity due to excess calories Nutrition/Dietitian Referral E66.01 - Morbid (severe) obesity due to excess calories Telehealth Telehealth Location of provider rendering services: practice address Location of patient: address on file Patient Identification confirmed using: Name, : Yes Telehealth method: voice only Patient verbally consented to treatment: Yes Patient verbally consented to billing insurance company: Yes Patient informed of any privacy concerns related to visit: Yes Minutes spent on Phone/Video with Pt.: 60 Coding Level of Care Code Tele New Pt Level 5 (89127) Diagnoses Morbid obesity E66.01 Time Spent (min) 60
[2023-01-22 12:05] VITALS: BMI 41.0
== END 2023-01-22 12:42 | disposition home or self-care (01) ==
LOC: HO.HBS 08:20
PROVIDERS: PCP Internal Medicine; Visit Provider Surgery
DX: E66.01 Morbid (severe) obesity due to excess calories (principal); Z68.41 Body mass index [BMI] 40.0-44.9, adult
CPT/HCPCS: 99205

== ENCOUNTER → 2023-01-22 08:20 | Outpatient (BNVA) | payer OTHER, SELFPAY | PROVIDERS: PCP Internal Medicine; Visit Provider Surgery ==

== ENCOUNTER 2023-01-24 07:29 | Outpatient (REF) | payer OTHER, SELFPAY ==
--- NOTE | ~2023-01-24 | XR_ITS ---
EXAMINATION: XR CHEST CLINICAL INFORMATION: Obesity COMPARISON: None available. TECHNIQUE: 2 views of the chest were obtained. FINDINGS: No significant abnormality is noted involving the heart, lungs, mediastinum, bony thorax or soft tissues. XR/XR chest 2V IMPRESSION: Unremarkable examination.
--- NOTE | 2023-01-24 07:39 | ECG_ITS ---
Test Reason : cp Blood Pressure : / mmHG Vent. Rate : 063 BPM Atrial Rate : 063 BPM P-R Int : 194 ms QRS Dur : 092 ms QT Int : 388 ms P-R-T Axes : 071 042 065 degrees QTc Int : 397 ms Normal sinus rhythm Low voltage QRS Borderline ECG No previous ECGs available Referred By: Srinivasa Blair Electronically Signed By:ONEL QUINTANILLA
[2023-01-24 08:07] LABS: MANUAL DIFF FLAG NO
[2023-01-24 09:26] LABS: Estimated Average Glucose 100 mg/dL; Hemoglobin A1c % 5.1 % (<6.0)
[2023-01-24 09:27] LABS: Basophils Percent Auto 0.2 % (0-2); Hematocrit 38.7 % (37.0-47.0); Lymphocytes Absolute Auto 1.2 X10*3/uL (1.2-4.9); Lymphocytes Percent Auto 29.5 % (20-40); Mean Corpuscular HGB Conc 33.6 g/dl (31.0-35.0); Mean Corpuscular Hemoglobin 32.3 pg (27.0-33.0); Mean Platelet Volume 10.2 fL (9.4-12.3); Monocytes Absolute Auto 0.4 X10*3/uL (0.1-1.2); Monocytes Percent Auto 9.3 % (2-11); Neutrophils Absolute Auto 2.4 x10*3/uL (2.0-8.3); Platelet Count 250 X10*3/uL (160-400); Red Blood Count 4.03 X10*6/uL (4.20-5.50); Red Cell Distribution Width 11.9 % (11.0-16.0); White Blood Count 4.1 X10*3/uL (4.8-10.8)
[2023-01-24 10:26] LABS: Alanine Aminotransferase 17 U/L (0-31); Albumin Level 4.1 g/dL (3.5-5.0); Alkaline Phosphatase 89 U/L (39-117); Anion Gap 13 (12-20); Aspartate Amino Transferase 24 U/L (5-31); Bilirubin Total 0.7 mg/dL (0.0-1.0); Blood Urea Nitrogen 24 mg/dL (9-16); C Reactive Protein 0.58 mg/dL (< or = 0.50); Calcium 9.4 mg/dL (8.4-10.2); Carbon Dioxide 23 mmol/L (22-29); Chloride 109 mmol/L (96-108); Cholesterol 269 mg/dL (<200); Estimated Glomerular Filt Rate > 60; Glucose Random 88 mg/dL (60-115); HDL Cholesterol 74 mg/dL (>40); Iron 106 mcg/dL (30-160); LDL Cholesterol Calculated 176 mg/dL (<100); Percent Iron Saturation 36 % (15-50); Potassium 3.9 mmol/L (3.3-5.1); Sodium 141 mmol/L (135-145); Total Iron Binding Capacity 297 mcg/dL (228-428); Triglycerides 99 mg/dL (<150); Unsaturated Iron Binding 191 ug/dL
[2023-01-24 10:32] LABS: Ferritin 68 ng/mL (10-250); Insulin 7 uU/mL (2-29); TSH reflex Free T4 1.44 uIU/mL (0.32-4.0); Vitamin D 25-OH Total 64.1 ng/mL (>30)
[2023-01-24 14:34] LABS: Folate 15.3 ng/mL (> or = 4.0); Vitamin B12 892 pg/mL (200-900)
[2023-01-26 10:32] LABS: H Pylori Breath Test Negative (Negative)
[2023-01-27 13:59] LABS: Calcium (PTHI) 9.1 mg/dL (8.6-10.4); PTHI 40 pg/mL (16-77)
[2023-01-29 02:38] LABS: Zinc 79 mcg/dL (60-130)
[2023-01-30 16:14] LABS: Vitamin A 50 mcg/dL (38-98)
[2023-02-06 16:09] LABS: Vitamin B1 17 nmol/L (8-30)
== END 2023-01-24 07:30 | disposition home or self-care (01) ==
LOC: HO.LAB 07:29
PROVIDERS: PCP Internal Medicine; Visit Provider Surgery
DX: E66.01 Morbid (severe) obesity due to excess calories (principal)
CPT/HCPCS: 36415; 71046; 80053; 80061; 82306; 82607; 82728; 82746; 83013; 83036; 83525; 83540; 83970; 84425; 84443; 84590; 84630; 85025; 86140; 93005; 99211

== ENCOUNTER 2023-02-05 14:42 | Outpatient (AMB) | payer OTHER, SELFPAY ==
--- NOTE | 2023-02-05 14:23 | MHC.AMNUTRGE ---
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 She chose our program because she likes that the surgeon is involved from the beginning. Is currently using the 4in1 protein powder (by mistake). overall, she likes the bars and shakes nutrition plan. has no major concerns or questions today. Exercise: doing the stationary bike, 60 minutes. Has neuropathy in her feet, making it challanging to do other exercises. SWL online clsses : completed, scored well Previous weight loss methods attempted Has seen dietitians in the past, has gotten some nutrition advice in the past that has been very conflicting and confusing to her. Was recently just seeing [facility] nutrition , prior to that was at [facility] and Saw Lucille YUAN Dietary counseling reduction Who buys your food self Who prepares/cooks your food self Meal frequency regular: breakfast (Premier protein shakes; FF croatian yogurt with berries and bananas, seeds, walnuts), lunch (large salad with tuna or chicken ), dinner (protein and veg , occasional pasta or rice ) and snacks (midmorning crackers or almonds ; mid afternoon also popocorn or crackers. dessert at night yelena bars or SF pudding etc ) Lifestyle Reads food labels Yes Food frequency Dairy: daily, Fruit: daily, Vegetables: daily, Grains/pasta/breads/cereal (carbs): daily, Meats/poultry/fish (protein): daily, Meat substitutes/nuts/seeds/legumes: daily, Processed foods/meats: daily and Desserts/sweets: never (sugar free desserts however yes ) Diagnosis Nutrition problem #1 overweight/obesity As related to (etiology) #1 excess energy intake and physical inactivity As evidenced by (sign/symptom) #1 high BMI Monitoring/Goals Nutrition problem monitoring total energy intake, level of knowledge/skill, total PRO intake, total CHO intake and weight Outcome progress progressing Learning/Education Readiness to learn excellent Stages of change action Educational materials provided Yes Most Recent Diabetes Results: Cholesterol 269 mg/dL (<200) H 01/24/23 HDL Cholesterol 74 mg/dL (>40) 01/24/23 Triglycerides 99 mg/dL (<150) 01/24/23 Creatinine 0.64 mg/dL (0.5-1.4) 01/24/23 Blood Urea Nitrogen 24 mg/dL (9-16) H 01/24/23 Sodium 141 mmol/L (135-145) 01/24/23 Potassium 3.9 mmol/L (3.3-5.1) 01/24/23 Chloride 109 mmol/L (96-108) H 01/24/23 Carbon Dioxide 23 mmol/L (22-29) 01/24/23 Calcium 9.4 mg/dL (8.4-10.2) 01/24/23 AST 24 U/L (5-31) 01/24/23 ALT 17 U/L (0-31) 01/24/23 Total Protein 7.0 g/dL (6.5-8.0) 01/24/23 Albumin 4.1 g/dL (3.5-5.0) 01/24/23 [facility] Medical History (Updated 01/22/23 @ 11:53 by Srinivasa Blair MD) Uterine cancer DJD (degenerative joint disease) Morbid obesity Surgical History (Updated 01/22/23 @ 11:55 by Srinivasa Blair MD) History of History of laparoscopic cholecystectomy History of right inguinal hernia repair History of total abdominal hysterectomy and bilateral salpingo-oophorectomy Assessment & Plan Assessment & Plan (1) Morbid obesity: Code(s): E66.01 - Morbid (severe) obesity due to excess calories Patient Instructions: Patient? is cleared from a nutrition standpoint for bariatric surgery.?? Educational requirements have been completed.? Reviewed vitamin? supplementation and commitment to protein shake for several months post? surgery.? Encouraged communication with office as needed. Will be seen again only as desired by pt. Telehealth Telehealth Location of provider rendering services: practice address Location of patient: address on file Patient Identification confirmed using: Name, : Yes Telehealth method: video Patient verbally consented to treatment: Yes Patient verbally consented to billing insurance company: Yes Patient informed of any privacy concerns related to visit: Yes Minutes spent on Phone/Video with Pt.: 40 Coding Level of Care Code Nutr Indiv Intake (66153) Diagnoses Morbid obesity E66.01 Time Spent (min) 40
[2023-02-05 14:29] VITALS: BMI 39.5
== END 2023-02-05 15:33 | disposition home or self-care (01) ==
LOC: HO.HBS 14:42
PROVIDERS: PCP Internal Medicine; Visit Provider Dietitian, Registered
DX: E66.01 Morbid (severe) obesity due to excess calories (principal)

== ENCOUNTER → 2023-02-05 14:42 | Outpatient (BNVA) | payer OTHER, SELFPAY | PROVIDERS: PCP Internal Medicine; Visit Provider Dietitian, Registered | DX: E66.01 Morbid (severe) obesity due to excess calories (principal); Z68.39 Body mass index [BMI] 39.0-39.9, adult; Z71.3 Dietary counseling and surveillance | CPT/HCPCS: 97802 ==

== ENCOUNTER 2023-02-12 12:55 | Outpatient (AMB) | payer OTHER, SELFPAY ==
--- NOTE | 2023-02-12 12:17 | MHC.WMTHER ---
Intake Intake Visit Reasons: VIDEO BH Intake Allergies caffeine Adverse Reaction (Intermediate, Verified 01/22/23 11:47) tachycardia Sulfa (Sulfonamide Antibiotics) Adverse Reaction (Intermediate, Verified 01/22/23 11:47) Nausea and Vomiting PFSH Medical History (Updated 01/22/23 @ 11:53 by Srinivasa Blair MD) Uterine cancer DJD (degenerative joint disease) Morbid obesity Surgical History (Updated 01/22/23 @ 11:55 by Srinivasa Blair MD) History of History of laparoscopic cholecystectomy History of right inguinal hernia repair History of total abdominal hysterectomy and bilateral salpingo-oophorectomy Behavioral Health Assessment Weight Management Therapy Therapy Notes Details Pt is a 62 years old female, who presents for initial behavioral health assessment as part of surgical weight-loss program. PT reports she is currently attending counseling on a bi-weekly basis as a self-care practice, but is not aware of any diagnosis an/or formal mental health condition for current treatment. Pt denied any past hospitalization/crisis for behavioral health, and reported she has never deal with SI and/or concern around self/other-harm. There was no substance use or addictive behavior reported and in spite patient had disclose some past negative events in childhood and adulthood she did not consider these as traumatic. Current scores from BES shows marked progress around eating habits and there is also no evidence for stress/emotional-eating, and PHQ- scores also showed no active symptoms/concerns with depression. Mental status exam is withing normal limits, suggesting person's functioning is not impaired. At this time patient is cleared from the behavioral health standpoint. Presenting Concerns Referral Source [facility] Provider. Pt sees Dr. Martinez Reason for referral Completion of behavioral health assessment as part of process for weight-loss surgery. Precipitating Event Obesity and overall health. Living Situation Current Living Situation Own At risk of losing current housing? No Satisfied with current living situation? Yes Comments Pt lives with partner. Food/Weight/Diet Expectations of change Goal to lose 10% of her weight before surgery, which is about 24lbs. Ultimate weight goal: 215lbs before surgery. She would be happy at 150Lbs. History/Relationship with food PT cleared up her diet after having cancer. Has a Low fat, high protein low sugar diet. But likes salty snacks. Breakfast: low fat Chinese yogurt, nuts, cinnamon or a premier protein shake. Lunch: salad/protein. Snacks at work: nuts, cracker, chips. Dinner: protein/veggies at sometimes rice/potatoes Late snacks: dessert History/Relationship with weight Was 117 all trough HS. [place] 40Lbs on her freshmen year in college. After having kids at age 31 never lost the weight and seemed like she gained 10Lbs every year. 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 History/Relationship with dieting Weight watchers, [employer], gym, saw consumer attorney, swim. started [facility] Binge Eating Do you frequently eat large amounts of food in short periods of time, not feeling physically hungry? No Do you feel out of control when you eat a large amount of food in a short period of time? No Do you eat large amounts of food rapidly and typically alone? No Night Eating Do you wake up at least once during the night to eat? No If you wake up in the night, do you find that it is necessary to eat something in order to fall back asleep? No Do you have little or no appetite in the morning and feel very hungry in the evening, often overeating between dinner and when you go to bed? No Social History Family history and relationship 15 years ago. Currently in a relationship 10 years ago. She has 3 children, partner has 2 children, and they share 6 grandkids. 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 Developmental history and status None. Currently WNL. Social support Boyfriend, one of her Daughters had bariatric surgery with Dr Martinez and her other daughter is also working on losing weight. Community support PCP Provider. Druze/Spirituality Judaism. Cultural/Ethnic information . Legal Involvement and History Current or historical involvement with the legal system? None. Education Highest grade completed Some college. Preferred learning style Learn by doing Currently enrolled in educational program? No Interested in further educational program? 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 No Meaningful activities Nature, photography, plants, spend time with grandkids. Financial Situation Describe current financial situation Comfortable Financial assistance? None Service Service? No Mental Health and Addiction Treatment Current/Past substance abuse? No Current/Past addictive behavior concerns? No Psychiatric history Sees a therapist twice at month. started counseling to deal with stressors and for support with weight loss journey. Never in crisis an/or hospitalized for mental health. Denies using psychiatric meds. Denies any concerns around SI/SA and, or self/other-harm. Medical and Physical Health Summary Additional Medical History not covered in history Hx of cancer. Sexual History concerns None reported. Physical exam in the last year? Yes Pain Screening Current pain? No Pain in the last few months? No Medications Is the patient compliant with medications? Yes Does the patient have Hyatt Guardian in place? Not applicable Does the patient use complimentary health approaches? No Trauma/Abuse History History of trauma? No Domestic Violence/Abuse Past Verbal/Emotional Abuse Past Questionnaires PHQ-9 Over the last 2 weeks, how often have you been bothered by any of the following problems? 1. Little interest or pleasure in doing things: several days 2. Feeling down, depressed, or hopeless: not at all 3. Trouble falling or staying asleep, or sleeping too much: several days 4. Feeling tired or having little energy: several days 5. Poor appetite or overeating: several days 6. Feeling bad about yourself - or that you are a failure or have let yourself or your family down: not at all 7. Trouble concentrating on things, such as reading the newspaper or watching television: not at all 8. Moving or speaking so slowly that other people could have noticed. Or the opposite - being so fidgety or restless that you have been moving around a lot more than usual: several days 9. Thoughts that you would be better off or of hurting yourself in some way: not at all Total score: 5 Depression Screening Interpretation: Negative Depression Screening Done: Yes 25946 - PHQ-9 Billing: Yes Source: Developed by Drs. Claudio Muhammad, Natasha Serrano, Brian Luna and colleagues, with an educational katie from [employer]. Binge Eating Scale Group 1 A. I don't feel self-conscious about my wt. or body size when I'm with others. B. I feel concerned about how I look to others, but it normally does not make me fell disappointed with myself C. I do get self-conscious about my appearance and wt. which makes me feel disappointed in myself. D. I feel very self-conscious about my wt. and frequently I feel intense shame and disgust for myself. I try to avoid social contacts because of my self-consciousness. Response Group 1: C Group 2 A. I don't have any difficulty eating slowly in the proper manner. B. Although I seem to gobble down foods, I don't end up feeling stuffed because of eating to much. C. At times, I tend to eat quickly and then, I feel uncomfortably full afterwards. D. I have the habit of bolting down my food, without really chewing it. When this happens I usually feel uncomfortably stuffed because I've eaten to much. Response Group 2: B Group 3 A. I feel capable to control my eating urges when I want to. B. I feel like I have failed to control my eating more than the average person. C. I feel utterly helpless when it comes to feeling in control of my eating urges. D. Because I feel so helpless about controlling my eating I have become very desperate about trying to get control. Response Group 3: B Group 4 A. I don't have the habit of eating when I'm bored. B. I sometimes eat when I'm bored, but often I'm able to get busy and get my mind off food. C. I have a regular habit of eating when I'm bored, but occasionally, I can use some other activity to get my mind off eating. D. I have a strong habit of eating when I'm bored. Nothing seems to help me breath the habit. Response Group 4: C Group 5 A. I'm usually physically hungry when I eat something. B. Occasionally, I eat something on impulse even though I really am not hungry. C. I have the regular habit of eating foods, that I might not really enjoy, to satisfy a hungry feeling even though physically, I don't need the food. D. Although I'm not physically hungry, I get a hungry feeling in my mouth that only seems to be satisfied when I eat a food, like sandwich, that fills my mouth. Sometimes, when I eat the food to satisfy my mouth hunger, I then spit the food out so I won't gain weight. Response Group 5: C Group 6 A. I don't feel any guilt or self-hate after I overeat. B. After I overeat, occasionally I feel guilt or self-hate. C. Almost all the time I experience strong guilt or self-hate after I overeat. Response Group 6: B Group 7 A. I don't lose total control of my eating when dieting even after periods when I overeat. B. Sometimes when I eat a forbidden food on a diet, I feel like I blew it and eat even more. C. Frequently, I have the habit of saying to myself, I've blown it now, why not go all the way, when I overeat on a diet. When that happens I eat more. D. I have a regular habit of starting a strict diets for myself but I break the diets by going on an eating binge. My life seems to be either a feast or famine. Response Group 7: B Group 8 A. I rarely eat so much food that I feel uncomfortably stuffed afterwards. B. Usually about once a month, I each such a quantity of food, I end up feeling very stuffed. C. I have regular periods during the month when I eat large amounts of food, either at mealtime or at snacks. D. I eat so much food that I regularly feel quite uncomfortable after eating and sometimes a bit nauseous. Response Group 8: B Group 9 A. My level of calorie intake does not go up very high or go down very low on a regular basis. B. Sometimes after I overeat, I will try to reduce my caloric intake to almost nothing to compensate for the excess calories I've eaten. C. I have a regular habit of overeating during the night. It seems that my routine is not to be hungry in the morning but overeat in the evening. D. In my adult years, I have had week-long periods where I practically starve myself. This follows periods when I overeat. It seems I live a life of either feast or famine. Response Group 9: B Group 10 A. I usually am able to stop eating when I want to. I know when enough is enough. B. Every so often, I experience a compulsion to eat which I can't seem to control. C. Frequently, I experience strong urges to eat which I seem unable to control, but at other times I can control my eating urges. D. I feel incapable of controlling urges to eat. I have a fear of not being able to stop eating voluntarily. Response Group 10: B Group 11 A. I don't have any problem stopping eating when I feel full. B. I usually can stop eating when I feel full but occasionally overeat leaving me feeling uncomfortably stuffed. C. I have a problem stopping eating once I start and usually I feel uncomfortably stuffed after I eat a meal. D. Because I have a problem not being able to stop eating when I want, I sometimes have to induce vomiting to relieve my stuffed feeling. Response Group 11: B Group 12 A. I seem to eat just as much when I'm with others, Family social gatherings as when I'm by myself. B. Sometimes, when I'm with other persons, I don't eat as much as I want to eat because I'm self-conscious about my eating. C. Frequently, I eat only a small amount of food when others are present, because I'm very embarrassed about my eating. D. I feel so ashamed about overeating that I pick times to overeat when I know no one will see me. I feel like a closet eater. Response Group 12: B Group 13 A. I eat three meals a day with only an occasional between meal snack. B. I eat 3 meals a day, but I also normally snack between meals. C. When I am snacking heavily, I get in the habit of skipping regular meals. D. There are regular periods when I seem to be continually eating, with no planned meals. Response Group 13: B Group 14 A. I don't think much about trying to control unwanted eating urges. B. At least some of the time, I feel my thoughts are pre-occupied with trying to control my eating urges. C. I feel that frequently I spend much time thinking about how much I ate or about trying not to eat anymore. D. It seems to me that most of my waking hours are pre-occupied by thoughts about eating or not eating. I feel like I'm constantly struggling not to eat. Response Group 14: B Group 15 A. I don't think about food a great deal. B. I have strong craving for food but they last only for brief periods of time. C. I have days when I can't seem to think about anything else but food. D. Most of my days seem to be pre-occupied with thoughts about food. I feel like I live to eat. Response Group 15: B Group 16 A. I usually know whether or not I'm physically hungry. I take the right portion of food to satisfy me. B. Occasionally, I feel uncertain about knowing whether or not I'm physically hungry. A these times it's hard to know how much food I should take to satisfy me. C. Even though I might know how many calories I should eat, I don't have any idea what is a normal amount of food for me. Response Group 16: B Binge Eating Score: 19 (Scores are lower than initial BES administered on 01/16) Score less than 17 Minimal Risk Score between 18-26 Moderate Risk Score between 27-46 High Risk Assessment & Plan Assessment & Plan (1) Morbid obesity: Code(s): E66.01 - Morbid (severe) obesity due to excess calories (2) Adjustment disorder: Code(s): F43.20 - Adjustment disorder, unspecified Qualifiers: Adjustment disorder type: unspecified type Qualified Code(s): F43.20 - Adjustment disorder, unspecified Plan Pt has been cleared from behavioral health standpoint. There is no need to f/up. Telehealth Telehealth Location of provider rendering services: other (Home office. [place], [place]) Location of patient: address on file Patient Identification confirmed using: Name, : Yes Telehealth method: video Patient verbally consented to treatment: Yes Patient verbally consented to billing insurance company: Yes Patient informed of any privacy concerns related to visit: Yes Minutes spent on Phone/Video with Pt.: 75 Coding Level of Care Code Tele Psy Diag Eval (31006) Diagnoses Morbid obesity E66.01 Adjustment disorder, unspecified type F43.20 Adjustment disorder type: unspecified type
== END 2023-02-12 13:00 | disposition home or self-care (01) ==
LOC: HO.HBST 12:55
PROVIDERS: PCP Internal Medicine; Visit Provider Counselor Mental Health
DX: F43.20 Adjustment disorder, unspecified (principal); E66.01 Morbid (severe) obesity due to excess calories; Z68.39 Body mass index [BMI] 39.0-39.9, adult
CPT/HCPCS: 90791

== ENCOUNTER → 2023-02-12 12:55 | Outpatient (BNVA) | payer OTHER, SELFPAY | PROVIDERS: PCP Internal Medicine; Visit Provider Counselor Mental Health ==

== ENCOUNTER 2023-02-19 07:42 | Outpatient (AMB) | payer OTHER, SELFPAY ==
--- NOTE | 2023-02-19 11:56 | MHC.OFFVISWM ---
Intake VS Expanded 02/19/23 12:08 Height 5 ft 4 in Weight 227 lb 6 oz BMI 39.0 Body Fat % 51.8 Body Fat Mass 117.8 Fat Free Mass 109.6 Visceral Fat Rating 20 Body Water % 33 Body Water Mass 75.1 Basal Metabolic Rate/Score 1,444 Intake Visit Reasons: TV Follow Up SWL - 1ST Allergies caffeine Adverse Reaction (Intermediate, Verified 01/22/23 11:47) tachycardia Sulfa (Sulfonamide Antibiotics) Adverse Reaction (Intermediate, Verified 01/22/23 11:47) Nausea and Vomiting HPI TV Follow Up SWL - 1ST HPI Details Start time: 11.54am, End time: 12.14am ?I spent 15 minutes speaking with the patient on the phone plus an additional 5 minutes reviewing and updating records for a total of 20 minutes HPI Comments History of Present Illness Details Overall weight loss: 11.6lbs, or 4.85% TBWL Is doing 2 Celebrate Rebuild protein shakes (1/2 scoop each in 8oz almond milk), 2.5-3.5 Celebrate protein bars and one meal (8 forks of protein and 8 forks of salad or vegetables) Exercise: doing the stationary bike x4/week for 300-400 calories for 1300 calories PFSH Medical History (Updated 02/19/23 @ 12:10 by Srinivasa Blair MD) Uterine cancer DJD (degenerative joint disease) Morbid obesity Surgical History (Updated 01/22/23 @ 11:55 by Srinivasa Blair MD) History of History of laparoscopic cholecystectomy History of right inguinal hernia repair History of total abdominal hysterectomy and bilateral salpingo-oophorectomy Assessment & Plan Assessment & Plan (1) Obesity: Code(s): E66.9 - Obesity, unspecified Plan: 1. Continue same nutritional plan of 2 Celebrate Rebuild protein shakes (1/2 scoop each in 8oz almond milk), 2.5 Celebrate protein bars and one meal (8 forks of protein and 8 forks of salad or vegetables) 2. Exercise: increase stationary bike x5 days/week for 400 calories for 2000 calories per week. Alternatively she can burn 1500 calories on the bike and up to 500 calories on walking 3. Continue to send me weight measurements weekly on Wednesdays (2) BMI 39.0-39.9,adult: Code(s): Z68.39 - Body mass index [BMI] 39.0-39.9, adult Telehealth Telehealth Location of provider rendering services: practice address Location of patient: address on file Patient Identification confirmed using: Name, : Yes Telehealth method: voice only Patient verbally consented to treatment: Yes Patient verbally consented to billing insurance company: Yes Patient informed of any privacy concerns related to visit: Yes Minutes spent on Phone/Video with Pt.: 20 Coding Level of Care Code Tele Est Pt Level 3 (30405) Diagnoses Obesity E66.9 BMI 39.0-39.9,adult Z68.39 Time Spent (min) 20
[2023-02-19 12:08] VITALS: BMI 39.0
== END 2023-02-19 12:14 | disposition home or self-care (01) ==
LOC: HO.HBS 07:42
PROVIDERS: PCP Internal Medicine; Visit Provider Surgery
DX: E66.9 Obesity, unspecified (principal); Z68.39 Body mass index [BMI] 39.0-39.9, adult
CPT/HCPCS: 99213

== ENCOUNTER → 2023-02-19 07:42 | Outpatient (BNVA) | payer OTHER, SELFPAY | PROVIDERS: PCP Internal Medicine; Visit Provider Surgery ==

== ENCOUNTER 2023-02-21 08:25 | Outpatient (REF) | payer OTHER, SELFPAY ==
--- NOTE | ~2023-02-21 | US_ITS ---
EXAMINATION: US COMPLETE ABDOMEN WITH LIVER ELASTOGRAPHY CLINICAL INFORMATION: Obesity. COMPARISON: None available. TECHNIQUE: Real-time imaging of the abdominal viscera. Noninvasive ultrasound liver fibrosis assessment is performed using Taylor ElastPQ point quantification shear wave elastography (2D-SWE) with a C5-2 MHz transducer. Multiple elastography samples are obtained. FINDINGS: PANCREAS: Normal. The visualized pancreatic head and body are normal in appearance. The remainder of the pancreas is obscured from visualization by the overlying bowel gas. ABDOMINAL AORTA: The proximal, middle, and distal aortic segments are normal in caliber. INFERIOR VENA CAVA: Visualized portions are normal. LIVER: The liver demonstrates normal size, contour and echogenicity. Within the anterior segment of the right hepatic lobe, a 3.8 x 1.4 x 3.8 cm hyperechoic, circumscribed density is seen. This shows no associated color Doppler flow. Within the left hepatic lobe, a 1.3 x 1.2 x 1.2 cm mildly complex cyst is seen, with fine septation. Alternatively, this could represent 2 smaller adjacent simple cysts. No intrahepatic biliary duct dilatation. The right lobe measures 14.4 cm in length. The left lobe measures 7.9 cm in length. Portal flow is towards the liver (hepatopetal). Shear wave liver elastography median stiffness is 1.11 m/s (reference: normal median stiffness is 1.3 m/s or less). IQR/median stiffness to assess sampling precision is 0.23 (reference: good quality data set is IQR/median stiffness of 0.15 or less). GALLBLADDER: Surgically absent. COMMON BILE DUCT: Normal in caliber post-cholecystectomy, measuring 0.8 cm in diameter. RIGHT KIDNEY: Normal. There is an extrarenal pelvis, without angela hydronephrosis. No renal calculi or focal parenchymal lesions. The kidney measures 10.7 cm in maximum dimension. LEFT KIDNEY: Normal. No hydronephrosis. No renal calculi or focal parenchymal lesions. The kidney measures 10.0 cm in maximum dimension. SPLEEN: Normal. The spleen measures 10.5 cm in maximum dimension. FREE FLUID: None. US/US abdomen comp w elastography IMPRESSION: 1. Within the anterior segment of the right hepatic lobe, a 3.8 x 1.4 x 3.8 cm hyperechoic, circumscribed mass is seen. This may represent a benign hemangioma or, alternatively, focus of fatty infiltration. This is of doubtful clinical significance. If of continued clinical concern (i.e., history of hepatocellular disease or known malignancy), this can be further evaluated with dynamic CT or MRI. 2. A 1.3 cm mildly complex left hepatic lobe cyst is seen with fine septation, versus 2 adjacent simple cysts. 3. Liver elastography: Although measurements suggest a high probability of normal liver stiffness, there is statistical variability of the sampling which decreases accuracy. 4. The gallbladder is surgically absent. REFERENCE: Society of Radiologists in Ultrasound Liver Stiffness Thresholds (2020): LIVER STIFFNESS THRESHOLDS: *Liver Stiffness equal or less than 1.3 m/s: High probability of being normal. *Liver Stiffness less than 1.7 m/s: In the absence of other known clinical signs, rules out compensated advanced chronic liver disease. *Liver Stiffness 1.7-2.1 m/s: Suggestive of compensated advanced chronic liver disease but need further test for confirmation. *Liver Stiffness over 2.1 m/s: Rules in compensated advanced chronic liver disease. *Liver Stiffness over 2.4 m/s: Suggestive of clinically significant portal hypertension. QUALITY OF DATA SET: *IQR/Median value equal or less than 0.15 implies a quality data set. *IQR/Median value over 0.15 implies a poor quality data set. SIGNIFICANT CHANGE FROM PRIOR EXAM: Significant change if liver stiffness measurement is 10% or greater from prior exam. OTHER CONSIDERATIONS: The stage of liver fibrosis may be overestimated in the setting of acute hepatitis, liver inflammation, elevated liver function tests, hepatic vascular congestion, obstructive cholestasis, non-fasting state, and infiltrative diseases such as amyloidosis and lymphoma. In some patients with NAFLD, the liver stiffness thresholds for compensated advanced chronic liver disease may be lower. In causes other than viral hepatitis and NAFLD, liver stiffness thresholds are not well established.
== END 2023-02-21 08:26 | disposition home or self-care (01) ==
LOC: HO.US 08:25
PROVIDERS: Visit Provider Surgery
DX: E66.01 Morbid (severe) obesity due to excess calories (principal)
CPT/HCPCS: 76705; 76981

== ENCOUNTER 2023-03-05 08:11 | Outpatient (REF) | payer OTHER, SELFPAY ==
--- NOTE | ~2023-03-05 | FL_ITS ---
EXAMINATION: XR FLUOROSCOPY UPPER GI WITH AIR CLINICAL INFORMATION: Morbid obesity. COMPARISON: None available. TECHNIQUE: Air-contrast upper GI examination. FINDINGS: There is normal apposition of the vocal cords while saying E. There is normal elevation of the soft palate while saying candy. Patient swallowed thin and thick barium and a half-inch diameter barium tablet without difficulty. No Zenker's diverticulum. No significant cricopharyngeal hypertrophy. No evidence of aspiration or nasopharyngeal reflux. There is normal esophageal motility present. No ulcerations identified. There is a small hiatal hernia present. No gastroesophageal reflux was elicited including with water siphon test. Patient swallowed a half-inch diameter barium tablet without difficulty. There is some mass impression upon the thoracic esophagus from the aortic arch. The fundus and the body of the stomach distend normally without abnormal mass or ulceration. The gastric antrum has more limited distention without abnormal mass or definite acute ulcer identified. Within the distal antrum adjacent to the pylorus superiorly, there is the appearance of a small diverticulum which may be sequela of previous ulcer or antritis. There are some mildly prominent folds present about the distal antrum. There is no delay in gastric emptying. The duodenal bulb and sweep appear unremarkable. FLUOROSCOPY TIME: 2 minutes, 15 seconds. DOSE AREA PRODUCT: 117.8 dGycm2. FL/FL upper GI w air IMPRESSION: Small hiatal hernia. No gastroesophageal reflux. 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 Possible antritis or, less likely, infiltrating process cannot be excluded on this study.
== END 2023-03-05 08:12 | disposition home or self-care (01) ==
LOC: HO.XRAY 08:11
PROVIDERS: PCP Internal Medicine; Visit Provider Surgery
DX: E66.01 Morbid (severe) obesity due to excess calories (principal)
CPT/HCPCS: 74246; 97803

== ENCOUNTER → 2023-03-05 08:13 | Outpatient (BNV) | payer OTHER, SELFPAY | PROVIDERS: PCP Internal Medicine; Visit Provider Radiology Diagnostic Radiology | DX: K44.9 Diaphragmatic hernia without obstruction or gangrene (principal); Z01.818 Encounter for other preprocedural examination; E66.01 Morbid (severe) obesity due to excess calories | CPT/HCPCS: 74246 ==

== ENCOUNTER 2023-03-19 08:07 | Outpatient (AMB) | payer OTHER, SELFPAY ==
--- NOTE | 2023-03-19 12:14 | MHC.OFFVISWM ---
Intake VS Expanded 03/19/23 12:15 Height 5 ft 4 in Weight 218 lb 2 oz BMI 37.4 Body Fat % 49.3 Body Fat Mass 111.1 Fat Free Mass 110.4 Visceral Fat Rating 19 Body Water % 34.7 Body Water Mass 75.7 Basal Metabolic Rate/Score 1,453 Intake Visit Reasons: TV Follow Up SWL Allergies caffeine Adverse Reaction (Intermediate, Verified 01/22/23 11:47) tachycardia Sulfa (Sulfonamide Antibiotics) Adverse Reaction (Intermediate, Verified 01/22/23 11:47) Nausea and Vomiting HPI TV Follow Up SWL HPI Details Start time: 9.10am, End time: 9.30am ?I spent 15 minutes speaking with the patient on the phone plus an additional 5 minutes reviewing and updating records for a total of 20 minutes HPI Comments History of Present Illness Details Overall weight loss: 21lbs, or 8.78% TBWL Is doing one Celebrate Rebuild shake (2 scoops in 16oz almond milk), 2.5 Celebrate protein bars and one meal (8 forks of protein and 8 forks of salad or vegetables) Exercise: 1700 calories per week [facility] Medical History (Updated 03/19/23 @ 12:24 by Srinivasa Blair MD) Uterine cancer DJD (degenerative joint disease) Morbid obesity Surgical History (Updated 01/22/23 @ 11:55 by Srinivasa Blair MD) History of History of laparoscopic cholecystectomy History of right inguinal hernia repair History of total abdominal hysterectomy and bilateral salpingo-oophorectomy Assessment & Plan Assessment & Plan (1) Obesity: Code(s): E66.9 - Obesity, unspecified Plan: 1. Plan for lap sleeve gastrectomy including upper GI endoscopy. All tests has been completed and reviewed and the patient is cleared for the surgery. ?If diaphragmatic or ventral hernias are present at time of surgery, these will be repaired laparoscopically as well. Risks and complications were discussed in detail including possible conversion to an open procedure, anastomotic leak, bleeding requiring transfusion, small bowel obstruction, , DVT and pulmonary embolism, cardiac, or pulmonary complications, as chcf complications such as anastomotic ulcer, insufficient weight loss and vitamin deficiencies. I emphasized the importance of close follow-up, adherence to instructions and good communication. So far she has proven to be an excellent communicator and very compliant with all our directions accomplishing a great weight loss. I believe that she is an excellent candidate and she is ready. 2. Change nutritional plan to one Celebrate Rebuild shake (ONE AND A HALF scoops in 16oz almond milk), 2.5 Celebrate protein bars and one meal (8 forks of protein and 8 forks of salad or vegetables) 3. Exercise: Increase to 2000 calories per week 4. Continue to send me weight measurements weekly on Wednesdays (2) BMI 36.0-36.9,adult: Code(s): Z68.36 - Body mass index [BMI] 36.0-36.9, adult Telehealth Telehealth Location of provider rendering services: practice address Location of patient: address on file Patient Identification confirmed using: Name, : Yes Telehealth method: voice only Patient verbally consented to treatment: Yes Patient verbally consented to billing insurance company: Yes Patient informed of any privacy concerns related to visit: Yes Minutes spent on Phone/Video with Pt.: 20 Coding Level of Care Code Tele Est Pt Level 3 (67566) Diagnoses Obesity E66.9 BMI 36.0-36.9,adult Z68.36 Time Spent (min) 20
[2023-03-19 12:15] VITALS: BMI 37.4
== END 2023-03-19 12:29 | disposition home or self-care (01) ==
LOC: HO.HBS 08:07
PROVIDERS: PCP Internal Medicine; Visit Provider Surgery
DX: E66.9 Obesity, unspecified (principal); Z68.36 Body mass index [BMI] 36.0-36.9, adult
CPT/HCPCS: 99213

== ENCOUNTER → 2023-03-19 08:07 | Outpatient (BNVA) | payer OTHER, SELFPAY | PROVIDERS: PCP Internal Medicine; Visit Provider Surgery ==

== ENCOUNTER 2023-04-09 08:30 | Outpatient (AMB) | payer OTHER, SELFPAY ==
--- NOTE | 2023-04-09 08:54 | MHC.OFFVISWM ---
Intake VS Expanded 04/09/23 09:08 Height 5 ft 4 in Weight 211 lb 4 oz BMI 36.3 Body Fat % 47.6 Body Fat Mass 100.6 Fat Free Mass 110.8 Visceral Fat Rating 18 Body Water % 36 Body Water Mass 76.1 Basal Metabolic Rate/Score 1,455 Intake Visit Reasons: TV Pre Op LSG 04/22/23 Allergies caffeine Adverse Reaction (Intermediate, Verified 04/09/23 08:54) tachycardia Sulfa (Sulfonamide Antibiotics) Adverse Reaction (Intermediate, Verified 04/09/23 08:54) Nausea and Vomiting Medication List - Last Reconciled 04/09/23 by Srinivasa Blair MD calcium citrate-vitamin D3 500 mg-12.5 mcg /5 gram grams PO cholecalciferol (vitamin D3) 50 mcg PO DAILY docusate sodium (Colace) 100 mg PO DAILY fluticasone propionate 50 mcg/actuation (Flonase Allergy Relief) 1 spray intranasal Q12H glucosamine sulfate (Glucosamine) 500 mg PO DAILY loratadine (Claritin) 10 mg PO DAILY multivitamin 1 tab PO DAILY naproxen sodium (Aleve) 220 mg PO BID PRN omega 1-bgc-afq-fish oil 60-90-500 mg (Fish Oil) 1 cap PO DAILY ondansetron 4 mg PO Q12H pantoprazole 40 mg PO DAILY polyethylene glycol 3350 (Miralax) 17 grams PO DAILY sucralfate 10 mL PO BID turmeric mg PO HPI TV Pre Op LSG 04/22/23 HPI Details Start time: 8.44am, End time: 9.14am ?I spent 25 minutes speaking with the patient on the phone plus an additional 5 minutes reviewing and updating records for a total of 30 minutes HPI Comments History of Present Illness Details Overall weight loss: 27.8lbs, or 11.62% TBWL Is doing one Celebrate Rebuild protein shakes (1.5 scoops in 16oz oat milk), 2 Celebrate protein bars and one meal (8 forks of protein and 8 forks of salad or vegetables) Exercise: indoor biking and walking for 1800 calories PFSH Medical History (Updated 04/09/23 @ 08:50 by Srinivasa Blair MD) Uterine cancer DJD (degenerative joint disease) Morbid obesity Surgical History (Updated 01/22/23 @ 11:55 by Srinivasa Blair MD) History of History of laparoscopic cholecystectomy History of right inguinal hernia repair History of total abdominal hysterectomy and bilateral salpingo-oophorectomy Assessment & Plan Assessment & Plan (1) Obesity: Code(s): E66.9 - Obesity, unspecified Plan: 1. Plan for lap sleeve gastrectomy including upper GI endoscopy. All tests has been completed and reviewed and the patient is cleared for the surgery. ?If diaphragmatic or ventral hernias are present at time of surgery, these will be repaired laparoscopically as well. Risks and complications were discussed in detail including possible conversion to an open procedure, anastomotic leak, bleeding requiring transfusion, small bowel obstruction, , DVT and pulmonary embolism, cardiac, or pulmonary complications, as terminal superintendent complications such as anastomotic ulcer, insufficient weight loss and vitamin deficiencies. I emphasized the importance of close follow-up, adherence to instructions and good communication. So far she has proven to be an excellent communicator and very compliant with all our directions accomplishing a great weight loss. I believe that she is an excellent candidate and she is ready. 2. Preop prescriptions were provided and explained the purpose of each one. Need to be purchased preop. Start Pantoprazole now as you get it from the pharmacy, 1 pill per day. Sucralfate and Zofran are for after surgery as needed. 3. Bowel prep: please do 7 packets ?of Miralax mixing each one with a an 8oz glass of water, crystal light, gatorade zero, or propel ?on 04/20/23 and the same amount on 04/21/23. Continue the protein shakes during? the bowel prep. 4. Needs to purchase 1oz medicine cups . 5. Needs to purchase Children's liquid Tylenol for postop pain control. 6. She needs to stop all the Turmeric on 04/15/23. Avoid aspirin, motrin, Advil, Aleve, Ibuprofen, Naproxyn. Tylenol is OK. 7. She needs to purchase the Celebrate 4:1 protein shakes from the hospital's gift shop. 8. Will do basic preop blood work-up tomorrow 04/10/23 fasting for 12 hours and is scheduled to see the Anesthesiologist prior to the day of surgery. 9. Importance of adherence to postop folllow-up and recommendations was underscored and she understands that. 10. Stop food and bars as of 04/16/23 and continue with 3 Celebrate Rebuild protein shakes (ONE scoop EACH in 8oz almond milk) at 7am-9am, 10am-12pm and 1pm-3pm and TWO more Celebrate Rebuild protein shakes with TWO scoops in 8oz of almond milk at 4pm-6pm and 7pm-9pm 10. No soups, broths or V8 11. The patient's?medical?history has been reviewed and they are considered low risk for post op DVT and therefore DVT prophylaxis is not considered necessary. Travel after surgery was reviewed. The patient has not disclosed any travel plans during the first 30 days after surgery and they have been advised that within the first 30 days after surgery any bus, plane, train or car travel over 2 hours in duration is contraindicated due to the possibility of developing blood clots from immobility. Any travel, needs to include periods of ambulation of 10 minutes in duration every 2 hours.? Patient was instructed to discuss any plans for travel during this period with their bariatric surgeon.? 12. Please take at the day of surgery the following medications: NONE 13. Stop any control pills and don't use them for one month after surgery 14. Absolutely no smoking or vaping, or marijuana until the surgery and for at least the first 4 weeks. Only nicotine patches are allowed. 15. Send me weight measurements on Wednesdays and then on Friday04/22/23 the day of surgery before you go to the hospital. 16. Avoid any steroids by mouth for any reason. Let me know if someone prescribes them to you (2) BMI 35.0-35.9,adult: Code(s): Z68.35 - Body mass index [BMI] 35.0-35.9, adult Orders: Orders Prothrombin Time INR Today E66.9 - Obesity, unspecified, Z68.35 - Body mass index [BMI] 35.0-35.9, adult C Reactive Protein Today E66.9 - Obesity, unspecified, Z68.35 - Body mass index [BMI] 35.0-35.9, adult Comprehensive Met. Panel Today E66.9 - Obesity, unspecified, Z68.35 - Body mass index [BMI] 35.0-35.9, adult TSH reflex Free T4 Today E66.9 - Obesity, unspecified, Z68.35 - Body mass index [BMI] 35.0-35.9, adult Type and Screen Today E66.9 - Obesity, unspecified, Z68.35 - Body mass index [BMI] 35.0-35.9, adult Lipid Panel Today E66.9 - Obesity, unspecified, Z68.35 - Body mass index [BMI] 35.0-35.9, adult Hemoglobin A1c Today E66.9 - Obesity, unspecified, Z68.35 - Body mass index [BMI] 35.0-35.9, adult Partial Thromboplastin Time Today E66.9 - Obesity, unspecified, Z68.35 - Body mass index [BMI] 35.0-35.9, adult Complete Blood Count Auto Diff Today E66.9 - Obesity, unspecified, Z68.35 - Body mass index [BMI] 35.0-35.9, adult Insulin Today E66.9 - Obesity, unspecified, Z68.35 - Body mass index [BMI] 35.0-35.9, adult Medications: New pantoprazole 40 mg PO DAILY 30 tabs 2RF K21.9 - Gastro-esophageal reflux disease without esophagitis sucralfate 10 mL PO BID 400 mL 2RF K21.9 - Gastro-esophageal reflux disease without esophagitis ondansetron Only take one every 12 hours as needed if you have nausea 4 mg PO Q12H 20 tabs 0RF nausea and vomiting R11.0 - Nausea polyethylene glycol 3350 (Miralax) Mix each packet with 8oz of water, Crystal light, or Gatorade zero, or Propel and do 7 packets on 04/20/23 and another 7 packets on 04/21/23 17 grams PO DAILY 14 ea 0RF Z01.818 - Encounter for other preprocedural examination Telehealth Telehealth Location of provider rendering services: practice address Location of patient: address on file Patient Identification confirmed using: Name, : Yes Telehealth method: voice only Patient verbally consented to treatment: Yes Patient verbally consented to billing insurance company: Yes Patient informed of any privacy concerns related to visit: Yes Minutes spent on Phone/Video with Pt.: 30 Coding Level of Care Code Tele Est Pt Level 4 (85927) Diagnoses Obesity E66.9 BMI 35.0-35.9,adult Z68.35 Time Spent (min) 30
[2023-04-09 09:08] VITALS: BMI 36.3
== END 2023-04-09 09:14 | disposition home or self-care (01) ==
LOC: HO.HBS 08:47
PROVIDERS: PCP Internal Medicine; Visit Provider Surgery
DX: E66.9 Obesity, unspecified (principal); Z68.35 Body mass index [BMI] 35.0-35.9, adult
CPT/HCPCS: 99214

== ENCOUNTER → 2023-04-09 08:30 | Outpatient (BNVA) | payer OTHER, SELFPAY | PROVIDERS: PCP Internal Medicine; Visit Provider Surgery ==

== ENCOUNTER 2023-04-10 07:06 | Outpatient (REF) | payer OTHER, SELFPAY ==
[2023-04-10 07:29] LABS: MANUAL DIFF FLAG NO
[2023-04-10 07:48] LABS: Basophils Percent Auto 0.3 % (0-2); Eosinophils Percent Auto 0.8 % (0-4); Hematocrit 40.2 % (37.0-47.0); Hemoglobin 13.5 g/dl (12.0-16.0); Imm Gran Abs Auto 0.02 X10*3/uL (0.00-0.03); Imm Gran Pct Auto 0.5 % (0.0-0.4); Lymphocytes Percent Auto 28.3 % (20-40); Mean Corpuscular HGB Conc 33.6 g/dl (31.0-35.0); Mean Corpuscular Hemoglobin 31.5 pg (27.0-33.0); Mean Corpuscular Volume 93.7 fL (80.0-98.0); Mean Platelet Volume 10.3 fL (9.4-12.3); Monocytes Absolute Auto 0.3 X10*3/uL (0.1-1.2); Neutrophils Absolute Auto 2.2 x10*3/uL (2.0-8.3); Neutrophils Percent Auto 61.1 % (45-73); Platelet Count 191 X10*3/uL (160-400); Red Blood Count 4.29 X10*6/uL (4.20-5.50); Red Cell Distribution Width 12.6 % (11.0-16.0); White Blood Count 3.7 X10*3/uL (4.8-10.8)
[2023-04-10 07:53] LABS: INTERNATIONAL NORM RATIO 0.9 (0.9-1.1)
[2023-04-10 07:55] LABS: Partial Thromboplastin Time 41.4 SEC (26.0-36.4)
[2023-04-10 08:02] LABS: Estimated Average Glucose 103 mg/dL; Hemoglobin A1c % 5.2 % (<6.0)
[2023-04-10 08:28] LABS: Alanine Aminotransferase 21 U/L (0-31); Albumin Level 4.2 g/dL (3.5-5.0); Alkaline Phosphatase 93 U/L (39-117); Anion Gap 14 (12-20); Aspartate Amino Transferase 24 U/L (5-31); Bilirubin Total 0.6 mg/dL (0.0-1.0); Blood Urea Nitrogen 16 mg/dL (9-16); C Reactive Protein 0.35 mg/dL (< or = 0.50); Calcium 9.7 mg/dL (8.4-10.2); Carbon Dioxide 25 mmol/L (22-29); Chloride 105 mmol/L (96-108); Cholesterol 237 mg/dL (<200); Estimated Glomerular Filt Rate > 60; Glucose Random 91 mg/dL (60-115); HDL Cholesterol 53 mg/dL (>40); LDL Cholesterol Calculated 169 mg/dL (<100); Potassium 4.1 mmol/L (3.3-5.1); Sodium 140 mmol/L (135-145); Total Protein 7.2 g/dL (6.5-8.0); Triglycerides 77 mg/dL (<150)
[2023-04-10 08:44] LABS: Insulin 8 uU/mL (2-29); TSH reflex Free T4 1.43 uIU/mL (0.32-4.0)
== END 2023-04-10 07:07 | disposition home or self-care (01) ==
LOC: HO.LAB 07:06
PROVIDERS: PCP Internal Medicine; Visit Provider Surgery
DX: E66.9 Obesity, unspecified (principal); Z68.35 Body mass index [BMI] 35.0-35.9, adult
CPT/HCPCS: 36415; 80053; 80061; 83036; 83525; 84443; 85025; 85610; 85730; 86140

== ENCOUNTER 2023-04-22 06:00 | Day surgery (SDC) | payer OTHER, SELFPAY ==
[2023-04-10 13:27] VITALS: BMI 36.2
--- NOTE | 2023-04-19 11:59 | MHC.SHP ---
Pre-Procedural Eval Section A Date of Service: 04/19/23 The patient is an INPATIENT: No The History & Physical has been completed within 30 days and I have reviewed it.: Yes Section B Chief Complaint: Obesity, unspecified Relevant Family History (Specify if Yes): No Relevant Social History: None Present Medications: None Medical History: No relevant PMH History of Previous Operations: No relevant previous surgery Allergies: Allergies Allergy/AdvReac Type Severity Reaction Status Date / Time caffeine AdvReac Intermediate tachycardia Verified 04/09/23 08:54 Sulfa (Sulfonamide AdvReac Intermediate Nausea and Verified 04/09/23 08:54 Antibiotics) Vomiting Review of Systems Sugical H&P ROS: Negative: Constitution, Cardiovascular, Respiratory, Neurological, Psychiatric, Hem-Onc, Allergic/Immunologic, Gastrointestinal, Genitourinary, Musculoskeletal, Integumentary, Endocrine and Eyes/Ears/Nose/Throat Exam Surgical H&P Exam: Normal: HEENT, Normal: Heart, Normal: Lungs, Normal: Extremities, Normal: Abdomen, Normal: Skin and Normal: Neurological Plan Diagnosis/Plan: Unchanged I have reviewed the history and physical and performed a pertinent physical examination on my patient. No changes have occurred unless specified. Time Spent With Patient Time: Total time managing care of this patient today ____ minutes.
--- NOTE | 2023-04-21 08:22 | P.CONAN_ITS ---
Documented by User: Marily Ruiz NP 04/21/23 08:23 HPI - Anesthesia Eval Consult details Narrative: 62yo F for Gastrectomy Sleeve,EGD,poss diaphragmatic hernia,poss ventral hernia,poss open, PMFSH Active Problems Active Problems: All Active Problems (Updated 04/10/23 @ 13:13 by Madeline Chung RN) BMI 35.0-35.9,adult (Acute) BMI 36.0-36.9,adult (Acute) BMI 39.0-39.9,adult (Acute) Obesity (Acute) DJD (degenerative joint disease) (Acute) Morbid obesity (Acute) Past Medical History Medical History Hx of transfusion of packed red blood cells Hiatal hernia Murmur Elevated cholesterol Uterine cancer DJD (degenerative joint disease) Morbid obesity Surgical History Surgical History H/O lateral meniscus repair of right knee H/O lateral meniscus repair of left knee History of total bilateral knee replacement History of History of laparoscopic cholecystectomy History of right inguinal hernia repair History of total abdominal hysterectomy and bilateral salpingo-oophorectomy Social History Social History Are you a primary primary care sales representative to a significant other at home: No Do you presently have visiting nurse or other home services: No Patient Tobacco Use Status: Never used Tobacco Use of substances other than those prescribed or required for medical reasons: No Have you been hit, kicked, punched, or otherwise hurt by someone within the past year? If so, by whom?: No Are you DNR?: No Advance Directives: No Advance Directives Information Provided: Yes Advance Directives on File: No Recently lost weight without trying: No Eating poorly because of decreased appetite: No Nutrition Risks: No Nutritional Risk Patient : No : No Poor oral hygiene: No Meds Allergies Allergy/AdvReac Type Severity Reaction Status Date / Time caffeine AdvReac Intermediate tachycardia Verified 04/09/23 08:54 Sulfa (Sulfonamide AdvReac Intermediate Nausea and Verified 04/09/23 08:54 Antibiotics) Vomiting Home Medications Medication Instructions Recorded Confirmed Last Taken Type cholecalciferol (vitamin D3) 50 50 mcg PO DAILY 01/22/23 04/10/23 Unknown History mcg (2,000 unit) capsule fluticasone propionate 50 1 spray intranasal Q12H PRN 01/22/23 04/10/23 Unknown History mcg/actuation nasal Allergy Symptoms spray,suspension (Flonase Allergy Relief) glucosamine sulfate 500 mg tablet 500 mg PO DAILY 01/22/23 04/10/23 Unknown History (Glucosamine) loratadine 10 mg tablet (Claritin) 10 mg PO DAILY PRN Allergy Symptoms 01/22/23 04/10/23 Unknown History multivitamin 1 tab PO DAILY 01/22/23 04/10/23 Unknown History omega 0-don-qiw-fish oil 60 mg-90 1 cap PO DAILY 01/22/23 04/10/23 Unknown History mg-500 mg capsule (Fish Oil) docusate sodium 100 mg capsule 100 mg PO BEDTIME 04/10/23 04/10/23 Unknown History (Colace) docusate sodium 250 mg capsule 250 mg PO DAILY 04/10/23 04/10/23 Unknown History ginkgo biloba 40 mg tablet 40 mg PO DAILY 04/10/23 04/10/23 Unknown History Exam Height,Weight and Vital Signs: Height 5 ft 4 in Weight 95.708 kg Pertinent Lab Results Pertinent Lab Results: Laboratory Tests 04/10/23 07:25 Blood Type O Positive Antibody Screen NEGATIVE Laboratory Tests 04/10/23 07:28 WBC 3.7 L Hgb 13.5 Hct 40.2 Plt Count 191 Sodium 140 Potassium 4.1 Chloride 105 Carbon Dioxide 25 BUN 16 Creatinine 0.62 Narrative Narrative: EKG 01/2023 Vent. Rate : 063 BPM Atrial Rate : 063 BPM P-R Int : 194 ms QRS Dur : 092 ms QT Int : 388 ms P-R-T Axes : 071 042 065 degrees QTc Int : 397 ms Normal sinus rhythm Low voltage QRS Borderline ECG No previous ECGs available Assessment and Plan Assessment Anesthesia Assessment: Chart Reviewed Documented by User: Marco Wray MD 04/22/23 07:13 REPLACED BY [facility] Past Medical History Medical History Hx of transfusion of packed red blood cells Hiatal hernia Murmur Elevated cholesterol Uterine cancer DJD (degenerative joint disease) Morbid obesity Family History Family history of problems with anesthesia: No Surgical History Surgical History H/O lateral meniscus repair of right knee H/O lateral meniscus repair of left knee History of total bilateral knee replacement History of History of laparoscopic cholecystectomy History of right inguinal hernia repair History of total abdominal hysterectomy and bilateral salpingo-oophorectomy History of Problems with Anesthesia: No Social History Social History Are you a primary primary care sales representative to a significant other at home: No Do you presently have visiting nurse or other home services: No Patient Tobacco Use Status: Never used Tobacco Use of substances other than those prescribed or required for medical reasons: No Have you been hit, kicked, punched, or otherwise hurt by someone within the past year? If so, by whom?: No Are you DNR?: No Advance Directives: No Advance Directives Information Provided: Yes Advance Directives on File: No Recently lost weight without trying: No Eating poorly because of decreased appetite: No Nutrition Risks: No Nutritional Risk Patient : No : No Poor oral hygiene: No Meds Allergies Allergy/AdvReac Type Severity Reaction Status Date / Time caffeine AdvReac Intermediate tachycardia Verified 04/09/23 08:54 Sulfa (Sulfonamide AdvReac Intermediate Nausea and Verified 04/09/23 08:54 Antibiotics) Vomiting Home Medications Medication Instructions Recorded Confirmed Last Taken Type cholecalciferol (vitamin D3) 50 50 mcg PO DAILY 01/22/23 04/10/23 Unknown History mcg (2,000 unit) capsule fluticasone propionate 50 1 spray intranasal Q12H PRN 01/22/23 04/10/23 Unknown History mcg/actuation nasal Allergy Symptoms spray,suspension (Flonase Allergy Relief) glucosamine sulfate 500 mg tablet 500 mg PO DAILY 01/22/23 04/10/23 Unknown History (Glucosamine) loratadine 10 mg tablet (Claritin) 10 mg PO DAILY PRN Allergy Symptoms 01/22/23 04/10/23 Unknown History multivitamin 1 tab PO DAILY 01/22/23 04/10/23 Unknown History omega 9-bzr-pqk-fish oil 60 mg-90 1 cap PO DAILY 01/22/23 04/10/23 Unknown History mg-500 mg capsule (Fish Oil) docusate sodium 100 mg capsule 100 mg PO BEDTIME 04/10/23 04/10/23 Unknown History (Colace) docusate sodium 250 mg capsule 250 mg PO DAILY 04/10/23 04/10/23 Unknown History ginkgo biloba 40 mg tablet 40 mg PO DAILY 04/10/23 04/10/23 Unknown History Exam Airway Mallampati Class: II TM Dist: >3cm Neck ROM: Full Loose/Missing/Broken Teeth: No Heart: [id number] Lungs: cta b/l Assessment and Plan Assessment Anesthesia Assessment: Anesthesia Plan Discussed Final Anesthetic Review Family History of Problems with Anesthesia: No History of Problems with Anesthesia: No NPO: Yes ASA Class: II Final Preanesthetic Review: No Changes in Pt Med Stat, Meds/Allgs Chart Reviewed, Consent Obtained/Reviewed and Anes Risks/Benef Reviewed Patient Risk: Intermediate Procedure Risk: Intermediate Assessment/Block/Sedation in SS: Assess/Block/Sedation-SS Anesthetic Plan Anesthetic Plan: GA and Agree w/ Assess. and Plan Disposition: Standard PACU
[2023-04-22] VITALS (12 sets, daily range): BP systolic 98–147; BP diastolic 45–59; PULSE 66–95; RESP 14–18; TEMP 36.2–36.6; O2SAT 94–100; BMI 37.6; BMI 38.6
[2023-04-22] MEDS: Lactated Ringers 1,000 ML 999 ML IV (07:00)
[2023-04-22] MEDS: Aprepitant 32 MG/4.4 ML VIAL IVPUSH (07:16)
--- NOTE | 2023-04-22 07:40 | PM.OP ---
Brief Operative Note Date of Service: 04/22/23 Pre-op diagnosis: Severe obesity with comorbidities (see below) Post-op diagnosis: same (& extensive congenital abdominal adhesions) Procedure: INITIAL PATIENT BMI ON PRESENTATION AT OUR OFFICE: 41.1 kg/m2 LAST BMI BEFORE SURGERY: 35.7 kg/m2 COMORBIDITIES: DJD, history of uterine cancer, diaphragmatic hernia ?The patient presented to the Weight Management Program with significant obesity that was negatively impacting the patient's comorbidities as listed above.? The program is a phased program with a special focus on preoperative medical weight management to promote substantial weight loss and prepare the patients for the second phase of the program: bariatric surgery. The patient participated in an intensive weekly lifestyle ?intervention and exercise program during which the patient ?has lost between the initial office visit and the last preoperative visit 27.8 lbs, or 11.62% of initial actual body weight. It was deemed appropriate for the patient to now have bariatric surgery. In light of the current Covid-19 pandemic and the well documented strong association of obesity and increased risk of worse outcomes if infected with Covid-19 (REFERENCES:https://pubmed.ncbi.nlm.nih.gov/67632662/,?https://pubmed.ncbi.nlm.nih.gov/29770277/), any delay in undergoing bariatric surgery may lead to the patient's worsening health condition and increased?risk of more severe Covid-19 disease if infected. In addition a recent?study from [facility] published in [facility] on 05/07/2021 ([email or web address]) found that, among patients with obesity, substantial weight loss achieved with surgery was associated with improved outcomes of COVID-19 infection. The findings suggest that obesity can be a modifiable risk factor for the severity of COVID-19 infection. In addition, the patient met the BMI-criteria for bariatric surgery based on the BMI on initial presentation. The patient should not be penalized for achieving such weight loss because ?it is not sustainable long-term without surgical intervention and it was achieved in preparation for bariatric surgery ?under my direction and based on my published research ([email or web address]).[email or web address] and?https://www.soard.org/article/[email or web address](36)42030-X/pdf) ?that a 10% preoperative weight loss improves long-term weight loss after surgery and reduces perioperative complications.? Insurance carriers such as [facility] have endorsed my recommendations ?and have included in their policies criteria to include a 10% preoperative weight loss requirement. PROCEDURE: Esophago-gastroscopy, extensive, laparoscopic lysis of adhesions, laparoscopic sleeve gastrectomy and laparoscopic gastropexy INDICATIONS: This is a 62 year-old female who was electively scheduled for laparoscopic, possibly open sleeve gastrectomy. The risks and complications of the procedure were discussed with the patient in advance, particularly the possibility of ; pulmonary embolism; staple line leak; bleeding; GERD; cardiac, pulmonary, or renal complications; as well as long-term problems such as insufficient weight loss, vitamin deficiency, strictures, or ulcers. The patient understood all the risks, and was in agreement to proceed with surgery. DESCRIPTION OF PROCEDURE: After informed consent was obtained from the patient, the patient was given preoperative antibiotics, and was transferred to the operating room. After successful induction of general anesthesia, pneumatic compression devices were placed on both lower extremities. An upper endoscopy was performed next. The oropharynx and esophagus appeared to be within normal limits. There was no diaphragmatic hernia present. The stomach was entered. Then after all fluid and air were suctioned and the stomach was fully decompressed, the scope was withdrawn and secured in the mid esophagus. The patient was then prepped and draped in the usual sterile manner, and abdominal access was established at the right upper quadrant with the Jah technique. A 12 mm blunt port was inserted, and the abdomen was insufflated with CO2 to a pressure of 15 mmHg. Under direct visualization, additional ports were placed, specifically two 5 mm Versi-step ports to the left upper quadrant, and a 5 mm Versi-Step port to the right upper quadrant. 1% lidocaine plain was used to infiltrate all port sites as well as all fascia defects. Following that, the patient was placed in a steep reverse Trendelenburg position. An additional 5 mm port was placed to the right flank for the Mediflex retractor that was used to retract the left lobe of the liver. The gastro-esophageal fat pad was opened with the ultrasonic device (Thunderbeat, [employer]) and the anterior esophagus and hiatus were exposed. The angle of His was opened with the ultrasonic device the fundus of the stomach from any diaphragmatic and splenic attachments. I then opened the gastrocolic ligament between the transverse colon and the greater curvature of the stomach with the ultrasonic device to enter the lesser sac and facilitate the ligation of the short gastric vessels. I started at a mid-point along the greater curvature and using the Thunderbeat, all short gastric vessels were divided all the way to the angle of His until the left jonathan was completely dissected at its entirety. I then divided the gastro-colic ligament distally to a distance of about 3-4 cm proximal to the pylorus. There were extensive congenital adhesions between the pancreas and posterior gastric wall. Those were lysed completely with the ultrasonic device. Adhesiolysis took approximately 45 min to complete.? The stomach was then divided transversely with one Endo JOSUE-45 purple and four JOSUE-60 articulating purple loads using the Weesh stapler and loads. Every effort was made that the gastric sleeve had a tubular shape and an even caliber throughout. Once the sleeve resection was completed, the staple line of the gastric sleeve was reinforced with Hemoclips. The resected stomach was retrieved without difficulty from the Jah port. A gastropexy was then performed in order to prevent postoperative GERD and partial gastric volvulus. Several interrupted 2.0 Surgidac sutures were placed between the sleeve's staple line and the previously divided greater omentum and gastro-colic ligament using the Endo-Stitch device. ?An upper endoscopy was performed. There was no narrowing at the GE junction. The scope was easily advanced all the way to the pylorus which was clearly visualized. There was no narrowing anywhere and the sleeve's caliber was even throughout. The sleeve's staple line was inspected and there was no evidence of ischemia, bleeding or dehiscence. At that point the gastroscope was withdrawn from the patient?s mouth while we were decompressing the bowel and the stomach from any remaining air. I looked into the lesser sac to see how the sleeve was situating and it was situating well. There was no bleeding from the staple line, spleen, or short gastric vessels. The Mediflex retractor was removed, and the undersurface of the liver was inspected and there was no bleeding. The patient was placed in supine position. I closed the fascial defect of the 12 mm port site with a figure of eight #1 Polysorb suture. Then 30cc Ropivacaine plain with 10 mg of Dexamethasone were used to infiltrate the fascial closure as well as all skin incisions. A total of 5ml Zynrelef was applied in the Jah wound. At this point, the abdomen was deflated, all ports were removed under direct vision, and no bleeding was noted from any of the port sites. The skin incisions were irrigated with saline and were closed with 4-0 absorbable monofilament sutures. Steri-Strips and OpSites were used to cover all incisions. The patient was extubated and was transferred in stable condition to the recovery room for further care. I was present and performed all roman parts of the procedure. Ms. Steven was the certified first assistant. There were no residents to assist with this case. Joni Blair MD, PhD, FACS Surgeon: Srinivasa Blair MD Anesthesia: GETA, local and other (TAP block and 5ml Zynrelef) Was an Oracle Database Developer used for this Procedure?: Yes Oracle Database Developer: Mary Steven Estimated blood loss (mL): 10 IV fluids (mL): 2,500 Urine output (mL): 0 (No Velasquez to record output) Pathology: other (Stomach) Condition: stable Disposition: PACU
--- NOTE | 2023-04-22 07:44 | P.PNGS_ITS ---
Subjective Subjective Date of Service: 04/23/23 Interval history: Feels well. Mild incisional pain. She is tolerating phase 1 bariatric diet Physical Exam 2 Vital Signs: Vital Signs: Last Vital Signs Temp 97.7 F 04/22/23 07:03 Pulse 66 04/22/23 07:03 Resp 16 04/22/23 07:03 BP 105/51 L 04/22/23 07:03 Pulse Ox 97 04/22/23 07:03 O2 Del Method Room Air 04/22/23 07:03 BMI result Body Mass Index 36.2 GI: Inspection: Yes normal to inspection, Yes incision (clean, dry and intact) and Yes obesity Extrem: Right lower extremity: normal to inspection (no calf tenderness) L eft lower extremity: normal to inspection (no calf tenderness) Objective Data Active Medications Fentanyl (Fentanyl Citrate/Pf 100 Mcg/2 Ml Vial) 50 mcg IVPUSH Q5M PRN; Protocol PRN Reason: Pain, Severe (Pain Scale 7-10) Hydromorphone HCl (Hydromorphone Hcl 0.5 Mg/0.5 Ml Syringe) 0.5 mg IVPUSH Q5M PRN; Protocol PRN Reason: Pain, Severe (Pain Scale 7-10) Lactated Ringer's (Lr) 1,000 mls @ 100 mls/hr IVCONT .Q10H [facility] Lactated Ringer's (Lr) 1,000 mls @ 999 mls/hr IV .Q1H1M [facility] Stop: 04/22/23 08:15 Last Admin: 04/22/23 07:00 Dose: 999 mls/hr Documented By: NISHA Promethazine HCl 6.25 mg/ (Sodium Chloride) 50.25 mls @ 201 mls/hr IV ONCE PRN PRN Reason: Nausea and Vomiting Ondansetron HCl (Ondansetron Hcl 4 Mg/2 Ml Vial) 4 mg IVPUSH ONCE PRN PRN Reason: Nausea and Vomiting Labs 04/23/23 05:46 04/23/23 05:46 Procedures Date of Service Date of Service: 04/23/23 Progress Note: A&P Assessment and plan (1) Obesity: Status: Acute Assessment and Plan: s/p laparoscopic sleeve gastrectomy, lysis of adhesions and gastropexy Doing well Will check am labs and if OK the patient will be discharged home (2) BMI 35.0-35.9,adult: Status: Acute (3) DJD (degenerative joint disease): Status: Acute (4) S/P laparoscopic sleeve gastrectomy: Status: Acute (5) Congenital intra-abdominal adhesions: Status: Acute Time Spent With Patient Time: Total time managing care of this patient today ____ minutes. Quality Stroke Does the patient have a stroke diagnosis?: No VTE Prior VTE?: No VTE Risk Level:: Surgical - moderate VTE Device Contraindication: N/A - Device Ordered VTE Drug Contraindication: Treatment Not Indicated
--- NOTE | 2023-04-22 10:20 | PM.DS ---
DS: Providers Provider Date of Service: 04/23/23 Primary care physician: Mora Zimmer MD DS: Diagnosis Discharge Diagnosis (1) Obesity: Status: Acute (2) BMI 35.0-35.9,adult: Status: Acute (3) DJD (degenerative joint disease): Status: Acute DS: Summary Hospital Course Hospital Course: ADMITTING DIAGNOSIS: morbid obesity, DJD, history uterine cancer DISCHARGE DIAGNOSIS: same, s/p laparoscopic sleeve gastrectomy PAST SURGICAL HISTORY: R inguinal hernia, BONNIE/BSO, lap cholecystectomy PROCEDURE: upper endoscopy, laparoscopic sleeve gastrectomy DISCHARGE SUMMARY: History of Present Illness: The patient is a 62 year-old woman with a BMI of 41.0 kg/m2 and associated co-morbidities as described above. The patient had extensive work-up, lost 27.8 lbs preoperatively and was electively scheduled for laparoscopic, possible open sleeve gastrectomy and gastropexy. Risks and complications of the surgery were discussed with the patient in advance, particularly the possibility of , pulmonary embolism, anastomotic leak, bleeding, bowel injury, GERD, cardiac, renal or pulmonary complications. The patient understood all the risks and was in agreement with the surgical plan. Hospital Course: The patient underwent an uneventful laparoscopic sleeve gastrectomy with gastropexy on the day of admission. Postoperatively, the patient was transferred to the surgical floor. The patient received IV Acetaminophen and IV dilaudid for pain control. Patient was started on bariatric phase 1 diet POD #0. On postoperative day one, the patient was feeling well without nausea, vomiting, fevers, or tachycardia. The patient had some mild incisional pain and the abdomen was soft. On the morning of postoperative day one, the patient was continued on 1 ounce of water or ice every half hour. During the day, the patient did fairly well, having some incisional pain, but able to ambulate adequately and to tolerate liquids well. Since the patient is doing well, we decided that the patient was ready to be discharged. The patient was given instructions to follow-up with me next week and to call my office for any fever over 101, persistent abdominal pain, nausea, vomiting, GERD, symptoms of DVT such as calf tenderness, or leg swelling, or pulmonary embolism such as chest pain or shortness of breath. The patient was also instructed to drink 40-60 ounces of liquids per day using the 1-ounce cups. The patient had been given prescriptions for Tylenol for pain, Zofran prn for nausea, and pantoprazole and carafate previously. The patient was encouraged to ambulate and use the incentive spirometer. The patient was allowed to shower, but no baths, and encouraged to stay active at home. All of these instructions were given to the patient personally. All questions were answered and the patient understood all instructions, the instructions were also given to the patient in print. Time Attestation Discharge coordination time: Less than 30 minutes Quality: Safe Use of Opioids Does Pt have an Active Cancer Diagnosis on the Problem List?: No Quality: Stroke Does the patient have a stroke diagnosis?: No Physical Exam Vital Signs: Vital Signs: Last Vital Signs Temp 98 F 04/22/23 09:59 Pulse 76 04/22/23 10:14 Resp 15 04/22/23 10:14 BP 136/52 L 04/22/23 10:14 Pulse Ox 94 04/22/23 10:14 O2 Del Method Nasal Cannula wit h Capnography 04/22/23 10:14 O2 Flow Rate 2 04/22/23 10:14 BMI result Body Mass Index 36.2 DS: Data Data Completed and Pending Pending studies at discharge: Pending at discharge 04/22/23 09:31 Surgical [PTH] Routine Discharge Plan Discharge Patient Disposition: Home, Self-Care Referrals: Mora Zimmer MD [Primary Care Provider] - 1 Week Discharge Medications: No Action docusate sodium 250 mg Capsule 250 mg PO DAILY docusate sodium [Colace] 100 mg capsule 100 mg PO BEDTIME ginkgo biloba [Ginkoba] 40 mg Tablet 40 mg PO DAILY Rx Instructions: give with meal/snack omega 0-mzn-whz-fish oil [Fish Oil] 60-90-500 mg capsule 1 cap PO DAILY glucosamine sulfate [Glucosamine] 500 mg tablet 500 mg PO DAILY Rx Instructions: administer with a meal cholecalciferol (vitamin D3) 50 mcg (2,000 unit) capsule 50 mcg PO DAILY loratadine [Claritin] 10 mg tablet 10 mg PO DAILY PRN (Reason: Allergy Symptoms) fluticasone propionate [Flonase Allergy Relief] 50 mcg/actuation spray,suspension 1 spray intranasal DAILY PRN (Reason: Allergy Symptoms) Rx Instructions: administer into each nostril multivitamin Tablet 1 tab PO DAILY pantoprazole 40 mg tablet,delayed release (DR/EC) 40 mg PO DAILY Qty: 30 2RF sucralfate 100 mg/mL suspension 10 ml PO BID Qty: 400 2RF Discharge Orders: Discharge Order (Routine); Ordered 04/23/23 Ordered By: Srinivasa Blair Activity on Discharge: No heavy lifting Activity Restrictions/Additional Instructions: No tub baths, sex or returning to work until discussed at first post op appointment. No exercise, alcohol, tobacco or illegal drug use. Continue to use incentive spirometer hourly while awake. Walk in home for 5- 10 minutes every 2 hours during the first week. Continue phase 1 diet today and start phase 2 diet tomorrow morning. Follow all instructions in the bariatric handbook and call with any questions. 1. Please call your doctor or come back to the emergency room should any new symptoms arise. 2. You will receive a courtesy call from [facility] 24-48 hours after discharge. 3. Activity: abstain from alcohol, practice limited stair climbing, no bending, no driving, no exercise, no illicit substances, no lifting, no sex, no tub bath, no work. 4. Diet: continue as discussed with bariatric team.. 5. Dressing Change/Wound Care: Do not change or remove surgical dressings unless they are wet or soiled. 6. Call your doctor if: - Your temperature exceeds 101.5 F - You experience excessive pain or swelling - You have an unexpected reaction to medication - You have excessive bleeding - You experience continued vomiting/nausea - Your incision begins to separate - Your incision shows signs of infection such as increased redness, swelling, excessive pain, heat, or drainage (light blood or clear fluid is normal) 7. General instructions: No lifting greater than 5 lbs for 1 week and not more than 20lbs the next 3?weeks. No driving until seen at the office in 5-7 days after surgery. If you do not move your bowels in the next 2 days, please tell?Dr. Bliar. Please walk around your home every hour or two to prevent blood clots from forming in your legs. You do not need to wake from sleeping to walk. Please sleep in a bed or couch to prevent kinking at the hips and knees. Please take your incentive spirometer (your lung tea and spice supervisor) home with you and use it for the next few days to prevent pneumonia. You may shower, no hot tubs, baths or swimming pools.?Please follow the post op diet instructions you are?given by Dr Noah alston? and text me daily at 5-6pm for an update.?If you have any issues or concerns or questions please communicate this to him via text.? The Celebrate shakes have all of the bariatric vitamins you need if you consume these shakes. If you are drinking other protein shakes, you will need to purchase the Celebrate multivitamins and calcium that are available in the hospital gift shop on the first floor of the [facility].??Do not take anything without first discussing with Dr Blair. Please make sure you are consuming at least 40 ounces of fluids per day starting the?day AFTER your discharge from the hospital. Always drink 1-2 ml per minute using the 5ml?syringe. If you drink faster you may experience?bloating,?gas pain, burping, nausea or heartburn. In that case please slow down your pace and use the syringe to?understand better the?proper?pace and volume of drinking. Do not hesitate to contact the office with any questions at . The patient's medical history has been reviewed and they are considered low risk for post op DVT and therefore DVT prophylaxis is not considered necessary. Travel after surgery was reviewed. The patient has not disclosed any travel plans during the first 30 days after surgery and they have been advised that within the first 30 days after surgery any bus, plane, train or car travel over 2 hours in duration is contraindicated due to the possibility of developing blood clots from immobility. Any travel, needs to include periods of ambulation of 10 minutes in duration every 2 hours. The patient was instructed to discuss any plans for travel during this period with their bariatric surgeon.
[2023-04-22 10:35] LABS: Hematocrit 35.7 % (37.0-47.0)
[2023-04-22 10:57] LABS: Anion Gap 14 (12-20); Blood Urea Nitrogen 17 mg/dL (9-16); Calcium 8.9 mg/dL (8.4-10.2); Carbon Dioxide 23 mmol/L (22-29); Chloride 106 mmol/L (96-108); Creatinine Clr Calc Pharmacy 87.4; Estimated Glomerular Filt Rate > 60; Glucose Random 144 mg/dL (60-115); Sodium 139 mmol/L (135-145)
[2023-04-22] MEDS: Famotidine/PF 20 MG/2 ML VIAL IVPUSH ×2 (12:23→21:08)
[2023-04-22] MEDS: Lactated Ringers 1,000 ML 100 ML IVCONT ×2 (12:33→21:08)
[2023-04-22] MEDS: Metoclopramide HCl 10 MG/2 ML VIAL IVPUSH (13:29)
[2023-04-22] MEDS: ceFAZolin Sodium/Dextrose,Iso 2 GM/50 ML PIGGYBACK IV (13:45)
[2023-04-22] MEDS: Acetaminophen 1,000 MG/100 ML PIGGYBACK 16.7 MG IV ×2 (13:50→19:12)
--- NOTE | 2023-04-22 14:39 | PHA.MEDREC ---
Pharmacy Consult ? Medication Reconciliation Pharmacy has completed the medication reconciliation. Spoke to patient and confirmed medication list.
[2023-04-22] MEDS: 0.9 % Sodium Chloride Flush 3 ML SYRINGE IVFLUSH (21:09)
[2023-04-23] MEDS: Acetaminophen 1,000 MG/100 ML PIGGYBACK 16.7 MG IV ×2 (01:00→06:52)
[2023-04-23 03:44] VITALS: BP 108/54; PULSE 69; RESP 18; TEMP 36; O2SAT 97
[2023-04-23] MEDS: Lactated Ringers 1,000 ML 125 ML IVCONT (05:15)
[2023-04-23 06:23] LABS: MANUAL DIFF FLAG NO
[2023-04-23 06:46] LABS: Basophils Percent Auto 0.1 % (0-2); Hematocrit 33.6 % (37.0-47.0); Hemoglobin 11.2 g/dl (12.0-16.0); Imm Gran Abs Auto 0.01 X10*3/uL (0.00-0.03); Imm Gran Pct Auto 0.1 % (0.0-0.4); Lymphocytes Absolute Auto 1.4 X10*3/uL (1.2-4.9); Lymphocytes Percent Auto 20.7 % (20-40); Mean Corpuscular HGB Conc 33.3 g/dl (31.0-35.0); Mean Corpuscular Hemoglobin 32.1 pg (27.0-33.0); Mean Corpuscular Volume 96.3 fL (80.0-98.0); Mean Platelet Volume 10.8 fL (9.4-12.3); Monocytes Absolute Auto 0.8 X10*3/uL (0.1-1.2); Monocytes Percent Auto 11.5 % (2-11); Neutrophils Absolute Auto 4.7 x10*3/uL (2.0-8.3); Neutrophils Percent Auto 67.6 % (45-73); Platelet Count 173 X10*3/uL (160-400); Red Blood Count 3.49 X10*6/uL (4.20-5.50); Red Cell Distribution Width 12.8 % (11.0-16.0)
[2023-04-23 06:54] LABS: Anion Gap 13 (12-20); Blood Urea Nitrogen 12 mg/dL (9-16); Carbon Dioxide 21 mmol/L (22-29); Chloride 108 mmol/L (96-108); Creatinine Clr Calc Pharmacy 111.9; Estimated Glomerular Filt Rate > 60; Glucose Random 69 mg/dL (60-115); Potassium 4.3 mmol/L (3.3-5.1); Sodium 138 mmol/L (135-145)
[2023-04-23 07:24] VITALS: BP 90/51; PULSE 65; RESP 18; TEMP 36.1; O2SAT 99
[2023-04-23] MEDS: Famotidine/PF 20 MG/2 ML VIAL IVPUSH (07:29)
[2023-04-23 08:02] VITALS: BP 105/60
--- NOTE | 2023-04-23 09:34 | MHC.CM.PN ---
PT FROM HOME WITH PARTNER, KAYCE. STATES KAYCE IS ALSO HER HCP - COPY REQUESTED. INDEPENDENT, NO SERVICES OR MEDICAL EQUIPMENT. PCP: SHELLIE PETERSON MD DP: EMR REVIEWED. MEDICALLY CLEARED FOR DC. PRIVATE TRANSPORT AT 10AM. RN AWARE.
--- NOTE | 2023-04-23 12:20 | HO.POSTANES ---
Post Anesthesia Evaluation Post Anesthesia Evaluation Date of Service: 04/23/23 Vital Signs: Vital Signs Temp Pulse Resp BP Pulse Ox O2 Del Method 04/23/23 08:02 105/60 04/23/23 07:24 97.0 F 65 18 90/51 L 99 Room Air 04/23/23 03:44 96.8 F 69 18 108/54 L 97 Room Air Anesthesia: General Endotracheal-GETA Mental Status: Awake Pain Control: Satisfactory Nausea/Vomiting: None Hydration: Adequate Anesthesia-Related Issues: No Anes. Related Issues
== END 2023-04-23 10:35 | disposition home or self-care (01) ==
LOC: HO.SSS 10:20 → HO.S3 10:29
PROVIDERS: Physician Assistant; PCP Internal Medicine; Visit Provider Surgery
PROC: (CPT 43845; principal; 2023-04-22 07:30)
DX: E66.01 Morbid (severe) obesity due to excess calories (principal); Z68.35 Body mass index [BMI] 35.0-35.9, adult; Q43.3 Congenital malformations of intestinal fixation; M19.90 Unspecified osteoarthritis, unspecified site; Z85.42 Personal history of malignant neoplasm of other parts of uterus; Z87.891 Personal history of nicotine dependence; K21.9 Gastro-esophageal reflux disease without esophagitis; Z79.51 Long term (current) use of inhaled steroids; Z79.1 Long term (current) use of non-steroidal anti-inflammatories (NSAID); Z79.899 Other long term (current) drug therapy; Z88.2 Allergy status to sulfonamides; Z90.49 Acquired absence of other specified parts of digestive tract; Z90.710 Acquired absence of both cervix and uterus; Z98.890 Other specified postprocedural states
CPT/HCPCS: 43775; 43659; 49329; 36415; 80048; 85014; 85018; 85025; 86850; 86900; 86901; 88304; 88305; 88307; 88342; 99024; A4649; C9088; C9145; J0131; J0690; J1100; J1170; J2250; J2405; J2704; J2765; J2795; J3010; J7120

== ENCOUNTER → 2023-04-22 06:00 | Outpatient (BNV) | payer OTHER, SELFPAY | PROVIDERS: PCP Internal Medicine; Visit Provider Surgery | DX: E66.9 Obesity, unspecified (principal); Z68.35 Body mass index [BMI] 35.0-35.9, adult | CPT/HCPCS: 43659; 43775; 99024 ==

== ENCOUNTER 2023-04-29 10:07 | Outpatient (AMB) | payer OTHER, SELFPAY ==
--- NOTE | 2023-04-29 10:53 | A.OFFVIS_ITS ---
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: No Allergies caffeine Adverse Reaction (Intermediate, Verified 04/29/23 10:56) tachycardia Sulfa (Sulfonamide Antibiotics) Adverse Reaction (Intermediate, Verified 04/29/23 10:56) Nausea and Vomiting Medication List - Last Reconciled 04/29/23 by DEYSI Mckeon cholecalciferol (vitamin D3) 50 mcg PO DAILY docusate sodium 250 mg PO DAILY docusate sodium (Colace) 100 mg PO BEDTIME fluticasone propionate 50 mcg/actuation (Flonase Allergy Relief) 1 spray intranasal DAILY PRN ginkgo biloba 40 mg PO DAILY glucosamine sulfate (Glucosamine) 500 mg PO DAILY loratadine (Claritin) 10 mg PO DAILY PRN multivitamin 1 tab PO DAILY omega 0-imn-hhi-fish oil 60-90-500 mg (Fish Oil) 1 cap PO DAILY pantoprazole 40 mg PO DAILY sucralfate 10 mL PO BID HPI HPI Comments History of Present Illness Details Pleasant 62-year-old female returns the office today in follow-up. She is 7 days postop status post sleeve gastrectomy on 04/22/2023. She reports doing 3 celebrate 4 in 1 shakes with 1 scoop each and a total of 48 oz of fluid. She has moved her bowels. No significant complaints at today's visit. [facility], [facility] Medical History (Updated 04/22/23 @ 10:55 by Srinivasa Blair MD) Hx of transfusion of packed red blood cells Hiatal hernia Murmur Elevated cholesterol Uterine cancer DJD (degenerative joint disease) Morbid obesity Surgical History (Updated 04/29/23 @ 10:56 by Rochelle Montelongo CMA) S/P laparoscopic sleeve gastrectomy H/O lateral meniscus repair of right knee H/O lateral meniscus repair of left knee History of total bilateral knee replacement History of History of laparoscopic cholecystectomy History of right inguinal hernia repair History of total abdominal hysterectomy and bilateral salpingo-oophorectomy Social History Household Members: Significant Other Housing: House Are you a primary palliative care nurse practitioner to a significant other at home: No Do you presently have visiting nurse or other home services: No Patient Tobacco Use Status: Former Tobacco user Tobacco use type: Cigarette Second Hand Smoke Exposure: No service: No Physical Exam Vital Signs: Last Vital Signs Temp 97.7 F 04/29/23 11:02 Pulse 71 04/29/23 11:02 BP 120/63 04/29/23 11:02 Pulse Ox 98 04/29/23 11:02 Oxygen Delivery Method Room Air 04/29/23 11:02 BMI result Body Mass Index 34.5 GI Other: incision c/d/i Assessment & Plan Assessment & Plan (1) S/P laparoscopic sleeve gastrectomy: Code(s): Z98.84 - Bariatric surgery status Plan: POD 7 s/p LSG on 04/22/[address] Blair Weight loss prior to surgery was 28.7 pounds or 11.9 % TBWL. Original weight on 01/22/2023 was 239.2 pounds and op weight was 210.5 pounds. Be sure to text Dr Blair exactly 1 week after surgery your weight from your home scale so he can adjust your meal plan. Continue meal plan until f/u w baxter in 2 weeks May shower, no submersion in bath for another week Continue abdominal binder with activity and exercise for the next 2 weeks. Exercise prior to surgery was stationary bike and walking, may resume No abdominal exercises for 6 weeks post operatively Will be emailed link to post op video for review Reminded of the pace of drinking, 2 mL per minute, 1 oz/15 min. Coding Level of Care Code Global (88613) Diagnoses S/P laparoscopic sleeve gastrectomy Z98.84
[2023-04-29 11:02] VITALS: BP 120/63; PULSE 71; TEMP 36.5; O2SAT 98; BMI 34.5
== END 2023-04-29 12:23 | disposition home or self-care (01) ==
PROVIDERS: PCP Internal Medicine; Visit Provider Physician Assistant Surgical
DX: E66.9 Obesity, unspecified (principal); Z68.34 Body mass index [BMI] 34.0-34.9, adult; Z90.3 Acquired absence of stomach [part of]; Z98.84 Bariatric surgery status
CPT/HCPCS: 99024

== ENCOUNTER → 2023-04-29 10:07 | Outpatient (BNVA) | payer OTHER, SELFPAY | PROVIDERS: PCP Internal Medicine; Visit Provider Physician Assistant Surgical ==

== ENCOUNTER 2023-07-25 07:49 | Outpatient (AMB) | payer BC, SELFPAY ==
--- NOTE | 2023-07-25 08:56 | MHC.OFFVISWM ---
Intake VS Expanded 07/25/23 09:16 Height 5 ft 4 in Weight 173 lb 8 oz BMI 29.8 Body Fat % 37.8 Body Fat Mass 65.6 Fat Free Mass 108 Visceral Fat Rating 12 Body Water Mass 74.2 Basal Metabolic Rate/Score 1,428 Intake Visit Reasons: TV PO LSG 04/22/23 Allergies caffeine Adverse Reaction (Intermediate, Verified 04/29/23 10:56) tachycardia Sulfa (Sulfonamide Antibiotics) Adverse Reaction (Intermediate, Verified 04/29/23 10:56) Nausea and Vomiting HPI TV PO LSG 04/22/23 HPI Details Start time: 8.51am, End time: 9.21am ?I spent 25 minutes speaking with the patient on the phone plus an additional 5 minutes reviewing and updating records for a total of 30 minutes HPI Comments History of Present Illness Details Overall weight loss: 65.4lbs or 27.34% TBWL GERD score: 0 Is doing 2 Celebrate Rebuild protein shake (one scoop each in 8oz oatmilk), 2 Celebrate protein bars and one meal (5 forks of protein and 5 forks of salad or vegetables) Exercise: is using the stationary bike for 0163-4129 calories per week PFS Medical History (Updated 07/25/23 @ 09:14 by Srinivasa Blair MD) Postgastrectomy malabsorption BMI 36.0-36.9,adult BMI 39.0-39.9,adult Hx of transfusion of packed red blood cells Hiatal hernia Murmur Elevated cholesterol Uterine cancer DJD (degenerative joint disease) Morbid obesity Surgical History (Updated 05/01/23 @ 00:03 by Olvin Oswald) S/P laparoscopic sleeve gastrectomy H/O lateral meniscus repair of right knee H/O lateral meniscus repair of left knee History of total bilateral knee replacement History of History of laparoscopic cholecystectomy History of right inguinal hernia repair History of total abdominal hysterectomy and bilateral salpingo-oophorectomy Social History Household Members: Significant Other Housing: House Are you a primary healthcare insurance sales agent to a significant other at home: No Do you presently have visiting nurse or other home services: No Patient Tobacco Use Status: Former Tobacco user Tobacco use type: Cigarette Second Hand Smoke Exposure: No service: No Assessment & Plan Assessment & Plan (1) Postgastrectomy malabsorption: Code(s): K91.2 - Postsurgical malabsorption, not elsewhere classified; Z90.3 - Acquired absence of stomach [part of] Plan: 1. continue present nutritional plan of 2 Celebrate Rebuild protein shake (one scoop each in 8oz oatmilk), 2 Celebrate protein bars and one meal (5 forks of protein and 5 forks of salad or vegetables) 2. May replace the 5 forks of salad at dinner time with a rice, pasta or potatoes occasionally 3. May have 2 eggs for dinner in replacement of the meat occasionally 4. Continue to send weight measurements weekly 5. Will do blood work Exercise: is using the stationary bike for 8724-6555 calories per week Orders: Orders Hemoglobin A1c Today K91.2 - Postsurgical malabsorption, not elsewhere classified, Z90.3 - Acquired absence of stomach [part of] Complete Blood Count Auto Diff Today K91.2 - Postsurgical malabsorption, not elsewhere classified, Z90.3 - Acquired absence of stomach [part of] Lipid Panel Today K91.2 - Postsurgical malabsorption, not elsewhere classified, Z90.3 - Acquired absence of stomach [part of] Vitamin B12 and Folate Today K91.2 - Postsurgical malabsorption, not elsewhere classified, Z90.3 - Acquired absence of stomach [part of] C Reactive Protein Today K91.2 - Postsurgical malabsorption, not elsewhere classified, Z90.3 - Acquired absence of stomach [part of] Insulin Today K91.2 - Postsurgical malabsorption, not elsewhere classified, Z90.3 - Acquired absence of stomach [part of] IRON PROFILE Today K91.2 - Postsurgical malabsorption, not elsewhere classified, Z90.3 - Acquired absence of stomach [part of] Comprehensive Met. Panel Today K91.2 - Postsurgical malabsorption, not elsewhere classified, Z90.3 - Acquired absence of stomach [part of] Zinc Today K91.2 - Postsurgical malabsorption, not elsewhere classified, Z90.3 - Acquired absence of stomach [part of] Vitamin B1 Today K91.2 - Postsurgical malabsorption, not elsewhere classified, Z90.3 - Acquired absence of stomach [part of] Vitamin A Today K91.2 - Postsurgical malabsorption, not elsewhere classified, Z90.3 - Acquired absence of stomach [part of] TSH reflex Free T4 Today K91.2 - Postsurgical malabsorption, not elsewhere classified, Z90.3 - Acquired absence of stomach [part of] Ferritin Today K91.2 - Postsurgical malabsorption, not elsewhere classified, Z90.3 - Acquired absence of stomach [part of] Vitamin D 25-OH Total Today K91.2 - Postsurgical malabsorption, not elsewhere classified, Z90.3 - Acquired absence of stomach [part of] Telehealth Telehealth Location of provider rendering services: practice address Location of patient: address on file Patient Identification confirmed using: Name, : Yes Telehealth method: voice only Patient verbally consented to treatment: Yes Patient verbally consented to billing insurance company: Yes Patient informed of any privacy concerns related to visit: Yes Minutes spent on Phone/Video with Pt.: 30 Coding Level of Care Code Tele Est Pt Level 4 (06508) Diagnoses Postgastrectomy malabsorption K91.2; Z90.3 Time Spent (min) 30
[2023-07-25 09:16] VITALS: BMI 29.8
== END 2023-07-25 09:21 | disposition home or self-care (01) ==
LOC: HO.HBS 07:49
PROVIDERS: PCP Internal Medicine; Visit Provider Surgery
DX: K91.2 Postsurgical malabsorption, not elsewhere classified (principal); Z90.3 Acquired absence of stomach [part of]
CPT/HCPCS: 99214

== ENCOUNTER → 2023-07-25 07:49 | Outpatient (BNVA) | payer OTHER, SELFPAY | PROVIDERS: PCP Internal Medicine; Visit Provider Surgery ==

== ENCOUNTER 2023-07-28 08:36 | Outpatient (REF) | payer BC, SELFPAY ==
[2023-07-28 09:05] LABS: MANUAL DIFF FLAG NO
[2023-07-28 09:49] LABS: Basophils Percent Auto 0.3 % (0-2); Eosinophils Absolute Auto 0.1 X10*3/uL (0.0-0.4); Eosinophils Percent Auto 1.6 % (0-4); Hematocrit 40.6 % (37.0-47.0); Hemoglobin 13.8 g/dl (12.0-16.0); Imm Gran Abs Auto 0.01 X10*3/uL (0.00-0.03); Imm Gran Pct Auto 0.3 % (0.0-0.4); Lymphocytes Absolute Auto 1.2 X10*3/uL (1.2-4.9); Lymphocytes Percent Auto 30.1 % (20-40); Mean Corpuscular Hemoglobin 32.6 pg (27.0-33.0); Monocytes Absolute Auto 0.3 X10*3/uL (0.1-1.2); Monocytes Percent Auto 8.8 % (2-11); Neutrophils Absolute Auto 2.3 x10*3/uL (2.0-8.3); Neutrophils Percent Auto 58.9 % (45-73); Platelet Count 210 X10*3/uL (160-400); Red Blood Count 4.23 X10*6/uL (4.20-5.50); Red Cell Distribution Width 13.2 % (11.0-16.0); White Blood Count 3.9 X10*3/uL (4.8-10.8)
[2023-07-28 10:02] LABS: Estimated Average Glucose 94 mg/dL; Hemoglobin A1c % 4.9 % (<6.0)
[2023-07-28 10:52] LABS: Alanine Aminotransferase 13 U/L (0-31); Albumin Level 4.1 g/dL (3.5-5.0); Alkaline Phosphatase 101 U/L (39-117); Anion Gap 13 (12-20); Aspartate Amino Transferase 20 U/L (5-31); Bilirubin Total 0.8 mg/dL (0.0-1.0); Blood Urea Nitrogen 25 mg/dL (9-16); C Reactive Protein 0.28 mg/dL (< or = 0.50); Calcium 9.7 mg/dL (8.4-10.2); Carbon Dioxide 24 mmol/L (22-29); Chloride 107 mmol/L (96-108); Cholesterol 237 mg/dL (<200); Estimated Glomerular Filt Rate > 60; Glucose Random 87 mg/dL (60-115); HDL Cholesterol 50 mg/dL (>40); Iron 98 mcg/dL (30-160); LDL Cholesterol Calculated 171 mg/dL (<100); Percent Iron Saturation 39 % (15-50); Potassium 3.9 mmol/L (3.3-5.1); Sodium 140 mmol/L (135-145); Total Iron Binding Capacity 250 mcg/dL (228-428); Total Protein 7.3 g/dL (6.5-8.0); Triglycerides 82 mg/dL (<150); Unsaturated Iron Binding 152 ug/dL
[2023-07-28 11:01] LABS: Ferritin 150 ng/mL (10-250); TSH reflex Free T4 1.36 uIU/mL (0.32-4.0); Vitamin D 25-OH Total 83.2 ng/mL (>30)
[2023-07-28 11:43] LABS: Insulin 6 uU/mL (2-29)
[2023-07-28 12:30] LABS: Folate 15.4 ng/mL (> or = 4.0); Vitamin B12 1253 pg/mL (200-900)
[2023-07-31 00:33] LABS: Zinc 88 mcg/dL (60-130)
[2023-08-01 06:39] LABS: Vitamin A 44 mcg/dL (38-98)
[2023-08-01 13:43] LABS: Vitamin B1 26 nmol/L (8-30)
== END 2023-07-28 08:37 | disposition home or self-care (01) ==
LOC: HO.LAB 08:36
PROVIDERS: PCP Internal Medicine; Visit Provider Surgery
DX: K91.2 Postsurgical malabsorption, not elsewhere classified (principal); Z90.3 Acquired absence of stomach [part of]
CPT/HCPCS: 36415; 80053; 80061; 82306; 82607; 82728; 82746; 83036; 83525; 83540; 84425; 84443; 84590; 84630; 85025; 86140